=== PATIENT | male | born 1940 | race Caucasian/White ===

== ENCOUNTER 2018-08-07 15:41 | Emergency (ER) | payer MEDICARE, OTHER, SELFPAY ==
[2018-08-07 15:42] VITALS: BP 160/96; PULSE 95; RESP 16; TEMP 36.3; O2SAT 96; BMI 24.3
--- NOTE | 2018-08-07 16:04 | NURSING ---
CALLED [facility] FOR RESULTS OF CAT SCAN DONE AUGUST 04. TALKED TO TERRIE, SHE WILL FAX RESULTS
[2018-08-07] MEDS: Morphine 4 MG/ML Syringe IV (16:24)
[2018-08-07] MEDS: 0.9% Normal Saline 1,000 ML 1000 ML IV (16:24)
[2018-08-07] MEDS: Ondansetron 4 MG/2 ML Vial IV (16:24)
[2018-08-07 16:46] LABS: Absolute Lymphocyte Count 0.85 X10^3/ul (0.83-4.51); Absolute Neutrophil Count 7.7 X10^3/uL (2.0-7.7); Basophil# 0.02 X10^3/uL; Basophil% 0.2 % (0-1); Eosinophil# 0.16 X10^3/uL; Eosinophils% 1.7 % (0-5); Hematocrit 37.4 % (40-54); Hemoglobin 12.6 g/dl (13.0-16.5); Lymphocyte # 0.85 X10^3/ul (4.0); Lymphocyte % 8.8 % (19-41); Mean Corp Hgb Conc 33.7 g/gl (32-36); Mean Corpuscular Hgb 32.5 pg (27.0-32.0); Mean Corpuscular Volume 96.4 fL (80-94); Mean Platelet Vol. 10.7 fl (6.2-12.0); Monocyte# 0.86 X10^3/uL; Monocyte% 8.9 % (0-10); Neutrophil # 7.72 X10^3/uL (2.7-7.7); Neutrophil % 80.1 % (47-70); Platelet Count 202 K/mm3 (150-450); RBC Distribution Width CV 13.1 % (11.6-14.6); RBC Distribution Width SD 45.8 fl (35.1-43.9); Red Blood Count 3.88 M/mm3 (4.6-6.2); White Blood Count 9.6 K/mm3 (4.4-11.0)
[2018-08-07 16:55] LABS: POSITIVE COUNT NO; POSITIVE DIFFERENTIAL NO; POSITIVE MORPHOLOGY NO
[2018-08-07 16:57] LABS: Anion Gap 10 (5-15); BUN 25 mg/dL (7-18); BUN/Creat Ratio 18.9 RATIO (10-20); Chloride 102 mmol/L (98-107); Creatinine, Serum 1.32 mg/dL (0.70-1.30); EST Glomerular Filtration Rate 56 mL/min (>60); Est Glom Filt Rate - Afr Amer 68 mL/min (>60); Estimated Creatinine Clearance 48.39 ml/min; Glucose 117 mg/dL (74-106); Potassium 3.8 mmol/L (3.5-5.1); Sodium Level 139 mmol/L (136-145)
[2018-08-07 17:41] LABS: Bacteria 0 SEEN /hpf (None Seen); Mucous, Urine 0 SEEN /hpf (<or=2+); Squamous Epithelial Cells - UA 0 SEEN /hpf (0-5)
[2018-08-07 17:45] LABS: Color, Urine Yellow (Yellow); Glucose, Dipstick Normal (Normal); Ketone-Dipstick 50 mg/dl (Negative); Leukocyte Esterase-Dipstick 25 /ul (Negative); Nitrite-Dipstick Negative (Negative); Occult Blood-Urine 250 /ul (Negative); Protein-Dipstick 30 mg/dl (Negative); Urine Bilirubin Dipstick Negative (Negative); Urine Clarity Clear (Clear); Urine Urobilinogen 1 mg/dl (Normal)
[2018-08-07 17:54] LABS: White Blood Cells 0-5 SEEN /hpf (0-5)
[2018-08-07 17:55] LABS: Red Blood Cells-Urine 0-5 SEEN /hpf (0-5)
[2018-08-07 19:40] VITALS: BP 164/80; PULSE 88; RESP 16; O2SAT 96
--- NOTE | 2018-08-07 19:51 | ED.RN ---
EDGARD WITH [facility] TRANSFER LINE WAITING TO HERE BACK FROM OUR DOCTOR
--- NOTE | 2018-08-07 19:52 | ED.VISSUMM ---
- ER Visit Summary Date of Service: 08/07/18 Chief Complaint: Flank pain History of Present Illness: The patient is a 78 M with left-sided flank pain. This has been going on for 6 days. He was seen in an outside hospital, [place]. He was found to have a 3 to 4 mm obstructing calculus at the left UVJ with mild hydronephrosis and hydroureter. He also had possible stranding and a possible forniceal rupture. He was treated with oxycodone and Flomax and referred to outpatient follow-up with urology. He presents today because he had recurrent and severe pain. No other associated symptoms. Physical Examination: Afebrile and vital signs are unremarkable. Patient has left flank and left CVA tenderness to palpation. Heart regular. Lungs clear. Skin appears normal. Test Results: White count 12.6. Glucose 117, BUN 25, creatinine 1.32. Urinalysis showed 25 leukocyte esterase, 250 blood, 0-5 white cells and 0-5 red cells. Emergency Department Course and Treatment: Patient was treated with fluids, morphine, and Zofran while awaiting results. I discussed his imaging results with Dr. Melton who informed me that she does not admit or care for male urology patients. Our other urologist is not on-call today. I did not find any indication to repeat the imaging. On reevaluation, patient was still having some pain and did not feel comfortable going home. He would like to be admitted to the hospital for pain control. I advised him that we do not have a urologist balloon artist today, and he requested [facility]. We are awaiting transfer. We waited over an hour to hear back from [place]. Her census was full and they said we could be waiting until tomorrow for a bed. Patient was notified. He said he did not want to wait that long. He declined transfer to other facilities. He is feeling better and would like to try to go home. He will continue his home medications. Referred to Dr. Montejo. Call tomorrow for follow-up. If he is unavailable, he has a follow-up appointment for Sunday with a urologist in the [facility]. If he cannot make it until Sunday, he was advised to return to the nearest ER for reevaluation and possible admission or transfer for inpatient care. Treatment Plan: As above Disposition: Discharge Impression: 1. Left ureteral colic This note was generated with [employer] dictation software. It may contain incorrect words, spelling, and punctuation that were not noted in review of the chart prior to signing ED Disposition - Plan for ED Patient: Referrals: Sheree Santiago DO [Primary Care Provider] -
--- NOTE | 2018-08-07 19:58 | ED.DCSUM_ITS ---
- ER Visit Summary Date of Service: 08/07/18 Chief Complaint: Flank pain History of Present Illness: The patient is a 78 M with left-sided flank pain. This has been going on for 6 days. He was seen in an outside hospital, [place]. He was found to have a 3 to 4 mm obstructing calculus at the left UVJ with mild hydronephrosis and hydroureter. He also had possible stranding and a possible forniceal rupture. He was treated with oxycodone and Flomax and referred to outpatient follow-up with urology. He presents today because he had recurrent and severe pain. No other associated symptoms. Physical Examination: Afebrile and vital signs are unremarkable. Patient has left flank and left CVA tenderness to palpation. Heart regular. Lungs clear. Skin appears normal. Test Results: White count 12.6. Glucose 117, BUN 25, creatinine 1.32. Urinalysis showed 25 leukocyte esterase, 250 blood, 0-5 white cells and 0-5 red cells. Emergency Department Course and Treatment: Patient was treated with fluids, morphine, and Zofran while awaiting results. I discussed his imaging results with Dr. Melton who informed me that she does not admit or care for male urology patients. Our other urologist is not on-call today. I did not find any indication to repeat the imaging. On reevaluation, patient was still having some pain and did not feel comfortable going home. He would like to be admitted to the hospital for pain control. I advised him that we do not have a urologist gas station manager today, and he requested [facility]. We are awaiting transfer. We waited over an hour to hear back from [place]. Her census was full and they said we could be waiting until tomorrow for a bed. Patient was notified. He said he did not want to wait that long. He declined transfer to other facilities. He is feeling better and would like to try to go home. He will continue his home medications. Referred to Dr. Montejo. Call tomorrow for follow-up. If he is unavailable, he has a follow-up appointment for Sunday with a urologist in the [facility]. If he cannot make it until Sunday, he was advised to return to the nearest ER for reevaluation and possible admission or transfer for inpatient care. Treatment Plan: As above Disposition: Discharge Impression: 1. Left ureteral colic This note was generated with [employer] dictation software. It may contain incorrect words, spelling, and punctuation that were not noted in review of the chart prior to signing ED Disposition - Plan for ED Patient: Referrals: Sheree Santiago DO [Primary Care Provider] -
--- NOTE | 2018-08-07 20:31 | ED.DEP ---
ED Disposition - Plan for ED Patient: Instructions: ED Stone Renal W Colic Referrals: Sheree Santiago DO [Primary Care Provider] - Nj Montejo MD [STAFF PHYSICIAN] -
[2018-08-07 20:41] VITALS: RESP 16
--- NOTE | 2018-08-07 20:42 | ED.RN ---
REVIEWED D/C INSTRUCTIONS, FOLLOW UP CARE, AND S/S THAT WOULD WARRANT A RETURN TO THE ED WITH PT. PT VERBALIZED AN UNDERSTANDING AND DENIES FURTHER QUESTIONS FOR THIS RN. PT SKIN P/W/D, RESP EVEN AND UNLABORED, PT A&O X 3, NO DISTRESS NOTED. PT AMBULATED OUT OF ED, GAIT STEADY.
== END 2018-08-07 20:43 | disposition home or self-care (01) ==
LOC: ED 16:39
PROVIDERS: Emergency Provider Emergency Medicine; Family Provider Family Medicine; PCP Family Medicine
DX: N13.2 Hydronephrosis with renal and ureteral calculous obstruction (principal); Z87.442 Personal history of urinary calculi
CPT/HCPCS: 80048; 81001; 85025; 96361; 96374; 96375; 99283; J7030; A4216; J2405

== ENCOUNTER 2018-08-14 11:44 | Day surgery (SDC) | payer MEDICARE, OTHER, SELFPAY ==
[2018-08-14 12:11] VITALS: BP 156/82; PULSE 68; RESP 16; TEMP 36.4; O2SAT 100; BMI 23.7
--- NOTE | 2018-08-14 13:55 | CALC_PTH ---
PATIENT: BRAVO LEE Jr. LOC: [facility] U#:[id number] AGE/SX: 78/M ROOM: RE08/14/[address]: Dr. Nj Montejo MD : [id number] BED: DIS: 08/14/2018 SPEC #: [id number] RECD: 08/14/18 15:30 STATUS: ADELINA FELIPA #: [id number] MIGEL: 08/14/18 13:[address]: Nj Montejo DEPT: SURGICAL PATHOLOGY RECD BY: Lefty Garrison ENTERED: 08/15/18 11:00 SP TYPE: Calculi OTHR DR: Dr. Sheree Whatley, DO Tissues: CALCULI Procedures: Surgery Specimen Level I HEADER OPERATION: Cystoscopy, left ureteroscopy, left retrograde PRE-OP DIAGNOSIS: Left ureteral calculus TISSUE SUBMITTED: Left ureteral calculus fragment GROSS DIAGNOSIS Fragments of stone, clinically left ureteral calculus fragments (gross only). SJ:kianna 08/15/18 COMMENT If chemical analysis is requested on this specimen, please notify the laboratory. GROSS DESCRIPTION Received is one container labeled with the patient's name and designated left ureteral calculus fragment. The specimen consists of two fragments of brown irregular stones measuring 0.1 and 0.3 x 0.3 x 0.2 cm. The entire specimen is saved in case chemical analysis is requested. / FRANCESCO:kianna 08/15/18 CPT: 99442
[2018-08-14] MEDS: Ketorolac 15 MG/ML Vial IV (14:15)
--- NOTE | 2018-08-14 14:15 | DCINST_ITS ---
Discharge Diet: Light diet - advance as tolerated Discharge Activity: Return to Normal Activity Allergies/Adverse Reactions: Allergies ciprofloxacin [From Cipro] Allergy (Verified 08/13/18 08:03) Hives Medications to take at Discharge Multivitamin with Minerals [Multiple Vitamin] 1 each PO DAILY 08/07/18 [place]-3 Fatty Acids/Fish Oil [Fish Oil 1,000 mg Capsule] 1 each PO DAILY 08/07/18 Simvastatin 20 mg PO QHS 08/07/18 Aspirin [Adult Low Dose Aspirin EC] 81 mg PO DAILY 08/13/18 Oxycodone HCl/Acetaminophen [Oxycodone-Acetaminophen 5-325] 1 each PO Q6H PRN PRN 08/13/18 Pyridoxine HCl (Vitamin B6) [Vitamin B-6] 100 mg PO DAILY 08/13/18 Acetaminophen [Tylenol Extra Strength] 500 mg PO Q4H PRN PRN #20 tab 08/14/18 Cephalexin [Keflex] 500 mg PO Q8 #15 cap 08/14/18 Ibuprofen 600 mg PO Q6H PRN PRN #20 tab 08/14/18 Phenazopyridine [Pyridium] 100 mg PO TID #15 tab 08/14/18 The following prescriptions were given: Acetaminophen [Tylenol Extra Strength] 500 mg PO Q4H PRN PRN #20 tab PRN Reason: Pain Ibuprofen 600 mg PO Q6H PRN PRN #20 tab PRN Reason: Pain Cephalexin [Keflex] 500 mg PO Q8 #15 cap Phenazopyridine [Pyridium] 100 mg PO TID #15 tab Primary Care Physician: Sheree Santiago DO [Primary Care Provider] - Test Results: Test results from this visit will be discussed in further detail at your follow- up appointment, if applicable. Please Follow Up With: Nj Montejo MD When: please call to make an appointment.
[2018-08-14] MEDS: Cefazolin 2 GM in 0.9% Normal Saline 100 ML IV (14:19)
--- NOTE | 2018-08-14 14:52 | PCM.OPRPT ---
Report of Operation Date of Procedure: 08/14/18 Pre-Operative Diagnosis: Left ureteral calculi Post-Operative Diagnosis: The same Surgery/Procedure Performed:: cystoscopy, left retrograde pyelogram and interpretation of fluoroscopic images, balloon dilation of the left ureter, left ureteroscopy and extraction of stone and stent placement. Description of Surgical Findings:: 78-year-old male presented the office with an obstructing stone in the distal ureter that failed to pass it spontaneously been having pain off and on therefore we talked about the options of management including observation or removal of the stone with endoscopic procedure. Patient was taken back to the operating room and smooth induction of general anesthesia he was placed in dorsolithotomy position. The penis and testicles are prepped and draped in usual sterile fashion. Went into the bladder with a 21 Korean rigid cystourethroscope. 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 I found that the ureteral orifice was extremely inflamed and he could see the stone peeping out the orifice I put a wire up next to the stone I balloon dilated the ureter and then went away ureteroscope and then using ureteroscope was able to extract the stone did not have these a basket, after extracting the stone from the ureter then it went up to the kidney performed a retrograde pyelogram inspected the upper pole midpole lower pole the kidney no other stones were seen worked my way down the ureter lots of inflammation in the distal part of the ureter but no other stone fragments were visualized. I put a wire up in the left side of the kidney and over the wire place a stent and left the string of the stent for easy extraction a few weeks patient bladder was drained anesthetic was reversed plan to see him next week to get the stent out. Type of Anesthesia:: General Drains: stent left side. - Admit VTE Documentation VTE Present on Admission: No VTE Mechan Device Prophylaxis: SCD's
[2018-08-14 15:02] VITALS: BP 108/68; BP 156/82; PULSE 56; RESP 16; TEMP 36.4; O2SAT 93
[2018-08-14 15:15] VITALS: BP 121/67; BP 156/82; PULSE 56; RESP 16; O2SAT 98
[2018-08-14 15:31] VITALS: BP 134/90; BP 156/82; PULSE 57; RESP 16; TEMP 36.1; O2SAT 98
[2018-08-14 16:40] VITALS: BP 156/82; BP 178/74; PULSE 52; RESP 16; TEMP 36.1; O2SAT 98
[2018-08-14 17:16] VITALS: BP 156/82; BP 178/74; PULSE 52; RESP 16; TEMP 36.1; O2SAT 98
== END 2018-08-14 17:21 | disposition home or self-care (01) ==
LOC: SDC 11:46 → AC 11:50
PROVIDERS: Family Provider Family Medicine; PCP Family Medicine; Referring Provider Urology; Visit Provider Urology
PROC: 0TJ98ZZ Inspection of Ureter, Via Natural or Artificial Opening Endoscopic (ICD-10-PCS; CPT 52352; principal; 2018-08-14 13:45)
DX: N13.2 Hydronephrosis with renal and ureteral calculous obstruction (principal); E78.01 Familial hypercholesterolemia; Z79.82 Long term (current) use of aspirin; Z79.899 Other long term (current) drug therapy; Z87.891 Personal history of nicotine dependence
CPT/HCPCS: 00910; 52332; 52344; 52352; 76000; 88300; J7120; C1769; C2617; J2405

== ENCOUNTER → 2018-10-04 10:39 | Outpatient (CLI) | payer MEDICARE, OTHER, SELFPAY ==
[2018-10-04 12:23] LABS: Absolute Neutrophil Count 17.7 X10^3/uL (2.0-7.7); Basophil# 0.07 X10^3/uL; Basophil% 0.4 % (0-1); Eosinophil# 0.04 X10^3/uL; Eosinophils% 0.2 % (0-5); Hematocrit 37.5 % (40-54); Hemoglobin 12.1 g/dL (13.0-16.5); Lymphocyte % 4.5 % (19-41); Mean Corp Hgb Conc 32.3 g/dL (32-36); Mean Corpuscular Hgb 32.3 pg (27.0-32.0); Mean Platelet Vol. 10.6 fl (6.2-12.0); Monocyte% 4.5 % (0-10); NRBC Flagged by Analyzer 0 % (0-5); Neutrophil # 17.67 X10^3/uL (2.7-7.7); Neutrophil % 88.4 % (47-70); Platelet Count 367 K/mm3 (150-450); RBC Distribution Width SD 51.3 fl (35.1-43.9); Red Blood Count 3.75 M/mm3 (4.6-6.2)
[2018-10-04 12:36] LABS: ALB/GLOB Ratio 0.5 RATIO (0.9-2.4); AST(SGOT) 61 U/L (15-37); Alanine Aminotransfer ALT/SGPT 94 U/L (16-61); Albumin, Serum 2.7 g/dL (3.2-5.0); Alkaline Phosphatase 125 U/L (45-117); Anion Gap 5 (5-15); BUN 19 mg/dL (7-18); BUN/Creat Ratio 13.4 RATIO (10-20); Chloride 97 mmol/L (98-107); Creatinine, Serum 1.42 mg/dL (0.70-1.30); EST Glomerular Filtration Rate 51 mL/min (>60); Est Glom Filt Rate - Afr Amer 62 mL/min (>60); Globulin 5.8 g/dL (2.2-4.2); Glucose 121 mg/dL (74-106); Potassium 4.2 mmol/L (3.5-5.1); Protein, Total 8.5 g/dL (6.4-8.2); Sodium Level 130 mmol/L (136-145); Thyroid Stim Hormone (TSH) 2.14 uIU/mL (0.358-3.74)
== END ==
PROVIDERS: Family Provider Family Medicine; PCP Family Medicine; Visit Provider Family Medicine Geriatric Medicine
DX: R53.83 Other fatigue (principal)
CPT/HCPCS: 36415; 80053; 84443; 85025

== ENCOUNTER → 2018-10-10 07:28 | Outpatient (CLI) | payer MEDICARE, OTHER, SELFPAY ==
--- NOTE | 2018-10-10 07:30 | US_ITS ---
PROCEDURES: ULTRASOUND AORTA REASON FOR EXAM: Male, 78 years old. Screening TECHNIQUE: Ultrasound evaluation of the aorta was performed with real-time and static solis-scale imaging. COMPARISON: None. FINDINGS: There is no elongation or tortuosity of the abdominal aorta. Aorta measures: Proximal 1.9 cm. Middle 1.3 cm. Distal 1.5 cm. Aorta measure transversely: Proximal 2.1 cm. Middle 1.7 cm. Distal 1.9 cm. Right iliac artery measures: 0.9 cm. Right iliac artery measure transversely: 1.2 cm. Left iliac artery measures: 0.9 cm. Left iliac artery measure transversely: 1.2 cm. There is no demonstrated aneurysm.. US/Aorta IMPRESSION: No sonographic evidence of AAA or dissection Electronically Signed: Morgan Olvera MD at 16:48 EDT , Service support ,
== END ==
PROVIDERS: Family Provider Family Medicine; PCP Family Medicine; Referring Provider Family Medicine Geriatric Medicine; Visit Provider Family Medicine Geriatric Medicine
DX: I71.4 Abdominal aortic aneurysm, without rupture (principal)
CPT/HCPCS: 76775

== ENCOUNTER → 2018-10-10 09:28 | Outpatient (CLI) | payer MEDICARE, OTHER, SELFPAY ==
--- NOTE | 2018-10-10 09:42 | US_ITS ---
STUDY: ABDOMINAL ULTRASOUND - RIGHT UPPER QUADRANT REASON FOR VISIT: Male, 78 years old. Right upper quadrant pain, hiccups TECHNIQUE: Ultrasound evaluation of the right upper quadrant was performed with real-time and static solis-scale imaging. TECHNICAL QUALITY: Limited. Examination limited by bowel gas. COMPARISON: None. FINDINGS: Liver: The liver measures 16.75 cm. There is increased echogenicity consistent with fatty infiltration. The bile ducts are within normal limits. There is hepatic color flow. The direction of portal flow is hepatopetal. There is no demonstrated mass lesion. Gallbladder: Normal distended gallbladder. The gallbladder wall measures 1.9 mm. There is a negative sonographic Collier's sign. There is no pericholecystic fluid. There are no gallstones. Common Bile Duct (C.B.D.): The common bile duct measures 3.7 mm. Pancreas: Visualized pancreas is sonographically normal Right Kidney: Normal size of the right kidney. The right kidney measures 13.8 x 5.7 x 4.9 cm. Normal renal cortex. The right cortex measures 1.7 cm. 8.1 cm renal cyst. There is no right hydronephrosis. US/Abdomen Limited IMPRESSION: Fatty infiltration of liver, no discrete lesion 8.1 cm right renal cyst Electronically Signed: Morgan Olvera MD at 18:09 EDT , Service support ,
--- NOTE | 2018-10-10 09:43 | RAD_ITS ---
STUDY: X-RAY CHEST REASON FOR EXAM: Male, 78 years old. Wheezing x2 days TECHNIQUE: PA and lateral views of the chest. COMPARISON: None. FINDINGS: There are interstitial fibrotic changes of the lungs. There is no demonstrated pleural abnormality. Normal size heart. Normal mediastinum and fred. Normal visualized pulmonary arteries. Normal visualized aortic arch and descending thoracic aorta. Normal visualized thoracic spine. Normal visualized ribs, clavicles, and shoulders. There is no demonstrated abnormality of the visualized soft tissue structures of the upper abdomen. RAD/Chest PA and Lateral IMPRESSION: Chronic interstitial changes, no superimposed acute pulmonary process Electronically Signed: Morgan Olvera MD at 18:11 EDT , Service support ,
--- NOTE | 2018-10-10 09:43 | RAD_ITS ---
STUDY: X-RAY - ABDOMEN/PELVIS REASON FOR EXAM: Male, 78 years old. Flank pain TECHNIQUE: AP supine and upright views of the abdomen and pelvis. COMPARISON: None. FINDINGS: Normal visualized lung bases. There is an unremarkable bowel gas pattern. There is no demonstrated free abdominal air. The visualized liver, spleen and kidneys are grossly normal in size and morphology. Normal soft tissue structures. Degenerative bony changes. RAD/Abdomen Single View IMPRESSION: No demonstrated calcification overlying either renal shadow, or along the expected course of either ureter. However, one could be obscured by the overlying bowel gas and stool Degenerative bony changes Electronically Signed: Morgan Olvera MD at 18:07 EDT , Service support ,
[2018-10-10 12:55] LABS: ALB/GLOB Ratio 0.5 RATIO (0.9-2.4); AST(SGOT) 72 U/L (15-37); Alanine Aminotransfer ALT/SGPT 150 U/L (16-61); Albumin, Serum 2.7 g/dL (3.2-5.0); Alkaline Phosphatase 99 U/L (45-117); Anion Gap 7 (5-15); BUN 31 mg/dL (7-18); BUN/Creat Ratio 27.9 RATIO (10-20); Calcium,Total 10.2 mg/dL (8.5-10.1); Chloride 98 mmol/L (98-107); Creatinine, Serum 1.11 mg/dL (0.70-1.30); EST Glomerular Filtration Rate 68 mL/min (>60); Est Glom Filt Rate - Afr Amer 83 mL/min (>60); Globulin 5.7 g/dL (2.2-4.2); Glucose 132 mg/dL (74-106); Potassium 4.5 mmol/L (3.5-5.1); Protein, Total 8.4 g/dL (6.4-8.2); Sodium Level 133 mmol/L (136-145)
[2018-10-11 04:06] LABS: HEPATITIS B SURFACE AG Negative (Negative); Hepatitis A AB, Total Negative (Negative); Hepatitis A IgM Antibody Negative (Negative); Hepatitis B Core AB IgM Negative (Negative); Hepatitis B Core Ab Total Negative (Negative); Hepatitis C Ab <0.1 s/co ratio (0.0-0.9)
[2018-10-11 15:38] LABS: Hep B Surface Antibodies Reactive (.)
== END ==
PROVIDERS: Family Provider Family Medicine; PCP Family Medicine; Visit Provider Family Medicine Geriatric Medicine
DX: R74.8 Abnormal levels of other serum enzymes (principal); R94.5 Abnormal results of liver function studies; I71.4 Abdominal aortic aneurysm, without rupture
CPT/HCPCS: 36415; 71046; 74018; 76705; 76775; 80053; 86704; 86705; 86706; 86708; 86709; 86803; 87340

== ENCOUNTER 2018-10-13 10:57 | Emergency (ER) | payer MEDICARE, OTHER, SELFPAY ==
[2018-10-13 10:58] VITALS: BP 128/80; PULSE 103; RESP 18; TEMP 36.2; O2SAT 96; BMI 21.9
[2018-10-13] MEDS: Pantoprazole Sodium 40 MG Tablet PO (11:36)
--- NOTE | 2018-10-13 13:20 | ED.DCSUM_ITS ---
History of Present Illness Informant: Patient, Significant Other Onset: Days - 5 days Context: Gradual Onset Timing: Continuous Quality: hiccup Location: stomach/chest Current Severity: Moderate Maximum Severity: Moderate Worsened by: nothing Relieved by: nothing Associated Symptoms: denies Prior similar symptoms: Yes Recent Illness/Hospitalization: No <SalimaruiMartin - Last Filed: 10/13/18 13:52> <Rakel Olivarez - Last Filed: 10/13/18 15:08> Chief Complaint: Shortness of Breath Past Medical History Smoking Status: Former smoker <SalimaruiMartin - Last Filed: 10/13/18 13:52> <Rakel Olivarez - Last Filed: 10/13/18 15:08> - Allergies and Home Meds Allergies/Adverse Reactions: Allergies ciprofloxacin [From Cipro] Allergy (Verified 10/13/18 10:58) Hives Primary Care Physician: Colin Castillo Chi, MD [Primary Care Provider] - Physical Exam Vital Signs/Narrative: Vital Signs Temp Pulse Resp BP Pulse Ox 10/13/18 10:58 97.1 F L 103 H 18 128/80 H 96 <IsraelMartin - Last Filed: 10/13/18 13:52> Vital Signs/Narrative: Vital Signs Pulse Resp BP Pulse Ox 10/13/18 13:28 68 15 125/74 H 98 <Rakel Olivarez - Last Filed: 10/13/18 15:08> Diagnostic/Tx/Re-eval - Medical Decision Making Viewed patient's chest and abdominal x-rays from 2 days ago that were unremarkable. Do not feel repeat imaging is indicated. Patient was given an oral Protonix which significantly improved his symptoms. He is breathing normally, tolerating by mouth, has no hiccups at this time and feels much better. He is requesting discharge. We will start him on Protonix. Advise close outpatient follow-up with his primary care physician in the next 2 to 3 days or he is to return to the emergency department. <SalimaruiMartin - Last Filed: 10/13/18 13:52> - Medical Decision Making Patient presents with a 5-day history of hiccups. He has been seen by his PCP. He had x-rays that were unremarkable. He was started on Haldol by his PCP with no improvement. Patient sitting upright in bed no acute distress. Heart is regular rate and r hythm. Lung sounds are clear. Abdomen is soft nontender. Patient had been given a dose of Protonix before my evaluation. At this time hiccups are resolved. He will be given prescription for Protonix. He will follow with his primary care physician. <Rakel Olivarez - Last Filed: 10/13/18 15:08> ED Disposition <Martin Wood - Last Filed: 10/13/18 13:52> <Rakel Olivarez - Last Filed: 10/13/18 15:08> - Plan for ED Patient: Disposition: Home or Assisted Living Diagnosis: Hiccups Instructions: Hiccups Prescriptions: Pantoprazole Sodium [Protonix] 40 mg PO DAILY #30 tab Prescription Printed Referrals: Colin Castillo Chi, MD [Primary Care Provider] -
[2018-10-13 13:28] VITALS: BP 125/74; PULSE 68; RESP 15; O2SAT 98
== END 2018-10-13 13:30 | disposition home or self-care (01) ==
PROVIDERS: Emergency Provider Physician Assistant Medical; Family Provider Family Medicine Geriatric Medicine; PCP Family Medicine Geriatric Medicine
DX: R06.6 Hiccough (principal); Z87.891 Personal history of nicotine dependence
CPT/HCPCS: 99283

== ENCOUNTER 2018-10-14 11:20 | Inpatient (IN) | payer MEDICARE, OTHER, SELFPAY ==
[2018-10-13 10:58] VITALS: BMI 21.9
[2018-10-14] VITALS (29 sets, daily range): BP systolic 57–116; BP diastolic 39–84; PULSE 103–120; RESP 12–32; TEMP 35.1–36.4; O2SAT 87–93; BMI 22.6; BMI 21.9
--- NOTE | 2018-10-14 11:53 | RAD_ITS ---
STUDY: X-RAY CHEST REASON FOR EXAM: Male, 78 years old. Shortness of breath. TECHNIQUE: Single AP portable view of the chest. COMPARISON: Comparison is made with prior study dated October 10, 2018. FINDINGS: EKG electrode are seen. There now is evidence of increased markings in the posterior medial segment of the left lower lobe suggestive of atelectasis and/or infiltrate. The right lung is clear. There is no demonstrated pleural abnormality. Normal size heart. Normal mediastinum and fred. Normal visualized pulmonary arteries. There is atherosclerotic calcification of the aortic arch with tortuosity. There are diffuse degenerative changes of the visualized thoracic spine. Normal visualized ribs, clavicles, and shoulders. There is no demonstrated abnormality of the visualized soft tissue structures of the upper abdomen. RAD/Chest 1 View (Portable) IMPRESSION: Increased markings at the left lung base suggestive of atelectasis and/or early infiltrate. Follow-up is recommended. Electronically Signed: Jimmy Galarza, at 12:38 EDT , Service support ,
--- NOTE | 2018-10-14 11:53 | EKG12_ITS ---
Test Reason : AIRWAY Blood Pressure : / mmHG Vent. Rate : 109 BPM Atrial Rate : 109 BPM P-R Int : 140 ms QRS Dur : 080 ms QT Int : 342 ms P-R-T Axes : 066 044 073 degrees QTc Int : 460 ms Sinus tachycardia Possible Left atrial enlargement Borderline ECG Confirmed by JAMIE BOUDREAUX, VINCE ([id number]), restaurant expeditor BRANDON COVARRUBIAS ([id number]) on 10/16/2018 8:54:50 AM Referred By: Confirmed By:VINCE AYALA MD
--- NOTE | 2018-10-14 11:58 | NURSING ---
NO OLD EKGS
[2018-10-14 12:08] LABS: Absolute Lymphocyte Count 0.94 X10^3/uL (0.83-4.51); Basophil# 0.08 X10^3/uL; Basophil% 0.4 % (0-1); Eosinophil# 0.03 X10^3/uL; Eosinophils% 0.2 % (0-5); Hematocrit 46.5 % (40-54); Hemoglobin 15.7 g/dL (13.0-16.5); Lymphocyte # 0.94 X10^3/ul (4.0); Mean Corp Hgb Conc 33.8 g/dL (32-36); Mean Corpuscular Hgb 32.2 pg (27.0-32.0); Mean Corpuscular Volume 95.3 fL (80-94); Mean Platelet Vol. 10.8 fl (6.2-12.0); Monocyte# 0.56 X10^3/uL; NRBC Flagged by Analyzer 0 % (0-5); Neutrophil % 90.4 % (47-70); Platelet Count 367 K/mm3 (150-450); RBC Distribution Width CV 13.3 % (11.6-14.6); RBC Distribution Width SD 46.7 fl (35.1-43.9); Red Blood Count 4.88 M/mm3 (4.6-6.2); White Blood Count 18.8 K/mm3 (4.4-11.0)
[2018-10-14 12:15] LABS: International Normalized Ratio 1.2; Partial Thromboplast Time 26.5 Seconds (24.1-36.2); Prothrombin Time (Protime)PT. 15.1 SECONDS (11.7-14.9)
[2018-10-14 12:22] LABS: AST(SGOT) 21 U/L (15-37); Alanine Aminotransfer ALT/SGPT 99 U/L (16-61); Albumin, Serum 2.9 g/dL (3.2-5.0); Alkaline Phosphatase 82 U/L (45-117); Anion Gap 12 (5-15); BUN 60 mg/dL (7-18); BUN/Creat Ratio 31.7 RATIO (10-20); Bilirubin, Direct 0.35 mg/dL (0.00-0.30); Calcium,Total 8.9 mg/dL (8.5-10.1); Chloride 91 mmol/L (98-107); Creatinine, Serum 1.89 mg/dL (0.70-1.30); EST Glomerular Filtration Rate 37 mL/min (>60); Est Glom Filt Rate - Afr Amer 45 mL/min (>60); Estimated Creatinine Clearance 33.15 ml/min; Globulin 4.5 g/dL (2.2-4.2); Glucose 235 mg/dL (74-106); Lipase 479 U/L (73-393); Potassium 4.5 mmol/L (3.5-5.1); Protein, Total 7.4 g/dL (6.4-8.2); Sodium Level 130 mmol/L (136-145)
--- NOTE | 2018-10-14 12:27 | CT_ITS ---
STUDY: CT ABDOMEN AND PELVIS WITHOUT CONTRAST REASON FOR EXAM: Male, 78 years old. Vomiting bile. Elevated white count. Dysphagia. Abdominal pain. RADIATION DOSAGE (If Supplied By Facility): CTDIvol = ( 17.38 ) mGy, DLP = ( 2016.57 ) mGycm TECHNIQUE: Transaxial images were obtained from the dome of the diaphragm to the symphysis pubis without oral contrast, and without intravenous contrast. Sagittal and coronal images were reconstructed. Individualized dose optimization techniques were used for this CT. COMPARISON: None. FINDINGS: Patchy alveolar disease in both lower lobes. This is worse at the left lung base. Follow-up is recommended. Coronary artery calcification. Normal liver. Normal gallbladder and extrahepatic biliary system. Normal spleen. Normal pancreas. Normal bilateral adrenal glands. There is a 7.1 cm x 6 cm cyst in the upper pole of the right kidney. Normal left kidney. Fluid distention of the distal esophagus. Fluid distention of the stomach. There are dilated loops of the small intestine with a non-distended colon consistent with a small bowel obstruction. The transition point appears to be in the distal ileum. There are multiple colonic diverticula consistent with diverticulosis. The appendix is visualized and appears normal. There is diffuse atherosclerotic calcification of the abdominal aorta, without a demonstrated aneurysm. Normal inferior vena cava. Normal retroperitoneum. Normal urinary bladder. Normal abdominal wall. There are diffuse degenerative changes of the visualized lumbar spine. Loss of the normal lumbar lordosis. CT/Abdomen/Pelvis W IV Cont ONLY IMPRESSION: Small bowel obstruction with the transition point in the distal ileum. Fluid distention of the stomach and the distal esophagus. Patchy alveolar disease in both lower lobes. Radiographic follow-up is recommended. Electronically Signed: Jimmy Galarza, at 15:04 EDT , Service support ,
--- NOTE | 2018-10-14 12:27 | CT_ITS ---
STUDY: CT CHEST WITH CONTRAST REASON FOR EXAM: Male, 78 years old. Vomiting. Elevated white cell count. RADIATION DOSAGE (If Supplied By Facility): CTDIvol = ( 17.38 ) mGy, DLP = ( 2016.57 ) mGycm TECHNIQUE: Transaxial imaging was performed following intravenous administration of 100 IV Isovue 300. Individualized dose optimization techniques were used for this CT. COMPARISON: None. FINDINGS: Patchy airspace disease at the lung bases worse on the left side. Bibasilar bronchiectasis worse on the left side with dilatation and fluid-filled intermediate stem bronchus on the left side. Aspiration should be ruled out. There is no demonstrated pleural abnormality. Normal heart and pericardium. There are multiple small lymph nodes within the mediastinum, which are normal in size and morphology most compatible with reactive lymph hyperplasia. Normal hilar regions. Normal enhanced pulmonary arteries. Normal aorta arch and descending thoracic aorta. There are multi-level degenerative changes of the thoracic spine. Fluid distended esophagus and fluid distention of the stomach. 6.1 cm x 5.6 cm cyst in the upper pole of the right kidney. 1.1 cm nodular density in the left adrenal gland. CT/Chest WITH Contrast IMPRESSION: Airspace disease in both lower lobes with peribronchial dilatation and the fluid within the bronchial tree in the lower lobes worse on the left lung base. Aspiration should be ruled out. Fluid distention of the esophagus and visualized portion of the stomach. 1.1 cm left adrenal nodule as well as a 5.6 cm x 6.1 cm cyst in the upper pole of the right kidney. CT scan of the abdomen demonstrated small bowel obstruction. Electronically Signed: Jimmy Galarza, at 15:11 EDT , Service support ,
--- NOTE | 2018-10-14 12:27 | CT_ITS ---
STUDY: CT SOFT TISSUE NECK WITH CONTRAST REASON FOR EXAM: Male, 78 years old. Elevated white count. Dysphagia. Vomiting. RADIATION DOSAGE (If Supplied By Facility): CTDIvol = ( 17.38 ) mGy, DLP = ( 2016.57 ) mGycm TECHNIQUE: The patient was scanned in a multi-detector CT scanner. High resolution transaxial imaging was performed following intravenous administration of 100 IV Isovue 300. Sagittal and coronal images were reconstructed. Individualized dose optimization techniques were used for this CT. COMPARISON: None. FINDINGS: Fluid distention of the esophagus. Findings just above the scarring at the lung apices. Normal bilateral parotid glands. Normal bilateral film writer spaces. Normal bilateral parapharyngeal spaces. Normal bilateral carotid spaces. Normal bilateral sublingual and submandibular glands and spaces. Normal visualized nasopharynx. Normal retropharyngeal space. Normal perivertebral space. Normal visualized bilateral faucial tonsils. The visualized tongue, tongue base and oropharynx are normal. The visualized cervical lymph nodes (levels I-) are within normal size limits, and maintain normal morphology. There is no demonstrated solid or cystic mass lesion. There is no abnormal contrast enhancement. Normal epiglottis, bilateral vallecula and hypopharynx. The pre-epiglottic and paraglottic adipose spaces are normal. Normal visualized bilateral piriform sinuses, aryepiglottic folds, vocal cords, and arytenoid-cricoid articulations. Normal subglottic trachea. Normal bilateral lobes of the thyroid gland. Normal visualized pulmonary apices. Normal visualized paranasal sinuses. There is multilevel degenerative changes of the cervical spine. CT/Soft Tissue Neck WITH Contrast IMPRESSION: Fluid distention of the esophagus. Electronically Signed: Jimmy Galarza, at 15:27 EDT , Service support ,
[2018-10-14 12:55] LABS: Lactic Acid 3.2 mmol/L (0.4-2.0)
[2018-10-14] MEDS: 0.9% Normal Saline 1,000 ML 999 ML IV (13:02)
--- NOTE | 2018-10-14 13:34 | RAD_ITS ---
STUDY: X-RAY - ABDOMEN/PELVIS REASON FOR EXAM: Male, 78 years old. Nasogastric tube placement. TECHNIQUE: Single AP view of the abdomen / pelvis. COMPARISON: None. FINDINGS: The tip of the nasogastric tube is coiled in the distal esophagus. Patchy bibasilar infiltrates more prominent at the left lung base. RAD/Abdomen Single View (Portable) IMPRESSION: The tip of the nasogastric tube is coiled in the distal esophagus. Electronically Signed: Jimmy Galarza, at 15:28 EDT , Service support ,
--- NOTE | 2018-10-14 15:00 | RAD_ITS ---
STUDY: X-RAY - ABDOMEN/PELVIS REASON FOR EXAM: Male, 78 years old. Nasogastric tube placement. TECHNIQUE: Single AP view of the abdomen / pelvis. COMPARISON: Comparison is made with prior examination. FINDINGS: The tip of the nasogastric tube is coiled in the distal esophagus. RAD/Abdomen Single View (Portable) IMPRESSION: The tip of the nasogastric tube is coiled in the distal esophagus. Electronically Signed: Jimmy Galarza, at 15:30 EDT , Service support ,
--- NOTE | 2018-10-14 15:31 | HP.PCM_ITS ---
History of Present Illness Date of Admission: 10/14/18 Chief Complaint: GERD The patient is a 78 year old M with no prior abdominal surgical history. He noted belching/GERD for the past 7 days. He has noted no flatus 7 days or bowel movements for 5 days. He was given a a prescription for protonix and diflucan. The patient has beed vomiting for the past 24 hours. He noted persistent symptoms and presented to the [facility] ER. He was found to have significant abdominal distention. WBC count 18.8, elevate d BUN/Cr. CT abdomen and pelvis demonstrated a mid small bowel transition from grossly distended bowel and collapsed distal small bowel. He also underwent CT scan of the chest which demonstrated a distended fluid filled esophagus and fluid in the left bronchus consistent with aspiration. He attempted to void in the ER and became syncopal. A wilburn was placed. NG was attempted twice with return of fluid, but was folded in the esophagus on CXR. He is now on a non rebreather mask., Past Medical History Allergies ciprofloxacin [From Cipro] Allergy (Verified 10/14/18 11:53) Hives Home Medications: Ambulatory Orders Medication Instructions Recorded Fluconazole [Diflucan] 200 mg PO DAILY 10/14/18 Pantoprazole Sodium [Protonix] 40 mg PO BID 10/14/18 RX: Dorzolamide HCL/Timolol 1 drp RIGHT EYE BID 10/14/18 [Cosopt Opth Drops] Travoprost [Travatan Z] 1 drp RIGHT EYE QHS 10/14/18 Surgical History: - - eye procedure, renal stone, no prior abdominal surgery. Smoking Status: Former smoker - *Family History Maternal History Items: - - Patient denies any maternal or paternal family history including heart disease, diabetes, cancer. Paternal History Items: - - Patient denies any marker maternal or paternal family history including heart disease, diabetes or cancer. Review of Systems Unable to obtain accurate/complete ROS d/t: SOB, surgical emergency VTE Information - Inpt Only VTE Present on Admission: No VTE Mechan Device Prophylaxis: SCD's VTE Pharm Prophylaxis ordered?: No - Physical Exam General: Alert Lungs: Diminished, Rhonchi, Short of Breath, Wheezes Cardiovascular: Regular rate, Tachycardic Abdomen: Soft, Distended, Tender Vital Signs Temp Pulse Resp BP Pulse Ox 97.6 F L 112 H 24 H 113/72 93 08/12/19 11:22 10/14/18 11:22 10/14/18 11:22 10/14/18 11:22 10/14/18 12:39 Oxygen Flow Rate (L/min) 6 Oxygen Delivery Method Nasal Cannula Weight: 71.6 kg Body Mass Index (BMI) 22.6 Laboratory Tests Past 24 Hrs 10/14/18 10/14/18 10/14/18 11:30 11:30 11:30 WBC 18.8 H RBC 4.88 Hgb 15.7 Hct 46.5 MCV 95.3 H MCH 32.2 H MCHC 33.8 RDW Std Deviation 46.7 H RDW Coeff of Tristian 13.3 Plt Count 367 MPV 10.8 Immature Gran % (Auto) 1.000 H Neut % (Auto) 90.4 H Lymph % (Auto) 5.0 L Wallace % (Auto) 3.0 Eos % (Auto) 0.2 Baso % (Auto) 0.4 Absolute Neuts (auto) 17.0 H Absolute Lymphs (auto) 0.94 Nucleated RBC % 0 PT 15.1 H INR 1.2 APTT 26.5 Sodium 130 L Potassium 4.5 Chloride 91 L Carbon Dioxide 27.0 Anion Gap 12 BUN 60 H Creatinine 1.89 H Estim Creat Clear Calc 33.15 Est GFR (MDRD) Af Amer 45 L Est GFR (MDRD) Non-Af 37 L BUN/Creatinine Ratio 31.7 H Glucose 235 H Lactic Acid Calcium 8.9 Total Bilirubin 1.20 H Direct Bilirubin 0.35 H AST 21 ALT 99 H Alkaline Phosphatase 82 Troponin I < 0.015 Total Protein 7.4 Albumin 2.9 L Globulin 4.5 H Lipase 479 H 10/14/18 12:00 WBC RBC Hgb Hct MCV MCH MCHC RDW Std Deviation RDW Coeff of Tristian Plt Count MPV Immature Gran % (Auto) Neut % (Auto) Lymph % (Auto) Wallace % (Auto) Eos % (Auto) Baso % (Auto) Absolute Neuts (auto) Absolute Lymphs (auto) Nucleated RBC % PT INR APTT Sodium Potassium Chloride Carbon Dioxide Anion Gap BUN Creatinine Estim Creat Clear Calc Est GFR (MDRD) Af Amer Est GFR (MDRD) Non-Af BUN/Creatinine Ratio Glucose Lactic Acid 3.2 H Calcium Total Bilirubin Direct Bilirubin AST ALT Alkaline Phosphatase Troponin I Total Protein Albumin Globulin Lipase Assessment/Plan small bowel obstruction without prior surgery, leukocytosis, probable aspiration. I plan to perform an exploratory laparotomywith possible bowel resection. The risks, benefits, complications and possible alternatives to surgery were discussed with the patient's family. The patient understands and consents to the procedure. Cory was given the nurse present. Given the fact that the patient had fluid in his left bronchial system and most likely aspirated, I discussed with the patient's family that we would likely the patient abated postoperatively. We are planning for ICU admission.
[2018-10-14] MEDS: Ipratropium/Albuterol Sulfate 3 ML AMPUL.NEB INHALATION ×2 (15:46→16:48)
--- NOTE | 2018-10-14 15:48 | ED.VISSUMM ---
- ER Visit Summary Date of Service: 10/14/18 Chief Complaint: Spitting up bile History of Present Illness: The patient is a 78 M who tells me that last week he contacted his doctor and noted excessive pickups. He was prescribed Protonix Haldol and Diflucan. He had a abdominal x-ray and a chest x-ray that were essentially negative. Also a abdominal ultrasound was ordered which showed fatty infiltration of the liver and a renal cyst. Patient was seen in the emergency department yesterday felt better after Protonix was discharged home. Tells me that now he is spitting up yellow bile. He tells me that he feels he is has a problem in his throat. He denies any abdominal pain or discomfort. He states he does not feel like he can take a deep breath. He has not been eating his drinking as much as he should. He does not have much significant medical history having GERD hypercholesterolemia and kidney stones. He did recently have surgery for kidney stones in August. Other than that he has no abdominal surgeries. Physical Examination: Blood pressure 113/72 heart rate of 112 respirations are 24 pulse ox 89% on 6 L temperature 97.6 Gen: Well-nourished well-developed Head: Normocephalic atraumatic Eyes: Perrl EOMI ENT: TMs clear no rhinorrhea moist mucous membranes there is yellow bile in the patient's mouth. There are yellow stains on his face. Neck: Supple no lymphadenopathy no JVD nontender he seems to have some gurgling in his throat. CVS: Regular rate tachycardic rhythm no murmurs normal S1-S2 Respiratory: He is tachypneic but not in distress and has rhonchi at the bases particularly the left chest nontender Abdomen: The abdomen feels distended but not painful. There are hypoactive bowel sounds. Back: Nontender Extremity: Nontender no edema Skin: Normal color no rash Neuro: alert orientated ?3 CN II-XII intact normal strength sensation Psych: Normal affect normal mood Testing/ED course:: EKG sinus at rate of 109. White count of 18.8. BUN is 60 creatinine 1.89. Lactic acid 3.2. Troponin negative. CT of the neck demonstrated a fluid distended esophagus CT the chest demonstrated fluid-filled esophagus as well as pulmonary changes at the bases concerning for aspiration. CT abdomen pelvis demonstrates a small bowel obstruction with a transition point near the distal ileum. There is difficulty with obtaining images/reading from radiology. After reviewing the films myself I spoke with Dr. Sparks and asked nursing to place a NG tube. Nursing is having difficulty passing the NG tube into the stomach. It seems to be curling backwards at the GE junction however we have received over 1 L of fluid out already. Dr. Sparks would like to take the patient to the operating room. We are giving breathing treatments I will administer Zosyn which should cover abdominal pathology as well as aspiration. Patient and family has been updated. Impression: 1. Acute small bowel obstruction 2. Acute kidney injury 3. Dehydration 4. Aspiration 5. Hypoxemia 6. Critical care time 35 minutes This note was generated with [employer] dictation software. It may contain incorrect words, spelling, and punctuation that were not noted in review of the chart prior to signing ED Disposition - Plan for ED Patient: Referrals: Colin Castillo Chi, MD [Primary Care Provider] -
--- NOTE | 2018-10-14 15:50 | NURSING ---
SURGERY THEN PCU SBO TESSA
[2018-10-14 16:15] LABS: Reflex Lactate? Y
--- NOTE | 2018-10-14 16:38 | CASEMGMT ---
RN CM Assessment Introduced role of RN CM to patient, Patient and family at bedside.? Patient is currently receiving breathing treatment with NGT placed and therefore information obtained by patient . ?Care providers, pharmacy, and demographics verified. Presentation: Seen in ER 10/13/18 for excessive Hiccups, felt better and Dc'd home. C/o spitting up bile and feels like he cannot take a deep breath. Is not eating and drinking as much. Re-Admit: no Barriers/Issues: None PCP: Sheree Santiago Specialists: None [facility]erred [facility]acy[facility] Insurance: [employer], MMO Rx Benefit:?Yes LNOK: Libby Odom LW/HPOA: Yes both, HPOA- Libby Odom Living Arrangements:?Lives with in a 2 story home, live on the main wa. 3-4 steps to enter through side of home. ADL?s: Independent with ambulation and ADLs Transportation: Patient drives, family to transport upon DC and denies any transportation issues. DME: None HHC: None SNF: None Goal: Return home and does not think will have any needs at DC, denies any questions/concerns/issues with DC Planning at this time. Aware CM remains available for any emerging needs. DC PLAN: Home, CM to follow O2 sat for possible Home O2 need. MARSHALL Mcdonnell
--- NOTE | 2018-10-14 17:07 | CON.PCM_ITS ---
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 who presents to the [facility] on 10/14/18 with 1 week history of ongoing excessive hiccups ongoing prompting evaluation per his primary care physician approximately 2 days prior with at that time plain film of his abdomen and chest which were unremarkable, abdominal ultrasound with demonstrated fatty infiltration of the liver and a renal cyst with initiation of Protonix and Diflucan per his primary care physician with reevaluation the following day as continued without improvement and on day of ED presentation onset of worsened nausea, emesis as well as following bouts of emesis dyspnea, wheezing and increased work of breathing per family report. Patient notes that last bowel movement was approximate 4 to 5 days prior and was firm at that point. He denies any bowel movement or flatus since then. He denies any market abdominal discomfort or notable bloating. The ED NG tube was placed. ED evaluation prior to transition to operative intervention included T 97.6, heart rate 112, BP 113/2072, respiratory rate 24, 87% on room air--> 93% on 6 L nasal cannula eventually transition to nonrebreather, CBC with WBC 18.8, hemoglobin 15.7, platelet 367 with left shift, coags with PT 15.1 otherwise unremarkable, CMP with sodium 130, chloride 91, BUN/Cr 60/1.89, glucose 235, lactic acid 3.2, total bilirubin 1.2, direct bilirubin 0.3, AST/ALT 21/99, trop <0.015, lipase 479, blood culture x2 pending per ED, chest x-ray with increased markings left lung base, CT abdomen and pelvis with small bowel obstruction with transition point in the distal ileum with fluid distention of the stomach, distal esophagus with patchy alveolar disease in both lower lobes, CT chest with airspace disease in both lower lobes with peribronchial dilatation and fluid within the bronchial tree in the lower lobes worse on the left lung base, fluid distention of the esophagus and visualized portion of the stomach, 1.1 similar left adrenal nodule as well as 5.6 cm x 6.1 similar cyst in the upper pole of the right kidney, CT soft tissue neck with fluid distention of the esophagus, in the ED patient administered Zosyn, normal saline, DuoNeb therapies. Patient transitioned to the OR per primary admitting service, general surgery, Dr. Sparks with requested evaluation per hospitalist service and plan transition following OR to ICU with continued intubation given pulmonary status. Past Medical History Allergies ciprofloxacin [From Cipro] Allergy (Verified 10/14/18 11:53) Hives Home Medications: Ambulatory Orders Medication Instructions Recorded Dorzolamide HCL/Timolol [Cosopt 1 drp RIGHT EYE BID 10/14/18 Opth Drops] Fluconazole [Diflucan] 200 mg PO DAILY 10/14/18 Pantoprazole Sodium [Protonix] 40 mg PO BID 10/14/18 Travoprost [Travatan Z] 1 drp RIGHT EYE QHS 10/14/18 Surgical History: - - Eye procedure with left eye glasses in place, renal stone intervention. Psychiatric History: No pertinent psych hx Lives: Spouse/ Significant Other Smoking Status: Former smoker Tobacco Use: Non-smoker Alcohol: None Drugs: None - *Family History Maternal History Items: - - Patient denies any maternal or paternal family history including heart disease, diabetes, cancer. Paternal History Items: - - Patient denies any marker maternal or paternal family history including heart disease, diabetes or cancer. Review of Systems Constitutional: Reports: Anorexia, Malaise, Weakness, Fatigue. Denies: Chills, Fever, Weight Change Eyes: Reports: - - Left glass eye. HEENT: Denies: Head Aches, Sinus Congestion, Sinus Drainage Cardiovascular: Reports: Syncope. Denies: Chest Pain, Palpitations Respiratory: Reports: Cough, Shortness of Breath, Shortness of breath at rest, Shortness of breath upon exertion, Wheezing. Denies: Sputum production Gastrointestinal: Reports: Constipation, Nausea, Vomiting. Denies: Abdominal Pain Genitourinary: Denies: Dysuria Musculoskeletal: Denies: Joint Pain, Joint Tenderness Skin: Denies: Rash, Wounds Neurological: Denies: Numbness, Tingling, Focal weakness Psychiatric: Denies: Anxiety, Depression, Homicidal Ideations, Suicidal Ideations Hematologic/ Lymphatic: Denies: Easy Bruising, Easy Bleeding Subjective: Seated upright in the PACU, nonrebreather in place, fatigued appearing. Objective: Physical Examination: General: awake, alert, oriented x 3 and cooperative, seated upright in the PACU bed, fatigued and ill-appearing, nonrebreather in place. Skin: normal color, turgor, no icterus, cyanosis. HEENT: AT/NC, EOM R eye intact with left glass eye in place, R PRRL, dry MM, NGT present, no carotid bruits or JVD noted. Lungs: Coarse, rhonchorous, increased respiratory rate, increased effort, accessory muscle usage present, nonrebreather currently in place. Heart: Tachycardic with regular rhythm; no gallop, rub audible. Abdomen: soft, NTTP spied acute presentation, not markedly distended, absent bowel sounds, no HSM. Extremities: no cyanosis, clubbing, or edema. Neurological: patient awake, alert, oriented x 3; cognitive function intact; R pupil reactive to light; cranial nerves II-XII grossly normal aside evident left eye debility with glass eye in place, moving all 4 extremities, no focal deficits, strength severely global decrease secondary to acute presentation. Psychiatric: affect appears ill, respiratory distress evident, no acute evidence of depressive or anxiety feelings. - Physical Exam Vital Signs Temp Pulse Resp BP Pulse Ox 97.6 F L 111 H 28 H 116/81 H 88 10/14/18 11:22 10/14/18 16:26 10/14/18 16:26 10/14/18 16:26 10/14/18 16:26 Oxygen Flow Rate (L/min) 6 Oxygen Delivery Method Non-Rebreather Weight: 157 lb 13.616 oz Body Mass Index (BMI) 22.6 Laboratory Tests Past 24 Hrs 10/14/18 10/14/18 10/14/18 11:30 11:30 11:30 WBC 18.8 H RBC 4.88 Hgb 15.7 Hct 46.5 MCV 95.3 H MCH 32.2 H MCHC 33.8 RDW Std Deviation 46.7 H RDW Coeff of Tristian 13.3 Plt Count 367 MPV 10.8 Immature Gran % (Auto) 1.000 H Neut % (Auto) 90.4 H Lymph % (Auto) 5.0 L [place] % (Auto) 3.0 Eos % (Auto) 0.2 Baso % (Auto) 0.4 Absolute Neuts (auto) 17.0 H Absolute Lymphs (auto) 0.94 Nucleated RBC % 0 PT 15.1 H INR 1.2 APTT 26.5 Sodium 130 L Potassium 4.5 Chloride 91 L Carbon Dioxide 27.0 Anion Gap 12 BUN 60 H Creatinine 1.89 H Estim Creat Clear Calc 33.15 Est GFR (MDRD) Af Amer 45 L Est GFR (MDRD) Non-Af 37 L BUN/Creatinine Ratio 31.7 H Glucose 235 H Lactic Acid Calcium 8.9 Total Bilirubin 1.20 H Direct Bilirubin 0.35 H AST 21 ALT 99 H Alkaline Phosphatase 82 Troponin I < 0.015 Total Protein 7.4 Albumin 2.9 L Globulin 4.5 H Lipase 479 H 10/14/18 12:00 WBC RBC Hgb Hct MCV MCH MCHC RDW Std Deviation RDW Coeff of Tristian Plt Count MPV Immature Gran % (Auto) Neut % (Auto) Lymph % (Auto) [place] % (Auto) Eos % (Auto) Baso % (Auto) Absolute Neuts (auto) Absolute Lymphs (auto) Nucleated RBC % PT INR APTT Sodium Potassium Chloride Carbon Dioxide Anion Gap BUN Creatinine Estim Creat Clear Calc Est GFR (MDRD) Af Amer Est GFR (MDRD) Non-Af BUN/Creatinine Ratio Glucose Lactic Acid 3.2 H Calcium Total Bilirubin Direct Bilirubin AST ALT Alkaline Phosphatase Troponin I Total Protein Albumin Globulin Lipase Assessment/Plan The patient is a 78 y/o M w/ no marked PMHx: GERD, HLD, 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 who presents to the [facility] on 10/14/18 with 1 week history of ongoing excessive hiccups ongoing prompting evaluation per his primary care physician approximately 2 days prior with at that time plain film of his abdomen and chest which were unremarkable, abdominal ultrasound with demonstrated fatty infiltration of the liver and a renal cyst with initiation of Protonix and Diflucan per his primary care physician with reevaluation the following day as continued without improvement and on day of ED presentation onset of worsened nausea, emesis as well as following bouts of emesis dyspnea, wheezing and increased work of breathing per family report. 1. Acute severe sepsis secondary to acute hypoxic respiratory failure secondary to suspected aspiration pneumonitis with possible aspiration pneumonia: Per discussion with admitting service, general surgery, planned admission to the ICU following operative intervention, noted intention to continue intubated status, ICU physician will be consulted, expect continued sedation, continue ATC duonebs, PRN albuterol, maintained on IV Zosyn, HOB, sputum cultures and urine antigens. Bld cx x 2 obtained in the ED. 2. Intractable hiccups, nausea, emesis w/ SBO: As noted currently transition to the OR per primary meeting service, general surgery, following expect to maintain on IVFs, continue NGT to suction, strict I&Os, IV pain/anti-emetics PRN, serial KUB as needed to montior bowel function, PPI IV, maintain NPO on bowel rest. 3. 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 Admission BUN/Cr 60/1.89, prior baseline creatinine noted to be 1.1-1.3. Will hydrate, hold nephrotoxic medications and repeat chemistry in AM. 4. Hyponatremia, hypovolemic: Admission sodium 130, chloride 91, acute kidney injury concurrently as noted, secondary to acute presentation, #1, #2, #3, continue aggressive hydration as noted, trend labs. 5. Elevated lipase: Likely in response to acute presentation, #2 notably, continue to aggressively hydrate as noted, repeat trending as needed. 6. Hyperglycemia: Possibly stress response given acute presentation, #1, #2, #3, #4, HgbA1c pending, q 6 h ISS in interim. 7. GERD: Expect IV PPI given ALEN, NPO status but will defer to admitting service. 8. DVT prophylaxis: Expect SCDs, chemoprophylaxis per primary discretion given acute intervention currently planned. Code Visit Office Visits / Consults: [id number] IP Consult L5
--- NOTE | 2018-10-14 17:20 | COL_PTH ---
PATIENT: BRAVO LEE Jr. LOC: PCU U#:[id number] AGE/SX: 78/M ROOM: [facility] RE10/14/[address]: Dr. Jose Sparks MD : 1940 BED: 1 DIS: 10/23/2018 SPEC #: [id number] RECD: 10/15/18 07:38 STATUS: ADELINA REQ #: [id number] MIGEL: 10/14/18 17:[address]: Jose Sparks DEPT: SURGICAL PATHOLOGY RECD BY: Lefty Garrison ENTERED: 10/15/18 08:59 SP TYPE: COLON OTHR DR: MD Dr. Ish Casillas DO Dr. David Kittoe, MD Dr. Robert Leininger, MD Dr. Tai Chi Kwok, MD Tissues: Colon, NOS Procedures: Surgery Specimen Level V HEADER OPERATION: Exploratory laparotomy, bowel resection, SBO PRE-OP DIAGNOSIS: Small bowel obstruction TISSUE SUBMITTED: Small bowel MICROSCOPIC DIAGNOSIS Small bowel, segment resection: Mucosal ischemic changes, congestion, hemorrhage, serosal congestion, fibrosis, chronic inflammation, reactive changes and mild acute inflammation consistent with adhesion and obstruction. One pericolonic lymph node with reactive changes. See comment. SJ:rg 10/17/18 COMMENT The specimen consists of segment of small bowel with adherent portion of the cecum. No definite appendix could be identified. This case is reviewed in consultation with Dr. Mccullough who concurs with the above diagnosis. MICROSCOPIC DESCRIPTION Slides are reviewed. GROSS DESCRIPTION Received in fixative is one container labeled with the patient's name and designated small bowel. The specimen consists of a previously opened segment of bowel measuring 26 cm in length and surrounded by dense, yellow fibrofatty tissue. The mucosa is light goodson in color. The presumed adherent cecal portion of the bowel segment measures 5 cm in length. No mucosal mass lesions are identified. The serosal surface at a distance of 14 cm from the proximal margin of resection displays serosal adhesions with a dark goodson-solis discoloration. Serial sections of this area of induration in the attached fibrofatty tissue do not reveal a distinct mass lesion. Serial sections of the attached fibrofatty tissue reveal a single goodson nodule measuring 5 mm and grossly resembling a lymph node. [employer] Education Professional sections are submitted in?seven?cassettes as follows: 1 - proximal and distal mucosal margins, 2-4 - area of serosal induration, 5??compliance representative dealer sections of uninvolved small and large bowel, 6 - lymph node, bisected, 7 - compliance representative dealer section from indurated region. / AM:kianna 10/16/18 TC:5 CPT: 54479
[2018-10-14 18:15] LABS: Hemoglobin A1c 6.5 % (4.2-6.3)
[2018-10-14] MEDS: Bupivacaine Mpf 0.5% 30 ML VIAL (18:51)
--- NOTE | 2018-10-14 18:59 | PCM.OPRPT ---
Report of Operation Date of Procedure: 10/14/18 Pre-Operative Diagnosis: small bowel obstruction, acute abdomen, leukocytosis Post-Operative Diagnosis: transition due to veg matter, small bowel loops adherent to pelvic abscess - perforated appendicitis with obstruction, Surgery/Procedure Performed:: exploratory laparotomy, ileocecal resection health services rn: Joan Turcios Type of Anesthesia:: General Anesthesiologist: Clint HooksE Specimen's removed: ileocecum Drains: NG, Maguire, MARSHALL x 1 Estimated Blood Loss (mL): 100 Fluids Replaced: 1600 Description of Procedure: The patient was brought to the operating suite. Sign in was performed verifying patient, site, procedure, position, and DVT prophylaxis with SCDs. Patient received 4.5gm Zosyn antibiotic prophylaxis. Following induction of general anesthetic, the patient?s abdomen was prepped and draped in the usual fashion. Timeout was performed verifying patient, site, position. A linear incision was made in the from just above the umbilicus, a curvilinear fashion around the umbilicus and extended initially partially infraumbilically and then later extended. The peritoneal cavity was carefully entered and then extension of the incision was made both sharply and using electrocautery. The patient was found to have proximally distended loops of small bowel. As the small bowel was run distally there was felt to be areas of vessel matter within the small bowel where it seemed to transition from more distended to more collapsed. I initially this felt to be the part of transition, but as the bowel was further run distally there were loops of adherent bowel stuck in the pelvis and right lower quadrant. Initially the small bowel was freed up with Metzenbaum scissors. Additional loops were still densely adhered into the pelvis. At this point attempts to bluntly dissect the small bowel out of the pelvis yielded entrance to a large cavity of pus to the right of the sigmoid colon in the right pelvis and extending up towards the base of the right colon once the small bowel loops were fully mobilized and brought up, this was felt to be consistent with perforated, neglected appendicitis. The cecum was then mobilized to the ascending almost hepatic flexure junction and the colon and small bowel brought up into the operative field. The base of the cecum was palpated to assess for perforated appendicitis person?s perforated tumor. The area was significantly thickened and it was difficult to ascertain whether there was any true tumor present at the base of the cecum. The appendix seemed to have necrosed away. There was an opening at the base of the cecum felt to be consistent with the appendiceal orifice this was probed and felt to communicate with the cecum. At this point in time I?ll elect to perform an ileocecal resection. The terminal ileum proximal to the area of inflamed adherent small bowel was transected with intestinal load echelon stapler. A window was made in the cecum ascending colon junction and the cecum transected with intestinal injury stapler. The mesentery was divided initially with Harmonic scalpel and then for the ileocecal root ligated with 0 Vicryl ties and transected. At this point a functional stapled end-to-end anastomosis performed with the antimesenteric portion of the bowel stapled with an Endo HEVER stapler closed with a TL stapler creating a triangle like staple pattern. A 3-0 silk suture was placed up at the apex to avoid tension on the apex of the staple line area and the mesenteric defect was closed with interrupted 3-0 silk sutures. The staple line was intact and there was no leakage with palpation and pressure. Following this peritoneal cavity was again examined all 4 quadrants irrigated and aspirated to clear. The NG tube was in the stomach by palpation and advanced to the appropriate addition and secured. The abdominal cavity was again irrigated. There was purulent fluid noted above the right liver. A 15 round Oj-Light drain was then placed for right lower quadrant stab incision placed into the pelvic abscess cavity and secured with an 0 nylon suture After all sponge and instrument counts were correct. 0 PDS suture was used to close the fascia in running fashion such case that was irrigated skin was closed with rios. Dressing was applied. The patient remained intubated but in stable condition and was brought to the intensive care unit. - Admit VTE Documentation VTE Present on Admission: No VTE Mechan Device Prophylaxis: SCD's
[2018-10-14 19:41] LABS: Allen Test POS; Base Excess -9 mmol/L (-2 to +2); Bicarbonate 17.9 mmol/L (22-26); Blood Gas Specimen Type ART; FI02 60; Mode A-C; O2 Delivery Device Vent; PEEP 5; PO2 58 mmHG (75-100); RR 12; SITE L Radial; SO2 86 % (95-99); Total Carbon Dioxide 19 mmol/L; Vt 550; pCO2 39.9 mmHg (35-45); pH 7.26 (7.35-7.45)
[2018-10-14] MEDS: Propofol 10MG/Ml 1,000 MG/100 ML Bottle 4.296 MG CONT INF (20:44)
[2018-10-14] MEDS: fentaNYL drip 100 ML 2.5 MCG IV (20:45)
[2018-10-14 21:51] LABS: Hematocrit 46.4 % (40-54); Mean Corp Hgb Conc 32.3 g/dL (32-36); Mean Corpuscular Volume 98.9 fL (80-94); POSITIVE MORPHOLOGY YES; Platelet Count 328 K/mm3 (150-450); RBC Distribution Width CV 13.3 % (11.6-14.6); RBC Distribution Width SD 48.5 fl (35.1-43.9); Red Blood Count 4.69 M/mm3 (4.6-6.2); White Blood Count 14.9 K/mm3 (4.4-11.0)
[2018-10-14] MEDS: Chlorhexidine 15 ML PO (22:01)
[2018-10-14] MEDS: Lactated Ringers 1,000 ML 150 ML IV (22:01)
[2018-10-14] MEDS: 0.9% NaCl IVPB Med Flush (250 mL) 15 ML IV (22:01)
[2018-10-14] MEDS: Dorzolamide HCL/Timolol 10 ml Bottle 1 DRP RIGHT EYE (22:02)
[2018-10-14] MEDS: Latanoprost 0.005% 1 Bottle 1 DRP RIGHT EYE (22:02)
[2018-10-14 22:18] LABS: Magnesium 2.2 mg/dL (1.6-2.6)
[2018-10-14 22:35] LABS: ALB/GLOB Ratio 0.7 RATIO (0.9-2.4); AST(SGOT) 31 U/L (15-37); Alanine Aminotransfer ALT/SGPT 64 U/L (16-61); Albumin, Serum 2.1 g/dL (3.2-5.0); Alkaline Phosphatase 59 U/L (45-117); Anion Gap 14 (5-15); BUN 64 mg/dL (7-18); BUN/Creat Ratio 33.2 RATIO (10-20); Bilirubin, Direct 0.38 mg/dL (0.00-0.30); Calcium,Total 7.5 mg/dL (8.5-10.1); Chloride 104 mmol/L (98-107); Creatinine, Serum 1.93 mg/dL (0.70-1.30); EST Glomerular Filtration Rate 36 mL/min (>60); Est Glom Filt Rate - Afr Amer 44 mL/min (>60); Estimated Creatinine Clearance 32.46 ml/min; Globulin 3.1 g/dL (2.2-4.2); Glucose 156 mg/dL (74-106); Magnesium 2.2 mg/dL (1.6-2.6); Phosphorus 5.5 mg/dL (2.5-4.9); Potassium 5.4 mmol/L (3.5-5.1); Protein, Total 5.2 g/dL (6.4-8.2); Sodium Level 134 mmol/L (136-145)
[2018-10-14 22:36] LABS: CPK Total, Creatine Kinase 82 U/L (39-308); Triglycerides 85 mg/dL
[2018-10-14 22:44] LABS: Differential Indicated MANUAL DIFF
[2018-10-14 22:45] LABS: Absolute Lymphocyte Count 1.19 X10^3/uL (0.83-4.51); Absolute Neutrophil Count 13.7 X10^3/uL (2.0-7.7); Differential Comment SCANNED; Lymphocyte 8 % (19-41); Lymphocyte # 1.19 X10^3/ul (4.0); Neutrophil # 13.71 X10^3/uL (2.7-7.7); Neutrophil-Band 39 % (0-5); Neutrophil-Segmented 53 % (47-70); Nucleated Red Bld Cells,Manual 2 % (0-5); Total Cells Counted 100 (MANUAL DIFF)
[2018-10-14 22:46] LABS: Platelet Estimate ADEQUATE (ADEQ); Red Cell Morphology NORM C+C NORMAL (NORM C&C)
[2018-10-14 22:51] LABS: Base Excess -12 mmol/L (-2 to +2); Bicarbonate 16.3 mmol/L (22-26); Blood Gas Specimen Type ART; FI02 100; Mode A-C; O2 Delivery Device Vent; PEEP 10; PO2 79 mmHG (75-100); RR 14; SITE L Radial; SO2 92 % (95-99); Total Carbon Dioxide 18 mmol/L; Vt 450; pCO2 43.6 mmHg (35-45); pH 7.18 (7.35-7.45)
--- NOTE | 2018-10-14 23:16 | CPS ---
critical abg values called to Dr Sparks by Faisal MILLER 10-14-18 at 4807
[2018-10-15] VITALS (63 sets, daily range): BP systolic 64–149; BP diastolic 38–73; PULSE 59–115; RESP 8–23; TEMP 35.8–37.2; O2SAT 90–100
[2018-10-15 00:25] LABS: M R Staph aureus DNA By PCR Negative (Negative); Probe Check PASS; Specimen Processing Control PASS
[2018-10-15 01:21] LABS: Bedside Glucose 92 mg/dL (70-110)
[2018-10-15] MEDS: fentaNYL drip 100 ML 2.5 MCG IV ×3 (02:53→17:44)
[2018-10-15] MEDS: 0.9% Normal Saline 1,000 ML 999 ML IV (05:29)
[2018-10-15] MEDS: Sodium Bicarbonate 8.4% 50 ML Syringe 50 MEQ IV (05:30)
--- NOTE | 2018-10-15 05:55 | RAD_ITS ---
STUDY: X-RAY CHEST REASON FOR EXAM: Male, 78 years old. Shortness of breath. TECHNIQUE: 2 AP portable views of the chest were obtained. COMPARISON: 10/14/2018. FINDINGS: Endotracheal tube tip is 4.1 cm above the mago. Nasogastric tube tip and sidehole are within the body of the stomach. There is no demonstrated pneumothorax. There are bilateral lower lobe infiltrates. Infiltrate on the right was not demonstrated on previous study and infiltrate on the left is substantially worsened. There is no demonstrated pleural abnormality. Normal size heart. Normal mediastinum and fred. Normal visualized pulmonary arteries. Normal visualized aortic arch and descending thoracic aorta. There are diffuse degenerative changes of the visualized thoracic spine. Normal visualized ribs, clavicles, and shoulders. There is no demonstrated abnormality of the visualized soft tissue structures of the upper abdomen. RAD/Chest 1 View (Portable) IMPRESSION: Bilateral lower lobe infiltrates with marked worsening from recent previous study. Tubes are in adequate position. Electronically Signed: Jamarcus Muñoz MD at 5:05 EDT , Service support ,
--- NOTE | 2018-10-15 05:55 | RAD_ITS ---
STUDY: X-RAY - ABDOMEN/PELVIS REASON FOR EXAM: Male, 78 years old. Small bowel obstruction. TECHNIQUE: Two AP supine views of the abdomen and pelvis. COMPARISON: 10/14/2018. FINDINGS: There is persistent atelectasis and/or infiltration in the left lung base. Nasogastric tube tip and sidehole are within the body the stomach. There are surgical rios overlying the lower abdomen and pelvis and there is a surgical drain overlying the pelvis. There is an unremarkable bowel gas pattern. There is no demonstrated free abdominal air. There is excreted contrast material the visualized right renal collecting system Normal soft tissue structures. There are diffuse degenerative changes of the visualized lumbar spine. RAD/Abdomen Single View (Portable) IMPRESSION: Status post recent surgery, with surgical drain overlying the pelvis. Nasogastric tube is in adequate position. Nonspecific bowel gas pattern. Electronically Signed: Jamarcus Muñoz MD at 4:46 EDT , Service support ,
[2018-10-15 06:01] LABS: Bedside Glucose 89 mg/dL (70-110)
--- NOTE | 2018-10-15 06:06 | ECHOCS_ITS ---
Reason For Study: SOB Procedure This was a 2D Doppler, Color Flow transthoracic echocardiogram. The study was technically difficult. Pt had chest tube placed prior to performing echo bedside. Unable to roll patient from right side. Contrast injection was performed. Exam performed portable in ICU/CCU. Left Ventricle The estimated ejection fraction is 70 %. Unable to assess diastolic dysfunction. Based upon the 2D echocardiographic and contrast enhanced images obtained there appears to be grossly normal left ventricular size, wall motion, and systolic function. Right Ventricle The right ventricle is not well visualized. Atria Normal left atrium. The right atrium is not well visualized. No doppler evidence for ASD. Mitral Valve There is no mitral annular calcification. The mitral valve chordae are thickened and/or calcified. The mitral papillary muscle appears thickened and/or calcified. Trivial mitral valve insufficiency. Tricuspid Valve Normal tricuspid valve. Trivial tricuspid valve insufficiency. Unable to estimate RV systolic pressure/pulmonary artery pressure due to technically difficult study. Aortic Valve The aortic valve is not well visualized. Pulmonic Valve The pulmonic valve is not well visualized. Great Vessels Normal sized aortic root. Pericardium/Pleural No pericardial effusion. MMode/2D Measurements & Calculations LVIDd: 3.7 cm IVSd: 1.3 cm Ao root diam: 3.2 cm LVIDs: 1.9 cm LVPWd: 1.2 cm FS: 48.0 % LA dimension(2D): 2.4 cm Doppler Measurements & Calculations MV E max pastor: 48.3 cm/sec Lat Peak E' Pastor: 5.2 cm/sec Med Peak E' Pastor: 3.7 cm/sec MV A max pastor: 53.2 cm/sec E/E' lat: 9.2 E/E' med: 13.1 MV E/A: 0.91 Ao V2 max: 105.4 cm/sec LV V1 max: 78.1 cm/sec Ao max P.4 mmHg LV V1 max P.4 mmHg Interpretation Summary The study was technically difficult. Contrast injection was performed. Based upon the 2D echocardiographic and contrast enhanced images obtained there appears to be grossly normal left ventricular size, wall motion, and systolic function. The estimated ejection fraction is 70 %. The mitral valve chordae are thickened and/or calcified. The mitral papillary muscle appears thickened and/or calcified. Trivial mitral valve insufficiency. Trivial tricuspid valve insufficiency. Unable to estimate RV systolic pressure/pulmonary artery pressure due to technically difficult study. Unable to assess diastolic dysfunction. Ordering Physician: Ish Vale Referring Physician: Colin Castillo Chi Performed By: Jennifer Portillo RDCS
--- NOTE | 2018-10-15 06:06 | PCM.CON.CC ---
Capacity - Capacity Assessment Tool Can the patient make a choice & communicate that choice?: No Can the patient understand benefits, risks and alternatives?: No Can the patient make a logical, rational choice?: No Is there an impending, emergent risk to the patient?: Yes Is there a Surrogate Available?: Yes Reason for Consult Date of Consultation: 10/15/18 Reason for Consultation: Respiratory Failure/Septic Shock History of Present Illness: The patient is a 78-year-old male, with a history as outlined below, who presented to the emergency department on October 14 with complaints of persistent hiccups, nausea and emesis with associated shortness of breath. History pertinent to the patient's hospitalization was obtained primarily via chart review, as the patient is currently intubated and sedated. He does appear to have a rather limited medical history including gastroesophageal reflux disease and hyperlipidemia. On presentation to the emergency department, the patient was initially noted to be hypothermic, tachycardic, tachypneic and hypoxemic. Initial laboratory evaluation revealed an elevated white blood cell count to 19,000. Coagulation profile was within normal limits. Chemistry profile was notable for acute kidney injury with a creatinine of 1.89. Lactate was elevated to 3.2. Troponin was negative. Lipase was noted to be 479. A CT abdomen/pelvis was obtained which revealed a small bowel obstruction, fluid distention of the stomach and distal esophagus along with bibasilar airspace disease. A dedicated chest CT did confirm the presence of bibasilar airspace disease along with fluid within the bronchial tree concerning for aspiration. The patient was provided with supplemental IV fluid hydration and started on broad-spectrum antimicrobials. The patient was also evaluated by general surgery, Dr. Sparks. Following evaluation by general surgery, the patient was taken to the OR, where he underwent exploratory laparotomy and subsequent ileocecal resection. Following operative intervention, the patient was transferred to the medical intensive care unit. On arrival, the patient was noted to be hypotensive with phenylephrine infusing. The patient appeared to have received a total of 1.6 L of fluid intraoperatively along with 1 L of fluid in the emergency department. He was transition from normal saline to lactated Ringer's for supplemental IV fluid hydration. The phenylephrine was discontinued and the patient was initiated on levophed in an attempt to maintain hemodynamic stability. The patient's urine output has steadily decreased over the course of the night. Ventilator parameters were augmented overnight with improvement in the patient's arterial blood gas noted this morning. However, despite aggressive fluid resuscitation, the patient remained hemodynamically unstable on Levophed. Therefore, vasopressin was added earlier this morning. The patient was also started on stress dose steroids. Central Venous Catheter (CVC, Central Line) Placement Indication: Intravenous access Consent was obtained from: The patient's A time-out was completed verifying correct patient, procedure, site, positioning, and special equipment if applicable. The patient was placed in a dependent position appropriate for central line placement based on the vein to be cannulated. The patient?s right neck was prepped and draped in sterile fashion. A triple lumen catheter was introduced into the the internal jugular vein using the Seldinger technique and under ultrasound guidance. The catheter was threaded smoothly over the guide wire and appropriate blood return was obtained. Each lumen of the catheter was evacuated of air and flushed with sterile saline. The catheter was then sutured in place to the skin and a sterile dressing applied. CXR to confirm appropriate positioning is pending. ULTRASOUND GUIDANCE STATEMENT (Vascular Access): I performed ultrasound image acquisition and interpretation for needle placement during this procedure. The vessel was identified and was found to be free of thrombosis by compression technique. A safe point of entry was marked at the skin and an angle for access was determined. The needle was guided by obtaining free flowing fluid and by real time visualization. Arterial Line Placement (Left Radial) A time-out was completed verifying correct patient, procedure, site, positioning, and special equipment if applicable. Blake?s test was performed to ensure adequate perfusion. The patient?s left wrist was prepped and draped in sterile fashion. A 18G Arrow arterial line was introduced into the radial artery. The catheter was threaded over the guide wire and the needle was removed with appropriate pulsatile blood return. The catheter was then sutured in place to the skin and a sterile dressing applied. Perfusion to the extremity distal to the point of catheter insertion was checked and found to be adequate. ULTRASOUND GUIDANCE STATEMENT (Vascular Access): I performed ultrasound image acquisition and interpretation for needle placement during this procedure. The vessel was identified and was found to be free of thrombosis by compression technique. A safe point of entry was marked at the skin and an angle for access was determined. The needle was guided by obtaining free flowing fluid and by real time visualization. Past Medical History Past Medical History (Chronic Problems): Chronic Problems Acute kidney injury superimposed on chronic kidney disease (Chronic) Allergies ciprofloxacin [From Cipro] Allergy (Verified 10/14/18 11:53) Hives Home Medications: Ambulatory Orders Medication Instructions Recorded Dorzolamide HCL/Timolol [Cosopt 1 drp RIGHT EYE BID 10/14/18 Opth Drops] Fluconazole [Diflucan] 200 mg PO DAILY 10/14/18 Pantoprazole Sodium [Protonix] 40 mg PO BID 10/14/18 Travoprost [Travatan Z] 1 drp RIGHT EYE QHS 10/14/18 Surgical History: - - Eye procedure with left eye glasses in place, renal stone intervention. Psychiatric History: No pertinent psych hx Lives: Spouse/ Significant Other Smoking Status: Former smoker Tobacco Use: Non-smoker Alcohol: None Drugs: None - *Family History Maternal History Items: - - Patient denies any maternal or paternal family history including heart disease, diabetes, cancer. Paternal History Items: - - Patient denies any marker maternal or paternal family history including heart disease, diabetes or cancer. Review of Systems Unable to obtain accurate/complete ROS d/t: Due to intubation and mechanical ventilation status. Patient Problems: Active and Suspected Problems Acute tubular necrosis (Acute) Hyperkalemia (Acute) Objective: The patient's most recent lab work, culture data and imaging studies have all been personally reviewed. Strep and urine Legionella antigens were negative. Blood and urine cultures are pending. - Physical Exam General: - - Intubated, sedated and mechanically ventilated. No ventilator desynchrony noted. HEENT: Atraumatic, Normocephalic, - - Glass eye in place Oral: Moist Mucosa, - - Endotracheal and OG tubes in place Neck: Supple, No Nodes, Trachea Midline Lungs: - - Mechanical breath sounds anteriorly. Diminished air movement in the bases posteriorly. Cardiovascular: Regular rate, Regular Rhythm, Normal S1, Normal S2 Abdomen: Soft, Hypoactive Bowel Sounds, - - + MARSHALL drain in place x 1. Surgical dressing in place (C/D/I) Extremities: No clubbing, No cyanosis, No edema, Cool Skin: No rashes Musculoskeletal: No Muscle Wasting Lymphatic: No Cervical, Supraclavicular, or Inguinal Adenopathy Neurological: - - No focal deficits. Will arouse and follow simple commands. Vital Signs Temp Pulse Resp BP Pulse Ox 96.5 F L 105 H 17 85/56 L 98 10/15/18 04:00 10/15/18 05:30 10/15/18 05:30 10/15/18 05:00 10/15/18 05:30 Oxygen Flow Rate (L/min) 6 Oxygen Delivery Method Mechanical Ventilator Weight: 153 lb 7.068 oz Body Mass Index (BMI) 21.9 Intake and Output for Last 24 Hours 10/13/18 10/14/18 10/15/18 23:59 23:59 23:59 Intake Total 2535.6 / 2535.6 Output Total 840 / 840 Balance 1695.6 / 1695.6 Microbiology Past 72 Hours 10/14/18 22:55 Streptococcus pneumoniae Antigen (M - Final Urine Catheter - Catheter 10/14/18 22:55 Legionella Antigen - Final Urine Catheter - Catheter Laboratory Tests Past 24 Hrs 10/14/18 10/14/18 10/14/18 11:30 11:30 11:30 WBC 18.8 H RBC 4.88 Hgb 15.7 Hct 46.5 MCV 95.3 H MCH 32.2 H MCHC 33.8 RDW Std Deviation 46.7 H RDW Coeff of Tristian 13.3 Plt Count 367 MPV 10.8 Immature Gran % (Auto) 1.000 H Neut % (Auto) 90.4 H Lymph % (Auto) 5.0 L Clinton % (Auto) 3.0 Eos % (Auto) 0.2 Baso % (Auto) 0.4 Absolute Neuts (auto) 17.0 H Absolute Lymphs (auto) 0.94 Total Counted Neutrophils % (Manual) Band Neutrophils % Lymphocytes % (Manual) Nucleated RBC % 0 Nucleated RBCs/100 WBC Differential Comment Diff Path Review Platelet Estimate RBC Morphology PT 15.1 H INR 1.2 APTT 26.5 Specimen Type Sample Site pH Bicarbonate Actual POC Total CO2 Base Excess O2 Saturation O2 % ABG pCO2 ABG pO2 Blake Test Respiration Rate O2 Delivery Device Vent Mode Tidal Volume POC PEEP Blood Gas Notified Whom Sodium 130 L Potassium 4.5 Chloride 91 L Carbon Dioxide 27.0 Anion Gap 12 BUN 60 H Creatinine 1.89 H Estim Creat Clear Calc 33.15 Est GFR (MDRD) Af Amer 45 L Est GFR (MDRD) Non-Af 37 L BUN/Creatinine Ratio 31.7 H Glucose 235 H Hemoglobin A1c Lactic Acid Calcium 8.9 Phosphorus Magnesium Total Bilirubin 1.20 H Direct Bilirubin 0.35 H AST 21 ALT 99 H Alkaline Phosphatase 82 Total Creatine Kinase Troponin I < 0.015 Total Protein 7.4 Albumin 2.9 L Globulin 4.5 H Albumin/Globulin Ratio Triglycerides Lipase 479 H MRSA (PCR) 10/14/18 10/14/18 10/14/18 11:30 12:00 19:38 WBC RBC Hgb Hct MCV MCH MCHC RDW Std Deviation RDW Coeff of Tristian Plt Count MPV Immature Gran % (Auto) Neut % (Auto) Lymph % (Auto) Clinton % (Auto) Eos % (Auto) Baso % (Auto) Absolute Neuts (auto) Absolute Lymphs (auto) Total Counted Neutrophils % (Manual) Band Neutrophils % Lymphocytes % (Manual) Nucleated RBC % Nucleated RBCs/100 WBC Differential Comment Diff Path Review Platelet Estimate RBC Morphology PT INR APTT Specimen Type ART Sample Site L Radial pH 7.26 L Bicarbonate Actual 17.9 L POC Total CO2 19 Base Excess -9 L O2 Saturation 86 L O2 % 60 ABG pCO2 39.9 ABG pO2 58 L Blake Test POS Respiration Rate 12 O2 Delivery Device Vent Vent Mode A-C Tidal Volume 550 POC PEEP 5 Blood Gas Notified Whom HOSP Sodium Potassium Chloride Carbon Dioxide Anion Gap BUN Creatinine Estim Creat Clear Calc Est GFR (MDRD) Af Amer Est GFR (MDRD) Non-Af BUN/Creatinine Ratio Glucose Hemoglobin A1c 6.5 H Lactic Acid 3.2 H Calcium Phosphorus Magnesium Total Bilirubin Direct Bilirubin AST ALT Alkaline Phosphatase Total Creatine Kinase Troponin I Total Protein Albumin Globulin Albumin/Globulin Ratio Triglycerides Lipase MRSA (PCR) 10/14/18 10/14/18 10/14/18 21:33 21:33 21:33 WBC 14.9 H RBC 4.69 Hgb 15.0 Hct 46.4 MCV 98.9 H MCH 32.0 MCHC 32.3 RDW Std Deviation 48.5 H RDW Coeff of Tristian 13.3 Plt Count 328 MPV 11.0 Immature Gran % (Auto) [employer] Neut % (Auto) [employer] Lymph % (Auto) [employer] Clinton % (Auto) [employer] Eos % (Auto) [employer] Baso % (Auto) [employer] Absolute Neuts (auto) 13.7 H Absolute Lymphs (auto) 1.19 Total Counted 100 Neutrophils % (Manual) 53 Band Neutrophils % 39 H Lymphocytes % (Manual) 8 L Nucleated RBC % [employer] Nucleated RBCs/100 WBC 2 Differential Comment SCANNED Diff Path Review May foll Platelet Estimate ADEQUATE RBC Morphology NORM C+C PT INR APTT Specimen Type Sample Site pH Bicarbonate Actual POC Total CO2 Base Excess O2 Saturation O2 % ABG pCO2 ABG pO2 Blake Test Respiration Rate O2 Delivery Device Vent Mode Tidal Volume POC PEEP Blood Gas Notified Whom Sodium 134 L Potassium 5.4 H Chloride 104 Carbon Dioxide 16.0 L Anion Gap 14 BUN 64 H Creatinine 1.93 H Estim Creat Clear Calc 32.46 Est GFR (MDRD) Af Amer 44 L Est GFR (MDRD) Non-Af 36 L BUN/Creatinine Ratio 33.2 H Glucose 156 H Hemoglobin A1c Lactic Acid Calcium 7.5 L Phosphorus 5.5 H Magnesium 2.2 2.2 Total Bilirubin 1.30 H Direct Bilirubin 0.38 H AST 31 ALT 64 H Alkaline Phosphatase 59 Total Creatine Kinase Troponin I Total Protein 5.2 L Albumin 2.1 L Globulin 3.1 Albumin/Globulin Ratio 0.7 L Triglycerides Lipase MRSA (PCR) 10/14/18 10/14/18 10/14/18 21:33 22:45 22:50 WBC RBC Hgb Hct MCV MCH MCHC RDW Std Deviation RDW Coeff of Tristian Plt Count MPV Immature Gran % (Auto) Neut % (Auto) Lymph % (Auto) Clinton % (Auto) Eos % (Auto) Baso % (Auto) Absolute Neuts (auto) Absolute Lymphs (auto) Total Counted Neutrophils % (Manual) Band Neutrophils % Lymphocytes % (Manual) Nucleated RBC % Nucleated RBCs/100 WBC Differential Comment Diff Path Review Platelet Estimate RBC Morphology PT INR APTT Specimen Type ART Sample Site L Radial pH 7.18 L* Bicarbonate Actual 16.3 L POC Total CO2 18 Base Excess -12 L O2 Saturation 92 L O2 % 100 ABG pCO2 43.6 ABG pO2 79 Blake Test Respiration Rate 14 O2 Delivery Device Vent Vent Mode A-C Tidal Volume 450 POC PEEP 10 Blood Gas Notified Whom HOSP MD Sodium Potassium Chloride Carbon Dioxide Anion Gap BUN Creatinine Estim Creat Clear Calc Est GFR (MDRD) Af Amer Est GFR (MDRD) Non-Af BUN/Creatinine Ratio Glucose Hemoglobin A1c Lactic Acid Calcium Phosphorus Magnesium Total Bilirubin Direct Bilirubin AST ALT Alkaline Phosphatase Total Creatine Kinase 82 Troponin I Total Protein Albumin Globulin Albumin/Globulin Ratio Triglycerides 85 Lipase MRSA (PCR) Negative 10/15/18 05:47 WBC RBC Hgb Hct MCV MCH MCHC RDW Std Deviation RDW Coeff of Tristian Plt Count MPV Immature Gran % (Auto) Neut % (Auto) Lymph % (Auto) Clinton % (Auto) Eos % (Auto) Baso % (Auto) Absolute Neuts (auto) Absolute Lymphs (auto) Total Counted Neutrophils % (Manual) Band Neutrophils % Lymphocytes % (Manual) Nucleated RBC % Nucleated RBCs/100 WBC Differential Comment Diff Path Review Platelet Estimate RBC Morphology PT INR APTT Specimen Type ART Sample Site L Radial pH 7.19 L* Bicarbonate Actual 20.2 L POC Total CO2 22 Base Excess -8 L O2 Saturation 58 L O2 % 90 ABG pCO2 52.7 H ABG pO2 38 L* Blake Test POS Respiration Rate 16 O2 Delivery Device Vent Vent Mode A-C Tidal Volume 500 POC PEEP 10 Blood Gas Notified Whom HOSP Sodium Potassium Chloride Carbon Dioxide Anion Gap BUN Creatinine Estim Creat Clear Calc Est GFR (MDRD) Af Amer Est GFR (MDRD) Non-Af BUN/Creatinine Ratio Glucose Hemoglobin A1c Lactic Acid Calcium Phosphorus Magnesium Total Bilirubin Direct Bilirubin AST ALT Alkaline Phosphatase Total Creatine Kinase Troponin I Total Protein Albumin Globulin Albumin/Globulin Ratio Triglycerides Lipase MRSA (PCR) POC Glucose 10/15/18 10/15/18 05:50 01:14 POC Glucose 89 92 Clinical Impression(s) from Imaging Studies Chest X-Ray 10/14/18 11:53 IMPRESSION: Increased markings at the left lung base suggestive of atelectasis and/or early infiltrate. Follow-up is recommended. Electronically Signed: Jimmy Galarza, at 12:38 EDT , Service support , Abdomen/Pelvis CT 10/14/18 12:27 IMPRESSION: Small bowel obstruction with the transition point in the distal ileum. Fluid distention of the stomach and the distal esophagus. Patchy alveolar disease in both lower lobes. Radiographic follow-up is recommended. Electronically Signed: Jimmy Galarza, at 15:04 EDT , Service support , Chest CT 10/14/18 12:27 IMPRESSION: Airspace disease in both lower lobes with peribronchial dilatation and the fluid within the bronchial tree in the lower lobes worse on the left lung base. Aspiration should be ruled out. Fluid distention of the esophagus and visualized portion of the stomach. 1.1 cm left adrenal nodule as well as a 5.6 cm x 6.1 cm cyst in the upper pole of the right kidney. CT scan of the abdomen demonstrated small bowel obstruction. Electronically Signed: Jimmy Michell, at 15:11 EDT , Service support , Soft Tissue Neck CT 10/14/18 12:27 IMPRESSION: Fluid distention of the esophagus. Electronically Signed: Jimmy Galarza, at 15:27 EDT , Service support , KUB X-Ray 10/14/18 13:34 IMPRESSION: The tip of the nasogastric tube is coiled in the distal esophagus. Electronically Signed: Jimmy Galarza, at 15:28 EDT , Service support , KUB X-Ray 10/14/18 15:00 IMPRESSION: The tip of the nasogastric tube is coiled in the distal esophagus. Electronically Signed: Jimmy Galarza, at 15:30 EDT , Service support , Chest X-Ray 10/15/18 05:55 IMPRESSION: Bilateral lower lobe infiltrates with marked worsening from recent previous study. Tubes are in adequate position. Electronically Signed: Jamarcus Muñoz MD at 5:05 EDT , Service support , KUB X-Ray 10/15/18 05:55 IMPRESSION: Status post recent surgery, with surgical drain overlying the pelvis. Nasogastric tube is in adequate position. Nonspecific bowel gas pattern. Electronically Signed: Jamarcus Muñoz MD at 4:46 EDT , Service support , Assessment/Plan Active and Suspected Problems Acute tubular necrosis (Acute) Hyperkalemia (Acute) RECOMMENDATIONS: 1. Continue broad-spectrum antimicrobial coverage for now. Obtain infectious diseases consultation to assist with management. 2. Continue levophed and vasopressin in an attempt to maintain a mean arterial pressure at or above 65 mmHg. 3. Start hydrocortisone 50 mg every 6 hours. 4. Continue chest tube to wall suction. 5. Continue fentanyl for pain. 6. Wean FiO2 to maintain oxygen saturations at or above 90%. 7. Continue appropriate GI prophylaxis. 8. Continue lactated Ringer's supplemental IV fluid hydration. IMPRESSIONS: 1. Septic shock 2/2 intraabdominal and pulmonary infectious processes The patient has been adequately volume resuscitated. We will plan to continue vasopressor support with levophed and vasopressin and attempt to maintain a mean arterial pressure at or above 65 mmHg. In addition, given the patient's high vasopressor requirement, stress dose steroids will also be added to his medication regimen. Broad-spectrum antimicrobials will be continued, pending evaluation by infectious diseases. Send urine and sputum culture as well. 2. Acute hypoxemic respiratory failure/iatrogenic pneumothorax The patient did demonstrate findings concerning for underlying pneumonia on CT chest. There was also initial concern for potential aspiration event. The patient is being adequately covered from an antimicrobial standpoint at this time. Will attempt to obtain sputum culture. Given that the patient's PEEP has been able to be weaned to 5, we will plan to wean FiO2 to maintain oxygen saturations at or above 90%. Continue patient on assist control mode of mechanical ventilation for now. We will plan for daily paired spontaneous awakening and breathing trials, once medically stabilized. Continue chest tube to wall suction for now. Chest tube removal will be considered once the patient has been successfully weaned from mechanical ventilatory support. 3. Acute abdomen/small bowel obstruction/appendicial perforation, now POD #1 s/p exploratory laparotomy and ileocecal resection Continue current supportive measures per general surgery recommendations. 4. Acute Kidney Injury/Hyperkalemia/NAGMA Likely secondary to ischemic ATN in the setting of #1. I do anticipate that the patient's urine output will continue to decline today. Therefore, I have placed an order to nephrology to evaluate the patient. We will continue to monitor urine output accordingly. 5. Advanced age/hyperlipidemia/GERD Complicates care, management, recovery and prognosis. Okay to continue home medications as indicated. The patient will eventually require physical therapy evaluation, once medically stabilized. UPDATE: On review of the patient's post central line placement plain film chest x-ray, there did appear to be a new pneumothorax. These findings were discussed with Dr. Sparks, who presented to the bedside in a timely fashion and subsequently placed a small bore chest tube. On follow-up chest x-ray, there does appear to be resolution of the patient's pneumothorax. We will continue chest tube management as noted above. TIME: 90 minutes of critical care time, inclusive of procedures was spent addressing the patients multifactorial septic shock, acute hypoxemic respiratory failure, acute abdomen s/p surgical intervention, acute kidney injury, review of all data and collaboration with the care team. ([id number]) Code Visit Procedures: 93094 Critial Care Addl 30 Min 9xxxx: [id number] Critical care first hour
[2018-10-15 06:10] LABS: Base Excess -3 mmol/L (-2 to +2); Bicarbonate 22.9 mmol/L (22-26); Blood Gas Specimen Type ART; FI02 90; Mode A-C; O2 Delivery Device Vent; PEEP 10; PO2 169 mmHG (75-100); RR 16; SITE L Radial; SO2 99 % (95-99); Total Carbon Dioxide 24 mmol/L; Vt 500; pH 7.34 (7.35-7.45)
--- NOTE | 2018-10-15 06:59 | RAD_ITS ---
We are attempting to reach an attending provider to discuss findings. An addendum with communication details will be sent when the communication is complete. STUDY: X-RAY CHEST REASON FOR EXAM: Male, 78 years old. Status post central line insertion. TECHNIQUE: Single AP portable view of the chest. Current exam was done at 0701 hours COMPARISON: Chest x-ray done at 0416 hours. X-ray abdomen done at 0417 hours. FINDINGS: Endotracheal tube tip is 5.2 cm above the mago. Right internal jugular central venous catheter tip overlies the superior vena cava. There is a nasogastric tube with its tip in the body the stomach. There is a moderately large right pneumothorax, occupying 25-50% of the right hemithorax. There is infiltration in the left lower lung field which appears less prominent than it did on the study. Previously demonstrated right lower lobe infiltrate is not seen, probably due to medial collapse of the right lower lobe related to pneumothorax. There is no visualized right pleural effusion. Normal size heart. Normal mediastinum and fred. Normal visualized pulmonary arteries. Normal visualized aortic arch and descending thoracic aorta. Normal visualized thoracic spine. Normal visualized ribs, clavicles, and shoulders. There is free intraperitoneal air underlying the dome of the right hemidiaphragm, consistent with recent abdominal surgery. RAD/CXR for Line Placement IMPRESSION: New finding of a moderately large right pneumothorax, occupying 25-50% of the right hemithorax. Tubes are in adequate position. Persistent left basilar infiltrate which appears somewhat improved. Pneumoperitoneum, presumably due to recent surgery. Electronically Signed: Jamarcus Muñoz MD at 7:33 EDT , Service support ,
--- NOTE | 2018-10-15 07:14 | PCM.PN.HOSP ---
Subjective: Patient is a 78-year-old gentleman who presented with abdominal pain with associated abdominal distention nausea and vomiting. CT of the abdomen obtained in the emergency department demonstrated Small bowel obstruction with the transition point in the distal ileum. Fluid distention of the stomach and the distal esophagus. Patient was admitted to the surgical service and underwent exploratory laparotomy findings included transition due to veg matter, small bowel loops adherent to pelvic abscess - perforated appendicitis with obstruction. Patient had ileocecal resection performed by Dr. Phan on 10/14/2018. Patient was left on the vent and transferred to the intensive care unit. Subsequent stay in the hospital complicated by development of refractory hypotension consistent with septic shock. Patient was started on broad-spectrum antibiotic therapy in addition to pressors as well as stress doses of steroids. Objective: GENERAL: Patient is sedated on the vent HEENT: ET tube in place EYES; Anicteric, Normal Conjunctiva NECK; supple, normal thyroid, RESPIRATORY: Diminished to auscultation CARDIOVASCULAR: Regular S1 S2, GI: Nondistended, abdominal incision CDI, MARSHALL tube in situ : No Renal angle tenderness; EXTREMITIES: No edema, no clubbing, MUSCULOSKELETAL: No Joint swelling NEURO: Patient is sedated on the vent SKIN: No Rash PSYCH; Patient is sedated on the vent Vitals/I&O's: Vital Signs Temp Pulse Resp BP Pulse Ox 96.5 F L 105 H 17 85/56 L 98 10/15/18 04:00 10/15/18 05:30 10/15/18 05:30 10/15/18 05:00 10/15/18 05:30 Oxygen Flow Rate (L/min) 6 Oxygen Delivery Method Mechanical Ventilator Weight: 69.6 kg Body Mass Index (BMI) 21.9 Intake and Output for Last 24 Hours 10/13/18 10/14/18 10/15/18 23:59 23:59 23:59 Intake Total 2535.6 / 2535.6 Output Total 840 / 840 Balance 1695.6 / 1695.6 Microbiology Past 72 Hours 10/14/18 22:55 Urine Catheter - Catheter Streptococcus pneumoniae Antigen (M - Final 10/14/18 22:55 Urine Catheter - Catheter Legionella Antigen - Final Laboratory Results 10/14/18 11:30: WBC 18.8 H, RBC 4.88, Hgb 15.7, Hct 46.5, MCV 95.3 H, MCH 32.2 H, MCHC 33.8, RDW Std Deviation 46.7 H, RDW Coeff of Tristian 13.3, Plt Count 367, MPV 10.8, Immature Gran % (Auto) 1.000 H, Neut % (Auto) 90.4 H, Lymph % (Auto) 5.0 L, Door % (Auto) 3.0, Eos % (Auto) 0.2, Baso % (Auto) 0.4, Absolute Neuts (auto) 17.0 H, Absolute Lymphs (auto) 0.94, Nucleated RBC % 0 10/14/18 11:30: PT 15.1 H, INR 1.2, APTT 26.5 10/14/18 11:30: Sodium 130 L, Potassium 4.5, Chloride 91 L, Carbon Dioxide 27.0, Anion Gap 12, BUN 60 H, Creatinine 1.89 H, Estim Creat Clear Calc 33.15, Est GFR (MDRD) Af Amer 45 L, Est GFR (MDRD) Non-Af 37 L, BUN/Creatinine Ratio 31.7 H, Glucose 235 H, Calcium 8.9, Total Bilirubin 1.20 H, Direct Bilirubin 0.35 H, AST 21, ALT 99 H, Alkaline Phosphatase 82, Troponin I < 0.015, Total Protein 7.4, Albumin 2.9 L, Globulin 4.5 H, Lipase 479 H 10/14/18 11:30: Hemoglobin A1c 6.5 H 10/14/18 12:00: Lactic Acid 3.2 H 10/14/18 19:38: Specimen Type ART, Sample Site L Radial, pH 7.26 L, Bicarbonate Actual 17.9 L, POC Total CO2 19, Base Excess -9 L, O2 Saturation 86 L, O2 % 60, ABG pCO2 39.9, ABG pO2 58 L, Blake Test POS, Respiration Rate 12, O2 Delivery Device Vent, Vent Mode A-C, Tidal Volume 550, POC PEEP 5, Blood Gas Notified Whom HOSP 10/14/18 21:33: Magnesium 2.2 10/14/18 21:33: Sodium 134 L, Potassium 5.4 H, Chloride 104, Carbon Dioxide 16.0 L, Anion Gap 14, BUN 64 H, Creatinine 1.93 H, Estim Creat Clear Calc 32.46, Est GFR (MDRD) Af Amer 44 L, Est GFR (MDRD) Non-Af 36 L, BUN/Creatinine Ratio 33.2 H, Glucose 156 H, Calcium 7.5 L, Phosphorus 5.5 H, Magnesium 2.2, Total Bilirubin 1.30 H, Direct Bilirubin 0.38 H, AST 31, ALT 64 H, Alkaline Phosphatase 59, Total Protein 5.2 L, Albumin 2.1 L, Globulin 3.1, Albumin/Globulin Ratio 0.7 L 10/14/18 21:33: WBC 14.9 H, RBC 4.69, Hgb 15.0, Hct 46.4, MCV 98.9 H, MCH 32.0, MCHC 32.3, RDW Std Deviation 48.5 H, RDW Coeff of Tristian 13.3, Plt Count 328, MPV 11.0, Immature Gran % (Auto) [employer], Neut % (Auto) [employer], Lymph % (Auto) [employer], Door % (Auto) [employer], Eos % (Auto) [employer], Baso % (Auto) [employer], Absolute Neuts (auto) 13.7 H, Absolute Lymphs (auto) 1.19, Total Counted 100, Neutrophils % (Manual) 53, Band Neutrophils % 39 H, Lymphocytes % (Manual) 8 L, Nucleated RBC % [employer], Nucleated RBCs/100 WBC 2, Differential Comment SCANNED, Diff Path Review July, Platelet Estimate ADEQUATE, RBC Morphology NORM C+C 10/14/18 21:33: Total Creatine Kinase 82, Triglycerides 85 10/14/18 22:45: Specimen Type ART, Sample Site L Radial, pH 7.18 L*, Bicarbonate Actual 16.3 L, POC Total CO2 18, Base Excess -12 L, O2 Saturation 92 L, O2 % 100, ABG pCO2 43.6, ABG pO2 79, Respiration Rate 14, O2 Delivery Device Vent, Vent Mode A-C, Tidal Volume 450, POC PEEP 10, Blood Gas Notified Whom HOSP 10/14/18 22:50: MRSA (PCR) Negative 10/15/18 01:14: POC Glucose 92 10/15/18 05:47: Specimen Type ART, Sample Site L Radial, pH 7.19 L*, Bicarbonate Actual 20.2 L, POC Total CO2 22, Base Excess -8 L, O2 Saturation 58 L, O2 % 90, ABG pCO2 52.7 H, ABG pO2 38 L*, Blake Test POS, Respiration Rate 16, O2 Delivery Device Vent, Vent Mode A-C, Tidal Volume 500, POC PEEP 10, Blood Gas Notified Whom HOSP MD 10/15/18 05:50: POC Glucose 89 10/15/18 06:04: Specimen Type ART, Sample Site L Radial, pH 7.34 L, Bicarbonate Actual 22.9, POC Total CO2 24, Base Excess -3 L, O2 Saturation 99, O2 % 90, ABG pCO2 43.0, ABG pO2 169 H, Respiration Rate 16, O2 Delivery Device Vent, Vent Mode A-C, Tidal Volume 500, POC PEEP 10, Blood Gas Notified Whom ICU MD Current Medications Albuterol Sulfate (Ventolin Aerosols) 2.5 mg INHALATION Q2H PRN PRN PRN Reason: dyspnea, wheezing Chlorhexidine Gluconate () 15 ml PO BID [facility] Last Admin: 10/14/18 22:01 Dose: 15 ml Documented by: Dextrose (D50w Syringe) 0 gm IV X1 PRN; Protocol PRN Reason: Hypoglycemia Dorzolamide/Timolol (Cosopt Opth Drops) 1 drop RIGHT EYE BID [facility] Last Admin: 10/14/18 22:02 Dose: 1 drop Documented by: Glucagon () 1 mg IM .X1 PRN PRN Reason: Hypoglycemia Hydrocortisone Sodium Succinate (Solu-Cortef) 50 mg IV Q6 [facility] Piperacillin Sod/Tazobactam (Sod 3.375 gm/ Sodium Chloride) 50 mls @ 12.5 mls/hr IV Q8 [facility] Last Admin: 10/15/18 05:46 Dose: 12.5 mls/hr Documented by: Pantoprazole Sodium 40 mg/ (Sodium Chloride) 110 mls @ 330 mls/hr IV Q12 [facility] Last Admin: 10/14/18 22:01 Dose: 330 mls/hr Documented by: Fentanyl () 100 mls @ 2.5 mls/hr IV .Q40H [facility] Last Admin: 10/15/18 02:53 Dose: 2.5 mls/hr Documented by: Sodium Chloride () 250 mls @ 15 mls/hr IV .[id number] PRN PRN Reason: SALINE FLUSH Last Admin: 10/14/18 22:01 Dose: 15 mls/hr Documented by: Norepinephrine Bitartrate 8 mg (/ Sodium Chloride) 250 mls @ 9.375 mls/hr CONT INF .[id number] [facility] Last Admin: 10/15/18 05:20 Dose: 9.375 mls/hr Documented by: Lactated Ringer's () 1,000 mls @ 150 mls/hr IV .Q6H40M [facility] Last Admin: 10/15/18 05:30 Dose: Not Given Documented by: Vasopressin 20 units/ Sodium (Chloride) 25 mls @ 3 mls/hr IV .Q8H20M [facility] Last Admin: 10/15/18 05:29 Dose: 3 mls/hr Documented by: Insulin Human Lispro (Humalog Kwikpen (Bkc)) 0 unit SC Q6 [facility]; Protocol Last Admin: 10/15/18 05:56 Dose: Not Given Documented by: Latanoprost (Xalatan Opthalmic) 1 drop RIGHT EYE QHS [facility] Last Admin: 10/14/18 22:02 Dose: 1 drop Documented by: Sodium Chloride () 10 - 40 ml IV UD PRN PRN Reason: SALINE FLUSH Medical Necessity - Tobacco Use Smoking Status: Former smoker Tobacco Use: Non-smoker Assessment/Plan Patient is a 78-year-old gentleman who presented with abdominal pain with associated abdominal distention nausea and vomiting. CT of the abdomen obtained in the emergency department demonstrated Small bowel obstruction with the transition point in the distal ileum. Fluid distention of the stomach and the distal esophagus. Patient was admitted to the surgical service and underwent exploratory laparotomy findings included transition due to veg matter, small bowel loops adherent to pelvic abscess - perforated appendicitis with obstruction. Patient had ileocecal resection performed by Dr. Phan on 10/14/2018. 1. Small bowel obstruction: CT of the abdomen obtained in the emergency department demonstrated Small bowel obstruction with the transition point in the distal ileum. Fluid distention of the stomach and the distal esophagus. Patient was admitted to the surgical service and underwent exploratory laparotomy findings included transition due to veg matter, small bowel loops adherent to pelvic abscess - perforated appendicitis with obstruction. Patient had ileocecal resection performed by Dr. Phan on 10/14/2018. 2. Acute hypoxic respiratory failure following aspiration pneumonia. Patient was intubated during surgery left on the vent and subsequently transferred to the intensive care unit. Vent management deferred to pulmonary/cot assembler 3. Septic shock secondary to aspiration pneumonia as well as intra-abdominal infection i.e. the pelvic abscess with perforated appendix. Patient is on broad-spectrum antibiotic therapy in addition to fluids, pressors and stress doses of antibiotics 4. Acute kidney injury secondary to ATN from hypovolemia as well as septic shock patient to function continues to worsen we will recommend obtaining nephrology consultation if okay with primary service 5. Metabolic acidosis secondary to above 6. Acute transaminitis; secondary to shock liver we will continue to monitor LFTs 7. GERD patient is on PPI 8. DVT prophylaxis; SCDs and renal dose of Lovenox CODE STATUS: Full code at this point Active Medications Albuterol Sulfate (Ventolin Aerosols) 2.5 mg INHALATION Q2H PRN PRN PRN Reason: dyspnea, wheezing Chlorhexidine Gluconate () 15 ml PO BID [facility] Last Admin: 10/14/18 22:01 Dose: 15 ml Documented by: Dextrose (D50w Syringe) 0 gm IV X1 PRN; Protocol PRN Reason: Hypoglycemia Dorzolamide/Timolol (Cosopt Opth Drops) 1 drop RIGHT EYE BID [facility] Last Admin: 10/14/18 22:02 Dose: 1 drop Documented by: Glucagon () 1 mg IM .X1 PRN PRN Reason: Hypoglycemia Hydrocortisone Sodium Succinate (Solu-Cortef) 50 mg IV Q6 [facility] Piperacillin Sod/Tazobactam (Sod 3.375 gm/ Sodium Chloride) 50 mls @ 12.5 mls/hr IV Q8 [facility] Last Admin: 10/15/18 05:46 Dose: 12.5 mls/hr Documented by: Pantoprazole Sodium 40 mg/ (Sodium Chloride) 110 mls @ 330 mls/hr IV Q12 [facility] Last Admin: 10/14/18 22:01 Dose: 330 mls/hr Documented by: Fentanyl () 100 mls @ 2.5 mls/hr IV .Q40H [facility] Last Admin: 10/15/18 02:53 Dose: 2.5 mls/hr Documented by: Sodium Chloride () 250 mls @ 15 mls/hr IV .[id number] PRN PRN Reason: SALINE FLUSH Last Admin: 10/14/18 22:01 Dose: 15 mls/hr Documented by: Norepinephrine Bitartrate 8 mg (/ Sodium Chloride) 250 mls @ 9.375 mls/hr CONT INF .[id number] [facility] Last Admin: 10/15/18 05:20 Dose: 9.375 mls/hr Documented by: Lactated Ringer's () 1,000 mls @ 150 mls/hr IV .Q6H40M [facility] Last Admin: 10/15/18 05:30 Dose: Not Given Documented by: Vasopressin 20 units/ Sodium (Chloride) 25 mls @ 3 mls/hr IV .Q8H20M [facility] Last Admin: 10/15/18 05:29 Dose: 3 mls/hr Documented by: Insulin Human Lispro (Humalog Kwikpen (Bkc)) 0 unit SC Q6 [facility]; Protocol Last Admin: 10/15/18 05:56 Dose: Not Given Documented by: Latanoprost (Xalatan Opthalmic) 1 drop RIGHT EYE QHS [facility] Last Admin: 10/14/18 22:02 Dose: 1 drop Documented by: Sodium Chloride () 10 - 40 ml IV UD PRN PRN Reason: SALINE FLUSH Clinical Impression(s) from Imaging Studies Chest X-Ray 10/14/18 11:53 IMPRESSION: Increased markings at the left lung base suggestive of atelectasis and/or early infiltrate. Follow-up is recommended. Electronically Signed: Jimmy Galarza, at 12:38 EDT , Service support , Abdomen/Pelvis CT 10/14/18 12:27 IMPRESSION: Small bowel obstruction with the transition point in the distal ileum. Fluid distention of the stomach and the distal esophagus. Patchy alveolar disease in both lower lobes. Radiographic follow-up is recommended. Electronically Signed: Jimmy Galarza, at 15:04 EDT , Service support , Chest CT 10/14/18 12:27 IMPRESSION: Airspace disease in both lower lobes with peribronchial dilatation and the fluid within the bronchial tree in the lower lobes worse on the left lung base. Aspiration should be ruled out. Fluid distention of the esophagus and visualized portion of the stomach. 1.1 cm left adrenal nodule as well as a 5.6 cm x 6.1 cm cyst in the upper pole of the right kidney. CT scan of the abdomen demonstrated small bowel obstruction. Electronically Signed: Jimmy Yeeelkin, at 15:11 EDT , Service support , Soft Tissue Neck CT 10/14/18 12:27 IMPRESSION: Fluid distention of the esophagus. Electronically Signed: Jimmy Ayerstripp, at 15:27 EDT , Service support , KUB X-Ray 10/14/18 13:34 IMPRESSION: The tip of the nasogastric tube is coiled in the distal esophagus. Electronically Signed: Jimmy Michell, at 15:28 EDT , Service support , KUB X-Ray 10/14/18 15:00 IMPRESSION: The tip of the nasogastric tube is coiled in the distal esophagus. Electronically Signed: Jimmy Michell, at 15:30 EDT , Service support , Chest X-Ray 10/15/18 05:55 IMPRESSION: Bilateral lower lobe infiltrates with marked worsening from recent previous study. Tubes are in adequate position. Electronically Signed: Jamarcus Muñoz MD at 5:05 EDT , Service support , KUB X-Ray 10/15/18 05:55 IMPRESSION: Status post recent surgery, with surgical drain overlying the pelvis. Nasogastric tube is in adequate position. Nonspecific bowel gas pattern. Electronically Signed: Jamarcus Muñoz MD at 4:46 EDT , Service support , Code Visit Inpatient E&M: 57748 Subs Hosp L3
--- NOTE | 2018-10-15 08:06 | RAD_ITS ---
STUDY: X-RAY CHEST REASON FOR EXAM: Male, 78 years old. Right-sided pneumothorax. Right-sided chest tube placement. TECHNIQUE: Single AP portable view of the chest. COMPARISON: Comparison is made with prior study dated October 15, 2018 at 7:01 AM. FINDINGS: An endotracheal tube is in situ. The tip is at 3.9 cm proximal to the mago. A nasogastric tube is seen with the tip just distal to the gastroesophageal junction. A right-sided central venous catheter is seen with the tip at the junction of the superior vena cava right atrium. A right-sided small caliber chest tube has been placed. Small residual right apical pneumothorax. Mild degree of bibasilar atelectasis. Normal size heart. Normal mediastinum and fred. Normal visualized pulmonary arteries. Normal visualized aortic arch and descending thoracic aorta. Normal visualized thoracic spine. Normal visualized ribs, clavicles, and shoulders. Small amount of free intraperitoneal air. RAD/Chest 1 View (Portable) IMPRESSION: Status post placement of a small-caliber right-sided chest tube. Residual small right apical pneumothorax. Electronically Signed: Jimmy Galarza, at 9:17 EDT , Service support ,
--- NOTE | 2018-10-15 08:10 | NURSING ---
dr chavis here inserting chest tube rt side 20cm suction
[2018-10-15 08:15] LABS: Absolute Lymphocyte Count 1.23 X10^3/uL (0.83-4.51); Absolute Neutrophil Count 22.7 X10^3/uL (2.0-7.7); Basophil% 0.4 % (0-1); Eosinophil# 0.03 X10^3/uL; Eosinophils% 0.1 % (0-5); Hematocrit 39.1 % (40-54); Lymphocyte # 1.23 X10^3/ul (4.0); Mean Corp Hgb Conc 33.2 g/dL (32-36); Mean Corpuscular Hgb 32.5 pg (27.0-32.0); Mean Corpuscular Volume 97.8 fL (80-94); Mean Platelet Vol. 11.3 fl (6.2-12.0); Monocyte% 1.6 % (0-10); NRBC Flagged by Analyzer 0 % (0-5); Neutrophil # 22.65 X10^3/uL (2.7-7.7); Neutrophil % 91.2 % (47-70); POSITIVE DIFFERENTIAL YES; POSITIVE MORPHOLOGY YES; Platelet Count 255 K/mm3 (150-450); RBC Distribution Width CV 13.6 % (11.6-14.6); RBC Distribution Width SD 48.5 fl (35.1-43.9); White Blood Count 24.8 K/mm3 (4.4-11.0)
[2018-10-15 08:19] LABS: Differential Indicated SCAN CRITERIA MET
[2018-10-15 08:35] LABS: Platelet Estimate ADEQUATE (ADEQ); Red Cell Morphology NORM C+C NORMAL (NORM C&C)
[2018-10-15 08:44] LABS: BNP,B-Type NATRIURETIC PEPTIDE 39.3 pg/mL (0-100)
[2018-10-15 08:57] LABS: ALB/GLOB Ratio 0.6 RATIO (0.9-2.4); AST(SGOT) 418 U/L (15-37); Alanine Aminotransfer ALT/SGPT 414 U/L (16-61); Albumin, Serum 1.8 g/dL (3.2-5.0); Alkaline Phosphatase 47 U/L (45-117); Anion Gap 10 (5-15); BUN 69 mg/dL (7-18); BUN/Creat Ratio 23.9 RATIO (10-20); Calcium,Total 7.2 mg/dL (8.5-10.1); Chloride 108 mmol/L (98-107); Creatinine, Serum 2.89 mg/dL (0.70-1.30); EST Glomerular Filtration Rate 23 mL/min (>60); Est Glom Filt Rate - Afr Amer 27 mL/min (>60); Estimated Creatinine Clearance 21.07 ml/min; Globulin 3.2 g/dL (2.2-4.2); Glucose 112 mg/dL (74-106); Lipase 143 U/L (73-393); Magnesium 2.1 mg/dL (1.6-2.6); Phosphorus 6.4 mg/dL (2.5-4.9); Potassium 5.6 mmol/L (3.5-5.1); Sodium Level 139 mmol/L (136-145)
[2018-10-15] MEDS: Chlorhexidine 15 ML PO ×2 (08:59→21:20)
[2018-10-15] MEDS: Dorzolamide HCL/Timolol 10 ml Bottle 1 DRP RIGHT EYE ×2 (09:28→21:21)
--- NOTE | 2018-10-15 10:47 | CON.PCM_ITS ---
Reason for Consult: Intra-abdominal abscess with septic shock History of Present Illness: The patient is a 78 year old M [] This is a 78-year-old gentleman with apparently no significant past medical history who over the past week developed GERD and was prescribed Protonix and fluconazole with no clinical improvement and was brought to [facility] for which she underwent imaging studies including a diagnostic CT scan of the abdomen pelvis. Patient was taken to the operating room for emergent exploratory laparotomy yesterday late afternoon found to have a ruptured appendicitis with pelvic abscess. Operative note reviewed. There was concerned of aspiration pneumonia, currently on the ventilator, of note he has developed acute renal injury with oliguria and hypotension requiring vasopressor support. Patient is currently on Zosyn empirically. History is obtained through review the records and also talking to the patient's at the bedside and Dr. Vale earlier this morning. Apparently the patient does not have any significant past medical history. - Medical History Allergies/Adverse Reactions: Allergies ciprofloxacin [From Cipro] Allergy (Verified 10/14/18 11:53) Hives Home Medications: Ambulatory Orders Medication Instructions Recorded Dorzolamide HCL/Timolol [Cosopt 1 drp RIGHT EYE BID 10/14/18 Opth Drops] Fluconazole [Diflucan] 200 mg PO DAILY 10/14/18 Pantoprazole Sodium [Protonix] 40 mg PO BID 10/14/18 Travoprost [Travatan Z] 1 drp RIGHT EYE QHS 10/14/18 Review of Systems Unable to obtain accurate/complete ROS d/t: Unable to be obtained Vital Signs Temp Pulse Resp BP Pulse Ox 98.6 F 84 16 100/55 L 95 10/15/18 08:00 10/15/18 10:00 10/15/18 08:00 10/15/18 10:00 10/15/18 10:00 Oxygen Flow Rate (L/min) 6 Oxygen Delivery Method Mechanical Ventilator Weight: 69.6 kg Body Mass Index (BMI) 21.9 On the ventilator responsive chest tube in his right chest lungs are scattered rhonchi heart exam S1-S2 abdomen postop abdomen Maguire catheter is in place Microbiology Past 72 Hours 10/14/18 22:55 Streptococcus pneumoniae Antigen (M - Final Urine Catheter - Catheter 10/14/18 22:55 Legionella Antigen - Final Urine Catheter - Catheter Laboratory Tests Past 24 Hrs 10/14/18 10/14/18 10/14/18 11:30 11:30 11:30 WBC 18.8 H RBC 4.88 Hgb 15.7 Hct 46.5 MCV 95.3 H MCH 32.2 H MCHC 33.8 RDW Std Deviation 46.7 H RDW Coeff of Tristian 13.3 Plt Count 367 MPV 10.8 Immature Gran % (Auto) 1.000 H Neut % (Auto) 90.4 H Lymph % (Auto) 5.0 L Sherman % (Auto) 3.0 Eos % (Auto) 0.2 Baso % (Auto) 0.4 Absolute Neuts (auto) 17.0 H Absolute Lymphs (auto) 0.94 Total Counted Neutrophils % (Manual) Band Neutrophils % Lymphocytes % (Manual) Nucleated RBC % 0 Nucleated RBCs/100 WBC Differential Comment Diff Path Review Platelet Estimate RBC Morphology PT 15.1 H INR 1.2 APTT 26.5 Specimen Type Sample Site pH Bicarbonate Actual POC Total CO2 Base Excess O2 Saturation O2 % ABG pCO2 ABG pO2 Blake Test Respiration Rate O2 Delivery Device Vent Mode Tidal Volume POC PEEP Blood Gas Notified Whom Sodium 130 L Potassium 4.5 Chloride 91 L Carbon Dioxide 27.0 Anion Gap 12 BUN 60 H Creatinine 1.89 H Estim Creat Clear Calc 33.15 Est GFR (MDRD) Af Amer 45 L Est GFR (MDRD) Non-Af 37 L BUN/Creatinine Ratio 31.7 H Glucose 235 H Hemoglobin A1c Lactic Acid Calcium 8.9 Phosphorus Magnesium Total Bilirubin 1.20 H Direct Bilirubin 0.35 H AST 21 ALT 99 H Alkaline Phosphatase 82 Total Creatine Kinase Troponin I < 0.015 B-Natriuretic Peptide Total Protein 7.4 Albumin 2.9 L Globulin 4.5 H Albumin/Globulin Ratio Triglycerides Lipase 479 H MRSA (PCR) 10/14/18 10/14/18 10/14/18 11:30 12:00 19:38 WBC RBC Hgb Hct MCV MCH MCHC RDW Std Deviation RDW Coeff of Tristian Plt Count MPV Immature Gran % (Auto) Neut % (Auto) Lymph % (Auto) Sherman % (Auto) Eos % (Auto) Baso % (Auto) Absolute Neuts (auto) Absolute Lymphs (auto) Total Counted Neutrophils % (Manual) Band Neutrophils % Lymphocytes % (Manual) Nucleated RBC % Nucleated RBCs/100 WBC Differential Comment Diff Path Review Platelet Estimate RBC Morphology PT INR APTT Specimen Type ART Sample Site L Radial pH 7.26 L Bicarbonate Actual 17.9 L POC Total CO2 19 Base Excess -9 L O2 Saturation 86 L O2 % 60 ABG pCO2 39.9 ABG pO2 58 L Blake Test POS Respiration Rate 12 O2 Delivery Device Vent Vent Mode A-C Tidal Volume 550 POC PEEP 5 Blood Gas Notified Whom HOSP Sodium Potassium Chloride Carbon Dioxide Anion Gap BUN Creatinine Estim Creat Clear Calc Est GFR (MDRD) Af Amer Est GFR (MDRD) Non-Af BUN/Creatinine Ratio Glucose Hemoglobin A1c 6.5 H Lactic Acid 3.2 H Calcium Phosphorus Magnesium Total Bilirubin Direct Bilirubin AST ALT Alkaline Phosphatase Total Creatine Kinase Troponin I B-Natriuretic Peptide Total Protein Albumin Globulin Albumin/Globulin Ratio Triglycerides Lipase MRSA (PCR) 10/14/18 10/14/18 10/14/18 21:33 21:33 21:33 WBC 14.9 H RBC 4.69 Hgb 15.0 Hct 46.4 MCV 98.9 H MCH 32.0 MCHC 32.3 RDW Std Deviation 48.5 H RDW Coeff of Tristian 13.3 Plt Count 328 MPV 11.0 Immature Gran % (Auto) [employer]TER Neut % (Auto) [employer]AP[employer]ESSIONAL INTERPRETER Lymph % (Auto) PARAPROFESSIONAL INTERPRETER Sherman % (Auto) PARAPROFESSIONAL INTERPRETER Eos % (Auto) PARAPROFESSIONAL INTERPRETER Baso % (Auto) PARAPROFESSIONAL INTERPRETER Absolute Neuts (auto) 13.7 H Absolute Lymphs (auto) 1.19 Total Counted 100 Neutrophils % (Manual) 53 Band Neutrophils % 39 H Lymphocytes % (Manual) 8 L Nucleated RBC % [employer]ESSION[employer] INTERPRETER Nucleated RBCs/100 WBC 2 Differential Comment SCANNED Diff Path Review May foll Platelet Estimate ADEQUATE RBC Morphology NORM C+C PT INR APTT Specimen Type Sample Site pH Bicarbonate Actual POC Total CO2 Base Excess O2 Saturation O2 % ABG pCO2 ABG pO2 Blake Test Respiration Rate O2 Delivery Device Vent Mode Tidal Volume POC PEEP Blood Gas Notified Whom Sodium 134 L Potassium 5.4 H Chloride 104 Carbon Dioxide 16.0 L Anion Gap 14 BUN 64 H Creatinine 1.93 H Estim Creat Clear Calc 32.46 Est GFR (MDRD) Af Amer 44 L Est GFR (MDRD) Non-Af 36 L BUN/Creatinine Ratio 33.2 H Glucose 156 H Hemoglobin A1c Lactic Acid Calcium 7.5 L Phosphorus 5.5 H Magnesium 2.2 2.2 Total Bilirubin 1.30 H Direct Bilirubin 0.38 H AST 31 ALT 64 H Alkaline Phosphatase 59 Total Creatine Kinase Troponin I B-Natriuretic Peptide Total Protein 5.2 L Albumin 2.1 L Globulin 3.1 Albumin/Globulin Ratio 0.7 L Triglycerides Lipase MRSA (PCR) 10/14/18 10/14/18 10/14/18 21:33 22:45 22:50 WBC RBC Hgb Hct MCV MCH MCHC RDW Std Deviation RDW Coeff of Tristian Plt Count MPV Immature Gran % (Auto) Neut % (Auto) Lymph % (Auto) Sherman % (Auto) Eos % (Auto) Baso % (Auto) Absolute Neuts (auto) Absolute Lymphs (auto) Total Counted Neutrophils % (Manual) Band Neutrophils % Lymphocytes % (Manual) Nucleated RBC % Nucleated RBCs/100 WBC Differential Comment Diff Path Review Platelet Estimate RBC Morphology PT INR APTT Specimen Type ART Sample Site L Radial pH 7.18 L* Bicarbonate Actual 16.3 L POC Total CO2 18 Base Excess -12 L O2 Saturation 92 L O2 % 100 ABG pCO2 43.6 ABG pO2 79 Blake Test Respiration Rate 14 O2 Delivery Device Vent Vent Mode A-C Tidal Volume 450 POC PEEP 10 Blood Gas Notified Whom HOSP Sodium Potassium Chloride Carbon Dioxide Anion Gap BUN Creatinine Estim Creat Clear Calc Est GFR (MDRD) Af Amer Est GFR (MDRD) Non-Af BUN/Creatinine Ratio Glucose Hemoglobin A1c Lactic Acid Calcium Phosphorus Magnesium Total Bilirubin Direct Bilirubin AST ALT Alkaline Phosphatase Total Creatine Kinase 82 Troponin I B-Natriuretic Peptide Total Protein Albumin Globulin Albumin/Globulin Ratio Triglycerides 85 Lipase MRSA (PCR) Negative 10/15/18 10/15/18 10/15/18 05:47 06:04 08:00 WBC RBC Hgb Hct MCV MCH MCHC RDW Std Deviation RDW Coeff of Tristian Plt Count MPV Immature Gran % (Auto) Neut % (Auto) Lymph % (Auto) Sherman % (Auto) Eos % (Auto) Baso % (Auto) Absolute Neuts (auto) Absolute Lymphs (auto) Total Counted Neutrophils % (Manual) Band Neutrophils % Lymphocytes % (Manual) Nucleated RBC % Nucleated RBCs/100 WBC Differential Comment Diff Path Review Platelet Estimate RBC Morphology PT INR APTT Specimen Type ART ART Sample Site L Radial L Radial pH 7.19 L* 7.34 L Bicarbonate Actual 20.2 L 22.9 POC Total CO2 22 24 Base Excess -8 L -3 L O2 Saturation 58 L 99 O2 % 90 90 ABG pCO2 52.7 H 43.0 ABG pO2 38 L* 169 H Blake Test POS Respiration Rate 16 16 O2 Delivery Device Vent Vent Vent Mode A-C A-C Tidal Volume 500 500 POC PEEP 10 10 Blood Gas Notified Whom HOSP ICU Sodium 139 Potassium 5.6 H Chloride 108 H Carbon Dioxide 21.0 Anion Gap 10 BUN 69 H Creatinine 2.89 H Estim Creat Clear Calc 21.07 Est GFR (MDRD) Af Amer 27 L Est GFR (MDRD) Non-Af 23 L BUN/Creatinine Ratio 23.9 H Glucose 112 H Hemoglobin A1c Lactic Acid Calcium 7.2 L Phosphorus 6.4 H Magnesium 2.1 Total Bilirubin 0.90 Direct Bilirubin AST 418 H ALT 414 H Alkaline Phosphatase 47 Total Creatine Kinase Troponin I B-Natriuretic Peptide Total Protein 5.0 L Albumin 1.8 L Globulin 3.2 Albumin/Globulin Ratio 0.6 L Triglycerides Lipase 143 MRSA (PCR) 10/15/18 10/15/18 10/15/18 08:00 08:00 08:00 WBC 24.8 H RBC 4.00 L Hgb 13.0 Hct 39.1 L MCV 97.8 H MCH 32.5 H MCHC 33.2 RDW Std Deviation 48.5 H RDW Coeff of Tristian 13.6 Plt Count 255 MPV 11.3 Immature Gran % (Auto) 1.700 H Neut % (Auto) 91.2 H Lymph % (Auto) 5.0 L Sherman % (Auto) 1.6 Eos % (Auto) 0.1 Baso % (Auto) 0.4 Absolute Neuts (auto) 22.7 H Absolute Lymphs (auto) 1.23 Total Counted Neutrophils % (Manual) Band Neutrophils % Lymphocytes % (Manual) Nucleated RBC % 0 Nucleated RBCs/100 WBC Differential Comment Diff Path Review May foll Platelet Estimate ADEQUATE RBC Morphology NORM C+C PT INR APTT Specimen Type Sample Site pH Bicarbonate Actual POC Total CO2 Base Excess O2 Saturation O2 % ABG pCO2 ABG pO2 Blake Test Respiration Rate O2 Delivery Device Vent Mode Tidal Volume POC PEEP Blood Gas Notified Whom Sodium Potassium Chloride Carbon Dioxide Anion Gap BUN Creatinine Estim Creat Clear Calc Est GFR (MDRD) Af Amer Est GFR (MDRD) Non-Af BUN/Creatinine Ratio Glucose Hemoglobin A1c Lactic Acid Calcium Phosphorus Magnesium Total Bilirubin Direct Bilirubin AST ALT Alkaline Phosphatase Total Creatine Kinase Troponin I 0.025 B-Natriuretic Peptide 39.3 Total Protein Albumin Globulin Albumin/Globulin Ratio Triglycerides Lipase MRSA (PCR) - Other Studies Radiology: [] Other Studies: [] Route of nutrition/ use of supplements: [] Nutritional Intake: [] IV Site: [] Maguire Catheter: [] - Assessment/Plan Antibiotics: [] Assessment/Plan: [] Perforated appendicitis with intra-abdominal sepsis and currently in septic shock. Patient has multiorgan system failure. At this point we will continue Zosyn empirically and closely follow his hemodynamic parameters and renal function.
[2018-10-15] MEDS: Hydrocortisone Sod Succinate 100 MG/2 ML Vial 50 MG IV ×2 (12:04→17:57)
[2018-10-15 12:06] LABS: Bedside Glucose 121 mg/dL (70-110)
--- NOTE | 2018-10-15 12:42 | PCM.CONS.R ---
Problem List (1) Acute kidney injury superimposed on chronic kidney disease Status: Chronic (2) Acute tubular necrosis Status: Acute (3) Hyperkalemia Status: Acute Consultation - Renal PCP/ Referring MD: Requesting physician: [] Primary care physician: Colin Castillo MD - History of Present Illness History of Present Illness: The patient is a 78 year old M with a past medical history of chronic kidney disease (with baseline creatinine 1.1 mg deciliter). Patient presented to the hospital with nausea vomiting along with abdominal pain. CAT scan showed small bowel obstruction. Patient was taken to the OR on October 14 and he was found to have perforated appendicitis along with pelvis abscess with small bowel adherent on the obstruction. Patient had ileocecal resection. Patient was admitted to ICU intubated. Postoperative course was complicated with septic shock which is believed from aspiration and perforated appendicitis. Renal team is consulted today for worsening kidney function. Patient presented to hospital with a creatinine of 1.9 mg deciliter. Creatinine increased today to 2.9. Patient also was oliguric during the night. Currently the patient is intubated with FiO2 40%. He is currently on 2 pressors Levophed and vasopressin. Urine output increased slightly this morning. The nurse just emptied 350 cc of urine output from Maguire catheter. Potassium slightly high at 5.4. Patient is on Ringer lactate at 150 cc/h. Review of system: Unobtainable due to the patient's condition [] - Allergies Allergies: Allergies ciprofloxacin [From Cipro] Allergy (Verified 10/14/18 11:53) Hives - Current Medications Current Medications: Current Medications Albuterol Sulfate (Ventolin Aerosols) 2.5 mg INHALATION Q2H PRN PRN PRN Reason: dyspnea, wheezing Chlorhexidine Gluconate () 15 ml PO BID [facility] Last Admin: 10/15/18 08:59 Dose: 15 ml Documented by: Dextrose (D50w Syringe) 0 gm IV X1 PRN; Protocol PRN Reason: Hypoglycemia Dorzolamide/Timolol (Cosopt Opth Drops) 1 drop RIGHT EYE BID [facility] Last Admin: 10/15/18 09:28 Dose: 1 drop Documented by: Glucagon () 1 mg IM .X1 PRN PRN Reason: Hypoglycemia Hydrocortisone Sodium Succinate (Solu-Cortef) 50 mg IV Q6 [facility] Last Admin: 10/15/18 12:04 Dose: 50 mg Documented by: Piperacillin Sod/Tazobactam (Sod 3.375 gm/ Sodium Chloride) 50 mls @ 12.5 mls/hr IV Q8 [facility] Last Admin: 10/15/18 05:46 Dose: 12.5 mls/hr Documented by: Pantoprazole Sodium 40 mg/ (Sodium Chloride) 110 mls @ 330 mls/hr IV Q12 [facility] Last Admin: 10/15/18 09:22 Dose: 330 mls/hr Documented by: Fentanyl () 100 mls @ 2.5 mls/hr IV .Q40H [facility] Last Admin: 10/15/18 10:08 Dose: 2.5 mls/hr Documented by: Sodium Chloride () 250 mls @ 15 mls/hr IV .[id number] PRN PRN Reason: SALINE FLUSH Last Admin: 10/14/18 22:01 Dose: 15 mls/hr Documented by: Norepinephrine Bitartrate 8 mg (/ Sodium Chloride) 250 mls @ 56.2 mls/hr CONT INF .Q4H27M [facility] Last Admin: 10/15/18 05:20 Dose: 9.375 mls/hr Documented by: Vasopressin 20 units/ Sodium (Chloride) 25 mls @ 3 mls/hr IV .Q8H20M [facility] Last Admin: 10/15/18 10:13 Dose: 3 mls/hr Documented by: Norepinephrine Bitartrate 16 (mg/ Sodium Chloride) 250 mls @ 28.1 mls/hr CONT INF .Q8H54M [facility] Sodium Chloride () 1,000 mls @ 150 mls/hr IV .Q6H40M [facility] Insulin Human Lispro (Humalog Kwikpen (Bkc)) 0 unit SC Q6 [facility]; Protocol Last Admin: 10/15/18 12:10 Dose: Not Given Documented by: Latanoprost (Xalatan Opthalmic) 1 drop RIGHT EYE QHS [facility] Last Admin: 10/14/18 22:02 Dose: 1 drop Documented by: Sodium Chloride () 10 - 40 ml IV UD PRN PRN Reason: SALINE FLUSH - Past Medical History Past Medical History (Chronic Problems): Chronic Problems Acute kidney injury superimposed on chronic kidney disease (Chronic) - Past Surgical History Surgical History: - - Eye procedure with left eye glasses in place, renal stone intervention. - Social History Smoking Status: Former smoker Alcohol: None Drugs: None - Family History Maternal History Items: - - Patient denies any maternal or paternal family history including heart disease, diabetes, cancer. Paternal History Items: - - Patient denies any marker maternal or paternal family history including heart disease, diabetes or cancer. Patient Problems: Active and Suspected Problems Acute tubular necrosis (Acute) Hyperkalemia (Acute) - Physical Exam General: - - Patient is intubated. He opens his eyes spontaneously and follows simple command. He is on fentanyl HEENT: Atraumatic Oral: Moist Mucosa Neck: Supple, No JVD Lungs: - - Patient is intubated. Clear to auscultation bilaterally Cardiovascular: Regular rate, Regular Rhythm, Normal S1, Normal S2 Abdomen: - - No bowel sounds. Abdomen is slightly distended Extremities: No clubbing, No cyanosis, No edema Musculoskeletal: No Muscle Wasting Lymphatic: No Cervical, Supraclavicular, or Inguinal Adenopathy Psych/Mental Status: Flat Affect Vital Signs Temp Pulse Resp BP Pulse Ox 98.1 F 66 16 106/53 L 96 10/15/18 12:00 10/15/18 12:00 10/15/18 12:00 10/15/18 12:00 10/15/18 12:00 Oxygen Flow Rate (L/min) 6 Oxygen Delivery Method Mechanical Ventilator Weight: 69.6 kg Body Mass Index (BMI) 21.9 Intake and Output for Last 24 Hours 10/13/18 10/14/18 10/15/18 23:59 23:59 23:59 Intake Total 2535.6 / 2535.6 2272.2 / 2272.2 Output Total 840 / 840 615 / 615 Balance 1695.6 / 1695.6 1657.2 / 1657.2 Microbiology Past 72 Hours 10/14/18 22:55 Streptococcus pneumoniae Antigen (M - Final Urine Catheter - Catheter 10/14/18 22:55 Legionella Antigen - Final Urine Catheter - Catheter Laboratory Tests Past 24 Hrs 10/14/18 10/14/18 10/14/18 11:30 12:00 19:38 WBC RBC Hgb Hct MCV MCH MCHC RDW Std Deviation RDW Coeff of Tristian Plt Count MPV Immature Gran % (Auto) Neut % (Auto) Lymph % (Auto) [place] % (Auto) Eos % (Auto) Baso % (Auto) Absolute Neuts (auto) Absolute Lymphs (auto) Total Counted Neutrophils % (Manual) Band Neutrophils % Lymphocytes % (Manual) Nucleated RBC % Nucleated RBCs/100 WBC Differential Comment Diff Path Review Platelet Estimate RBC Morphology Specimen Type ART Sample Site L Radial pH 7.26 L Bicarbonate Actual 17.9 L POC Total CO2 19 Base Excess -9 L O2 Saturation 86 L O2 % 60 ABG pCO2 39.9 ABG pO2 58 L Blake Test POS Respiration Rate 12 O2 Delivery Device Vent Vent Mode A-C Tidal Volume 550 POC PEEP 5 Blood Gas Notified Whom HOSP MD Sodium Potassium Chloride Carbon Dioxide Anion Gap BUN Creatinine Estim Creat Clear Calc Est GFR (MDRD) Af Amer Est GFR (MDRD) Non-Af BUN/Creatinine Ratio Glucose Hemoglobin A1c 6.5 H Lactic Acid 3.2 H Calcium Phosphorus Magnesium Total Bilirubin Direct Bilirubin AST ALT Alkaline Phosphatase Total Creatine Kinase Troponin I B-Natriuretic Peptide Total Protein Albumin Globulin Albumin/Globulin Ratio Triglycerides Lipase MRSA (PCR) 10/14/18 10/14/18 10/14/18 21:33 21:33 21:33 WBC 14.9 H RBC 4.69 Hgb 15.0 Hct 46.4 MCV 98.9 H MCH 32.0 MCHC 32.3 RDW Std Deviation 48.5 H RDW Coeff of Tristian 13.3 Plt Count 328 MPV 11.0 Immature Gran % (Auto) SKILLED NURSING CASE MANAGER Neut % (Auto) SKILLED NURSING CASE MANAGER Lymph % (Auto) SKILLED NURSING CASE MANAGER [place] % (Auto) SKILLED NURSING CASE MANAGER Eos % (Auto) SKILLED NURSING CASE MANAGER Baso % (Auto) SKILLED NURSING CASE MANAGER Absolute Neuts (auto) 13.7 H Absolute Lymphs (auto) 1.19 Total Counted 100 Neutrophils % (Manual) 53 Band Neutrophils % 39 H Lymphocytes % (Manual) 8 L Nucleated RBC % SKILLED NURSING CASE MANAGER Nucleated RBCs/100 WBC 2 Differential Comment SCANNED Diff Path Review May foll Platelet Estimate ADEQUATE RBC Morphology NORM C+C Specimen Type Sample Site pH Bicarbonate Actual POC Total CO2 Base Excess O2 Saturation O2 % ABG pCO2 ABG pO2 Blake Test Respiration Rate O2 Delivery Device Vent Mode Tidal Volume POC PEEP Blood Gas Notified Whom Sodium 134 L Potassium 5.4 H Chloride 104 Carbon Dioxide 16.0 L Anion Gap 14 BUN 64 H Creatinine 1.93 H Estim Creat Clear Calc 32.46 Est GFR (MDRD) Af Amer 44 L Est GFR (MDRD) Non-Af 36 L BUN/Creatinine Ratio 33.2 H Glucose 156 H Hemoglobin A1c Lactic Acid Calcium 7.5 L Phosphorus 5.5 H Magnesium 2.2 2.2 Total Bilirubin 1.30 H Direct Bilirubin 0.38 H AST 31 ALT 64 H Alkaline Phosphatase 59 Total Creatine Kinase Troponin I B-Natriuretic Peptide Total Protein 5.2 L Albumin 2.1 L Globulin 3.1 Albumin/Globulin Ratio 0.7 L Triglycerides Lipase MRSA (PCR) 10/14/18 10/14/18 10/14/18 21:33 22:45 22:50 WBC RBC Hgb Hct MCV MCH MCHC RDW Std Deviation RDW Coeff of Tristian Plt Count MPV Immature Gran % (Auto) Neut % (Auto) Lymph % (Auto) [place] % (Auto) Eos % (Auto) Baso % (Auto) Absolute Neuts (auto) Absolute Lymphs (auto) Total Counted Neutrophils % (Manual) Band Neutrophils % Lymphocytes % (Manual) Nucleated RBC % Nucleated RBCs/100 WBC Differential Comment Diff Path Review Platelet Estimate RBC Morphology Specimen Type ART Sample Site L Radial pH 7.18 L* Bicarbonate Actual 16.3 L POC Total CO2 18 Base Excess -12 L O2 Saturation 92 L O2 % 100 ABG pCO2 43.6 ABG pO2 79 Blake Test Respiration Rate 14 O2 Delivery Device Vent Vent Mode A-C Tidal Volume 450 POC PEEP 10 Blood Gas Notified Whom HOSP Sodium Potassium Chloride Carbon Dioxide Anion Gap BUN Creatinine Estim Creat Clear Calc Est GFR (MDRD) Af Amer Est GFR (MDRD) Non-Af BUN/Creatinine Ratio Glucose Hemoglobin A1c Lactic Acid Calcium Phosphorus Magnesium Total Bilirubin Direct Bilirubin AST ALT Alkaline Phosphatase Total Creatine Kinase 82 Troponin I B-Natriuretic Peptide Total Protein Albumin Globulin Albumin/Globulin Ratio Triglycerides 85 Lipase MRSA (PCR) Negative 10/15/18 10/15/18 10/15/18 05:47 06:04 08:00 WBC RBC Hgb Hct MCV MCH MCHC RDW Std Deviation RDW Coeff of Tristian Plt Count MPV Immature Gran % (Auto) Neut % (Auto) Lymph % (Auto) [place] % (Auto) Eos % (Auto) Baso % (Auto) Absolute Neuts (auto) Absolute Lymphs (auto) Total Counted Neutrophils % (Manual) Band Neutrophils % Lymphocytes % (Manual) Nucleated RBC % Nucleated RBCs/100 WBC Differential Comment Diff Path Review Platelet Estimate RBC Morphology Specimen Type ART ART Sample Site L Radial L Radial pH 7.19 L* 7.34 L Bicarbonate Actual 20.2 L 22.9 POC Total CO2 22 24 Base Excess -8 L -3 L O2 Saturation 58 L 99 O2 % 90 90 ABG pCO2 52.7 H 43.0 ABG pO2 38 L* 169 H Blake Test POS Respiration Rate 16 16 O2 Delivery Device Vent Vent Vent Mode A-C A-C Tidal Volume 500 500 POC PEEP 10 10 Blood Gas Notified Whom HOSP ICU Sodium 139 Potassium 5.6 H Chloride 108 H Carbon Dioxide 21.0 Anion Gap 10 BUN 69 H Creatinine 2.89 H Estim Creat Clear Calc 21.07 Est GFR (MDRD) Af Amer 27 L Est GFR (MDRD) Non-Af 23 L BUN/Creatinine Ratio 23.9 H Glucose 112 H Hemoglobin A1c Lactic Acid Calcium 7.2 L Phosphorus 6.4 H Magnesium 2.1 Total Bilirubin 0.90 Direct Bilirubin AST 418 H ALT 414 H Alkaline Phosphatase 47 Total Creatine Kinase Troponin I B-Natriuretic Peptide Total Protein 5.0 L Albumin 1.8 L Globulin 3.2 Albumin/Globulin Ratio 0.6 L Triglycerides Lipase 143 MRSA (PCR) 10/15/18 10/15/18 10/15/18 08:00 08:00 08:00 WBC 24.8 H RBC 4.00 L Hgb 13.0 Hct 39.1 L MCV 97.8 H MCH 32.5 H MCHC 33.2 RDW Std Deviation 48.5 H RDW Coeff of Tristian 13.6 Plt Count 255 MPV 11.3 Immature Gran % (Auto) 1.700 H Neut % (Auto) 91.2 H Lymph % (Auto) 5.0 L [place] % (Auto) 1.6 Eos % (Auto) 0.1 Baso % (Auto) 0.4 Absolute Neuts (auto) 22.7 H Absolute Lymphs (auto) 1.23 Total Counted Neutrophils % (Manual) Band Neutrophils % Lymphocytes % (Manual) Nucleated RBC % 0 Nucleated RBCs/100 WBC Differential Comment Diff Path Review May foll Platelet Estimate ADEQUATE RBC Morphology NORM C+C Specimen Type Sample Site pH Bicarbonate Actual POC Total CO2 Base Excess O2 Saturation O2 % ABG pCO2 ABG pO2 Blake Test Respiration Rate O2 Delivery Device Vent Mode Tidal Volume POC PEEP Blood Gas Notified Whom Sodium Potassium Chloride Carbon Dioxide Anion Gap BUN Creatinine Estim Creat Clear Calc Est GFR (MDRD) Af Amer Est GFR (MDRD) Non-Af BUN/Creatinine Ratio Glucose Hemoglobin A1c Lactic Acid Calcium Phosphorus Magnesium Total Bilirubin Direct Bilirubin AST ALT Alkaline Phosphatase Total Creatine Kinase Troponin I 0.025 B-Natriuretic Peptide 39.3 Total Protein Albumin Globulin Albumin/Globulin Ratio Triglycerides Lipase MRSA (PCR) POC Glucose 10/15/18 10/15/18 10/15/18 12:01 05:50 01:14 POC Glucose 121 H 89 92 Assessment/Plan All Active Problems Acute tubular necrosis (Acute) Hyperkalemia (Acute) 1-Acute kidney injury on chronic kidney disease. Baseline creatinine is around 1.1. Acute kidney injury is most probably from ischemic acute tubular necrosis from septic shock. Creatinine is rising. Last 24-hour creatinine trend 1.9-2.9 mg/dl. Urine output increased slightly this morning. There is no indication for urgent hemodialysis. Please keep mean arterial pressure more than 65. Avoid nephrotoxic I will check renal function panel at 4 PM today. Continue to monitor urine output. 2-Hyperkalemia. Most probably from acute kidney injury. I will switch Ringer lactate to normal saline at the same rate 150 cc/h 3-Septic shock from aspiration pneumonia and perforated appendicitis and pelvis abscess. Patient is on Zosyn. Zosyn is appropriately dosed for the current creatinine clearance. ID is following for antibiotics. 4-Acute respiratory failure. Vent support as per the ICU team. 5-Perforated appendicitis with resultant pelvis abscess and small bowel adhesion and obstruction. Status post ileocecal resection. Dr. Sparks is following. You for the consult. Renal team will continue to follow. Please call if any question at [phone]. Reinaldo Leigh MD
[2018-10-15 12:46] LABS: Base Excess -9 mmol/L (-2 to +2); Bicarbonate 16.8 mmol/L (22-26); Blood Gas Specimen Type ALINE; FI02 40; Mode A-C; O2 Delivery Device Vent; PEEP 5; PO2 74 mmHG (75-100); RR 16; SITE OTHER; SO2 94 % (95-99); Time Given 1241; Total Carbon Dioxide 18 mmol/L; Vt 500; pCO2 31.6 mmHg (35-45); pH 7.33 (7.35-7.45)
[2018-10-15] MEDS: 0.9% Normal Saline 1,000 ML 150 ML IV ×2 (12:52→19:51)
[2018-10-15] MEDS: Norepinephrine 16 mg/250 mL 0.9% NS 28.1 MG CONT INF (14:58)
[2018-10-15 15:41] LABS: Pathologist Review Reviewed
[2018-10-15 17:05] LABS: Anion Gap 9 (5-15); BUN 70 mg/dL (7-18); BUN/Creat Ratio 32.6 RATIO (10-20); Calcium,Total 7.3 mg/dL (8.5-10.1); Chloride 112 mmol/L (98-107); Creatinine, Serum 2.15 mg/dL (0.70-1.30); EST Glomerular Filtration Rate 32 mL/min (>60); Est Glom Filt Rate - Afr Amer 39 mL/min (>60); Estimated Creatinine Clearance 28.33 ml/min; Glucose 154 mg/dL (74-106); Potassium 4.6 mmol/L (3.5-5.1); Sodium Level 140 mmol/L (136-145)
[2018-10-15 18:06] LABS: Bedside Glucose 138 mg/dL (70-110)
--- NOTE | 2018-10-15 19:03 | PN_ITS ---
Past Medical History Admit Diagnosis: complicated appendicitis, s/p ileocecal resection, aspiration pneumonia ICU Day #: 1 Post Op Day #: 1 Surgeon: Jose Sparks - [id number] Surgical History: no surgical history, - - Eye procedure with left eye glasses in place, renal stone intervention. Past Medical History: Chronic Problems Acute kidney injury superimposed on chronic kidney disease (Chronic) Lives: Spouse/ Significant Other Smoking Status: Former smoker Tobacco Use: Non-smoker Alcohol: None Drugs: None Capacity - Capacity Assessment Tool Can the patient make a choice & communicate that choice?: No Hospital/ICU Course Hospital/ICU Course: patient arrived in the in the intensive care unit directly postoperatively from abdominal exploration for presumed mid small bowel obstruction which turned out to be perforated appendicitis with obstruction due to a pelvic abscess. Due to the degree of inflammation and what appeared to be persistent leakage from the base of the cecum and ileocecal resection was performed and a drain placed. The patient had been on a nonrebreathing mask preoperatively. Postoperatively he was maintained intubated. He required increasing FiO2 and increasing pressors overnight. Subjective/Objective Patient Able to Communicate Effectively?: No Patient Sedated & Ventilated: Yes Vitals/I&O/Labs: Vital Signs Temp 97.7 F L 10/15/18 15:00 Pulse 76 10/15/18 18:00 Resp 16 10/15/18 18:00 BP 114/57 L 10/15/18 18:00 Pulse Ox 95 10/15/18 18:00 Intake & Output 10/13/18 10/14/18 10/15/18 23:59 23:59 23:59 Intake Total 2535.6 / 2535.6 4688.2 / 4688.2 Output Total 840 / 840 1065 / 1065 Balance 1695.6 / 1695.6 3623.2 / 3623.2 Weight: 69.6 kg 69.6 kg Intake: IV fluid/meds 2535.6 / 2535.6 4408.2 / 4408.2 IV #1 1600 / 1600 NG/PEG Flush 280 / 280 Nasogastric Tube 200 / 200 Output: Urine 710 / 710 850 / 850 Gastric Drainage 100 / 100 175 / 175 Drainage Amount 30 / 30 40 / 40 RLQ 30 / 30 40 / 40 Chest Tube Amount 0 / 0 Right Mid-Axillary Chest 0 / 0 Other: Drain Location RLQ RLQ 30 Tube Type RLQ MARSHALL drain MARSHALL drain Microbiology Past 72 Hours 10/14/18 22:55 Streptococcus pneumoniae Antigen (M - Final Urine Catheter - Catheter 10/14/18 22:55 Legionella Antigen - Final Urine Catheter - Catheter Laboratory Tests Past 24 Hrs 10/14/18 10/14/18 10/14/18 19:38 21:33 21:33 WBC RBC Hgb Hct MCV MCH MCHC RDW Std Deviation RDW Coeff of Tristian Plt Count MPV Immature Gran % (Auto) Neut % (Auto) Lymph % (Auto) [place] % (Auto) Eos % (Auto) Baso % (Auto) Absolute Neuts (auto) Absolute Lymphs (auto) Total Counted Neutrophils % (Manual) Band Neutrophils % Lymphocytes % (Manual) Nucleated RBC % Nucleated RBCs/100 WBC Differential Comment Diff Path Review Platelet Estimate RBC Morphology Specimen Type ART Sample Site L Radial pH 7.26 L Bicarbonate Actual 17.9 L POC Total CO2 19 Base Excess -9 L O2 Saturation 86 L O2 % 60 ABG pCO2 39.9 ABG pO2 58 L Blake Test POS Respiration Rate 12 O2 Delivery Device Vent Vent Mode A-C Tidal Volume 550 POC PEEP 5 Blood Gas Notified Whom [facility] Blood Gas Notified Time Sodium 134 L Potassium 5.4 H Chloride 104 Carbon Dioxide 16.0 L Anion Gap 14 BUN 64 H Creatinine 1.93 H Estim Creat Clear Calc 32.46 Est GFR (MDRD) Af Amer 44 L Est GFR (MDRD) Non-Af 36 L BUN/Creatinine Ratio 33.2 H Glucose 156 H Calcium 7.5 L Phosphorus 5.5 H Magnesium 2.2 2.2 Total Bilirubin 1.30 H Direct Bilirubin 0.38 H AST 31 ALT 64 H Alkaline Phosphatase 59 Total Creatine Kinase Troponin I B-Natriuretic Peptide Total Protein 5.2 L Albumin 2.1 L Globulin 3.1 Albumin/Globulin Ratio 0.7 L Triglycerides Lipase MRSA (PCR) 10/14/18 10/14/18 10/14/18 21:33 21:33 22:45 WBC 14.9 H RBC 4.69 Hgb 15.0 Hct 46.4 MCV 98.9 H MCH 32.0 MCHC 32.3 RDW Std Deviation 48.5 H RDW Coeff of Tristian 13.3 Plt Count 328 MPV 11.0 Immature Gran % (Auto) [employer]IST Neut % (Auto) S[employer] SPECIALIST Lymph % (Auto) S[employer]IST [place] % (Auto) S[employer] SPECIALIST Eos % (Auto) S[employer] SPECIALIST Baso % (Auto) [employer] SPECIALIST Absolute Neuts (auto) 13.7 H Absolute Lymphs (auto) 1.19 Total Counted 100 Neutrophils % (Manual) 53 Band Neutrophils % 39 H Lymphocytes % (Manual) 8 L Nucleated RBC % [employer] SPECIALIST Nucleated RBCs/100 WBC 2 Differential Comment SCANNED Diff Path Review Reviewed Platelet Estimate ADEQUATE RBC Morphology NORM C+C Specimen Type ART Sample Site L Radial pH 7.18 L* Bicarbonate Actual 16.3 L POC Total CO2 18 Base Excess -12 L O2 Saturation 92 L O2 % 100 ABG pCO2 43.6 ABG pO2 79 Blake Test Respiration Rate 14 O2 Delivery Device Vent Vent Mode A-C Tidal Volume 450 POC PEEP 10 Blood Gas Notified Whom HOSP MD Blood Gas Notified Time Sodium Potassium Chloride Carbon Dioxide Anion Gap BUN Creatinine Estim Creat Clear Calc Est GFR (MDRD) Af Amer Est GFR (MDRD) Non-Af BUN/Creatinine Ratio Glucose Calcium Phosphorus Magnesium Total Bilirubin Direct Bilirubin AST ALT Alkaline Phosphatase Total Creatine Kinase 82 Troponin I B-Natriuretic Peptide Total Protein Albumin Globulin Albumin/Globulin Ratio Triglycerides 85 Lipase MRSA (PCR) 10/14/18 10/15/18 10/15/18 22:50 05:47 06:04 WBC RBC Hgb Hct MCV MCH MCHC RDW Std Deviation RDW Coeff of Tristian Plt Count MPV Immature Gran % (Auto) Neut % (Auto) Lymph % (Auto) [place] % (Auto) Eos % (Auto) Baso % (Auto) Absolute Neuts (auto) Absolute Lymphs (auto) Total Counted Neutrophils % (Manual) Band Neutrophils % Lymphocytes % (Manual) Nucleated RBC % Nucleated RBCs/100 WBC Differential Comment Diff Path Review Platelet Estimate RBC Morphology Specimen Type ART ART Sample Site L Radial L Radial pH 7.19 L* 7.34 L Bicarbonate Actual 20.2 L 22.9 POC Total CO2 22 24 Base Excess -8 L -3 L O2 Saturation 58 L 99 O2 % 90 90 ABG pCO2 52.7 H 43.0 ABG pO2 38 L* 169 H Blake Test POS Respiration Rate 16 16 O2 Delivery Device Vent Vent Vent Mode A-C A-C Tidal Volume 500 500 POC PEEP 10 10 Blood Gas Notified Whom HOSP ICU MD Blood Gas Notified Time Sodium Potassium Chloride Carbon Dioxide Anion Gap BUN Creatinine Estim Creat Clear Calc Est GFR (MDRD) Af Amer Est GFR (MDRD) Non-Af BUN/Creatinine Ratio Glucose Calcium Phosphorus Magnesium Total Bilirubin Direct Bilirubin AST ALT Alkaline Phosphatase Total Creatine Kinase Troponin I B-Natriuretic Peptide Total Protein Albumin Globulin Albumin/Globulin Ratio Triglycerides Lipase MRSA (PCR) Negative 10/15/18 10/15/18 10/15/18 08:00 08:00 08:00 WBC RBC Hgb Hct MCV MCH MCHC RDW Std Deviation RDW Coeff of Tristian Plt Count MPV Immature Gran % (Auto) Neut % (Auto) Lymph % (Auto) [place] % (Auto) Eos % (Auto) Baso % (Auto) Absolute Neuts (auto) Absolute Lymphs (auto) Total Counted Neutrophils % (Manual) Band Neutrophils % Lymphocytes % (Manual) Nucleated RBC % Nucleated RBCs/100 WBC Differential Comment Diff Path Review Platelet Estimate RBC Morphology Specimen Type Sample Site pH Bicarbonate Actual POC Total CO2 Base Excess O2 Saturation O2 % ABG pCO2 ABG pO2 Blake Test Respiration Rate O2 Delivery Device Vent Mode Tidal Volume POC PEEP Blood Gas Notified Whom Blood Gas Notified Time Sodium 139 Potassium 5.6 H Chloride 108 H Carbon Dioxide 21.0 Anion Gap 10 BUN 69 H Creatinine 2.89 H Estim Creat Clear Calc 21.07 Est GFR (MDRD) Af Amer 27 L Est GFR (MDRD) Non-Af 23 L BUN/Creatinine Ratio 23.9 H Glucose 112 H Calcium 7.2 L Phosphorus 6.4 H Magnesium 2.1 Total Bilirubin 0.90 Direct Bilirubin AST 418 H ALT 414 H Alkaline Phosphatase 47 Total Creatine Kinase Troponin I 0.025 B-Natriuretic Peptide 39.3 Total Protein 5.0 L Albumin 1.8 L Globulin 3.2 Albumin/Globulin Ratio 0.6 L Triglycerides Lipase 143 MRSA (PCR) 10/15/18 10/15/18 10/15/18 08:00 12:42 16:40 WBC 24.8 H RBC 4.00 L Hgb 13.0 Hct 39.1 L MCV 97.8 H MCH 32.5 H MCHC 33.2 RDW Std Deviation 48.5 H RDW Coeff of Tristian 13.6 Plt Count 255 MPV 11.3 Immature Gran % (Auto) 1.700 H Neut % (Auto) 91.2 H Lymph % (Auto) 5.[address] [place] % (Auto) 1.6 Eos % (Auto) 0.1 Baso % (Auto) 0.4 Absolute Neuts (auto) 22.7 H Absolute Lymphs (auto) 1.23 Total Counted Neutrophils % (Manual) Band Neutrophils % Lymphocytes % (Manual) Nucleated RBC % 0 Nucleated RBCs/100 WBC Differential Comment Diff Path Review May foll Platelet Estimate ADEQUATE RBC Morphology NORM C+C Specimen Type ALEXI Sample Site OTHER pH 7.33 L Bicarbonate Actual 16.8 L POC Total CO2 18 Base Excess -9 L O2 Saturation 94 L O2 % 40 ABG pCO2 31.6 L ABG pO2 74 L Blake Test Respiration Rate 16 O2 Delivery Device Vent Vent Mode A-C Tidal Volume 500 POC PEEP 5 Blood Gas Notified Whom OTHER Blood Gas Notified Time 1241 Sodium 140 Potassium 4.6 Chloride 112 H Carbon Dioxide 19.0 L Anion Gap 9 BUN 70 H Creatinine 2.15 H Estim Creat Clear Calc 28.33 Est GFR (MDRD) Af Amer 39 L Est GFR (MDRD) Non-Af 32 L BUN/Creatinine Ratio 32.6 H Glucose 154 H Calcium 7.3 L Phosphorus Magnesium Total Bilirubin Direct Bilirubin AST ALT Alkaline Phosphatase Total Creatine Kinase Troponin I B-Natriuretic Peptide Total Protein Albumin Globulin Albumin/Globulin Ratio Triglycerides Lipase MRSA (PCR) Cardiovascular: Tachycardic Vent Type: PSV ABG 10/14/18 10/14/18 10/15/18 19:38 22:45 05:47 Specimen Type ART ART ART Sample Site L Radial L Radial L Radial pH 7.26 L 7.18 L* 7.19 L* Bicarbonate Actual 17.9 L 16.3 L 20.2 L POC Total CO2 19 18 22 Base Excess -9 L -12 L -8 L O2 Saturation 86 L 92 L 58 L O2 % 60 100 90 ABG pCO2 39.9 43.6 52.7 H ABG pO2 58 L 79 38 L* Blake Test POS POS Respiration Rate 12 14 16 O2 Delivery Device Vent Vent Vent Vent Mode A-C A-C A-C Tidal Volume 550 450 500 POC PEEP 5 10 10 Blood Gas Notified Whom HOSP HOSP HOSP Blood Gas Notified Time 10/15/18 10/15/18 06:04 12:42 Specimen Type ART ALEXI Sample Site L Radial OTHER pH 7.34 L 7.33 L Bicarbonate Actual 22.9 16.8 L POC Total CO2 24 18 Base Excess -3 L -9 L O2 Saturation 99 94 L O2 % 90 40 ABG pCO2 43.0 31.6 L ABG pO2 169 H 74 L Blake Test Respiration Rate 16 16 O2 Delivery Device Vent Vent Vent Mode A-C A-C Tidal Volume 500 500 POC PEEP 10 5 Blood Gas Notified Whom ICU MD OTHER Blood Gas Notified Time 1241 - GI Abdomen: Non Tender, Non-Distended, Bowel Sounds Not Present, - - Oj-Light drain serosanguineous Checklist Sedation Vacation & adjustment: No Delirium Screened & Treated: No PT/OT/Activity Level Advanced: No Weaning/extubation assessed: Yes HOB up 30-45 degrees: Yes GI Prophylaxis: Yes DVT Prophylaxis: Yes Feeding Advanced: No Bowel Regimen: No Routine Labs/X-Rays Discussed: Yes Antibiotics de-escalated: No Meds reviewed & Converted to PO: No Invasive lines de-escalated: No Maguire Required: Yes Assessment/Plan All Active Problems Acute tubular necrosis (Acute) Hyperkalemia (Acute) complicated perforated appendicitis postoperative day #1 status post ileocecal resection and drainage, aspiration pneumonia, septic shock neurologic-patient is currently being given narcotics for sedation. Currently comfortable. Respiratory-preoperative CT scan demonstrated fluid in the left mainstem and x- ray consistent with aspiration pneumonia. Patient initially required increasing FiO2 up to 100% overnight. Currently oxygen saturation improving and FiO2 decreased to 40%. On broad-spectrum antibiotics for presumed aspiration. Right-sided pneumothorax status post attempted central line for right internal jugular line. Pneumocath placed. Postplacement chest x-ray demonstrated good reexpansion of lung. Cardiovascular-septic shock, tachycardic, currently supported with pressors. we'll attempt to wean pressors as able GI-initial assumption was small bowel obstruction with mid small bowel transition point findings intraoperatively demonstrated jellylike material in the mid small bowel but actual problem was perforated appendicitis with adhesed loops of small bowel in the pelvis. Ileocecal resection performed. Risk for leakage due to need for pressors postoperatively. Anticipated longer postoperative ileus course due to above factors and fact that small bowel material may take longer to pass. Nasogastric tube placed intraoperatively. Nasogastric tube in good position. We'll continue nasogastric suctioning. Renal-low urine output overnight suspect acute tubular necrosis. Electrolytes somewhat improved. We'll continue supportive patient medically and anticipate hopefully return of renal function without need for dialysis. Fluid, electrolytes, nutrition- patient receiving boluses overnight in addition to pressors, potassium improving. Nothing by mouth for now. We will hold off enteral nutrition due to sepsis and concern for fluid overload given renal function. Infectious disease-patient with neglected perforated appendicitis resulting in complex pelvic abscess and significant inflammation requiring a ileocecal resection along with likely aspiration pneumonia. Zosyn given. We'll obtain cultures of patient's spikes fever-elevated white blood cell count Zosyn was given the nurse present. SCDs for VTE prophylaxis, Protonix for stress ulcer prophylaxis
--- NOTE | 2018-10-15 19:13 | PCM.OPRPT ---
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 Consent was obtained by the patient's . The chest x-ray was reviewed which demonstrated a right sided pneumothorax estimated be atproximally 40% %. Sign in was performed verifying patient, site, position. The right chest were prepped and draped in the usual fashion. Timeout was performed verifying patient, site, position. Local anesthetic was injected, a small incision made and catheter over needle pneumocath catheter was placed into the pleural space without difficulty. The catheter was affixed to a Pleur-evac. Bubbles were noted through the system. Moisture was noted in the catheter. The catheter was affixed to the chest wall with a 3-0 silk suture with a large clear OpSite and all joints were taped with the chest tube taped to the patient?s hip. Postprocedure chest x-ray was obtained which demonstrated good expansion of the lung. There was no air leak noted.
[2018-10-15] MEDS: Latanoprost 0.005% 1 Bottle 1 DRP RIGHT EYE (21:20)
[2018-10-16] VITALS (46 sets, daily range): BP systolic 104–152; BP diastolic 44–87; PULSE 56–94; RESP 8–25; TEMP 35.9–36.7; O2SAT 90–98
[2018-10-16] MEDS: Hydrocortisone Sod Succinate 100 MG/2 ML Vial 50 MG IV ×3 (00:09→21:39)
[2018-10-16] MEDS: 0.9% NaCl Peripheral Flush Adult/Peds IV ×3 (00:10→08:21)
[2018-10-16] MEDS: fentaNYL drip 100 ML 2.5 MCG IV (00:15)
[2018-10-16 00:21] LABS: Bedside Glucose 136 mg/dL (70-110)
[2018-10-16] MEDS: 0.9% Normal Saline 1,000 ML 150 ML IV (03:02)
[2018-10-16] MEDS: Insulin Lispro 100 UNIT/ML INSULN.PEN SC ×4 (05:17→23:23)
[2018-10-16 05:21] LABS: Bedside Glucose 152 mg/dL (70-110)
--- NOTE | 2018-10-16 06:09 | PCM.PN.INT ---
Subjective: The patient was seen and examined at the bedside this morning. Events from the last 24 hours have been reviewed. The patient is currently afebrile, hemodynamically stable and maintaining appropriate oxygen saturations on CPAP mode mechanical ventilation with an FiO2 requirement of 30%. The patient has improved clinically over the last 24 hours. His vasopressin was able to be discontinued last evening at 1700 hrs. His levophed was discontinued this morning at 0500 hrs. The patient remains hemodynamically stable. He is currently alert and interactive. He is doing well on his spontaneous breathing trial. Urine output has increased. The patient is now documented to be overall net +6.4 L for the admission. Chest tube has been to water seal all night. There is no air leak this morning. The patient was reevaluated at the bedside after greater than 1 hour on his spontaneous breathing trial. He continues to do well from a respiratory perspective. He is alert and following all commands. Therefore, under my direct supervision, the patient was extubated to nasal cannula supplemental oxygen. Post extubation, there was no evidence of air leak and the patient's chest tube atrium. Objective: The patient's most recent lab work, culture data and imaging studies have all been personally reviewed. Surface echocardiogram revealed normal LV size and thickness with an ejection fraction of 70%. Strep and urine Legionella antigens were both negative. Blood, urine and sputum cultures are pending. General: - - Remains intubated and mechanically ventilated. Currently tolerating spontaneous mode mechanical ventilation. HEENT: Atraumatic, Normocephalic, - - Glass eye remains in place. Nasogastric tube remains in place. Oral: No Gingival or Mucosal Lesions/ Ulcerations, - - Endotracheal tube remains in place. Neck: Supple, No Nodes, Trachea Midline, - - Right IJ central venous catheter remains in place. Lungs: No rhonchi, No wheeze, No rales, Diminished, - - Small bore chest tube in place. No air leak noted. Cardiovascular: Regular rate, Regular Rhythm, Normal S1, Normal S2 Abdomen: Soft, Hypoactive Bowel Sounds, - - MARSHALL drain remains in place. Surgical dressing is C/D/I Extremities: No clubbing, No cyanosis, No edema Skin: No breakdown Musculoskeletal: No Tenderness to Palpation of Joints or Extremities Lymphatic: No Cervical, Supraclavicular, or Inguinal Adenopathy Neurological: - - No focal neurological deficits. Moves all extremities spontaneously. Follows commands appropriately. Vital Signs Temp Pulse Resp BP Pulse Ox 98.0 F 80 8 L 130/67 H 92 10/16/18 04:00 10/16/18 06:00 10/16/18 06:00 10/16/18 06:00 10/16/18 06:00 Oxygen Flow Rate (L/min) 6 Oxygen Delivery Method Mechanical Ventilator Weight: 166 lb 14.239 oz Body Mass Index (BMI) 21.9 Intake and Output for Last 24 Hours 10/14/18 10/15/18 10/16/18 23:59 23:59 23:59 Intake Total 2535.6 / 2535.6 6024.5 / 6024.5 999.4 / 999.4 Output Total 840 / 840 1775 / 1775 605 / 605 Balance 1695.6 / 1695.6 4249.5 / 4249.5 394.4 / 394.4 Labs (Last 48 Hours) 10/14/18 10/14/18 10/14/18 11:30 11:30 11:30 WBC 18.8 H RBC 4.88 Hgb 15.7 Hct 46.5 MCV 95.3 H MCH 32.2 H MCHC 33.8 RDW Std Deviation 46.7 H RDW Coeff of Tristian 13.3 Plt Count 367 MPV 10.8 Immature Gran % (Auto) 1.000 H Neut % (Auto) 90.4 H Lymph % (Auto) 5.0 L Bell % (Auto) 3.0 Eos % (Auto) 0.2 Baso % (Auto) 0.4 Absolute Neuts (auto) 17.0 H Absolute Lymphs (auto) 0.94 Total Counted Neutrophils % (Manual) Band Neutrophils % Lymphocytes % (Manual) Nucleated RBC % 0 Nucleated RBCs/100 WBC Differential Comment Diff Path Review Platelet Estimate RBC Morphology PT 15.1 H INR 1.2 APTT 26.5 Specimen Type Sample Site pH Bicarbonate Actual POC Total CO2 Base Excess O2 Saturation O2 % ABG pCO2 ABG pO2 Blake Test Respiration Rate O2 Delivery Device Vent Mode Tidal Volume POC PEEP Blood Gas Notified Whom Blood Gas Notified Time Sodium 130 L Potassium 4.5 Chloride 91 L Carbon Dioxide 27.0 Anion Gap 12 BUN 60 H Creatinine 1.89 H Estim Creat Clear Calc 33.15 Est GFR (MDRD) Af Amer 45 L Est GFR (MDRD) Non-Af 37 L BUN/Creatinine Ratio 31.7 H Glucose 235 H Hemoglobin A1c Lactic Acid Calcium 8.9 Phosphorus Magnesium Total Bilirubin 1.20 H Direct Bilirubin 0.35 H AST 21 ALT 99 H Alkaline Phosphatase 82 Total Creatine Kinase Troponin I < 0.015 B-Natriuretic Peptide Total Protein 7.4 Albumin 2.9 L Globulin 4.5 H Albumin/Globulin Ratio Triglycerides Lipase 479 H MRSA (PCR) POC Glucose 10/14/18 10/14/18 10/14/18 11:30 12:00 19:38 WBC RBC Hgb Hct MCV MCH MCHC RDW Std Deviation RDW Coeff of Tristian Plt Count MPV Immature Gran % (Auto) Neut % (Auto) Lymph % (Auto) Bell % (Auto) Eos % (Auto) Baso % (Auto) Absolute Neuts (auto) Absolute Lymphs (auto) Total Counted Neutrophils % (Manual) Band Neutrophils % Lymphocytes % (Manual) Nucleated RBC % Nucleated RBCs/100 WBC Differential Comment Diff Path Review Platelet Estimate RBC Morphology PT INR APTT Specimen Type ART Sample Site L Radial pH 7.26 L Bicarbonate Actual 17.9 L POC Total CO2 19 Base Excess -9 L O2 Saturation 86 L O2 % 60 ABG pCO2 39.9 ABG pO2 58 L Blake Test POS Respiration Rate 12 O2 Delivery Device Vent Vent Mode A-C Tidal Volume 550 POC PEEP 5 Blood Gas Notified Whom HOSP Blood Gas Notified Time Sodium Potassium Chloride Carbon Dioxide Anion Gap BUN Creatinine Estim Creat Clear Calc Est GFR (MDRD) Af Amer Est GFR (MDRD) Non-Af BUN/Creatinine Ratio Glucose Hemoglobin A1c 6.5 H Lactic Acid 3.2 H Calcium Phosphorus Magnesium Total Bilirubin Direct Bilirubin AST ALT Alkaline Phosphatase Total Creatine Kinase Troponin I B-Natriuretic Peptide Total Protein Albumin Globulin Albumin/Globulin Ratio Triglycerides Lipase MRSA (PCR) POC Glucose 10/14/18 10/14/18 10/14/18 21:33 21:33 21:33 WBC 14.9 H RBC 4.69 Hgb 15.0 Hct 46.4 MCV 98.9 H MCH 32.0 MCHC 32.3 RDW Std Deviation 48.5 H RDW Coeff of Tristian 13.3 Plt Count 328 MPV 11.0 Immature Gran % (Auto) [employer] Neut % (Auto) [employer] Lymph % (Auto) [employer] Bell % (Auto) [employer] Eos % (Auto) [employer] Baso % (Auto) [employer] Absolute Neuts (auto) 13.7 H Absolute Lymphs (auto) 1.19 Total Counted 100 Neutrophils % (Manual) 53 Band Neutrophils % 39 H Lymphocytes % (Manual) 8 L Nucleated RBC % [employer] Nucleated RBCs/100 WBC 2 Differential Comment SCANNED Diff Path Review Reviewed Platelet Estimate ADEQUATE RBC Morphology NORM C+C PT INR APTT Specimen Type Sample Site pH Bicarbonate Actual POC Total CO2 Base Excess O2 Saturation O2 % ABG pCO2 ABG pO2 Blake Test Respiration Rate O2 Delivery Device Vent Mode Tidal Volume POC PEEP Blood Gas Notified Whom Blood Gas Notified Time Sodium 134 L Potassium 5.4 H Chloride 104 Carbon Dioxide 16.0 L Anion Gap 14 BUN 64 H Creatinine 1.93 H Estim Creat Clear Calc 32.46 Est GFR (MDRD) Af Amer 44 L Est GFR (MDRD) Non-Af 36 L BUN/Creatinine Ratio 33.2 H Glucose 156 H Hemoglobin A1c Lactic Acid Calcium 7.5 L Phosphorus 5.5 H Magnesium 2.2 2.2 Total Bilirubin 1.30 H Direct Bilirubin 0.38 H AST 31 ALT 64 H Alkaline Phosphatase 59 Total Creatine Kinase Troponin I B-Natriuretic Peptide Total Protein 5.2 L Albumin 2.1 L Globulin 3.1 Albumin/Globulin Ratio 0.7 L Triglycerides Lipase MRSA (PCR) POC Glucose 10/14/18 10/14/18 10/14/18 21:33 22:45 22:50 WBC RBC Hgb Hct MCV MCH MCHC RDW Std Deviation RDW Coeff of Tristian Plt Count MPV Immature Gran % (Auto) Neut % (Auto) Lymph % (Auto) Bell % (Auto) Eos % (Auto) Baso % (Auto) Absolute Neuts (auto) Absolute Lymphs (auto) Total Counted Neutrophils % (Manual) Band Neutrophils % Lymphocytes % (Manual) Nucleated RBC % Nucleated RBCs/100 WBC Differential Comment Diff Path Review Platelet Estimate RBC Morphology PT INR APTT Specimen Type ART Sample Site L Radial pH 7.18 L* Bicarbonate Actual 16.3 L POC Total CO2 18 Base Excess -12 L O2 Saturation 92 L O2 % 100 ABG pCO2 43.6 ABG pO2 79 Blake Test Respiration Rate 14 O2 Delivery Device Vent Vent Mode A-C Tidal Volume 450 POC PEEP 10 Blood Gas Notified Whom [facility] Blood Gas Notified Time Sodium Potassium Chloride Carbon Dioxide Anion Gap BUN Creatinine Estim Creat Clear Calc Est GFR (MDRD) Af Amer Est GFR (MDRD) Non-Af BUN/Creatinine Ratio Glucose Hemoglobin A1c Lactic Acid Calcium Phosphorus Magnesium Total Bilirubin Direct Bilirubin AST ALT Alkaline Phosphatase Total Creatine Kinase 82 Troponin I B-Natriuretic Peptide Total Protein Albumin Globulin Albumin/Globulin Ratio Triglycerides 85 Lipase MRSA (PCR) Negative POC Glucose 10/15/18 10/15/18 10/15/18 01:14 05:47 05:50 WBC RBC Hgb Hct MCV MCH MCHC RDW Std Deviation RDW Coeff of Tristian Plt Count MPV Immature Gran % (Auto) Neut % (Auto) Lymph % (Auto) Bell % (Auto) Eos % (Auto) Baso % (Auto) Absolute Neuts (auto) Absolute Lymphs (auto) Total Counted Neutrophils % (Manual) Band Neutrophils % Lymphocytes % (Manual) Nucleated RBC % Nucleated RBCs/100 WBC Differential Comment Diff Path Review Platelet Estimate RBC Morphology PT INR APTT Specimen Type ART Sample Site L Radial pH 7.19 L* Bicarbonate Actual 20.2 L POC Total CO2 22 Base Excess -8 L O2 Saturation 58 L O2 % 90 ABG pCO2 52.7 H ABG pO2 38 L* Blake Test POS Respiration Rate 16 O2 Delivery Device Vent Vent Mode A-C Tidal Volume 500 POC PEEP 10 Blood Gas Notified Whom [facility] Blood Gas Notified Time Sodium Potassium Chloride Carbon Dioxide Anion Gap BUN Creatinine Estim Creat Clear Calc Est GFR (MDRD) Af Amer Est GFR (MDRD) Non-Af BUN/Creatinine Ratio Glucose Hemoglobin A1c Lactic Acid Calcium Phosphorus Magnesium Total Bilirubin Direct Bilirubin AST ALT Alkaline Phosphatase Total Creatine Kinase Troponin I B-Natriuretic Peptide Total Protein Albumin Globulin Albumin/Globulin Ratio Triglycerides Lipase MRSA (PCR) POC Glucose 92 89 10/15/18 10/15/18 10/15/18 06:04 08:00 08:00 WBC RBC Hgb Hct MCV MCH MCHC RDW Std Deviation RDW Coeff of Tristian Plt Count MPV Immature Gran % (Auto) Neut % (Auto) Lymph % (Auto) Bell % (Auto) Eos % (Auto) Baso % (Auto) Absolute Neuts (auto) Absolute Lymphs (auto) Total Counted Neutrophils % (Manual) Band Neutrophils % Lymphocytes % (Manual) Nucleated RBC % Nucleated RBCs/100 WBC Differential Comment Diff Path Review Platelet Estimate RBC Morphology PT INR APTT Specimen Type ART Sample Site L Radial pH 7.34 L Bicarbonate Actual 22.9 POC Total CO2 24 Base Excess -3 L O2 Saturation 99 O2 % 90 ABG pCO2 43.0 ABG pO2 169 H Blake Test Respiration Rate 16 O2 Delivery Device Vent Vent Mode A-C Tidal Volume 500 POC PEEP 10 Blood Gas Notified Whom ICU MD Blood Gas Notified Time Sodium 139 Potassium 5.6 H Chloride 108 H Carbon Dioxide 21.0 Anion Gap 10 BUN 69 H Creatinine 2.89 H Estim Creat Clear Calc 21.07 Est GFR (MDRD) Af Amer 27 L Est GFR (MDRD) Non-Af 23 L BUN/Creatinine Ratio 23.9 H Glucose 112 H Hemoglobin A1c Lactic Acid Calcium 7.2 L Phosphorus 6.4 H Magnesium 2.1 Total Bilirubin 0.90 Direct Bilirubin AST 418 H ALT 414 H Alkaline Phosphatase 47 Total Creatine Kinase Troponin I 0.025 B-Natriuretic Peptide Total Protein 5.0 L Albumin 1.8 L Globulin 3.2 Albumin/Globulin Ratio 0.6 L Triglycerides Lipase 143 MRSA (PCR) POC Glucose 10/15/18 10/15/18 10/15/18 08:00 08:00 12:01 WBC 24.8 H RBC 4.00 L Hgb 13.0 Hct 39.1 L MCV 97.8 H MCH 32.5 H MCHC 33.2 RDW Std Deviation 48.5 H RDW Coeff of Tristian 13.6 Plt Count 255 MPV 11.3 Immature Gran % (Auto) 1.700 H Neut % (Auto) 91.2 H Lymph % (Auto) 5.0 L Bell % (Auto) 1.6 Eos % (Auto) 0.1 Baso % (Auto) 0.4 Absolute Neuts (auto) 22.7 H Absolute Lymphs (auto) 1.23 Total Counted Neutrophils % (Manual) Band Neutrophils % Lymphocytes % (Manual) Nucleated RBC % 0 Nucleated RBCs/100 WBC Differential Comment Diff Path Review May foll Platelet Estimate ADEQUATE RBC Morphology NORM C+C PT INR APTT Specimen Type Sample Site pH Bicarbonate Actual POC Total CO2 Base Excess O2 Saturation O2 % ABG pCO2 ABG pO2 Blake Test Respiration Rate O2 Delivery Device Vent Mode Tidal Volume POC PEEP Blood Gas Notified Whom Blood Gas Notified Time Sodium Potassium Chloride Carbon Dioxide Anion Gap BUN Creatinine Estim Creat Clear Calc Est GFR (MDRD) Af Amer Est GFR (MDRD) Non-Af BUN/Creatinine Ratio Glucose Hemoglobin A1c Lactic Acid Calcium Phosphorus Magnesium Total Bilirubin Direct Bilirubin AST ALT Alkaline Phosphatase Total Creatine Kinase Troponin I B-Natriuretic Peptide 39.3 Total Protein Albumin Globulin Albumin/Globulin Ratio Triglycerides Lipase MRSA (PCR) POC Glucose 121 H 10/15/18 10/15/18 10/15/18 12:42 16:40 17:55 WBC RBC Hgb Hct MCV MCH MCHC RDW Std Deviation RDW Coeff of Tristian Plt Count MPV Immature Gran % (Auto) Neut % (Auto) Lymph % (Auto) Bell % (Auto) Eos % (Auto) Baso % (Auto) Absolute Neuts (auto) Absolute Lymphs (auto) Total Counted Neutrophils % (Manual) Band Neutrophils % Lymphocytes % (Manual) Nucleated RBC % Nucleated RBCs/100 WBC Differential Comment Diff Path Review Platelet Estimate RBC Morphology PT INR APTT Specimen Type ALEXI Sample Site OTHER pH 7.33 L Bicarbonate Actual 16.8 L POC Total CO2 18 Base Excess -9 L O2 Saturation 94 L O2 % 40 ABG pCO2 31.6 L ABG pO2 74 L Blaek Test Respiration Rate 16 O2 Delivery Device Vent Vent Mode A-C Tidal Volume 500 POC PEEP 5 Blood Gas Notified Whom OTHER Blood Gas Notified Time 1241 Sodium 140 Potassium 4.6 Chloride 112 H Carbon Dioxide 19.0 L Anion Gap 9 BUN 70 H Creatinine 2.15 H Estim Creat Clear Calc 28.33 Est GFR (MDRD) Af Amer 39 L Est GFR (MDRD) Non-Af 32 L BUN/Creatinine Ratio 32.6 H Glucose 154 H Hemoglobin A1c Lactic Acid Calcium 7.3 L Phosphorus Magnesium Total Bilirubin Direct Bilirubin AST ALT Alkaline Phosphatase Total Creatine Kinase Troponin I B-Natriuretic Peptide Total Protein Albumin Globulin Albumin/Globulin Ratio Triglycerides Lipase MRSA (PCR) POC Glucose 138 H 10/16/18 10/16/18 00:14 05:11 WBC RBC Hgb Hct MCV MCH MCHC RDW Std Deviation RDW Coeff of Tristian Plt Count MPV Immature Gran % (Auto) Neut % (Auto) Lymph % (Auto) Bell % (Auto) Eos % (Auto) Baso % (Auto) Absolute Neuts (auto) Absolute Lymphs (auto) Total Counted Neutrophils % (Manual) Band Neutrophils % Lymphocytes % (Manual) Nucleated RBC % Nucleated RBCs/100 WBC Differential Comment Diff Path Review Platelet Estimate RBC Morphology PT INR APTT Specimen Type Sample Site pH Bicarbonate Actual POC Total CO2 Base Excess O2 Saturation O2 % ABG pCO2 ABG pO2 Blake Test Respiration Rate O2 Delivery Device Vent Mode Tidal Volume POC PEEP Blood Gas Notified Whom Blood Gas Notified Time Sodium Potassium Chloride Carbon Dioxide Anion Gap BUN Creatinine Estim Creat Clear Calc Est GFR (MDRD) Af Amer Est GFR (MDRD) Non-Af BUN/Creatinine Ratio Glucose Hemoglobin A1c Lactic Acid Calcium Phosphorus Magnesium Total Bilirubin Direct Bilirubin AST ALT Alkaline Phosphatase Total Creatine Kinase Troponin I B-Natriuretic Peptide Total Protein Albumin Globulin Albumin/Globulin Ratio Triglycerides Lipase MRSA (PCR) POC Glucose 136 H 152 H Microbiology 10/14/18 22:55 Urine Catheter - Catheter Streptococcus pneumoniae Antigen (M - Final 10/14/18 22:55 Urine Catheter - Catheter Legionella Antigen - Final Clinical Impression(s) from Imaging Studies Chest X-Ray 10/14/18 11:53 IMPRESSION: Increased markings at the left lung base suggestive of atelectasis and/or early infiltrate. Follow-up is recommended. Electronically Signed: Jimmy Galarza, at 12:38 EDT , Service support , Abdomen/Pelvis CT 10/14/18 12:27 IMPRESSION: Small bowel obstruction with the transition point in the distal ileum. Fluid distention of the stomach and the distal esophagus. Patchy alveolar disease in both lower lobes. Radiographic follow-up is recommended. Electronically Signed: Jimmy Galarza, at 15:04 EDT , Service support , Chest CT 10/14/18 12:27 IMPRESSION: Airspace disease in both lower lobes with peribronchial dilatation and the fluid within the bronchial tree in the lower lobes worse on the left lung base. Aspiration should be ruled out. Fluid distention of the esophagus and visualized portion of the stomach. 1.1 cm left adrenal nodule as well as a 5.6 cm x 6.1 cm cyst in the upper pole of the right kidney. CT scan of the abdomen demonstrated small bowel obstruction. Electronically Signed: Jimmy Galarza, at 15:11 EDT , Service support , Soft Tissue Neck CT 10/14/18 12:27 IMPRESSION: Fluid distention of the esophagus. Electronically Signed: Jimmy Galarza, at 15:27 EDT , Service support , KUB X-Ray 10/14/18 13:34 IMPRESSION: The tip of the nasogastric tube is coiled in the distal esophagus. Electronically Signed: Jimmy Yeeelkin, at 15:28 EDT , Service support , KUB X-Ray 10/14/18 15:00 IMPRESSION: The tip of the nasogastric tube is coiled in the distal esophagus. Electronically Signed: Jimmy Yeeelkin, at 15:30 EDT , Service support , Chest X-Ray 10/15/18 05:55 IMPRESSION: Bilateral lower lobe infiltrates with marked worsening from recent previous study. Tubes are in adequate position. Electronically Signed: Jamarcus Muñoz MD at 5:05 EDT , Service support , ADDENDUM: 10/15/18 0746 KUB X-Ray 10/15/18 05:55 IMPRESSION: Status post recent surgery, with surgical drain overlying the pelvis. Nasogastric tube is in adequate position. Nonspecific bowel gas pattern. Electronically Signed: Jamarcus Muñoz MD at 4:46 EDT , Service support , Chest X-Ray 10/15/18 06:59 IMPRESSION: New finding of a moderately large right pneumothorax, occupying 25-50% of the right hemithorax. Tubes are in adequate position. Persistent left basilar infiltrate which appears somewhat improved. Pneumoperitoneum, presumably due to recent surgery. Electronically Signed: Jamarcus Muñoz MD at 7:33 EDT , Service support , ADDENDUM: 10/15/18 0802 IMPRESSION: New finding of a moderately large right pneumothorax, occupying 25-50% of the right hemithorax. Tubes are in adequate position. Persistent left basilar infiltrate which appears somewhat improved. Pneumoperitoneum, presumably due to recent surgery. N.B. : The above information has been verbally conveyed by Jamarcus Muñoz MD to RUDI Carranza DO, DO, on 10/15/2018 07:55:43 (ET). Electronically Signed: Jamarcus Muñoz MD at 7:33 EDT , Service support , Chest X-Ray 10/15/18 08:06 IMPRESSION: Status post placement of a small-caliber right-sided chest tube. Residual small right apical pneumothorax. Electronically Signed: Jimmy Galarza, at 9:17 EDT , Service support , Medical Necessity - Tobacco Use Smoking Status: Former smoker Tobacco Use: Non-smoker Assessment/Plan All Active Problems Acute tubular necrosis (Acute) Hyperkalemia (Acute) RECOMMENDATIONS: 1. Proceed with a trial of extubation this morning. 2. Once extubated, wean supplemental oxygen to maintain saturations at or above 90%. Provide with and encourage use of incentive spirometer. 3. We will begin to wean stress dose steroids today. 4. Continue gentle IV fluid hydration to offset insensible losses. Will transition to D5 half-normal saline, given rising sodium and chloride levels. 5. Remove arterial line. 6. Will obtain plain film chest x-ray post extubation in 2 to 3 hours with chest tube to waterseal. 7. Continue appropriate ICU prophylaxis. IMPRESSIONS: 1. Septic shock 2/2 intraabdominal and pulmonary infectious processes Resolved. The patient responded clinically to the use of broad-spectrum antimicrobials and vasopressors to maintain hemodynamic stability. The patient has defervesced over the last 24 hours and is no longer requiring vasopressor support. Broad-spectrum antimicrobials will be continued per the discretion of infectious diseases. Given that the patient remains hemodynamically stable we will plan to remove arterial line today. We will also plan to begin to wean his stress dose steroids to 50 mg every 12 hours. 2. Acute hypoxemic respiratory failure/iatrogenic pneumothorax Improved. The patient did demonstrate findings concerning for underlying pneumonia on CT chest. There was also initial concern for potential aspiration event. Although the patient did initially require high amounts of FiO2 and PEEP, his mechanical ventilation requirements quickly de-escalated. He was able to be successfully extubated to nasal cannula supplemental oxygen on the morning of 10/16. We will plan to continue to wean supplemental oxygen to maintain saturations at or above 90%. He will be provided with an incentive spirometer and encouraged to use. He will remain on antimicrobials for underlying pulmonary infectious process. His chest tube remains on waterseal following extubation. There continues to be no evidence of air leak. Will obtain plain film chest x-ray in 2 to 3 hours. 3. Acute abdomen/small bowel obstruction/appendicial perforation, now POD #2 s/p exploratory laparotomy and ileocecal resection Continue current supportive measures per general surgery recommendations. 4. Acute Kidney Injury Improving. Likely secondary to ischemic ATN in the setting of #1. Nephrology is following. Creatinine and urine output have improved following stabilization of hemodynamics. 5. Shock liver The patient did demonstrate moderate increases in his transaminase levels, likely the consequence of the hemodynamic instability that he sustained as a consequence of #1. Anticipate improvement in transaminase levels with stabilization of hemodynamics. 6. Advanced age/hyperlipidemia/GERD Complicates care, management, recovery and prognosis. Okay to continue home medications as indicated. The patient will eventually require physical therapy evaluation, once medically stabilized. TIME: 45 minutes of critical care time, exclusive of procedures, was spent addressing the patients multifactorial septic shock, acute hypoxemic respiratory failure, acute abdomen s/p surgical intervention, acute kidney injury, shock liver, review of all data and collaboration with the care team. ([id number]) Code Visit [id number]: [id number] Critical care first hour
--- NOTE | 2018-10-16 06:25 | PN_ITS ---
Past Medical History Admit Diagnosis: complicated appendicitis, s/p ileocecal resection, aspiration pneumonia ICU Day #: 2 Post Op Day #: 2 Surgeon: Jose Sparks - ASA4E Surgical History: no surgical history, - - Eye procedure with left eye glasses in place, renal stone intervention. Past Medical History: Chronic Problems Acute kidney injury superimposed on chronic kidney disease (Chronic) Lives: Spouse/ Significant Other Smoking Status: Former smoker Tobacco Use: Non-smoker Alcohol: None Drugs: None Hospital/ICU Course Hospital/ICU Course: clinically much improved, off pressors, improved Fio2, improve urine output and kidney function Subjective/Objective Patient Able to Communicate Effectively?: No Patient Sedated & Ventilated: Yes Vitals/I&O/Labs: Vital Signs Temp 98.0 F 10/16/18 04:00 Pulse 80 10/16/18 06:00 Resp 8 L 10/16/18 06:00 BP 130/67 H 10/16/18 06:00 Pulse Ox 92 10/16/18 06:00 Intake & Output 10/14/18 10/15/18 10/16/18 23:59 23:59 23:59 Intake Total 2535.6 / 2535.6 6024.5 / 6024.5 999.4 / 999.4 Output Total 840 / 840 1775 / 1775 605 / 605 Balance 1695.6 / 1695.6 4249.5 / 4249.5 394.4 / 394.4 Weight: 69.6 kg 69.6 kg 75.7 kg Intake: IV fluid/meds 2535.6 / 2535.6 5714.5 / 5714.5 999.4 / 999.4 IV #1 1600 / 1600 NG/PEG Flush 310 / 310 Nasogastric Tube 220 / 220 Output: Urine 710 / 710 1500 / 1500 600 / 600 Gastric Drainage 100 / 100 225 / 225 0 / 0 Drainage Amount 30 / 30 50 / 50 5 / 5 RLQ 30 / 30 50 / 50 5 / 5 Chest Tube Amount 0 / 0 Right Mid-Axillary Chest 0 / 0 Other: Drain Location RLQ RLQ RLQ RLQ Tube Type RLQ MARSHALL drain MARSHALL drain MARSHALL drain Microbiology Past 72 Hours 10/14/18 22:55 Streptococcus pneumoniae Antigen (M - Final Urine Catheter - Catheter 10/14/18 22:55 Legionella Antigen - Final Urine Catheter - Catheter Laboratory Tests Past 24 Hrs 10/14/18 10/15/18 10/15/18 21:33 08:00 08:00 WBC RBC Hgb Hct MCV MCH MCHC RDW Std Deviation RDW Coeff of Tristian Plt Count MPV Immature Gran % (Auto) Neut % (Auto) Lymph % (Auto) [place] % (Auto) Eos % (Auto) Baso % (Auto) Absolute Neuts (auto) Absolute Lymphs (auto) Nucleated RBC % Diff Path Review Reviewed Platelet Estimate RBC Morphology Specimen Type Sample Site pH Bicarbonate Actual POC Total CO2 Base Excess O2 Saturation O2 % ABG pCO2 ABG pO2 Respiration Rate O2 Delivery Device Vent Mode Tidal Volume POC PEEP Blood Gas Notified Whom Blood Gas Notified Time Sodium 139 Potassium 5.6 H Chloride 108 H Carbon Dioxide 21.0 Anion Gap 10 BUN 69 H Creatinine 2.89 H Estim Creat Clear Calc 21.07 Est GFR (MDRD) Af Amer 27 L Est GFR (MDRD) Non-Af 23 L BUN/Creatinine Ratio 23.9 H Glucose 112 H Calcium 7.2 L Phosphorus 6.4 H Magnesium 2.1 Total Bilirubin 0.90 AST 418 H ALT 414 H Alkaline Phosphatase 47 Troponin I 0.025 B-Natriuretic Peptide Total Protein 5.0 L Albumin 1.8 L Globulin 3.2 Albumin/Globulin Ratio 0.6 L Lipase 143 10/15/18 10/15/18 10/15/18 08:00 08:00 12:42 WBC 24.8 H RBC 4.00 L Hgb 13.0 Hct 39.1 L MCV 97.8 H MCH 32.5 H MCHC 33.2 RDW Std Deviation 48.5 H RDW Coeff of Tristian 13.6 Plt Count 255 MPV 11.3 Immature Gran % (Auto) 1.700 H Neut % (Auto) 91.2 H Lymph % (Auto) 5.0 L [place] % (Auto) 1.6 Eos % (Auto) 0.1 Baso % (Auto) 0.4 Absolute Neuts (auto) 22.7 H Absolute Lymphs (auto) 1.23 Nucleated RBC % 0 Diff Path Review May foll Platelet Estimate ADEQUATE RBC Morphology NORM C+C Specimen Type ALEXI Sample Site OTHER pH 7.33 L Bicarbonate Actual 16.8 L POC Total CO2 18 Base Excess -9 L O2 Saturation 94 L O2 % 40 ABG pCO2 31.6 L ABG pO2 74 L Respiration Rate 16 O2 Delivery Device Vent Vent Mode A-C Tidal Volume 500 POC PEEP 5 Blood Gas Notified Whom OTHER Blood Gas Notified Time 1241 Sodium Potassium Chloride Carbon Dioxide Anion Gap BUN Creatinine Estim Creat Clear Calc Est GFR (MDRD) Af Amer Est GFR (MDRD) Non-Af BUN/Creatinine Ratio Glucose Calcium Phosphorus Magnesium Total Bilirubin AST ALT Alkaline Phosphatase Troponin I B-Natriuretic Peptide 39.3 Total Protein Albumin Globulin Albumin/Globulin Ratio Lipase 10/15/18 10/16/18 10/16/18 16:40 06:10 06:10 WBC Pending RBC Pending Hgb Pending Hct Pending MCV Pending MCH Pending MCHC Pending RDW Std Deviation Pending RDW Coeff of Tristian Pending Plt Count Pending MPV Immature Gran % (Auto) Neut % (Auto) Pending Lymph % (Auto) [place] % (Auto) Eos % (Auto) Baso % (Auto) Absolute Neuts (auto) Pending Absolute Lymphs (auto) Nucleated RBC % Diff Path Review Platelet Estimate RBC Morphology Specimen Type Sample Site pH Bicarbonate Actual POC Total CO2 Base Excess O2 Saturation O2 % ABG pCO2 ABG pO2 Respiration Rate O2 Delivery Device Vent Mode Tidal Volume POC PEEP Blood Gas Notified Whom Blood Gas Notified Time Sodium 140 Pending Potassium 4.6 Pending Chloride 112 H Pending Carbon Dioxide 19.0 L Pending Anion Gap 9 Pending BUN 70 H Pending Creatinine 2.15 H Pending Estim Creat Clear Calc 28.33 Est GFR (MDRD) Af Amer 39 L Pending Est GFR (MDRD) Non-Af 32 L Pending BUN/Creatinine Ratio 32.6 H Pending Glucose 154 H Pending Calcium 7.3 L Pending Phosphorus Pending Magnesium Pending Total Bilirubin AST ALT Alkaline Phosphatase Troponin I B-Natriuretic Peptide Total Protein Albumin Globulin Albumin/Globulin Ratio Lipase Alert & Oriented:: responds to questions Neurological: Neuro grossly intact Cardiovascular: Regular rate Vent Type: PSV ABG 10/15/18 12:42 Specimen Type ALEXI Sample Site OTHER pH 7.33 L Bicarbonate Actual 16.8 L POC Total CO2 18 Base Excess -9 L O2 Saturation 94 L O2 % 40 ABG pCO2 31.6 L ABG pO2 74 L Respiration Rate 16 O2 Delivery Device Vent Vent Mode A-C Tidal Volume 500 POC PEEP 5 Blood Gas Notified Whom OTHER Blood Gas Notified Time 1241 - GI Abdomen: Soft, Distended, Tender - at incision Checklist Sedation Vacation & adjustment: Yes Delirium Screened & Treated: Yes PT/OT/Activity Level Advanced: No Weaning/extubation assessed: Yes HOB up 30-45 degrees: Yes GI Prophylaxis: Yes DVT Prophylaxis: Yes Feeding Advanced: No Bowel Regimen: No Routine Labs/X-Rays Discussed: Yes Antibiotics de-escalated: No Meds reviewed & Converted to PO: No Invasive lines de-escalated: No [place] Required: Yes Assessment/Plan All Active Problems Acute tubular necrosis (Acute) Hyperkalemia (Acute) complicated perforated appendicitis postoperative day #2 status post ileocecal resection and drainage, aspiration pneumonia, septic shock neurologic-patient is currently being given narcotics for sedation. Currently comfortable. Respiratory-preoperative CT scan demonstrated fluid in the left mainstem and x- ray consistent with aspiration pneumonia. Patient initially required increasing FiO2 up to 100% overnight. Currently oxygen saturation improving and FiO2 decreased to 30%. On broad-spectrum antibiotics for presumed aspiration. Right-sided pneumothorax status post attempted central line for right internal jugular line. Pneumocath placed. Postplacement chest x-ray demonstrated good reexpansion of lung. Cardiovascular-septic shock, tachycardic, currently off pressors GI-initial assumption was small bowel obstruction with mid small bowel transition point findings intraoperatively demonstrated jellylike material in the mid small bowel but actual problem was perforated appendicitis with adhesed loops of small bowel in the pelvis. Ileocecal resection performed. Risk for leakage due to need for pressors postoperatively. Anticipated longer postoperative ileus course due to above factors and fact that small bowel ma terial may take longer to pass. Nasogastric tube placed intraoperatively. Nasogastric tube in good position. We'll continue nasogastric suctioning. Renal-much improved urine output overnight - suspect acute tubular necrosis. Electrolytes somewhat improved. We'll continue supportive patient medically. Fluid, electrolytes, nutrition- patient receiving boluses overnight in addition to pressors, potassium improving. Nothing by mouth for now. We will hold off enteral nutrition due to sepsis and concern for fluid overload given renal function. Infectious disease-patient with neglected perforated appendicitis resulting in complex pelvic abscess and significant inflammation requiring a ileocecal resection along with likely aspiration pneumonia. Zosyn given. We'll obtain cultures of patient's spikes fever-elevated white blood cell count Zosyn was given the nurse present. SCDs for VTE prophylaxis, Protonix for stress ulcer prophylaxis
[2018-10-16 06:26] LABS: Absolute Lymphocyte Count 0.55 X10^3/uL (0.83-4.51); Absolute Neutrophil Count 15.3 X10^3/uL (2.0-7.7); Basophil# 0.03 X10^3/uL; Basophil% 0.2 % (0-1); Eosinophil# 0.01 X10^3/uL; Eosinophils% 0.1 % (0-5); Hematocrit 32.3 % (40-54); Hemoglobin 10.4 g/dL (13.0-16.5); Lymphocyte # 0.55 X10^3/ul (4.0); Lymphocyte % 3.3 % (19-41); Mean Corp Hgb Conc 32.2 g/dL (32-36); Mean Corpuscular Hgb 31.5 pg (27.0-32.0); Mean Corpuscular Volume 97.9 fL (80-94); Mean Platelet Vol. 11.3 fl (6.2-12.0); Monocyte# 0.35 X10^3/uL; Monocyte% 2.1 % (0-10); NRBC Flagged by Analyzer 0 % (0-5); Neutrophil # 15.34 X10^3/uL (2.7-7.7); Neutrophil % 93.3 % (47-70); POSITIVE DIFFERENTIAL YES; POSITIVE MORPHOLOGY YES; Platelet Count 186 K/mm3 (150-450); RBC Distribution Width CV 14.2 % (11.6-14.6); RBC Distribution Width SD 51.4 fl (35.1-43.9); White Blood Count 16.4 K/mm3 (4.4-11.0)
[2018-10-16 06:30] LABS: BUN 50 mg/dL (7-18); Creatinine, Serum 1.57 mg/dL (0.70-1.30); Estimated Creatinine Clearance 40.68 ml/min; Glucose 152 mg/dL (74-106)
[2018-10-16 06:31] LABS: Anion Gap 8 (5-15); BUN/Creat Ratio 31.8 RATIO (10-20); Calcium,Total 7.5 mg/dL (8.5-10.1); Chloride 117 mmol/L (98-107); EST Glomerular Filtration Rate 46 mL/min (>60); Est Glom Filt Rate - Afr Amer 55 mL/min (>60); Magnesium 2.3 mg/dL (1.6-2.6); Phosphorus 3.3 mg/dL (2.5-4.9); Potassium 4.4 mmol/L (3.5-5.1); Sodium Level 146 mmol/L (136-145)
[2018-10-16 06:33] LABS: Differential Indicated SCAN CRITERIA MET
[2018-10-16] MEDS: Dext 5%-0.45% NS 1,000 ML 150 ML IV ×3 (06:38→19:50)
--- NOTE | 2018-10-16 06:55 | NURSING ---
patient extubated at this time via respiratory therapist and this RN with Dr. Vale at bedside. Fentanyl and restraints D/C'd at this time, patient placed at 3L NC, tolerating well.
--- NOTE | 2018-10-16 07:04 | PN_ITS ---
Patient Problems: Active and Suspected Problems Acute tubular necrosis (Acute) Hyperkalemia (Acute) Subjective: Patient was successfully extubated this a.m. His kidney function improving as well as his leukocytosis. Chest tube remains in place. Objective: GENERAL: Awake follows commands HEENT: ET tube in place EYES; prosthetic left eye NECK; supple, normal thyroid, RESPIRATORY: Diminished to auscultation: Chest tube in place CARDIOVASCULAR: Regular S1 S2, GI: Nondistended, abdominal incision CDI, MARSHALL tube in situ : No Renal angle tenderness; EXTREMITIES: No edema, no clubbing, MUSCULOSKELETAL: No Joint swelling NEURO: No lateralizing signs SKIN: No Rash PSYCH; affect is appropriate Vitals/I&O's: Vital Signs Temp Pulse Resp BP Pulse Ox 98.0 F 80 8 L 130/67 H 92 10/16/18 04:00 10/16/18 06:00 10/16/18 06:00 10/16/18 06:00 10/16/18 06:00 Oxygen Flow Rate (L/min) 6 Oxygen Delivery Method Mechanical Ventilator Weight: 75.7 kg Body Mass Index (BMI) 21.9 Intake and Output for Last 24 Hours 10/14/18 10/15/18 10/16/18 23:59 23:59 23:59 Intake Total 2535.6 / 2535.6 6024.5 / 6024.5 999.4 / 999.4 Output Total 840 / 840 1775 / 1775 605 / 605 Balance 1695.6 / 1695.6 4249.5 / 4249.5 394.4 / 394.4 Microbiology Past 72 Hours 10/14/18 22:55 Urine Catheter - Catheter Streptococcus pneumoniae Antigen (M - Final 10/14/18 22:55 Urine Catheter - Catheter Legionella Antigen - Final Laboratory Results 10/14/18 21:33: Diff Path Review Reviewed 10/15/18 08:00: Sodium 139, Potassium 5.6 H, Chloride 108 H, Carbon Dioxide 21.0, Anion Gap 10, BUN 69 H, Creatinine 2.89 H, Estim Creat Clear Calc 21.07, Est GFR (MDRD) Af Amer 27 L, Est GFR (MDRD) Non-Af 23 L, BUN/Creatinine Ratio 23.9 H, Glucose 112 H, Calcium 7.2 L, Phosphorus 6.4 H, Magnesium 2.1, Total Bilirubin 0.90, AST 418 H, ALT 414 H, Alkaline Phosphatase 47, Total Protein 5.0 L, Albumin 1.8 L, Globulin 3.2, Albumin/Globulin Ratio 0.6 L, Lipase 143 10/15/18 08:00: Troponin I 0.025 10/15/18 08:00: B-Natriuretic Peptide 39.3 10/15/18 08:00: WBC 24.8 H, RBC 4.00 L, Hgb 13.0, Hct 39.1 L, MCV 97.8 H, MCH 32.5 H, MCHC 33.2, RDW Std Deviation 48.5 H, RDW Coeff of Tristian 13.6, Plt Count 255, MPV 11.3, Immature Gran % (Auto) 1.700 H, Neut % (Auto) 91.2 H, Lymph % (Auto) 5.0 L, [place] % (Auto) 1.6, Eos % (Auto) 0.1, Baso % (Auto) 0.4, Absolute Neuts (auto) 22.7 H, Absolute Lymphs (auto) 1.23, Nucleated RBC % 0, Diff Path Review July, Platelet Estimate ADEQUATE, RBC Morphology NORM C+C 10/15/18 12:01: POC Glucose 121 H 10/15/18 12:42: Specimen Type ALEXI, Sample Site OTHER, pH 7.33 L, Bicarbonate Actual 16.8 L, POC Total CO2 18, Base Excess -9 L, O2 Saturation 94 L, O2 % 40, ABG pCO2 31.6 L, ABG pO2 74 L, Respiration Rate 16, O2 Delivery Device Vent, Vent Mode A-C, Tidal Volume 500, POC PEEP 5, Blood Gas Notified Whom OTHER, Blood Gas Notified Time 1241 10/15/18 16:40: Sodium 140, Potassium 4.6, Chloride 112 H, Carbon Dioxide 19.0 L , Anion Gap 9, BUN 70 H, Creatinine 2.15 H, Estim Creat Clear Calc 28.33, Est GFR (MDRD) Af Amer 39 L, Est GFR (MDRD) Non-Af 32 L, BUN/Creatinine Ratio 32.6 H , Glucose 154 H, Calcium 7.3 L 10/15/18 17:55: POC Glucose 138 H 10/16/18 00:14: POC Glucose 136 H 10/16/18 05:11: POC Glucose 152 H 10/16/18 06:10: WBC 16.4 H, RBC 3.30 L, Hgb 10.4 L, Hct 32.3 L, MCV 97.9 H, MCH 31.5, MCHC 32.2, RDW Std Deviation 51.4 H, RDW Coeff of Tristian 14.2, Plt Count 186, MPV 11.3, Immature Gran % (Auto) 1.000 H, Neut % (Auto) 93.3 H, Lymph % (Auto) 3.3 L, [place] % (Auto) 2.1, Eos % (Auto) 0.1, Baso % (Auto) 0.2, Absolute Neuts (auto) 15.3 H, Absolute Lymphs (auto) 0.55 L, Nucleated RBC % 0 10/16/18 06:10: Sodium 146 H, Potassium 4.4, Chloride 117 H, Carbon Dioxide 21.0, Anion Gap 8, BUN 50 H, Creatinine 1.57 H, Estim Creat Clear Calc 40.68, Est GFR (MDRD) Af Amer 55 L, Est GFR (MDRD) Non-Af 46 L, BUN/Creatinine Ratio 31.8 H, Glucose 152 H, Calcium 7.5 L, Phosphorus 3.3, Magnesium 2.3 Current Medications Albuterol Sulfate (Ventolin Aerosols) 2.5 mg INHALATION Q2H PRN PRN PRN Reason: dyspnea, wheezing Chlorhexidine Gluconate () 15 ml PO BID [facility] Last Admin: 10/15/18 21:20 Dose: 15 ml Documented by: Dextrose (D50w Syringe) 0 gm IV X1 PRN; Protocol PRN Reason: Hypoglycemia Dorzolamide/Timolol (Cosopt Opth Drops) 1 drop RIGHT EYE BID [facility] Last Admin: 10/15/18 21:21 Dose: 1 drop Documented by: Glucagon () 1 mg IM .X1 PRN PRN Reason: Hypoglycemia Hydrocortisone Sodium Succinate (Solu-Cortef) 50 mg IV Q12 [facility] Piperacillin Sod/Tazobactam (Sod 3.375 gm/ Sodium Chloride) 50 mls @ 12.5 mls/hr IV Q8 [facility] Last Admin: 10/16/18 05:12 Dose: 12.5 mls/hr Documented by: Pantoprazole Sodium 40 mg/ (Sodium Chloride) 110 mls @ 330 mls/hr IV Q12 [facility] Last Admin: 10/15/18 21:19 Dose: 330 mls/hr Documented by: Sodium Chloride () 250 mls @ 15 mls/hr IV .[id number] PRN PRN Reason: SALINE FLUSH Last Admin: 10/14/18 22:01 Dose: 15 mls/hr Documented by: Norepinephrine Bitartrate 16 (mg/ Sodium Chloride) 250 mls @ 28.1 mls/hr CONT INF .Q8H54M [facility] Last Admin: 10/16/18 00:05 Dose: Not Given Documented by: Dextrose/Sodium Chloride () 1,000 mls @ 150 mls/hr IV .Q6H40M [facility] Last Admin: 10/16/18 06:38 Dose: 150 mls/hr Documented by: Insulin Human Lispro (Humalog Kwikpen (Bkc)) 0 unit SC Q6 [facility]; Protocol Last Admin: 10/16/18 05:17 Dose: 1 units Documented by: Latanoprost (Xalatan Opthalmic) 1 drop RIGHT EYE QHS [facility] Last Admin: 10/15/18 21:20 Dose: 1 drop Documented by: Sodium Chloride () 10 - 40 ml IV UD PRN PRN Reason: SALINE FLUSH Last Admin: 10/16/18 05:14 Dose: 20 ml Documented by: Medical Necessity - Tobacco Use Smoking Status: Former smoker Tobacco Use: Non-smoker Assessment/Plan All Active Problems Acute tubular necrosis (Acute) Hyperkalemia (Acute) Patient is a 78-year-old gentleman who presented with abdominal pain with associated abdominal distention nausea and vomiting. CT of the abdomen obtained in the emergency department demonstrated Small bowel obstruction with the transition point in the distal ileum. Fluid distention of the stomach and the distal esophagus. Patient was admitted to the surgical service and underwent exploratory laparotomy findings included transition due to veg matter, small bowel loops adherent to pelvic abscess - perforated appendicitis with obstruction. Patient had ileocecal resection performed by Dr. Phan on 10/14/2018. 1. Small bowel obstruction: CT of the abdomen obtained in the emergency dep artment demonstrated Small bowel obstruction with the transition point in the distal ileum. Fluid distention of the stomach and the distal esophagus. Patient was admitted to the surgical service and underwent exploratory laparotomy findings included transition due to veg matter, small bowel loops adherent to pelvic abscess - perforated appendicitis with obstruction. Patient had ileocecal resection performed by Dr. Phan on 10/14/2018. 2. Acute hypoxic respiratory failure following aspiration pneumonia. Patient was intubated during surgery left on the vent and subsequently transferred to the intensive care unit. Vent management deferred to pulmonary/customer operations representative patient was weaned off the vent on the morning of 10/16/2018 3. Septic shock secondary to aspiration pneumonia as well as intra-abdominal infection i.e. the pelvic abscess with perforated appendix. Patient is on broad-spectrum antibiotic therapy in addition to fluids, pressors and stress doses of antibiotics patient has been weaned off pressors. WBC count trending down. 4. Acute kidney injury secondary to ATN from hypovolemia as well as septic shock patient to function continues to worsen we will recommend obtaining nephrology consultation if okay with primary service kidney function improving 5. Iatrogenic large right sided pneumothorax following insertion of triple- lumen chest tube in place 6. Acute transaminitis; secondary to shock liver we will continue to monitor LFTs 7. GERD patient is on PPI 8. DVT prophylaxis; SCDs and renal dose of Lovenox Active Medications Albuterol Sulfate (Ventolin Aerosols) 2.5 mg INHALATION Q2H PRN PRN PRN Reason: dyspnea, wheezing Chlorhexidine Gluconate () 15 ml PO BID [facility] Last Admin: 10/15/18 21:20 Dose: 15 ml Documented by: Dextrose (D50w Syringe) 0 gm IV X1 PRN; Protocol PRN Reason: Hypoglycemia Dorzolamide/Timolol (Cosopt Opth Drops) 1 drop RIGHT EYE BID [facility] Last Admin: 10/15/18 21:21 Dose: 1 drop Documented by: Fentanyl Citrate (Sublimaze (100mcg Ampule)) 50 mcg IV Q6H PRN PRN Reason: SEVERE PAIN (6-10/10) Glucagon () 1 mg IM .X1 PRN PRN Reason: Hypoglycemia Hydrocortisone Sodium Succinate (Solu-Cortef) 50 mg IV Q12 [facility] Piperacillin Sod/Tazobactam (Sod 3.375 gm/ Sodium Chloride) 50 mls @ 12.5 mls/hr IV Q8 [facility] Last Admin: 10/16/18 05:12 Dose: 12.5 mls/hr Documented by: Pantoprazole Sodium 40 mg/ (Sodium Chloride) 110 mls @ 330 mls/hr IV Q12 [facility] Last Admin: 10/15/18 21:19 Dose: 330 mls/hr Documented by: Sodium Chloride () 250 mls @ 15 mls/hr IV .[id number] PRN PRN Reason: SALINE FLUSH Last Admin: 10/14/18 22:01 Dose: 15 mls/hr Documented by: Dextrose/Sodium Chloride () 1,000 mls @ 150 mls/hr IV .Q6H40M [facility] Last Admin: 10/16/18 06:38 Dose: 150 mls/hr Documented by: Insulin Human Lispro (Humalog Kwikpen (Bkc)) 0 unit SC Q6 [facility]; Protocol Last Admin: 10/16/18 05:17 Dose: 1 units Documented by: Latanoprost (Xalatan Opthalmic) 1 drop RIGHT EYE QHS [facility] Last Admin: 10/15/18 21:20 Dose: 1 drop Documented by: Sodium Chloride () 10 - 40 ml IV UD PRN PRN Reason: SALINE FLUSH Last Admin: 10/16/18 05:14 Dose: 20 ml Documented by: Clinical Impression(s) from Imaging Studies Chest X-Ray 10/15/18 06:59 IMPRESSION: New finding of a moderately large right pneumothorax, occupying 25-50% of the right hemithorax. Tubes are in adequate position. Persistent left basilar infiltrate which appears somewhat improved. Pneumoperitoneum, presumably due to recent surgery. Electronically Signed: Jamarcus Muñoz MD at 7:33 EDT , Service support , ADDENDUM: 10/15/18 0802 IMPRESSION: New finding of a moderately large right pneumothorax, occupying 25-50% of the right hemithorax. Tubes are in adequate position. Persistent left basilar infiltrate which appears somewhat improved. Pneumoperitoneum, presumably due to recent surgery. N.B. : The above information has been verbally conveyed by Jamarcus Muñoz MD to RUDI Carranza DO, , on 10/15/2018 07:55:43 (ET). Electronically Signed: Jamarcus Muñoz MD at 7:33 EDT , Service support , Chest X-Ray 10/15/18 08:06 IMPRESSION: Status post placement of a small-caliber right-sided chest tube. Residual small right apical pneumothorax. Electronically Signed: Jimmy Galarza, at 9:17 EDT , Service support , Code Visit Inpatient E&M: 60450 Subs Hosp L2
--- NOTE | 2018-10-16 09:40 | RAD_ITS ---
STUDY: X-RAY CHEST REASON FOR EXAM: Male, 78 years old. Pneumothorax. TECHNIQUE: Single AP portable view of the chest. COMPARISON: Comparison is made with prior study dated October 15, 2018. FINDINGS: The endotracheal tube has been removed. The right internal jugular venous catheter is present with the tip at the junction of superior vena cava and right atrium. A nasogastric tube is seen with tip below the left hemidiaphragm. Stable appearance of the small caliber right-sided chest tube. Small right apical pneumothorax. This unchanged. The infiltrate in the left lower lobe has progressed. Stable atelectasis at the right lung base. Normal size heart. Normal mediastinum and fred. Normal visualized pulmonary arteries. Normal visualized aortic arch and descending thoracic aorta. Normal visualized thoracic spine. Normal visualized ribs, clavicles, and shoulders. Small amount of free intraperitoneal air beneath the right hemidiaphragm. RAD/Chest 1 View (Portable) IMPRESSION: Stable appearance of the small right apical pneumothorax. Increasing infiltrate and/or atelectasis at the right lung base. Electronically Signed: Jimmy Galarza, at 15:36 EDT , Service support ,
[2018-10-16] MEDS: Dorzolamide HCL/Timolol 10 ml Bottle 1 DRP RIGHT EYE ×2 (09:49→21:39)
--- NOTE | 2018-10-16 11:29 | PCM.PN.REN ---
Patient Problems: Active and Suspected Problems Acute tubular necrosis (Acute) Hyperkalemia (Acute) Subjective: Patient was extubated this morning. Off pressors. Pt is making good amount of urine Pt denied nausea/vomiting. Pt's breathing is stable No CP - Physical Exam General: Alert, Cooperative HEENT: Atraumatic Oral: Moist Mucosa Neck: Supple, No JVD Lungs: Clear to auscultation, Normal air movement, No rhonchi, No wheeze Cardiovascular: Regular rate, Regular Rhythm, Normal S1, Normal S2 Abdomen: Soft, Non-Distended, Hypoactive Bowel Sounds Extremities: No clubbing, No cyanosis, No edema Skin: No rashes Musculoskeletal: No Tenderness to Palpation of Joints or Extremities Neurological: Neuro grossly intact Psych/Mental Status: Appropriate Vital Signs Temp Pulse Resp BP Pulse Ox 96.6 F L 64 16 117/65 93 10/16/18 08:00 10/16/18 11:00 10/16/18 11:00 10/16/18 11:00 10/16/18 11:00 Oxygen Flow Rate (L/min) 3 Oxygen Delivery Method Nasal Cannula Weight: 75.7 kg Body Mass Index (BMI) 21.9 Intake and Output for Last 24 Hours 10/14/18 10/15/18 10/16/18 23:59 23:59 23:59 Intake Total 2535.6 / 2535.6 6024.5 / 6024.5 999.4 / 999.4 Output Total 840 / 840 1775 / 1775 605 / 605 Balance 1695.6 / 1695.6 4249.5 / 4249.5 394.4 / 394.4 Microbiology Past 72 Hours 10/16/18 01:35 Gram Stain - Final Sputum, Induced/Lukens 10/15/18 08:00 Urine Culture - Preliminary Urine Catheter - Maguire Culture exhibits no growth. 10/14/18 22:55 Streptococcus pneumoniae Antigen (M - Final Urine Catheter - Catheter 10/14/18 22:55 Legionella Antigen - Final Urine Catheter - Catheter Laboratory Tests Past 24 Hrs 10/14/18 10/15/18 10/15/18 21:33 12:42 16:40 WBC RBC Hgb Hct MCV MCH MCHC RDW Std Deviation RDW Coeff of Tristian Plt Count MPV Immature Gran % (Auto) Neut % (Auto) Lymph % (Auto) [place] % (Auto) Eos % (Auto) Baso % (Auto) Absolute Neuts (auto) Absolute Lymphs (auto) Nucleated RBC % Diff Path Review Reviewed Specimen Type ALEXI Sample Site OTHER pH 7.33 L Bicarbonate Actual 16.8 L POC Total CO2 18 Base Excess -9 L O2 Saturation 94 L O2 % 40 ABG pCO2 31.6 L ABG pO2 74 L Respiration Rate 16 O2 Delivery Device Vent Vent Mode A-C Tidal Volume 500 POC PEEP 5 Blood Gas Notified Whom OTHER Blood Gas Notified Time 1241 Sodium 140 Potassium 4.6 Chloride 112 H Carbon Dioxide 19.0 L Anion Gap 9 BUN 70 H Creatinine 2.15 H Estim Creat Clear Calc 28.33 Est GFR (MDRD) Af Amer 39 L Est GFR (MDRD) Non-Af 32 L BUN/Creatinine Ratio 32.6 H Glucose 154 H Calcium 7.3 L Phosphorus Magnesium 10/16/18 10/16/18 06:10 06:10 WBC 16.4 H RBC 3.30 L Hgb 10.4 L Hct 32.3 L MCV 97.9 H MCH 31.5 MCHC 32.2 RDW Std Deviation 51.4 H RDW Coeff of Tristian 14.2 Plt Count 186 MPV 11.3 Immature Gran % (Auto) 1.000 H Neut % (Auto) 93.3 H Lymph % (Auto) 3.3 L [place] % (Auto) 2.1 Eos % (Auto) 0.1 Baso % (Auto) 0.2 Absolute Neuts (auto) 15.3 H Absolute Lymphs (auto) 0.55 L Nucleated RBC % 0 Diff Path Review Specimen Type Sample Site pH Bicarbonate Actual POC Total CO2 Base Excess O2 Saturation O2 % ABG pCO2 ABG pO2 Respiration Rate O2 Delivery Device Vent Mode Tidal Volume POC PEEP Blood Gas Notified Whom Blood Gas Notified Time Sodium 146 H Potassium 4.4 Chloride 117 H Carbon Dioxide 21.0 Anion Gap 8 BUN 50 H Creatinine 1.57 H Estim Creat Clear Calc 40.68 Est GFR (MDRD) Af Amer 55 L Est GFR (MDRD) Non-Af 46 L BUN/Creatinine Ratio 31.8 H Glucose 152 H Calcium 7.5 L Phosphorus 3.3 Magnesium 2.3 POC Glucose 10/16/18 10/16/18 10/15/18 05:11 00:14 17:55 POC Glucose 152 H 136 H 138 H 10/15/18 12:01 POC Glucose 121 H Medical Necessity - Tobacco Use Smoking Status: Former smoker Tobacco Use: Non-smoker Assessment/Plan All Active Problems Acute tubular necrosis (Acute) Hyperkalemia (Acute) 1-Acute kidney injury on chronic kidney disease. Baseline creatinine is around 1.1. Acute kidney injury prerenal from hemodynamic instability related to septic shock. Kidney function is improving. Cr is trending down. UOP 1500 cc in the last 24 hours without diuretics Please keep mean arterial pressure more than 65. Avoid nephrotoxic like NSAIDs and IV contrast Continue to monitor urine output and renal function. 2-Hyperkalemia. resolved. K is 4.4 this am 3-Septic shock from aspiration pneumonia and perforated appendicitis and pelvis abscess. Better. Off BP pressors Zosyn is appropriately dosed for the current creatinine clearance. ID is following for antibiotics. 4-Acute respiratory failure. Improved. Pt was extubated on 10/16 5-Perforated appendicitis with resultant pelvis abscess and small bowel adhesion and obstruction. Status post ileocecal resection. Dr. Sparks is following. 6- Hypernatremia: mild at 146. I agree with switch IVF to D51/2 NS Renal team will continue to follow. Please call if any question at [phone]. Reinaldo Leigh MD
[2018-10-16 12:05] LABS: Bedside Glucose 229 mg/dL (70-110)
--- NOTE | 2018-10-16 14:08 | RAD_ITS ---
STUDY: X-RAY CHEST REASON FOR EXAM: Male, 78 years old. History of pneumothorax. TECHNIQUE: Single AP portable view of the chest. COMPARISON: Comparison is made with prior examination done earlier in the day. FINDINGS: A right-sided central venous catheter is seen with the tip at the junction of the superior vena cava and right atrium. The nasogastric tube is unchanged. A right-sided small caliber chest tube is seen. The position is unchanged. I suspect a stable small right apical pneumothorax. Stable atelectasis and/or infiltrate in the left lower lobe with a small left pleural effusion. Stable atelectasis at the right lung base. Normal size heart. Normal mediastinum and fred. Normal visualized pulmonary arteries. Normal visualized aortic arch and descending thoracic aorta. Normal visualized thoracic spine. Normal visualized ribs, clavicles, and shoulders. Small amount of residual air is seen beneath the right hemidiaphragm. RAD/Chest 1 View (Portable) IMPRESSION: Small residual right apical pneumothorax. The remainder of the examination is unchanged. Electronically Signed: Jimmy Galarza, at 15:20 EDT , Service support ,
--- NOTE | 2018-10-16 14:15 | NURSING ---
Pt without fluctuation to water seal while seated in chair. Dr. Sparks made aware and orders received. Pt assisted back to bed and small amount of fluctuation observed. Pt connected to suction. No crepitus present. Chest tube site remains sutured with very minimal movement of catheter tip with breaths.
[2018-10-16 14:22] LABS: Pathologist Review Reviewed
--- NOTE | 2018-10-16 14:35 | PN.ID_ITS ---
Patient Problems: Active and Suspected Problems Acute tubular necrosis (Acute) Hyperkalemia (Acute) Subjective: Extubated, off pressors, no fever, answering some questions. Denies SOB. - Physical Exam General: Alert, No apparent distress Lungs: Clear to auscultation, Normal air movement Cardiovascular: Regular rate Abdomen: Soft, Non Tender, Non-Distended, - - drain in place Skin: No rashes Vital Signs Temp Pulse Resp BP Pulse Ox 97.0 F L 62 11 L 131/67 H 95 10/16/18 12:00 10/16/18 13:00 10/16/18 13:00 10/16/18 13:00 10/16/18 13:00 Oxygen Flow Rate (L/min) 3 Oxygen Delivery Method Nasal Cannula Weight: 75.7 kg Body Mass Index (BMI) 21.9 Intake and Output for Last 24 Hours 10/14/18 10/15/18 10/16/18 23:59 23:59 23:59 Intake Total 2535.6 / 2535.6 6024.5 / 6024.5 2203.4 / 2203.4 Output Total 840 / 840 1775 / 1775 1105 / 1105 Balance 1695.6 / 1695.6 4249.5 / 4249.5 1098.4 / 1098.4 Microbiology Past 72 Hours 10/16/18 01:35 Gram Stain - Final Sputum, Induced/Lukens 10/15/18 08:00 Urine Culture - Preliminary Urine Catheter - Maguire Culture exhibits no growth. 10/14/18 22:55 Streptococcus pneumoniae Antigen (M - Final Urine Catheter - Catheter 10/14/18 22:55 Legionella Antigen - Final Urine Catheter - Catheter Laboratory Tests Past 24 Hrs 10/14/18 10/15/18 10/15/18 21:33 08:00 16:40 WBC RBC Hgb Hct MCV MCH MCHC RDW Std Deviation RDW Coeff of Tristian Plt Count MPV Immature Gran % (Auto) Neut % (Auto) Lymph % (Auto) [place] % (Auto) Eos % (Auto) Baso % (Auto) Absolute Neuts (auto) Absolute Lymphs (auto) Nucleated RBC % Diff Path Review Reviewed Reviewed Sodium 140 Potassium 4.6 Chloride 112 H Carbon Dioxide 19.0 L Anion Gap 9 BUN 70 H Creatinine 2.15 H Estim Creat Clear Calc 28.33 Est GFR (MDRD) Af Amer 39 L Est GFR (MDRD) Non-Af 32 L BUN/Creatinine Ratio 32.6 H Glucose 154 H Calcium 7.3 L Phosphorus Magnesium 10/16/18 10/16/18 06:10 06:10 WBC 16.4 H RBC 3.30 L Hgb 10.4 L Hct 32.3 L MCV 97.9 H MCH 31.5 MCHC 32.2 RDW Std Deviation 51.4 H RDW Coeff of Tirstian 14.2 Plt Count 186 MPV 11.3 Immature Gran % (Auto) 1.000 H Neut % (Auto) 93.3 H Lymph % (Auto) 3.3 L [place] % (Auto) 2.1 Eos % (Auto) 0.1 Baso % (Auto) 0.2 Absolute Neuts (auto) 15.3 H Absolute Lymphs (auto) 0.55 L Nucleated RBC % 0 Diff Path Review Sodium 146 H Potassium 4.4 Chloride 117 H Carbon Dioxide 21.0 Anion Gap 8 BUN 50 H Creatinine 1.57 H Estim Creat Clear Calc 40.68 Est GFR (MDRD) Af Amer 55 L Est GFR (MDRD) Non-Af 46 L BUN/Creatinine Ratio 31.8 H Glucose 152 H Calcium 7.5 L Phosphorus 3.3 Magnesium 2.3 POC Glucose 10/16/18 10/16/18 10/16/18 12:01 05:11 00:14 POC Glucose 229 H 152 H 136 H 10/15/18 17:55 POC Glucose 138 H Medical Necessity - Tobacco Use Smoking Status: Former smoker Tobacco Use: Non-smoker Route of nutrition/ use of supplements: [] Nutritional Intake: [] IV Site: [] Maguire Catheter: [] - Assessment/Plan Antibiotics: [] Assessment/Plan: [] Active and Suspected Problems Acute tubular necrosis (Acute) Hyperkalemia (Acute) septic shock with ruptured appendicitis, now s/p ileocecal resection by 10/14. Now off pressors, ALEN improving, off vent. Cont zosyn. Will follow, d/w nursing
[2018-10-16 18:11] LABS: Bedside Glucose 216 mg/dL (70-110)
[2018-10-16] MEDS: Latanoprost 0.005% 1 Bottle 1 DRP RIGHT EYE (21:38)
[2018-10-16 23:30] LABS: Bedside Glucose 174 mg/dL (70-110)
[2018-10-17] VITALS (23 sets, daily range): BP systolic 123–168; BP diastolic 65–100; PULSE 63–97; RESP 12–22; TEMP 36.1–37.2; O2SAT 88–99
[2018-10-17] MEDS: fentaNYL 100 MCG/2 ML Ampul 50 MCG IV (00:17)
[2018-10-17] MEDS: Dext 5%-0.45% NS 1,000 ML 150 ML IV ×2 (01:54→10:09)
[2018-10-17] MEDS: 0.9% NaCl Peripheral Flush Adult/Peds IV (05:08)
[2018-10-17] MEDS: Insulin Lispro 100 UNIT/ML INSULN.PEN SC ×2 (05:09→12:56)
[2018-10-17 05:21] LABS: Bedside Glucose 186 mg/dL (70-110)
[2018-10-17 05:27] LABS: Absolute Lymphocyte Count 0.48 X10^3/uL (0.83-4.51); Absolute Neutrophil Count 14.1 X10^3/uL (2.0-7.7); Basophil# 0.02 X10^3/uL; Basophil% 0.1 % (0-1); Hematocrit 29.9 % (40-54); Hemoglobin 9.6 g/dL (13.0-16.5); Lymphocyte # 0.48 X10^3/ul (4.0); Lymphocyte % 3.2 % (19-41); Mean Corp Hgb Conc 32.1 g/dL (32-36); Mean Corpuscular Hgb 31.6 pg (27.0-32.0); Mean Corpuscular Volume 98.4 fL (80-94); Mean Platelet Vol. 11.3 fl (6.2-12.0); Monocyte# 0.28 X10^3/uL; Monocyte% 1.9 % (0-10); NRBC Flagged by Analyzer 0 % (0-5); Neutrophil # 14.09 X10^3/uL (2.7-7.7); Neutrophil % 93.5 % (47-70); POSITIVE DIFFERENTIAL YES; POSITIVE MORPHOLOGY YES; Platelet Count 148 K/mm3 (150-450); RBC Distribution Width CV 14.6 % (11.6-14.6); RBC Distribution Width SD 52.3 fl (35.1-43.9); Red Blood Count 3.04 M/mm3 (4.6-6.2); White Blood Count 15.1 K/mm3 (4.4-11.0)
[2018-10-17 05:30] LABS: Differential Indicated SCAN CRITERIA MET
[2018-10-17 05:47] LABS: Anion Gap 5 (5-15); BUN 28 mg/dL (7-18); BUN/Creat Ratio 30.2 RATIO (10-20); Calcium,Total 7.5 mg/dL (8.5-10.1); Chloride 116 mmol/L (98-107); Creatinine, Serum 0.93 mg/dL (0.70-1.30); EST Glomerular Filtration Rate 84 mL/min (>60); Est Glom Filt Rate - Afr Amer 102 mL/min (>60); Estimated Creatinine Clearance 68.68 ml/min; Glucose 190 mg/dL (74-106); Potassium 3.9 mmol/L (3.5-5.1); Sodium Level 147 mmol/L (136-145)
--- NOTE | 2018-10-17 06:41 | NURSING ---
at bedside, careplan reviewed. Chest tube placed to water seal by .
--- NOTE | 2018-10-17 06:42 | PN_ITS ---
Subjective: The patient was seen and examined at the bedside this morning. Events from the last 24 hours have been reviewed. The patient is currently afebrile, hemodynamically stable and maintaining appropriate oxygen saturations on 2 L/min via nasal cannula. The patient did quite well overnight per nursing report. She denies the presence of pain this morning. Yesterday afternoon, the patient's chest tube was placed back to wall suction as there was some concern by nursing staff due to the lack of tidaling noted in the chest tube atrium. Follow-up chest imaging continued to demonstrate a reexpanded lung with only a mild residual right apical pneumothorax. Following my evaluation of the patient this morning, his chest tube was changed back to waterseal. The patient is currently documented to be overall net +8.2 L for the admission. Creatinine has normalized at this time. Urine output has been good. Objective: The patient's most recent lab work, culture data and imaging studies have all been personally reviewed. Surface echocardiogram revealed normal LV size and thickness with an ejection fraction of 70%. Strep and urine Legionella antigens were both negative. Blood, urine and sputum cultures have been unrevealing to date. General: Alert, Cooperative, No apparent distress HEENT: Atraumatic, Normocephalic, - - NG tube remains in place. Oral: Dry Mucosa Neck: Supple, No Nodes, Trachea Midline Lungs: No rhonchi, No wheeze, No rales, Diminished, - - Chest tube remains in place. Cardiovascular: Regular rate, Regular Rhythm, Normal S1, Normal S2, No murmurs Abdomen: Soft, Hypoactive Bowel Sounds Extremities: No clubbing, No cyanosis, No edema Skin: No breakdown Musculoskeletal: No Tenderness to Palpation of Joints or Extremities Lymphatic: No Cervical, Supraclavicular, or Inguinal Adenopathy Neurological: Cranial nerves II-XII grossly intact, Neuro grossly intact Psych/Mental Status: Normal Affect, Appropriate Vital Signs Temp Pulse Resp BP Pulse Ox 97.5 F L 65 12 139/74 H 95 10/17/18 04:00 10/17/18 06:00 10/17/18 06:00 10/17/18 06:00 10/17/18 06:00 Oxygen Flow Rate (L/min) 2 Oxygen Delivery Method Nasal Cannula Weight: 167 lb 15.876 oz Body Mass Index (BMI) 21.9 Intake and Output for Last 24 Hours 10/15/18 10/16/18 10/17/18 23:59 23:59 23:59 Intake Total 6024.5 / 6024.5 4103.4 / 4103.4 915 / 915 Output Total 1775 / 1775 2225 / 2225 475 / 475 Balance 4249.5 / 4249.5 1878.4 / 1878.4 440 / 440 Labs (Last 48 Hours) 10/14/18 10/15/18 10/15/18 21:33 08:00 08:00 WBC RBC Hgb Hct MCV MCH MCHC RDW Std Deviation RDW Coeff of Tristian Plt Count MPV Immature Gran % (Auto) Neut % (Auto) Lymph % (Auto) [place] % (Auto) Eos % (Auto) Baso % (Auto) Absolute Neuts (auto) Absolute Lymphs (auto) Nucleated RBC % Diff Path Review Reviewed Platelet Estimate RBC Morphology Specimen Type Sample Site pH Bicarbonate Actual POC Total CO2 Base Excess O2 Saturation O2 % ABG pCO2 ABG pO2 Respiration Rate O2 Delivery Device Vent Mode Tidal Volume POC PEEP Blood Gas Notified Whom Blood Gas Notified Time Sodium 139 Potassium 5.6 H Chloride 108 H Carbon Dioxide 21.0 Anion Gap 10 BUN 69 H Creatinine 2.89 H Estim Creat Clear Calc 21.07 Est GFR (MDRD) Af Amer 27 L Est GFR (MDRD) Non-Af 23 L BUN/Creatinine Ratio 23.9 H Glucose 112 H Calcium 7.2 L Phosphorus 6.4 H Magnesium 2.1 Total Bilirubin 0.90 AST 418 H ALT 414 H Alkaline Phosphatase 47 Troponin I 0.025 B-Natriuretic Peptide Total Protein 5.0 L Albumin 1.8 L Globulin 3.2 Albumin/Globulin Ratio 0.6 L Lipase 143 POC Glucose 10/15/18 10/15/18 10/15/18 08:00 08:00 12:01 WBC 24.8 H RBC 4.00 L Hgb 13.0 Hct 39.1 L MCV 97.8 H MCH 32.5 H MCHC 33.2 RDW Std Deviation 48.5 H RDW Coeff of Tristian 13.6 Plt Count 255 MPV 11.3 Immature Gran % (Auto) 1.700 H Neut % (Auto) 91.2 H Lymph % (Auto) 5.0 L [place] % (Auto) 1.6 Eos % (Auto) 0.1 Baso % (Auto) 0.4 Absolute Neuts (auto) 22.7 H Absolute Lymphs (auto) 1.23 Nucleated RBC % 0 Diff Path Review Reviewed Platelet Estimate ADEQUATE RBC Morphology NORM C+C Specimen Type Sample Site pH Bicarbonate Actual POC Total CO2 Base Excess O2 Saturation O2 % ABG pCO2 ABG pO2 Respiration Rate O2 Delivery Device Vent Mode Tidal Volume POC PEEP Blood Gas Notified Whom Blood Gas Notified Time Sodium Potassium Chloride Carbon Dioxide Anion Gap BUN Creatinine Estim Creat Clear Calc Est GFR (MDRD) Af Amer Est GFR (MDRD) Non-Af BUN/Creatinine Ratio Glucose Calcium Phosphorus Magnesium Total Bilirubin AST ALT Alkaline Phosphatase Troponin I B-Natriuretic Peptide 39.3 Total Protein Albumin Globulin Albumin/Globulin Ratio Lipase POC Glucose 121 H 10/15/18 10/15/18 10/15/18 12:42 16:40 17:55 WBC RBC Hgb Hct MCV MCH MCHC RDW Std Deviation RDW Coeff of Tristian Plt Count MPV Immature Gran % (Auto) Neut % (Auto) Lymph % (Auto) [place] % (Auto) Eos % (Auto) Baso % (Auto) Absolute Neuts (auto) Absolute Lymphs (auto) Nucleated RBC % Diff Path Review Platelet Estimate RBC Morphology Specimen Type ALEXI Sample Site OTHER pH 7.33 L Bicarbonate Actual 16.8 L POC Total CO2 18 Base Excess -9 L O2 Saturation 94 L O2 % 40 ABG pCO2 31.6 L ABG pO2 74 L Respiration Rate 16 O2 Delivery Device Vent Vent Mode A-C Tidal Volume 500 POC PEEP 5 Blood Gas Notified Whom OTHER Blood Gas Notified Time 1241 Sodium 140 Potassium 4.6 Chloride 112 H Carbon Dioxide 19.0 L Anion Gap 9 BUN 70 H Creatinine 2.15 H Estim Creat Clear Calc 28.33 Est GFR (MDRD) Af Amer 39 L Est GFR (MDRD) Non-Af 32 L BUN/Creatinine Ratio 32.6 H Glucose 154 H Calcium 7.3 L Phosphorus Magnesium Total Bilirubin AST ALT Alkaline Phosphatase Troponin I B-Natriuretic Peptide Total Protein Albumin Globulin Albumin/Globulin Ratio Lipase POC Glucose 138 H 10/16/18 10/16/18 10/16/18 00:14 05:11 06:10 WBC 16.4 H RBC 3.30 L Hgb 10.4 L Hct 32.3 L MCV 97.9 H MCH 31.5 MCHC 32.2 RDW Std Deviation 51.4 H RDW Coeff of Tristian 14.2 Plt Count 186 MPV 11.3 Immature Gran % (Auto) 1.000 H Neut % (Auto) 93.3 H Lymph % (Auto) 3.3 L [place] % (Auto) 2.1 Eos % (Auto) 0.1 Baso % (Auto) 0.2 Absolute Neuts (auto) 15.3 H Absolute Lymphs (auto) 0.55 L Nucleated RBC % 0 Diff Path Review Platelet Estimate RBC Morphology Specimen Type Sample Site pH Bicarbonate Actual POC Total CO2 Base Excess O2 Saturation O2 % ABG pCO2 ABG pO2 Respiration Rate O2 Delivery Device Vent Mode Tidal Volume POC PEEP Blood Gas Notified Whom Blood Gas Notified Time Sodium Potassium Chloride Carbon Dioxide Anion Gap BUN Creatinine Estim Creat Clear Calc Est GFR (MDRD) Af Amer Est GFR (MDRD) Non-Af BUN/Creatinine Ratio Glucose Calcium Phosphorus Magnesium Total Bilirubin AST ALT Alkaline Phosphatase Troponin I B-Natriuretic Peptide Total Protein Albumin Globulin Albumin/Globulin Ratio Lipase POC Glucose 136 H 152 H 10/16/18 10/16/18 10/16/18 06:10 12:01 18:04 WBC RBC Hgb Hct MCV MCH MCHC RDW Std Deviation RDW Coeff of Tristian Plt Count MPV Immature Gran % (Auto) Neut % (Auto) Lymph % (Auto) [place] % (Auto) Eos % (Auto) Baso % (Auto) Absolute Neuts (auto) Absolute Lymphs (auto) Nucleated RBC % Diff Path Review Platelet Estimate RBC Morphology Specimen Type Sample Site pH Bicarbonate Actual POC Total CO2 Base Excess O2 Saturation O2 % ABG pCO2 ABG pO2 Respiration Rate O2 Delivery Device Vent Mode Tidal Volume POC PEEP Blood Gas Notified Whom Blood Gas Notified Time Sodium 146 H Potassium 4.4 Chloride 117 H Carbon Dioxide 21.0 Anion Gap 8 BUN 50 H Creatinine 1.57 H Estim Creat Clear Calc 40.68 Est GFR (MDRD) Af Amer 55 L Est GFR (MDRD) Non-Af 46 L BUN/Creatinine Ratio 31.8 H Glucose 152 H Calcium 7.5 L Phosphorus 3.3 Magnesium 2.3 Total Bilirubin AST ALT Alkaline Phosphatase Troponin I B-Natriuretic Peptide Total Protein Albumin Globulin Albumin/Globulin Ratio Lipase POC Glucose 229 H 216 H 10/16/18 10/17/18 10/17/18 23:20 05:00 05:00 WBC 15.1 H RBC 3.04 L Hgb 9.6 L Hct 29.9 L MCV 98.4 H MCH 31.6 MCHC 32.1 RDW Std Deviation 52.3 H RDW Coeff of Tristian 14.6 Plt Count 148 L MPV 11.3 Immature Gran % (Auto) 1.300 H Neut % (Auto) 93.5 H Lymph % (Auto) 3.2 L [place] % (Auto) 1.9 Eos % (Auto) 0.0 Baso % (Auto) 0.1 Absolute Neuts (auto) 14.1 H Absolute Lymphs (auto) 0.48 L Nucleated RBC % 0 Diff Path Review Platelet Estimate RBC Morphology Specimen Type Sample Site pH Bicarbonate Actual POC Total CO2 Base Excess O2 Saturation O2 % ABG pCO2 ABG pO2 Respiration Rate O2 Delivery Device Vent Mode Tidal Volume POC PEEP Blood Gas Notified Whom Blood Gas Notified Time Sodium 147 H Potassium 3.9 Chloride 116 H Carbon Dioxide 26.0 Anion Gap 5 BUN 28 H Creatinine 0.93 Estim Creat Clear Calc 68.68 Est GFR (MDRD) Af Amer 102 Est GFR (MDRD) Non-Af 84 BUN/Creatinine Ratio 30.2 H Glucose 190 H Calcium 7.5 L Phosphorus Magnesium Total Bilirubin AST ALT Alkaline Phosphatase Troponin I B-Natriuretic Peptide Total Protein Albumin Globulin Albumin/Globulin Ratio Lipase POC Glucose 174 H 10/17/18 05:03 WBC RBC Hgb Hct MCV MCH MCHC RDW Std Deviation RDW Coeff of Tristian Plt Count MPV Immature Gran % (Auto) Neut % (Auto) Lymph % (Auto) [place] % (Auto) Eos % (Auto) Baso % (Auto) Absolute Neuts (auto) Absolute Lymphs (auto) Nucleated RBC % Diff Path Review Platelet Estimate RBC Morphology Specimen Type Sample Site pH Bicarbonate Actual POC Total CO2 Base Excess O2 Saturation O2 % ABG pCO2 ABG pO2 Respiration Rate O2 Delivery Device Vent Mode Tidal Volume POC PEEP Blood Gas Notified Whom Blood Gas Notified Time Sodium Potassium Chloride Carbon Dioxide Anion Gap BUN Creatinine Estim Creat Clear Calc Est GFR (MDRD) Af Amer Est GFR (MDRD) Non-Af BUN/Creatinine Ratio Glucose Calcium Phosphorus Magnesium Total Bilirubin AST ALT Alkaline Phosphatase Troponin I B-Natriuretic Peptide Total Protein Albumin Globulin Albumin/Globulin Ratio Lipase POC Glucose 186 H Microbiology 10/16/18 01:35 Sputum, Induced/Lukens Gram Stain - Final 10/15/18 08:00 Urine Catheter - Maguire Urine Culture - Preliminary Culture exhibits no growth. Clinical Impression(s) from Imaging Studies Chest X-Ray 10/14/18 11:53 IMPRESSION: Increased markings at the left lung base suggestive of atelectasis and/or early infiltrate. Follow-up is recommended. Electronically Signed: Jimmy Michell, at 12:38 EDT , Service support , Abdomen/Pelvis CT 10/14/18 12:27 IMPRESSION: Small bowel obstruction with the transition point in the distal ileum. Fluid distention of the stomach and the distal esophagus. Patchy alveolar disease in both lower lobes. Radiographic follow-up is recommended. Electronically Signed: Jimmy Galarza, at 15:04 EDT , Service support , Chest CT 10/14/18 12:27 IMPRESSION: Airspace disease in both lower lobes with peribronchial dilatation and the fluid within the bronchial tree in the lower lobes worse on the left lung base. Aspiration should be ruled out. Fluid distention of the esophagus and visualized portion of the stomach. 1.1 cm left adrenal nodule as well as a 5.6 cm x 6.1 cm cyst in the upper pole of the right kidney. CT scan of the abdomen demonstrated small bowel obstruction. Electronically Signed: Jimmy Galarza, at 15:11 EDT , Service support , Soft Tissue Neck CT 10/14/18 12:27 IMPRESSION: Fluid distention of the esophagus. Electronically Signed: Jimmy Galarza, at 15:27 EDT , Service support , KUB X-Ray 10/14/18 13:34 IMPRESSION: The tip of the nasogastric tube is coiled in the distal esophagus. Electronically Signed: Jimmy Galarza, at 15:28 EDT , Service support , KUB X-Ray 10/14/18 15:00 IMPRESSION: The tip of the nasogastric tube is coiled in the distal esophagus. Electronically Signed: Jimmy Bernalkirsten, at 15:30 EDT , Service support , Chest X-Ray 10/15/18 05:55 IMPRESSION: Bilateral lower lobe infiltrates with marked worsening from recent previous study. Tubes are in adequate position. Electronically Signed: Jamarcus Muñoz MD at 5:05 EDT , Service support , ADDENDUM: 10/15/18 0746 KUB X-Ray 10/15/18 05:55 IMPRESSION: Status post recent surgery, with surgical drain overlying the pelvis. Nasogastric tube is in adequate position. Nonspecific bowel gas pattern. Electronically Signed: Jamarcus Muñoz MD at 4:46 EDT , Service support , Chest X-Ray 10/15/18 06:59 IMPRESSION: New finding of a moderately large right pneumothorax, occupying 25-50% of the right hemithorax. Tubes are in adequate position. Persistent left basilar infiltrate which appears somewhat improved. Pneumoperitoneum, presumably due to recent surgery. Electronically Signed: Jamarcus Muñoz MD at 7:33 EDT , Service support , ADDENDUM: 10/15/18 0802 IMPRESSION: New finding of a moderately large right pneumothorax, occupying 25-50% of the right hemithorax. Tubes are in adequate position. Persistent left basilar infiltrate which appears somewhat improved. Pneumoperitoneum, presumably due to recent surgery. N.B. : The above information has been verbally conveyed by Jamarcus Muñoz MD to RUDI Carranza DO, , on 10/15/2018 07:55:43 (ET). Electronically Signed: Jamarcus Muñoz MD at 7:33 EDT , Service support , Chest X-Ray 10/15/18 08:06 IMPRESSION: Status post placement of a small-caliber right-sided chest tube. Residual small right apical pneumothorax. Electronically Signed: Jimmy Michell, at 9:17 EDT , Service support , Chest X-Ray 10/16/18 09:40 IMPRESSION: Stable appearance of the small right apical pneumothorax. Increasing infiltrate and/or atelectasis at the right lung base. Electronically Signed: Jimmy Galarza, at 15:36 EDT , Service support , Chest X-Ray 10/16/18 14:08 IMPRESSION: Small residual right apical pneumothorax. The remainder of the examination is unchanged. Electronically Signed: Jimmy Michell, at 15:20 EDT , Service support , Medical Necessity - Tobacco Use Smoking Status: Former smoker Tobacco Use: Non-smoker Assessment/Plan All Active Problems Acute tubular necrosis (Acute) Hyperkalemia (Acute) RECOMMENDATIONS: 1. Continue antibiotics per ID recommendations. 2. Place chest tube back to waterseal. Obtain follow-up chest x-ray. If negative for pneumothorax, remove chest tube. 3. Remove Maguire catheter and central venous catheter 4. Discontinue stress dose steroids. 5. Continue gentle IV fluid hydration to offset insensible losses. 6. Wean supplemental oxygen to maintain saturations at or above 90%. Encourage incentive spirometer use. 7. Mobilize patient as tolerated. IMPRESSIONS: 1. Septic shock 2/2 intraabdominal and pulmonary infectious processes Resolved. The patient responded clinically to the use of broad-spectrum antimicrobials and vasopressors to maintain hemodynamic stability. The patient has defervesced and is no longer requiring vasopressor support. Broad-spectrum antimicrobials will be continued per the discretion of infectious diseases. We will plan to discontinue stress dose steroids today. Central venous catheter can be removed, as well as his Maguire catheter. 2. Acute hypoxemic respiratory failure/iatrogenic pneumothorax Improved. The patient did demonstrate findings concerning for underlying pneumonia on CT chest. There was also initial concern for potential aspiration event. Although the patient did initially require high amounts of FiO2 and PEEP, his mechanical ventilation requirements quickly de-escalated. He was able to be successfully extubated to nasal cannula supplemental oxygen on the morning of 10/16. We will plan to continue to wean supplemental oxygen to maintain saturations at or above 90%. He will be provided with an incentive spirometer and encouraged to use. He will remain on antimicrobials for underlying pu lmonary infectious process. We will place chest tube back to waterseal. Obtain follow-up chest x-ray and if negative for pneumothorax, will consider removal of chest tube. 3. Acute abdomen/small bowel obstruction/appendicial perforation, now POD #3 s/p exploratory laparotomy and ileocecal resection Continue current supportive measures per general surgery recommendations. 4. Acute Kidney Injury Resolved.. Likely secondary to ischemic ATN in the setting of #1. Nephrology is following. Creatinine and urine output have improved following stabilization of hemodynamics. 5. Shock liver The patient did demonstrate moderate increases in his transaminase levels, likely the consequence of the hemodynamic instability that he sustained as a consequence of #1. Anticipate improvement in transaminase levels with stabilization of hemodynamics. 6. Advanced age/hyperlipidemia/GERD Complicates care, management, recovery and prognosis. Okay to continue home medications as indicated. Physical therapy to work with the patient. This note was generated with [employer] software. It may contain incorrect words, spelling, and punctuation that were not noted in checking the note before signing. Code Visit Inpatient E&M: 75627 [facility] Hosp L3
--- NOTE | 2018-10-17 07:19 | PCM.PN.HOSP ---
Patient Problems: Active and Suspected Problems Acute tubular necrosis (Acute) Hyperkalemia (Acute) Subjective: Patient seen remains in ICU. Chest tube still in place. Plan is for patient to undergo subsequent imaging studies this a.m. with plans for chest tube removal later on. Experienced significant drop in her hemoglobin from a level of 15.7 on admission to 9.6 this a.m. ; patient however does not meet requirement for blood transfusion Objective: GENERAL: Awake follows commands HEENT: ET tube in place EYES; prosthetic left eye NECK; supple, normal thyroid, RESPIRATORY: Diminished to auscultation: Chest tube in place CARDIOVASCULAR: Regular S1 S2, GI: Nondistended, abdominal incision CDI, MARSHALL tube in situ : No Renal angle tenderness; EXTREMITIES: No edema, no clubbing, MUSCULOSKELETAL: No Joint swelling NEURO: No lateralizing signs SKIN: No Rash PSYCH; affect is appropriate Vitals/I&O's: Vital Signs Temp Pulse Resp BP Pulse Ox 97.5 F L 65 12 139/74 H 95 10/17/18 04:00 10/17/18 06:00 10/17/18 06:00 10/17/18 06:00 10/17/18 06:00 Oxygen Flow Rate (L/min) 2 Oxygen Delivery Method Nasal Cannula Weight: 76.2 kg Body Mass Index (BMI) 21.9 Intake and Output for Last 24 Hours 10/15/18 10/16/18 10/17/18 23:59 23:59 23:59 Intake Total 6024.5 / 6024.5 4103.4 / 4103.4 915 / 915 Output Total 1775 / 1775 2225 / 2225 475 / 475 Balance 4249.5 / 4249.5 1878.4 / 1878.4 440 / 440 Microbiology Past 72 Hours 10/16/18 01:35 Sputum, Induced/Lukens Gram Stain - Final 10/15/18 08:00 Urine Catheter - Maguire Urine Culture - Preliminary Culture exhibits no growth. 10/14/18 22:55 Urine Catheter - Catheter Streptococcus pneumoniae Antigen (M - Final 10/14/18 22:55 Urine Catheter - Catheter Legionella Antigen - Final Laboratory Results 10/15/18 08:00: Diff Path Review Reviewed 10/16/18 12:01: POC Glucose 229 H 10/16/18 18:04: POC Glucose 216 H 10/16/18 23:20: POC Glucose 174 H 10/17/18 05:00: WBC 15.1 H, RBC 3.04 L, Hgb 9.6 L, Hct 29.9 L, MCV 98.4 H, MCH 31.6, MCHC 32.1, RDW Std Deviation 52.3 H, RDW Coeff of Tristian 14.6, Plt Count 148 L, MPV 11.3, Immature Gran % (Auto) 1.300 H, Neut % (Auto) 93.5 H, Lymph % (Auto) 3.2 L, [place] % (Auto) 1.9, Eos % (Auto) 0.0, Baso % (Auto) 0.1, Absolute Neuts (auto) 14.1 H, Absolute Lymphs (auto) 0.48 L, Nucleated RBC % 0 10/17/18 05:00: Sodium 147 H, Potassium 3.9, Chloride 116 H, Carbon Dioxide 26.0, Anion Gap 5, BUN 28 H, Creatinine 0.93, Estim Creat Clear Calc 68.68, Est GFR (MDRD) Af Amer 102, Est GFR (MDRD) Non-Af 84, BUN/Creatinine Ratio 30.2 H, Glucose 190 H, Calcium 7.5 L 10/17/18 05:03: POC Glucose 186 H Current Medications Albuterol Sulfate (Ventolin Aerosols) 2.5 mg INHALATION Q2H PRN PRN PRN Reason: dyspnea, wheezing Dextrose (D50w Syringe) 0 gm IV X1 PRN; Protocol PRN Reason: Hypoglycemia Dorzolamide/Timolol (Cosopt Opth Drops) 1 drop RIGHT EYE BID [facility] Last Admin: 10/16/18 21:39 Dose: 1 drop Documented by: Fentanyl Citrate (Sublimaze (100mcg Ampule)) 50 mcg IV Q6H PRN PRN Reason: SEVERE PAIN (6-10/10) Last Admin: 10/17/18 00:17 Dose: 50 mcg Documented by: Glucagon () 1 mg IM .X1 PRN PRN Reason: Hypoglycemia Hydrocortisone Sodium Succinate (Solu-Cortef) 50 mg IV Q12 [facility] Last Admin: 10/16/18 21:39 Dose: 50 mg Documented by: Piperacillin Sod/Tazobactam (Sod 3.375 gm/ Sodium Chloride) 50 mls @ 12.5 mls/hr IV Q8 [facility] Last Admin: 10/17/18 05:07 Dose: 12.5 mls/hr Documented by: Pantoprazole Sodium 40 mg/ (Sodium Chloride) 110 mls @ 330 mls/hr IV Q12 [facility] Last Admin: 10/16/18 21:34 Dose: 330 mls/hr Documented by: Sodium Chloride () 250 mls @ 15 mls/hr IV .[id number] PRN PRN Reason: SALINE FLUSH Last Admin: 10/14/18 22:01 Dose: 15 mls/hr Documented by: Dextrose/Sodium Chloride () 1,000 mls @ 150 mls/hr IV .[id number] [facility] Last Admin: 10/17/18 01:54 Dose: 150 mls/hr Documented by: Insulin Human Lispro (Humalog Kwikpen (Bkc)) 0 unit SC Q6 [facility]; Protocol Last Admin: 10/17/18 05:09 Dose: 1 units Documented by: Latanoprost (Xalatan Opthalmic) 1 drop RIGHT EYE QHS [facility] Last Admin: 10/16/18 21:38 Dose: 1 drop Documented by: Sodium Chloride () 10 - 40 ml IV UD PRN PRN Reason: SALINE FLUSH Last Admin: 10/17/18 05:08 Dose: 20 ml Documented by: Medical Necessity - Tobacco Use Smoking Status: Former smoker Tobacco Use: Non-smoker Assessment/Plan All Active Problems Acute tubular necrosis (Acute) Hyperkalemia (Acute) Patient is a 78-year-old gentleman who presented with abdominal pain with associated abdominal distention nausea and vomiting. CT of the abdomen obtained in the emergency department demonstrated Small bowel obstruction with the transition point in the distal ileum. Fluid distention of the stomach and the distal esophagus. Patient was admitted to the surgical service and underwent exploratory laparotomy findings included transition due to veg matter, small bowel loops adherent to pelvic abscess - perforated appendicitis with obstruction. Patient had ileocecal resection performed by Dr. Phan on 10/14/2018. 1. Small bowel obstruction: CT of the abdomen obtained in the emergency department demonstrated Small bowel obstruction with the transition point in the distal ileum. Fluid distention of the stomach and the distal esophagus. Patient was admitted to the surgical service and underwent exploratory laparotomy findings included transition due to veg matter, small bowel loops adherent to pelvic abscess - perforated appendicitis with obstruction. Patient had ileocecal resection performed by Dr. Phan on 10/14/2018. 2. Acute hypoxic respiratory failure following aspiration pneumonia. Patient was intubated during surgery left on the vent and subsequently transferred to the intensive care unit. Vent management deferred to pulmonary/assistant food service director patient was weaned off the vent on the morning of 10/16/2018 3. Septic shock secondary to aspiration pneumonia as well as intra-abdominal infection i.e. the pelvic abscess with perforated appendix. Patient is on broad-spectrum antibiotic therapy in addition to fluids, pressors and stress doses of antibiotics patient has been weaned off pressors. WBC count trending down. 4. Acute kidney injury secondary to ATN from hypovolemia as well as septic shock patient to function continues to worsen we will recommend obtaining nephrology consultation if okay with primary service kidney function improving. 10/17/2018: Kidney function back to baseline ALEN resolved 5. Iatrogenic large right sided pneumothorax following insertion of triple-lumen chest tube in place 10/17/2018: Patient is scheduled to undergo PT imaging studies with plans for chest tube removal 6. Acute transaminitis; secondary to shock liver we will continue to monitor LFTs 7. GERD patient is on PPI 8. Anemia secondary to acute blood loss anemia following surgery monitoring H&H with plans to transfuse if patient becomes symptomatic or hemoglobin falls below 7 9. DVT prophylaxis; SCDs and renal dose of Lovenox Code Visit Inpatient E&M: 77520 [facility] Hosp L3
--- NOTE | 2018-10-17 08:00 | RAD_ITS ---
STUDY: X-RAY CHEST REASON FOR EXAM: Male, 78 years old. History of pneumothorax. TECHNIQUE: Single AP portable view of the chest. COMPARISON: Comparison is made with prior study dated October 16, 2018. FINDINGS: A right-sided small caliber chest tube is seen in the right hemithorax. A right-sided internal jugular venous catheter is seen. The tip is at the junction of superior vena cava right atrium. A nasogastric tube is seen with the tip below the left hemidiaphragm. EKG electrodes are seen. No evidence of pneumothorax. Regular bibasilar infiltrates and/or atelectasis worse at the left lung base although there has been mild improvement. Normal size heart. Normal mediastinum and fred. Normal visualized pulmonary arteries. There is atherosclerotic calcification of the aortic arch with tortuosity. Normal visualized thoracic spine. Normal visualized ribs, clavicles, and shoulders. Stable amount of free intraperitoneal air. RAD/Chest 1 View (Portable) IMPRESSION: There is no evidence of pneumothorax at this time. Electronically Signed: Jimmy Galarza, at 12:30 EDT , Service support ,
--- NOTE | 2018-10-17 10:02 | PCM.PN.ID ---
Patient Problems: Active and Suspected Problems Acute tubular necrosis (Acute) Hyperkalemia (Acute) Subjective: Feeling better, no fever, no abd pain, denies SOB - Physical Exam General: Alert, Cooperative, No apparent distress Lungs: Clear to auscultation, Normal air movement Cardiovascular: Regular rate, Regular Rhythm Abdomen: Soft, Non Tender, Non-Distended Skin: No rashes Vital Signs Temp Pulse Resp BP Pulse Ox 97.5 F L 97 16 145/77 H 93 10/17/18 04:00 10/17/18 07:00 10/17/18 07:00 10/17/18 07:00 10/17/18 07:41 Oxygen Flow Rate (L/min) 2 Oxygen Delivery Method Nasal Cannula Weight: 76.2 kg Body Mass Index (BMI) 21.9 Intake and Output for Last 24 Hours 10/15/18 10/16/18 10/17/18 23:59 23:59 23:59 Intake Total 6024.5 / 6024.5 4103.4 / 4103.4 915 / 915 Output Total 1775 / 1775 2225 / 2225 475 / 475 Balance 4249.5 / 4249.5 1878.4 / 1878.4 440 / 440 Microbiology Past 72 Hours 10/15/18 08:00 Urine Culture - Final Urine Catheter - Maguire Culture exhibits no growth. 10/16/18 01:35 Gram Stain - Final Sputum, Induced/Lukens 10/14/18 22:55 Streptococcus pneumoniae Antigen (M - Final Urine Catheter - Catheter 10/14/18 22:55 Legionella Antigen - Final Urine Catheter - Catheter Laboratory Tests Past 24 Hrs 10/15/18 10/17/18 10/17/18 08:00 05:00 05:00 WBC 15.1 H RBC 3.04 L Hgb 9.6 L Hct 29.9 L MCV 98.4 H MCH 31.6 MCHC 32.1 RDW Std Deviation 52.3 H RDW Coeff of Tristian 14.6 Plt Count 148 L MPV 11.3 Immature Gran % (Auto) 1.300 H Neut % (Auto) 93.5 H Lymph % (Auto) 3.2 L [place] % (Auto) 1.9 Eos % (Auto) 0.0 Baso % (Auto) 0.1 Absolute Neuts (auto) 14.1 H Absolute Lymphs (auto) 0.48 L Nucleated RBC % 0 Diff Path Review Reviewed Sodium 147 H Potassium 3.9 Chloride 116 H Carbon Dioxide 26.0 Anion Gap 5 BUN 28 H Creatinine 0.93 Estim Creat Clear Calc 68.68 Est GFR (MDRD) Af Amer 102 Est GFR (MDRD) Non-Af 84 BUN/Creatinine Ratio 30.2 H Glucose 190 H Calcium 7.5 L POC Glucose 10/17/18 10/16/18 10/16/18 05:03 23:20 18:04 POC Glucose 186 H 174 H 216 H 10/16/18 12:01 POC Glucose 229 H Medical Necessity - Tobacco Use Smoking Status: Former smoker Tobacco Use: Non-smoker Route of nutrition/ use of supplements: [] Nutritional Intake: [] IV Site: [] Maguire Catheter: [] - Assessment/Plan Antibiotics: [] Assessment/Plan: [] Active and Suspected Problems Acute tubular necrosis (Acute) Hyperkalemia (Acute) septic shock with ruptured appendicitis, now s/p ileocecal resection by 10/14. Off pressors, ALEN improving, off vent. Cont zosyn. Will follow
[2018-10-17] MEDS: Dorzolamide HCL/Timolol 10 ml Bottle 1 DRP RIGHT EYE ×2 (10:10→22:47)
--- NOTE | 2018-10-17 11:24 | PCM.PN.REN ---
Patient Problems: Active and Suspected Problems Acute tubular necrosis (Acute) Hyperkalemia (Acute) Subjective: Patient is doing well. No nausea No vomiting NC at 2 l/m No CP No SOB - Physical Exam General: Alert, Oriented x3 HEENT: Atraumatic Oral: Moist Mucosa Neck: Supple, No JVD Lungs: Clear to auscultation, Normal air movement, No rhonchi Cardiovascular: Regular rate, Regular Rhythm, Normal S1, Normal S2 Abdomen: Bowel Sounds Present, Soft, Non Tender, Non-Distended Extremities: No clubbing, No cyanosis, No edema Skin: No rashes Musculoskeletal: No Tenderness to Palpation of Joints or Extremities Neurological: Neuro grossly intact Psych/Mental Status: Appropriate Vital Signs Temp Pulse Resp BP Pulse Ox 97.5 F L 97 16 145/77 H 93 10/17/18 04:00 10/17/18 07:00 10/17/18 07:00 10/17/18 07:00 10/17/18 07:41 Oxygen Flow Rate (L/min) 2 Oxygen Delivery Method Nasal Cannula Weight: 76.2 kg Body Mass Index (BMI) 21.9 Intake and Output for Last 24 Hours 10/15/18 10/16/18 10/17/18 23:59 23:59 23:59 Intake Total 6024.5 / 6024.5 4103.4 / 4103.4 915 / 915 Output Total 1775 / 1775 2225 / 2225 475 / 475 Balance 4249.5 / 4249.5 1878.4 / 1878.4 440 / 440 Microbiology Past 72 Hours 10/15/18 08:00 Urine Culture - Final Urine Catheter - Maguire Culture exhibits no growth. 10/16/18 01:35 Gram Stain - Final Sputum, Induced/Lukens 10/14/18 22:55 Streptococcus pneumoniae Antigen (M - Final Urine Catheter - Catheter 10/14/18 22:55 Legionella Antigen - Final Urine Catheter - Catheter Laboratory Tests Past 24 Hrs 10/15/18 10/17/18 10/17/18 08:00 05:00 05:00 WBC 15.1 H RBC 3.04 L Hgb 9.6 L Hct 29.9 L MCV 98.4 H MCH 31.6 MCHC 32.1 RDW Std Deviation 52.3 H RDW Coeff of Tristian 14.6 Plt Count 148 L MPV 11.3 Immature Gran % (Auto) 1.300 H Neut % (Auto) 93.5 H Lymph % (Auto) 3.2 L [place] % (Auto) 1.9 Eos % (Auto) 0.0 Baso % (Auto) 0.1 Absolute Neuts (auto) 14.1 H Absolute Lymphs (auto) 0.48 L Nucleated RBC % 0 Diff Path Review Reviewed Sodium 147 H Potassium 3.9 Chloride 116 H Carbon Dioxide 26.0 Anion Gap 5 BUN 28 H Creatinine 0.93 Estim Creat Clear Calc 68.68 Est GFR (MDRD) Af Amer 102 Est GFR (MDRD) Non-Af 84 BUN/Creatinine Ratio 30.2 H Glucose 190 H Calcium 7.5 L POC Glucose 10/17/18 10/16/18 10/16/18 05:03 23:20 18:04 POC Glucose 186 H 174 H 216 H 10/16/18 12:01 POC Glucose 229 H Medical Necessity - Tobacco Use Smoking Status: Former smoker Tobacco Use: Non-smoker Assessment/Plan All Active Problems Acute tubular necrosis (Acute) Hyperkalemia (Acute) 1-Acute kidney injury on chronic kidney disease. Baseline creatinine is around 1.0-1.1 mg/dL. Acute kidney injury prerenal from hemodynamic instability related to septic shock. Kidney function improved. Cr is now at baseline.UOP is excellent Please keep mean arterial pressure more than 65. Avoid nephrotoxic like NSAIDs and IV contrast Continue to monitor urine output and renal function. 2-Hyperkalemia. resolved. K is 3.9 this am 3-Septic shock from aspiration pneumonia and perforated appendicitis and pelvis abscess. Better. Off BP pressors Zosyn is appropriately dosed for the current creatinine clearance. ID is following for antibiotics. 4-Acute respiratory failure. Improved. Pt was extubated on 10/16. On NC at 2 l/m 5-Perforated appendicitis with resultant pelvis abscess and small bowel adhesion and obstruction. Status post ileocecal resection. Still with NGT suctioning Dr. Sparks is following. 6- Hypernatremia: mild at 147. Will change IVF to d5 1L Q 12 hours Renal team will continue to follow. Please call if any question at [phone]. Reinaldo Leigh MD
[2018-10-17 13:00] LABS: Bedside Glucose 168 mg/dL (70-110)
--- NOTE | 2018-10-17 14:30 | RAD_ITS ---
STUDY: X-RAY CHEST REASON FOR EXAM: Male, 78 years old. Chest tube removal. TECHNIQUE: Single AP portable view of the chest. COMPARISON: Comparison is made with prior examination done earlier today. FINDINGS: The small-caliber right-sided chest tube has been removed. There is no evidence of pneumothorax. The nasogastric tube has been removed. Stable bibasilar infiltrates and/or atelectasis is worse at the left lung base. Blunting of the costophrenic angles. At this time, there is less free air beneath the right hemidiaphragm. RAD/Chest 1 View (Portable) IMPRESSION: Status post removal of the small caliber right chest tube. There is no evidence of pneumothorax. The remainder of the examination is unchanged. Electronically Signed: Jimmy Galarza, at 14:44 EDT , Service support ,
[2018-10-17 18:16] LABS: Bedside Glucose 143 mg/dL (70-110)
--- NOTE | 2018-10-17 18:57 | PN.SURG_ITS ---
Patient Problems: Active and Suspected Problems Acute tubular necrosis (Acute) Hyperkalemia (Acute) Subjective: I'm hungry, one cannot eat, no real abdominal pain. - Physical Exam General: Alert, Oriented x3, Cooperative Lungs: Clear to auscultation, Normal air movement Cardiovascular: Regular rate, Regular Rhythm Abdomen: Soft, Non Tender, Bowel Sounds Not Present, Distended - MARSHALL drain - serosanguinous Vital Signs Temp Pulse Resp BP Pulse Ox 98.9 F 72 18 152/80 H 93 10/17/18 18:05 10/17/18 18:05 10/17/18 18:05 10/17/18 18:05 10/17/18 18:05 Oxygen Flow Rate (L/min) 2 Oxygen Delivery Method Nasal Cannula Weight: 76.2 kg Body Mass Index (BMI) 21.9 Intake and Output for Last 24 Hours 10/15/18 10/16/18 10/17/18 23:59 23:59 23:59 Intake Total 6024.5 / 6024.5 4103.4 / 4103.4 2682 / 2682 Output Total 1775 / 1775 2225 / 2225 1175 / 1175 Balance 4249.5 / 4249.5 1878.4 / 1878.4 1507 / 1507 Microbiology Past 72 Hours 10/16/18 01:35 Gram Stain - Final Sputum, Induced/Lukens Respiratory Culture - Preliminary Yeast 10/15/18 08:00 Urine Culture - Final Urine Catheter - Maguire Culture exhibits no growth. 10/14/18 22:55 Streptococcus pneumoniae Antigen (M - Final Urine Catheter - Catheter 10/14/18 22:55 Legionella Antigen - Final Urine Catheter - Catheter Laboratory Tests Past 24 Hrs 10/17/18 10/17/18 05:00 05:00 WBC 15.1 H RBC 3.04 L Hgb 9.6 L Hct 29.9 L MCV 98.4 H MCH 31.6 MCHC 32.1 RDW Std Deviation 52.3 H RDW Coeff of Tristian 14.6 Plt Count 148 L MPV 11.3 Immature Gran % (Auto) 1.300 H Neut % (Auto) 93.5 H Lymph % (Auto) 3.2 L [place] % (Auto) 1.9 Eos % (Auto) 0.0 Baso % (Auto) 0.1 Absolute Neuts (auto) 14.1 H Absolute Lymphs (auto) 0.48 L Nucleated RBC % 0 Sodium 147 H Potassium 3.9 Chloride 116 H Carbon Dioxide 26.0 Anion Gap 5 BUN 28 H Creatinine 0.93 Estim Creat Clear Calc 68.68 Est GFR (MDRD) Af Amer 102 Est GFR (MDRD) Non-Af 84 BUN/Creatinine Ratio 30.2 H Glucose 190 H Calcium 7.5 L POC Glucose 10/17/18 10/17/18 10/17/18 18:12 12:55 05:03 POC Glucose 143 H 168 H 186 H 10/16/18 23:20 POC Glucose 174 H Medical Necessity - Tobacco Use Smoking Status: Former smoker Tobacco Use: Non-smoker Assessment/Plan All Active Problems Acute tubular necrosis (Acute) Hyperkalemia (Acute) complicated perforated appendicitis postoperative day #3 status post ileocecal resection and drainage, aspiration pneumonia, septic shock neurologic-patient is currently being given narcotics for sedation. Currently comfortable. Respiratory-preoperative CT scan demonstrated fluid in the left mainstem and x- ray consistent with aspiration pneumonia. Patient initially required increasing FiO2 up to 100% overnight postoperatively. Currently oxygen saturation improving and FiO2 decreased to 30%. On broad-spectrum antibiotics for presumed aspiration. Right-sided pneumothorax status post attempted central line for right internal jugular line. Pneumocath placed. Postplacement chest x-ray demonstrated good reexpansion of lung. patient extubated yesterday. Now doing quite well on nasal cannula. Pneumocath removed with postprocedure chest x-ray without residual pneumothorax. Encourage incentive spirometry use. Cardiovascular-septic shock, tachycardic, currently off pressors GI-initial assumption was small bowel obstruction with mid small bowel transition point findings intraoperatively demonstrated jellylike material in the mid small bowel but actual problem was perforated appendicitis with adhesed loops of small bowel in the pelvis. Ileocecal resection performed. Risk for leakage due to need for pressors postoperatively. Anticipated longer postoperative ileus course due to above factors and fact that small bowel material may take longer to pass. Nasogastric tube placed intraoperatively. Nasogastric tube in good position. We'll continue nasogastric suctioning. Renal-much improved urine output overnight - suspect acute tubular necrosis. BUn and creatinine improved to normal range. We'll continue supportive patient medically. Fluid, electrolytes, nutrition- patient receiving boluses overnight in addition to pressors, potassium improving. Nothing by mouth for now. We will hold off enteral nutrition due to sepsis and concern for fluid overload given renal function. Infectious disease-patient with neglected perforated appendicitis resulting in complex pelvic abscess and significant inflammation requiring a ileocecal resection along with likely aspiration pneumonia. Zosyn given. We'll obtain cultures of patient's spikes fever-elevated white blood cell count Zosyn was given the nurse present. SCDs for VTE prophylaxis, Protonix for stress ulcer prophylaxis
[2018-10-17] MEDS: Latanoprost 0.005% 1 Bottle 1 DRP RIGHT EYE (22:47)
[2018-10-17 23:31] LABS: Bedside Glucose 135 mg/dL (70-110)
[2018-10-18] VITALS (12 sets, daily range): BP systolic 121–155; BP diastolic 70–72; PULSE 67–96; RESP 18–20; TEMP 36.4–36.9; O2SAT 92–96
[2018-10-18 05:16] LABS: Bedside Glucose 118 mg/dL (70-110)
--- NOTE | 2018-10-18 06:57 | PCM.PN.PUL ---
Patient Problems: Active and Suspected Problems Acute tubular necrosis (Acute) Hyperkalemia (Acute) Subjective: The patient was seen and examined at the bedside this morning. Events from the last 24 hours have been reviewed. The patient is currently afebrile, hemodynamically stable and maintaining appropriate oxygen saturations on 2 L/min via nasal cannula. The patient's chest tube was able to be successfully removed yesterday afternoon. Post removal x-ray revealed continued resolution of the patient's pneumothorax. The patient is currently documented to be overall net +9.9 L for the admission. Objective: The patient's most recent lab work, culture data and imaging studies have all been personally reviewed. Surface echocardiogram revealed normal LV size and thickness with an ejection fraction of 70%. Strep and urine Legionella antigens were both negative. Blood, urine and sputum cultures have been unrevealing to date. - Physical Exam General: Alert, Cooperative, No apparent distress HEENT: Atraumatic, Normocephalic, - - NG tube still in place Oral: No Gingival or Mucosal Lesions/ Ulcerations Neck: Supple, No Nodes, Trachea Midline Lungs: No rhonchi, No wheeze, No rales, Diminished Cardiovascular: Regular rate, Regular Rhythm, Normal S1, Normal S2, No murmurs Abdomen: Soft, Hypoactive Bowel Sounds, - - +MARSHALL Extremities: No clubbing, No cyanosis Skin: - - No significant change from previous. Musculoskeletal: No Tenderness to Palpation of Joints or Extremities Lymphatic: No Cervical, Supraclavicular, or Inguinal Adenopathy Neurological: Neuro grossly intact Psych/Mental Status: Normal Affect, Appropriate Vital Signs Temp Pulse Resp BP Pulse Ox 97.5 F L 84 18 155/72 H 95 10/18/18 05:15 10/18/18 05:15 10/18/18 05:15 10/18/18 05:15 10/18/18 05:15 Oxygen Flow Rate (L/min) 2 Oxygen Delivery Method Nasal Cannula Weight: 169 lb 1.513 oz Body Mass Index (BMI) 21.9 Intake and Output for Last 24 Hours 10/16/18 10/17/18 10/18/18 23:59 23:59 23:59 Intake Total 4103.4 / 4103.4 2682 / 2682 1400 / 1400 Output Total 2225 / 2225 1175 / 1175 780 / 780 Balance 1878.4 / 1878.4 1507 / 1507 620 / 620 Microbiology Past 72 Hours 10/16/18 01:35 Gram Stain - Final Sputum, Induced/Lukens Respiratory Culture - Preliminary Yeast 10/15/18 08:00 Urine Culture - Final Urine Catheter - Maguire Culture exhibits no growth. POC Glucose 10/18/18 10/17/18 10/17/18 05:08 23:22 18:12 POC Glucose 118 H 135 H 143 H 10/17/18 12:55 POC Glucose 168 H Labs (Last 48 Hours) 10/15/18 10/16/18 10/16/18 08:00 12:01 18:04 WBC RBC Hgb Hct MCV MCH MCHC RDW Std Deviation RDW Coeff of Tristian Plt Count MPV Immature Gran % (Auto) Neut % (Auto) Lymph % (Auto) [place] % (Auto) Eos % (Auto) Baso % (Auto) Absolute Neuts (auto) Absolute Lymphs (auto) Nucleated RBC % Diff Path Review Reviewed Sodium Potassium Chloride Carbon Dioxide Anion Gap BUN Creatinine Estim Creat Clear Calc Est GFR (MDRD) Af Amer Est GFR (MDRD) Non-Af BUN/Creatinine Ratio Glucose Calcium POC Glucose 229 H 216 H 10/16/18 10/17/18 10/17/18 23:20 05:00 05:00 WBC 15.1 H RBC 3.04 L Hgb 9.6 L Hct 29.9 L MCV 98.4 H MCH 31.6 MCHC 32.1 RDW Std Deviation 52.3 H RDW Coeff of Tristian 14.6 Plt Count 148 L MPV 11.3 Immature Gran % (Auto) 1.300 H Neut % (Auto) 93.5 H Lymph % (Auto) 3.2 L [place] % (Auto) 1.9 Eos % (Auto) 0.0 Baso % (Auto) 0.1 Absolute Neuts (auto) 14.1 H Absolute Lymphs (auto) 0.48 L Nucleated RBC % 0 [address] Path Review Sodium 147 H Potassium 3.9 Chloride 116 H Carbon Dioxide 26.0 Anion Gap 5 BUN 28 H Creatinine 0.93 Estim Creat Clear Calc 68.68 Est GFR (MDRD) Af Amer 102 Est GFR (MDRD) Non-Af 84 BUN/Creatinine Ratio 30.2 H Glucose 190 H Calcium 7.5 L POC Glucose 174 H 10/17/18 10/17/18 10/17/18 05:03 12:55 18:12 WBC RBC Hgb Hct MCV MCH MCHC RDW Std Deviation RDW Coeff of Tristian Plt Count MPV Immature Gran % (Auto) Neut % (Auto) Lymph % (Auto) [place] % (Auto) Eos % (Auto) Baso % (Auto) Absolute Neuts (auto) Absolute Lymphs (auto) Nucleated RBC % Diff Path Review Sodium Potassium Chloride Carbon Dioxide Anion Gap BUN Creatinine Estim Creat Clear Calc Est GFR (MDRD) Af Amer Est GFR (MDRD) Non-Af BUN/Creatinine Ratio Glucose Calcium POC Glucose 186 H 168 H 143 H 10/17/18 10/18/18 23:22 05:08 WBC RBC Hgb Hct MCV MCH MCHC RDW Std Deviation RDW Coeff of Tristian Plt Count MPV Immature Gran % (Auto) Neut % (Auto) Lymph % (Auto) [place] % (Auto) Eos % (Auto) Baso % (Auto) Absolute Neuts (auto) Absolute Lymphs (auto) Nucleated RBC % Diff Path Review Sodium Potassium Chloride Carbon Dioxide Anion Gap BUN Creatinine Estim Creat Clear Calc Est GFR (MDRD) Af Amer Est GFR (MDRD) Non-Af BUN/Creatinine Ratio Glucose Calcium POC Glucose 135 H 118 H Microbiology 10/16/18 01:35 Sputum, Induced/Lukens Gram Stain - Final 10/16/18 01:35 Sputum, Induced/Lukens Respiratory Culture - Preliminary Yeast 10/15/18 08:00 Urine Catheter - Maguire Urine Culture - Final Culture exhibits no growth. Clinical Impression(s) from Imaging Studies Chest X-Ray 10/14/18 11:53 IMPRESSION: Increased markings at the left lung base suggestive of atelectasis and/or early infiltrate. Follow-up is recommended. Electronically Signed: Jimmy Galarza, at 12:38 EDT , Service support , Abdomen/Pelvis CT 10/14/18 12:27 IMPRESSION: Small bowel obstruction with the transition point in the distal ileum. Fluid distention of the stomach and the distal esophagus. Patchy alveolar disease in both lower lobes. Radiographic follow-up is recommended. Electronically Signed: Jimmy Galarza, at 15:04 EDT , Service support , Chest CT 10/14/18 12:27 IMPRESSION: Airspace disease in both lower lobes with peribronchial dilatation and the fluid within the bronchial tree in the lower lobes worse on the left lung base. Aspiration should be ruled out. Fluid distention of the esophagus and visualized portion of the stomach. 1.1 cm left adrenal nodule as well as a 5.6 cm x 6.1 cm cyst in the upper pole of the right kidney. CT scan of the abdomen demonstrated small bowel obstruction. Electronically Signed: Jimmy Michell, at 15:11 EDT , Service support , Soft Tissue Neck CT 10/14/18 12:27 IMPRESSION: Fluid distention of the esophagus. Electronically Signed: Jimmy Michell, at 15:27 EDT , Service support , KUB X-Ray 10/14/18 13:34 IMPRESSION: The tip of the nasogastric tube is coiled in the distal esophagus. Electronically Signed: Jimmy Michell, at 15:28 EDT , Service support , KUB X-Ray 10/14/18 15:00 IMPRESSION: The tip of the nasogastric tube is coiled in the distal esophagus. Electronically Signed: Jimmy Michell, at 15:30 EDT , Service support , Chest X-Ray 10/15/18 05:55 IMPRESSION: Bilateral lower lobe infiltrates with marked worsening from recent previous study. Tubes are in adequate position. Electronically Signed: Jamarcus Muñoz MD at 5:05 EDT , Service support , ADDENDUM: 10/15/18 0746 KUB X-Ray 10/15/18 05:55 IMPRESSION: Status post recent surgery, with surgical drain overlying the pelvis. Nasogastric tube is in adequate position. Nonspecific bowel gas pattern. Electronically Signed: Jamarcus Muñoz MD at 4:46 EDT , Service support , Chest X-Ray 10/15/18 06:59 IMPRESSION: New finding of a moderately large right pneumothorax, occupying 25-50% of the right hemithorax. Tubes are in adequate position. Persistent left basilar infiltrate which appears somewhat improved. Pneumoperitoneum, presumably due to recent surgery. Electronically Signed: Jamarcus Muñoz MD at 7:33 EDT , Service support , ADDENDUM: 10/15/18 0802 IMPRESSION: New finding of a moderately large right pneumothorax, occupying 25-50% of the right hemithorax. Tubes are in adequate position. Persistent left basilar infiltrate which appears somewhat improved. Pneumoperitoneum, presumably due to recent surgery. N.B. : The above information has been verbally conveyed by Jamarcus Muñoz MD to RUDI Carranza DO, , on 10/15/2018 07:55:43 (ET). Electronically Signed: Jamarcus Muñoz MD at 7:33 EDT , Service support , Chest X-Ray 10/15/18 08:06 IMPRESSION: Status post placement of a small-caliber right-sided chest tube. Residual small right apical pneumothorax. Electronically Signed: Jimmy Galarza, at 9:17 EDT , Service support , Chest X-Ray 10/16/18 09:40 IMPRESSION: Stable appearance of the small right apical pneumothorax. Increasing infiltrate and/or atelectasis at the right lung base. Electronically Signed: Jimmy Bernalkirsten, at 15:36 EDT , Service support , Chest X-Ray 10/16/18 14:08 IMPRESSION: Small residual right apical pneumothorax. The remainder of the examination is unchanged. Electronically Signed: Jimmy Ayerstripp, at 15:20 EDT , Service support , Chest X-Ray 10/17/18 08:00 IMPRESSION: There is no evidence of pneumothorax at this time. Electronically Signed: Jimmy Michell, at 12:30 EDT , Service support , Chest X-Ray 10/17/18 14:30 IMPRESSION: Status post removal of the small caliber right chest tube. There is no evidence of pneumothorax. The remainder of the examination is unchanged. Electronically Signed: Jimmy Ayerstripp, at 14:44 EDT , Service support , Medical Necessity - Tobacco Use Smoking Status: Former smoker Tobacco Use: Non-smoker Assessment/Plan All Active Problems Acute tubular necrosis (Acute) Hyperkalemia (Acute) RECOMMENDATIONS: 1. Continue to wean supplemental oxygen to maintain saturations at or above 90%. 2. Encourage incentive spirometer use and mobilize patient as tolerated. 3. Continue antibiotics per ID recommendations. 4. Dietary advancement per surgery recommendations. IMPRESSIONS: 1. Septic shock 2/2 intraabdominal and pulmonary infectious processes Resolved. The patient responded clinically to the use of broad-spectrum antimicrobials and vasopressors to maintain hemodynamic stability. The patient has defervesced and is no longer requiring vasopressor support. Broad-spectrum antimicrobials will be continued per the discretion of infectious diseases. 2. Acute hypoxemic respiratory failure/iatrogenic pneumothorax Improved. The patient did demonstrate findings concerning for underlying pneumonia on CT chest. There was also initial concern for potential aspiration event. Although the patient did initially require high amounts of FiO2 and PEEP, his mechanical ventilation requirements quickly de-escalated. He was able to be successfully extubated to nasal cannula supplemental oxygen on the morning of 10/16. We will plan to continue to wean supplemental oxygen to maintain saturations at or above 90%. He will be provided with an incentive spirometer and encouraged to use. He will remain on antimicrobials for underlying pulmonary infectious process. Chest tube was successfully removed on October 17. 3. Acute abdomen/small bowel obstruction/appendicial perforation, now POD #4 s/p exploratory laparotomy and ileocecal resection Continue current supportive measures per general surgery recommendations. 4. Acute Kidney Injury Resolved. Likely secondary to ischemic ATN in the setting of #1. Nephrology is following. Creatinine and urine output have improved following stabilization of hemodynamics. 5. Shock liver The patient did demonstrate moderate increases in his transaminase levels, likely the consequence of the hemodynamic instability that he sustained as a consequence of #1. Anticipate improvement in transaminase levels with stabilization of hemodynamics. 6. Advanced age/hyperlipidemia/GERD Complicates care, management, recovery and prognosis. Okay to continue home medications as indicated. Physical therapy to work with the patient. This note was generated with [employer] software. It may contain incorrect words, spelling, and punctuation that were not noted in checking the note before signing. Code Visit Inpatient E&M: 30450 Subs Hosp L2
--- NOTE | 2018-10-18 09:02 | PCM.PN.HOSP ---
Patient Problems: Active and Suspected Problems Acute tubular necrosis (Acute) Hyperkalemia (Acute) Subjective: Patient chest tube was removed the day prior repeat imaging studies demonstrated resolution of patient pneumothorax. Was transferred from the intensive care unit to the progressive care unit the day prior. Objective: GENERAL: Cooperative HEENT: Atraumatic normal conjunctiva EYES; prosthetic left eye NECK; supple, normal thyroid, RESPIRATORY: Diminished to auscultation: CARDIOVASCULAR: Regular S1 S2, GI: Nondistended, abdominal incision CDI, MARSHALL tube in situ : No Renal angle tenderness; EXTREMITIES: No edema, no clubbing, MUSCULOSKELETAL: No Joint swelling NEURO: No lateralizing signs SKIN: No Rash PSYCH; affect is appropriate Vitals/I&O's: Vital Signs Temp Pulse Resp BP Pulse Ox 97.5 F L 68 18 155/72 H 95 10/18/18 05:15 10/18/18 07:30 10/18/18 05:15 10/18/18 05:15 10/18/18 05:15 Oxygen Flow Rate (L/min) 2 Oxygen Delivery Method Nasal Cannula Weight: 76.7 kg Body Mass Index (BMI) 21.9 Intake and Output for Last 24 Hours 10/16/18 10/17/18 10/18/18 23:59 23:59 23:59 Intake Total 4103.4 / 4103.4 2682 / 2682 1400 / 1400 Output Total 2225 / 2225 1175 / 1175 780 / 780 Balance 1878.4 / 1878.4 1507 / 1507 620 / 620 Microbiology Past 72 Hours 10/16/18 01:35 Sputum, Induced/Lukens Gram Stain - Final 10/16/18 01:35 Sputum, Induced/Lukens Respiratory Culture - Preliminary Yeast 10/15/18 08:00 Urine Catheter - Maguire Urine Culture - Final Culture exhibits no growth. Laboratory Results 10/17/18 12:55: POC Glucose 168 H 10/17/18 18:12: POC Glucose 143 H 10/17/18 23:22: POC Glucose 135 H 10/18/18 05:08: POC Glucose 118 H Current Medications Albuterol Sulfate (Ventolin Aerosols) 2.5 mg INHALATION Q2H PRN PRN PRN Reason: dyspnea, wheezing Dextrose (D50w Syringe) 0 gm IV X1 PRN; Protocol PRN Reason: Hypoglycemia Dorzolamide/Timolol (Cosopt Opth Drops) 1 drop RIGHT EYE BID ANNIE Last Admin: 10/17/18 22:47 Dose: 1 drop Documented by: Fentanyl Citrate (Sublimaze (100mcg Ampule)) 50 mcg IV Q6H PRN PRN Reason: SEVERE PAIN (6-10/10) Last Admin: 10/17/18 00:17 Dose: 50 mcg Documented by: Glucagon () 1 mg IM .X1 PRN PRN Reason: Hypoglycemia Piperacillin Sod/Tazobactam (Sod 3.375 gm/ Sodium Chloride) 50 mls @ 12.5 mls/hr IV Q8 ANNIE Last Admin: 10/18/18 05:08 Dose: 12.5 mls/hr Documented by: Pantoprazole Sodium 40 mg/ (Sodium Chloride) 110 mls @ 330 mls/hr IV Q12 ANNIE Last Admin: 10/17/18 22:48 Dose: 330 mls/hr Documented by: Sodium Chloride () 250 mls @ 15 mls/hr IV .[id number] PRN PRN Reason: SALINE FLUSH Last Admin: 10/14/18 22:01 Dose: 15 mls/hr Documented by: Dextrose () 1,000 mls @ 100 mls/hr IV .Q10H ANNIE Last Admin: 10/17/18 22:48 Dose: 100 mls/hr Documented by: Insulin Human Lispro (Humalog Kwikpen (Bkc)) 0 unit SC Q6 ANNIE; Protocol Last Admin: 10/18/18 05:08 Dose: Not Given Documented by: Latanoprost (Xalatan Opthalmic) 1 drop RIGHT EYE QHS ANNIE Last Admin: 10/17/18 22:47 Dose: 1 drop Documented by: Sodium Chloride () 10 - 40 ml IV UD PRN PRN Reason: SALINE FLUSH Last Admin: 10/17/18 05:08 Dose: 20 ml Documented by: Medical Necessity - Tobacco Use Smoking Status: Former smoker Tobacco Use: Non-smoker Assessment/Plan All Active Problems Acute tubular necrosis (Acute) Hyperkalemia (Acute) Patient is a 78-year-old gentleman who presented with abdominal pain with associated abdominal distention nausea and vomiting. CT of the abdomen obtained in the emergency department demonstrated Small bowel obstruction with the transition point in the distal ileum. Fluid distention of the stomach and the distal esophagus. Patient was admitted to the surgical service and underwent exploratory laparotomy findings included transition due to veg matter, small bowel loops adherent to pelvic abscess - perforated appendicitis with obstruction. Patient had ileocecal resection performed by Dr. Phan on 10/14/2018. 1. Small bowel obstruction: CT of the abdomen obtained in the emergency department demonstrated Small bowel obstruction with the transition point in the distal ileum. Fluid distention of the stomach and the distal esophagus. Patient was admitted to the surgical service and underwent exploratory laparotomy findings included transition due to veg matter, small bowel loops adherent to pelvic abscess - perforated appendicitis with obstruction. Patient had ileocecal resection performed by Dr. Phan on 10/14/2018. ~ 10/18/18: Seen clinical condition continues to improve. Patient still has NG tube in place 2. Acute hypoxic respiratory failure following aspiration pneumonia. Patient was intubated during surgery left on the vent and subsequently transferred to the intensive care unit. Vent management deferred to pulmonary/concrete inspector patient was weaned off the vent on the morning of 10/16/2018 3. Septic shock secondary to aspiration pneumonia as well as intra-abdominal infection i.e. the pelvic abscess with perforated appendix. Patient is on broad-spectrum antibiotic therapy in addition to fluids, pressors and stress doses of antibiotics patient has been weaned off pressors. WBC count trending down. 4. Acute kidney injury secondary to ATN from hypovolemia as well as septic shock patient to function continues to worsen we will recommend obtaining nephrology consultation if okay with primary service kidney function improving. 10/17/2018: Kidney function back to baseline ALEN resolved 5. Iatrogenic large right sided pneumothorax following insertion of triple-lumen chest tube in place 10/17/2018: Patient is scheduled to undergo PT imaging studies with plans for chest tube removal 6. Acute transaminitis; secondary to shock liver we will continue to monitor LFTs 7. GERD patient is on PPI 8. Anemia secondary to acute blood loss anemia following surgery monitoring H&H with plans to transfuse if patient becomes symptomatic or hemoglobin falls below 7 9. DVT prophylaxis; SCDs and renal dose of Lovenox Code Visit Inpatient E&M: 89593 [facility] Hosp L2
[2018-10-18] MEDS: 0.9% NaCl IVPB Med Flush (250 mL) 15 ML IV (09:40)
[2018-10-18] MEDS: 0.9% NaCl Peripheral Flush Adult/Peds IV ×2 (09:44→11:20)
[2018-10-18] MEDS: Dorzolamide HCL/Timolol 10 ml Bottle 1 DRP RIGHT EYE ×2 (09:49→21:17)
--- NOTE | 2018-10-18 10:27 | PCM.PN.REN ---
Patient Problems: Active and Suspected Problems Acute tubular necrosis (Acute) Hyperkalemia (Acute) Subjective: Patient is doing well. still has NGT. No nausea No vomiting. No SOB. No CP - Physical Exam General: Alert, Oriented x3 HEENT: Atraumatic Oral: Moist Mucosa Neck: Supple, No JVD Lungs: Clear to auscultation, Normal air movement, No rhonchi, No wheeze Abdomen: Soft, Non Tender, Hypoactive Bowel Sounds Extremities: No clubbing, No cyanosis, No edema Skin: No rashes Musculoskeletal: No Tenderness to Palpation of Joints or Extremities Neurological: Neuro grossly intact Psych/Mental Status: Appropriate Vital Signs Temp Pulse Resp BP Pulse Ox 98.5 F 74 20 H 154/72 H 93 10/18/18 10:00 10/18/18 10:00 10/18/18 10:00 10/18/18 10:00 10/18/18 10:00 Oxygen Flow Rate (L/min) 2 Oxygen Delivery Method Nasal Cannula Weight: 76.7 kg Body Mass Index (BMI) 21.9 Intake and Output for Last 24 Hours 10/16/18 10/17/18 10/18/18 23:59 23:59 23:59 Intake Total 4103.4 / 4103.4 2682 / 2682 1400 / 1400 Output Total 2225 / 2225 1175 / 1175 780 / 780 Balance 1878.4 / 1878.4 1507 / 1507 620 / 620 Microbiology Past 72 Hours 10/16/18 01:35 Gram Stain - Final Sputum, Induced/Lukens Respiratory Culture - Preliminary Yeast 10/15/18 08:00 Urine Culture - Final Urine Catheter - Maguire Culture exhibits no growth. POC Glucose 10/18/18 10/17/18 10/17/18 05:08 23:22 18:12 POC Glucose 118 H 135 H 143 H 10/17/18 12:55 POC Glucose 168 H Medical Necessity - Tobacco Use Smoking Status: Former smoker Tobacco Use: Non-smoker Assessment/Plan All Active Problems Acute tubular necrosis (Acute) Hyperkalemia (Acute) 1-Acute kidney injury on chronic kidney disease. Baseline creatinine is around 1.0-1.1 mg/dL. Acute kidney injury prerenal from hemodynamic instability related to septic shock. Kidney function improved.Pt did not need [employer]ING Cr is now at baseline as per 10/17 lab BMP from today is still pending UOP is excellent Please keep mean arterial pressure more than 65. Avoid nephrotoxic like NSAIDs and IV contrast Continue to monitor urine output and renal function. 2-Hyperkalemia. resolved. K is 3.9 on 10/17. follow K level today 3-Septic shock from aspiration pneumonia and perforated appendicitis and pelvis abscess. Better. Off BP pressors Zosyn is appropriately dosed for the current creatinine clearance. ID is following for antibiotics. 4-Acute respiratory failure. Improved. Pt was extubated on 10/16. On NC at 2 l/m 5-Perforated appendicitis with resultant pelvis abscess and small bowel adhesion and obstruction. Status post ileocecal resection. Still with NGT suctioning Dr. Sparks is following. 6- Hypernatremia: mild at 147 on 10/17 currently on d5 100 cc/hour Check Na level from today Renal team will continue to follow. Please call if any question at [phone]. Reinaldo Leigh MD
--- NOTE | 2018-10-18 11:02 | NURSING ---
Jorge from lab attempted to get blood from pt per orders for lab drawal. Unsuccessful. Dalia from lab also attempted twice. Dalia thinks there are some good veins on his feet. Dr. Pinedo made aware of the above and okayed to take blood from either foot. This nurse called lab, spoke to Jorge and informed him of this.
[2018-10-18 11:29] LABS: Absolute Lymphocyte Count 0.83 X10^3/uL (0.83-4.51); Absolute Neutrophil Count 13.8 X10^3/uL (2.0-7.7); Basophil# 0.04 X10^3/uL; Basophil% 0.3 % (0-1); Eosinophil# 0.03 X10^3/uL; Eosinophils% 0.2 % (0-5); Hematocrit 33.8 % (40-54); Hemoglobin 11.1 g/dL (13.0-16.5); Lymphocyte # 0.83 X10^3/ul (4.0); Lymphocyte % 5.4 % (19-41); Mean Corp Hgb Conc 32.8 g/dL (32-36); Mean Corpuscular Hgb 32.3 pg (27.0-32.0); Mean Corpuscular Volume 98.3 fL (80-94); Mean Platelet Vol. 11.3 fl (6.2-12.0); Monocyte# 0.49 X10^3/uL; Monocyte% 3.2 % (0-10); NRBC Flagged by Analyzer 0 % (0-5); Neutrophil # 13.81 X10^3/uL (2.7-7.7); Neutrophil % 89.3 % (47-70); Platelet Count 151 K/mm3 (150-450); RBC Distribution Width CV 14.6 % (11.6-14.6); RBC Distribution Width SD 52.6 fl (35.1-43.9); Red Blood Count 3.44 M/mm3 (4.6-6.2); White Blood Count 15.4 K/mm3 (4.4-11.0)
[2018-10-18 12:01] LABS: Anion Gap 3 (5-15); BUN 13 mg/dL (7-18); BUN/Creat Ratio 17.8 RATIO (10-20); Calcium,Total 8.2 mg/dL (8.5-10.1); Chloride 110 mmol/L (98-107); Creatinine, Serum 0.73 mg/dL (0.70-1.30); EST Glomerular Filtration Rate 111 mL/min (>60); Est Glom Filt Rate - Afr Amer 134 mL/min (>60); Estimated Creatinine Clearance 63.88 ml/min; Glucose 99 mg/dL (74-106); Potassium 3.6 mmol/L (3.5-5.1); Sodium Level 141 mmol/L (136-145)
[2018-10-18 12:11] LABS: Bedside Glucose 99 mg/dL (70-110)
--- NOTE | 2018-10-18 13:23 | PCM.PN.ID ---
Patient Problems: Active and Suspected Problems Acute tubular necrosis (Acute) Hyperkalemia (Acute) Subjective: Feeling better, no fever, no abd pain. NG and abd drain in place. - Physical Exam General: Alert, Cooperative, No apparent distress Lungs: Clear to auscultation, Normal air movement Cardiovascular: Regular rate, Regular Rhythm Abdomen: Soft, Non Tender, Non-Distended Skin: No rashes Vital Signs Temp Pulse Resp BP Pulse Ox 98.5 F 76 20 H 154/72 H 93 10/18/18 10:00 10/18/18 11:04 10/18/18 10:00 10/18/18 10:00 10/18/18 10:00 Oxygen Flow Rate (L/min) 2 Oxygen Delivery Method Nasal Cannula Weight: 76.7 kg Body Mass Index (BMI) 21.9 Intake and Output for Last 24 Hours 10/16/18 10/17/18 10/18/18 23:59 23:59 23:59 Intake Total 4103.4 / 4103.4 2682 / 2682 1576.3 / 1576.3 Output Total 2225 / 2225 1175 / 1175 1285 / 1285 Balance 1878.4 / 1878.4 1507 / 1507 291.3 / 291.3 Microbiology Past 72 Hours 10/16/18 01:35 Gram Stain - Final Sputum, Induced/Lukens Respiratory Culture - Final Yeast, not Mary Anne albicans 10/15/18 08:00 Urine Culture - Final Urine Catheter - Maguire Culture exhibits no growth. Laboratory Tests Past 24 Hrs 10/18/18 10/18/18 11:20 11:20 WBC 15.4 H RBC 3.44 L Hgb 11.1 L Hct 33.8 L MCV 98.3 H MCH 32.3 H MCHC 32.8 RDW Std Deviation 52.6 H RDW Coeff of Tristian 14.6 Plt Count 151 MPV 11.3 Immature Gran % (Auto) 1.600 H Neut % (Auto) 89.3 H Lymph % (Auto) 5.4 L [place] % (Auto) 3.2 Eos % (Auto) 0.2 Baso % (Auto) 0.3 Absolute Neuts (auto) 13.8 H Absolute Lymphs (auto) 0.83 Nucleated RBC % 0 Sodium 141 Potassium 3.6 Chloride 110 H Carbon Dioxide 28.0 Anion Gap 3 L BUN 13 Creatinine 0.73 Estim Creat Clear Calc 63.88 Est GFR (MDRD) Af Amer 134 Est GFR (MDRD) Non-Af 111 BUN/Creatinine Ratio 17.8 Glucose 99 Calcium 8.2 L Magnesium 2.0 POC Glucose 10/18/18 10/18/18 10/17/18 11:17 05:08 23:22 POC Glucose 99 118 H 135 H 10/17/18 18:12 POC Glucose 143 H Medical Necessity - Tobacco Use Smoking Status: Former smoker Tobacco Use: Non-smoker Route of nutrition/ use of supplements: [] Nutritional Intake: [] IV Site: [] Maguire Catheter: [] - Assessment/Plan Antibiotics: [] Assessment/Plan: [] Active and Suspected Problems Acute tubular necrosis (Acute) Hyperkalemia (Acute) septic shock with ruptured appendicitis, now s/p ileocecal resection by 10/14. Off pressors, ALEN improving, off vent. Cont zosyn, currently day 4 of abx since surgical source control. Plan on 5-7 days of abx. Will follow
--- NOTE | 2018-10-18 14:23 | CASEMGMT ---
This PAUL CM to room to discuss discharge plan as per therapy pt was weak, did not even ambulate today, and knees buckled with attempt to stand. Pt states that he feels he needs to go somewhere for rehab and states he would like to go to [facility] as his was there in the past. Molly SW aware at this time, voices understanding. SStolayinka MILLER CM
--- NOTE | 2018-10-18 16:46 | NURSING ---
Aware of VS done by Tanja Lang RN earlier this afternoon.
--- NOTE | 2018-10-18 17:10 | PN.SURG_ITS ---
Patient Problems: Active and Suspected Problems Acute tubular necrosis (Acute) Hyperkalemia (Acute) Subjective: no complaints of pain, hungry - Physical Exam Lungs: Clear to auscultation, Normal air movement, - - left base coarse sounds Cardiovascular: Regular rate, Regular Rhythm Abdomen: Soft, Non Tender - Oj-Light drain serosanguineous, Hypoactive Bowel Sounds Vital Signs Temp Pulse Resp BP Pulse Ox 98.1 F 83 18 121/71 H 95 10/18/18 15:17 10/18/18 15:17 10/18/18 15:17 10/18/18 15:17 10/18/18 15:17 Oxygen Flow Rate (L/min) 2 Oxygen Delivery Method Nasal Cannula Weight: 76.7 kg Body Mass Index (BMI) 21.9 Intake and Output for Last 24 Hours 10/16/18 10/17/18 10/18/18 23:59 23:59 23:59 Intake Total 4103.4 / 4103.4 2682 / 2682 1596.3 / 1596.3 Output Total 2225 / 2225 1175 / 1175 1285 / 1285 Balance 1878.4 / 1878.4 1507 / 1507 311.3 / 311.3 Microbiology Past 72 Hours 10/16/18 01:35 Gram Stain - Final Sputum, Induced/Lukens Respiratory Culture - Final Yeast, not Mary Anne albicans 10/15/18 08:00 Urine Culture - Final Urine Catheter - Maguire Culture exhibits no growth. Laboratory Tests Past 24 Hrs 10/18/18 10/18/18 11:20 11:20 WBC 15.4 H RBC 3.44 L Hgb 11.1 L Hct 33.8 L MCV 98.3 H MCH 32.3 H MCHC 32.8 RDW Std Deviation 52.6 H RDW Coeff of Tristian 14.6 Plt Count 151 MPV 11.3 Immature Gran % (Auto) 1.600 H Neut % (Auto) 89.3 H Lymph % (Auto) 5.4 L [place] % (Auto) 3.2 Eos % (Auto) 0.2 Baso % (Auto) 0.3 Absolute Neuts (auto) 13.8 H Absolute Lymphs (auto) 0.83 Nucleated RBC % 0 Sodium 141 Potassium 3.6 Chloride 110 H Carbon Dioxide 28.0 Anion Gap 3 L BUN 13 Creatinine 0.73 Estim Creat Clear Calc 63.88 Est GFR (MDRD) Af Amer 134 Est GFR (MDRD) Non-Af 111 BUN/Creatinine Ratio 17.8 Glucose 99 Calcium 8.2 L Magnesium 2.0 POC Glucose 10/18/18 10/18/18 10/17/18 11:17 05:08 23:22 POC Glucose 99 118 H 135 H 10/17/18 18:12 POC Glucose 143 H Medical Necessity - Tobacco Use Smoking Status: Former smoker Tobacco Use: Non-smoker Assessment/Plan All Active Problems Acute tubular necrosis (Acute) Hyperkalemia (Acute) complicated perforated appendicitis postoperative day #4 status post ileocecal resection and drainage, aspiration pneumonia, septic shock neurologic-patient is currently being given narcotics for sedation. Currently comfortable. Respiratory-preoperative CT scan demonstrated fluid in the left mainstem and x- ray consistent with aspiration pneumonia. Patient initially required increasing FiO2 up to 100% overnight postoperatively. Currently oxygen saturation improving and FiO2 decreased to 30%. On broad-spectrum antibiotics for presumed aspiration. Right-sided pneumothorax status post attempted central line for right internal jugular line. Pneumocath placed. Postplacement chest x-ray demonstrated good reexpansion of lung. patient extubated yesterday. Now doing quite well on nasal cannula. Pneumocath removed with postprocedure chest x-ray without residual pneumothorax. Encourage incentive spirometry use. Cardiovascular-septic shock, tachycardic, currently off pressors GI-initial assumption was small bowel obstruction with mid small bowel transition point findings intraoperatively demonstrated jellylike material in the mid small bowel but actual problem was perforated appendicitis with adhesed loops of small bowel in the pelvis. Ileocecal resection performed. Risk for leakage due to need for pressors postoperatively. Anticipated longer postoperative ileus course due to above factors and fact that small bowel material may take longer to pass. Nasogastric tube placed intraoperatively. Nasogastric tube in good position. We'll continue nasogastric suctioning. Renal-much improved urine output overnight - suspect acute tubular necrosis. BUn and creatinine improved to normal range. We'll continue supportive patient medically. Fluid, electrolytes, nutrition- patient receiving boluses overnight in addition to pressors, potassium improving. Nothing by mouth for now. We will hold off e nteral nutrition due to sepsis and concern for fluid overload given renal function. Infectious disease-patient with neglected perforated appendicitis resulting in complex pelvic abscess and significant inflammation requiring a ileocecal resection along with likely aspiration pneumonia. Zosyn given. We'll obtain cultures of patient's spikes fever-elevated white blood cell count Zosyn was given the nurse present. SCDs for VTE prophylaxis, Protonix for stress ulcer prophylaxis
--- NOTE | 2018-10-18 17:35 | CASEMGMT ---
Social Work Received referral from Elana Raymond RN CM that pt would like to go to [facility]. Phone call to [facility] and they do have beds available. Referral faxed. SW did not hear back and phone [facility] at 1600 and Vivi stating pt is too medically complicated to consider at this time and they will reassess on Sunday. SW met with pt and informed of this and requested second choice. Pt deferring to . Phone call to pt and list of SNF's near pt home provided over the phone. Pt choosing [facility] as second choice. Phone call to [facility] and admission coordinator is gone for the day. Written list of facilities left in pt room and pt and notified that will followup on Sunday for placement. LUIZ Farooq
[2018-10-18 18:35] LABS: Bedside Glucose 123 mg/dL (70-110)
[2018-10-18] MEDS: Latanoprost 0.005% 1 Bottle 1 DRP RIGHT EYE (21:19)
[2018-10-18 23:21] LABS: Bedside Glucose 130 mg/dL (70-110)
[2018-10-19] VITALS (11 sets, daily range): BP systolic 128–159; BP diastolic 67–76; PULSE 76–96; RESP 18; TEMP 36.6–37.2; O2SAT 92–97
[2018-10-19] MEDS: 0.9% NaCl Peripheral Flush Adult/Peds IV (06:01)
[2018-10-19 06:50] LABS: Bedside Glucose 145 mg/dL (70-110)
--- NOTE | 2018-10-19 07:39 | PCM.PN.HOSP ---
Patient Problems: Active and Suspected Problems Acute tubular necrosis (Acute) Hyperkalemia (Acute) Subjective: Patient seen admitted to passing gas no bowel movement yet. Was started on ice chips by general surgery. G-tube was discontinued. Objective: GENERAL: Cooperative HEENT: Atraumatic normal conjunctiva EYES; prosthetic left eye NECK; supple, normal thyroid, RESPIRATORY: Diminished to auscultation: CARDIOVASCULAR: Regular S1 S2, GI: Nondistended, with positive bowel sounds : No Renal angle tenderness; EXTREMITIES: No edema, no clubbing, MUSCULOSKELETAL: No Joint swelling NEURO: No lateralizing signs SKIN: No Rash PSYCH; affect is appropriate Vitals/I&O's: Vital Signs Temp Pulse Resp BP Pulse Ox 98.1 F 76 18 159/75 H 92 10/19/18 03:05 10/19/18 06:59 10/19/18 03:05 10/19/18 03:05 10/19/18 03:10 Oxygen Flow Rate (L/min) 2 Oxygen Delivery Method Room Air Weight: 75.9 kg Body Mass Index (BMI) 21.9 Intake and Output for Last 24 Hours 10/17/18 10/18/18 10/19/18 23:59 23:59 23:59 Intake Total 2682 / 2682 3097.3 / 3097.3 651.8 / 651.8 Output Total 1175 / 1175 3158 / 3158 1000 / 1000 Balance 1507 / 1507 -60.7 / -60.7 -348.2 / -348.2 Microbiology Past 72 Hours 10/16/18 01:35 Sputum, Induced/Lukens Gram Stain - Final 10/16/18 01:35 Sputum, Induced/Lukens Respiratory Culture - Final Yeast, not Mary Anne albicans 10/15/18 08:00 Urine Catheter - Maguire Urine Culture - Final Culture exhibits no growth. Laboratory Results 10/18/18 11:17: POC Glucose 99 10/18/18 11:20: WBC 15.4 H, RBC 3.44 L, Hgb 11.1 L, Hct 33.8 L, MCV 98.3 H, MCH 32.3 H, MCHC 32.8, RDW Std Deviation 52.6 H, RDW Coeff of Tristian 14.6, Plt Count 151, MPV 11.3, Immature Gran % (Auto) 1.600 H, Neut % (Auto) 89.3 H, Lymph % (Auto) 5.4 L, [place] % (Auto) 3.2, Eos % (Auto) 0.2, Baso % (Auto) 0.3, Absolute Neuts (auto) 13.8 H, Absolute Lymphs (auto) 0.83, Nucleated RBC % 0 10/18/18 11:20: Sodium 141, Potassium 3.6, Chloride 110 H, Carbon Dioxide 28.0, Anion Gap 3 L, BUN 13, Creatinine 0.73, Estim Creat Clear Calc 63.88, Est GFR (MDRD) Af Amer 134, Est GFR (MDRD) Non-Af 111, BUN/Creatinine Ratio 17.8, Glucose 99, Calcium 8.2 L, Magnesium 2.0 10/18/18 17:48: POC Glucose 123 H 10/18/18 23:16: POC Glucose 130 H 10/19/18 06:09: POC Glucose 145 H Current Medications Albuterol Sulfate (Ventolin Aerosols) 2.5 mg INHALATION Q2H PRN PRN PRN Reason: dyspnea, wheezing Dextrose (D50w Syringe) 0 gm IV X1 PRN; Protocol PRN Reason: Hypoglycemia Dorzolamide/Timolol (Cosopt Opth Drops) 1 drop RIGHT EYE BID ANNIE Last Admin: 10/18/18 21:17 Dose: 1 drop Documented by: Fentanyl Citrate (Sublimaze (100mcg Ampule)) 50 mcg IV Q6H PRN PRN Reason: SEVERE PAIN (6-10/10) Last Admin: 10/17/18 00:17 Dose: 50 mcg Documented by: Glucagon () 1 mg IM .X1 PRN PRN Reason: Hypoglycemia Piperacillin Sod/Tazobactam (Sod 3.375 gm/ Sodium Chloride) 50 mls @ 12.5 mls/hr IV Q8 ANNIE Last Admin: 10/19/18 06:01 Dose: 12.5 mls/hr Documented by: Pantoprazole Sodium 40 mg/ (Sodium Chloride) 110 mls @ 330 mls/hr IV Q12 ANNIE Last Admin: 10/18/18 21:18 Dose: 330 mls/hr Documented by: Sodium Chloride () 250 mls @ 15 mls/hr IV .[id number] PRN PRN Reason: SALINE FLUSH Last Admin: 08/16/19 09:40 Dose: 15 mls/hr Documented by: Dextrose () 1,000 mls @ 100 mls/hr IV .Q10H ANNIE Last Admin: 10/18/18 21:18 Dose: 100 mls/hr Documented by: Insulin Human Lispro (Humalog Kwikpen (Bkc)) 0 unit SC Q6 ANNIE; Protocol Last Admin: 10/19/18 07:03 Dose: Not Given Documented by: Latanoprost (Xalatan Opthalmic) 1 drop RIGHT EYE QHS ANNIE Last Admin: 10/18/18 21:19 Dose: 1 drop Documented by: Sodium Chloride () 10 - 40 ml IV UD PRN PRN Reason: SALINE FLUSH Last Admin: 10/19/18 06:01 Dose: 10 ml Documented by: Medical Necessity - Tobacco Use Smoking Status: Former smoker Tobacco Use: Non-smoker Assessment/Plan All Active Problems Acute tubular necrosis (Acute) Hyperkalemia (Acute) Patient is a 78-year-old gentleman who presented with abdominal pain with associated abdominal distention nausea and vomiting. CT of the abdomen obtained in the emergency department demonstrated Small bowel obstruction with the transition point in the distal ileum. Fluid distention of the stomach and the distal esophagus. Patient was admitted to the surgical service and underwent exploratory laparotomy findings included transition due to veg matter, small bowel loops adherent to pelvic abscess - perforated appendicitis with obstruction. Patient had ileocecal resection performed by Dr. Phan on 10/14/2018. 1. Small bowel obstruction: CT of the abdomen obtained in the emergency department demonstrated Small bowel obstruction with the transition point in the distal ileum. Fluid distention of the stomach and the distal esophagus. Patient was admitted to the surgical service and underwent exploratory laparotomy findings included transition due to veg matter, small bowel loops adherent to pelvic abscess - perforated appendicitis with obstruction. Patient had ileocecal resection performed by Dr. Phan on 10/14/2018. ~ 10/18/18: Seen clinical condition continues to improve. Patient still has NG tube in place ~ 10/19/2018. Patient now has return of bowel function with positive bowel sounds and patient passing flatus. An order was given for patient to be started on ice chips NG tube discontinued. 2. Acute hypoxic respiratory failure following aspiration pneumonia. Patient was intubated during surgery left on the vent and subsequently transferred to the intensive care unit. Vent management deferred to pulmonary/cigarette and filter chief inspector patient was weaned off the vent on the morning of 10/16/2018 3. Septic shock secondary to aspiration pneumonia as well as intra-abdominal infection i.e. the pelvic abscess with perforated appendix. Patient is on broad-spectrum antibiotic therapy in addition to fluids, pressors and stress doses of antibiotics patient has been weaned off pressors. WBC count trending down. 4. Acute kidney injury secondary to ATN from hypovolemia as well as septic shock patient to function continues to worsen we will recommend obtaining nephrology consultation if okay with primary service kidney function improving. 10/17/2018: Kidney function back to baseline ALEN resolved 5. Iatrogenic large right sided pneumothorax following insertion of triple-lumen chest tube in place 10/17/2018: Patient is scheduled to undergo PT imaging studies with plans for chest tube removal 6. Acute transaminitis; secondary to shock liver we will continue to monitor LFTs 7. GERD patient is on PPI 8. Anemia secondary to acute blood loss anemia following surgery monitoring H&H with plans to transfuse if patient becomes symptomatic or hemoglobin falls below 7. H&H remains stable 9. DVT prophylaxis; SCDs and renal dose of Lovenox Code Visit Inpatient E&M: 02929 Subs Hosp L2
--- NOTE | 2018-10-19 07:44 | PCM.PN.PUL ---
Patient Problems: Active and Suspected Problems Acute tubular necrosis (Acute) Hyperkalemia (Acute) Subjective: The patient was seen and examined at the bedside this morning. Events from the last 24 hours have been reviewed. The patient is currently afebrile, hemodynamically stable and maintaining appropriate oxygen saturations on room air. Objective: The patient's most recent lab work, culture data and imaging studies have all been personally reviewed. Surface echocardiogram revealed normal LV size and thickness with an ejection fraction of 70%. Strep and urine Legionella antigens were both negative. Blood, urine and sputum cultures have been unrevealing to date. - Physical Exam General: Alert, No apparent distress HEENT: Atraumatic, Normocephalic Oral: No Gingival or Mucosal Lesions/ Ulcerations Neck: Supple, No Nodes, Trachea Midline Lungs: No rhonchi, No wheeze, No rales, Diminished Cardiovascular: Regular rate, Regular Rhythm, Normal S1, Normal S2 Abdomen: Soft, Hypoactive Bowel Sounds Extremities: No clubbing, No cyanosis Skin: No breakdown Musculoskeletal: No Tenderness to Palpation of Joints or Extremities Lymphatic: No Cervical, Supraclavicular, or Inguinal Adenopathy Neurological: - - No focal neurological deficits. Psych/Mental Status: Normal Affect, Appropriate Vital Signs Temp Pulse Resp BP Pulse Ox 98.1 F 76 18 159/75 H 92 10/19/18 03:05 10/19/18 06:59 10/19/18 03:05 10/19/18 03:05 10/19/18 03:10 Oxygen Flow Rate (L/min) 2 Oxygen Delivery Method Room Air Weight: 167 lb 5.294 oz Body Mass Index (BMI) 21.9 Intake and Output for Last 24 Hours 10/17/18 10/18/18 10/19/18 23:59 23:59 23:59 Intake Total 2682 / 2682 3097.3 / 3097.3 651.8 / 651.8 Output Total 1175 / 1175 3158 / 3158 1000 / 1000 Balance 1507 / 1507 -60.7 / -60.7 -348.2 / -348.2 Microbiology Past 72 Hours 10/16/18 01:35 Gram Stain - Final Sputum, Induced/Lukens Respiratory Culture - Final Yeast, not Mary Anne albicans 10/15/18 08:00 Urine Culture - Final Urine Catheter - Maguire Culture exhibits no growth. Laboratory Tests Past 24 Hrs 10/18/18 10/18/18 11:20 11:20 WBC 15.4 H RBC 3.44 L Hgb 11.1 L Hct 33.8 L MCV 98.3 H MCH 32.3 H MCHC 32.8 RDW Std Deviation 52.6 H RDW Coeff of Tristian 14.6 Plt Count 151 MPV 11.3 Immature Gran % (Auto) 1.600 H Neut % (Auto) 89.3 H Lymph % (Auto) 5.4 L [place] % (Auto) 3.2 Eos % (Auto) 0.2 Baso % (Auto) 0.3 Absolute Neuts (auto) 13.8 H Absolute Lymphs (auto) 0.83 Nucleated RBC % 0 Sodium 141 Potassium 3.6 Chloride 110 H Carbon Dioxide 28.0 Anion Gap 3 L BUN 13 Creatinine 0.73 Estim Creat Clear Calc 63.88 Est GFR (MDRD) Af Amer 134 Est GFR (MDRD) Non-Af 111 BUN/Creatinine Ratio 17.8 Glucose 99 Calcium 8.2 L Magnesium 2.0 POC Glucose 10/19/18 10/18/18 10/18/18 06:09 23:16 17:48 POC Glucose 145 H 130 H 123 H 10/18/18 11:17 POC Glucose 99 Clinical Impression(s) from Imaging Studies Chest X-Ray 10/14/18 11:53 IMPRESSION: Increased markings at the left lung base suggestive of atelectasis and/or early infiltrate. Follow-up is recommended. Electronically Signed: Jimmy Galarza, at 12:38 EDT , Service support , Abdomen/Pelvis CT 10/14/18 12:27 IMPRESSION: Small bowel obstruction with the transition point in the distal ileum. Fluid distention of the stomach and the distal esophagus. Patchy alveolar disease in both lower lobes. Radiographic follow-up is recommended. Electronically Signed: Jimmy Galarza, at 15:04 EDT , Service support , Chest CT 10/14/18 12:27 IMPRESSION: Airspace disease in both lower lobes with peribronchial dilatation and the fluid within the bronchial tree in the lower lobes worse on the left lung base. Aspiration should be ruled out. Fluid distention of the esophagus and visualized portion of the stomach. 1.1 cm left adrenal nodule as well as a 5.6 cm x 6.1 cm cyst in the upper pole of the right kidney. CT scan of the abdomen demonstrated small bowel obstruction. Electronically Signed: Jimmy Galarza, at 15:11 EDT , Service support , Soft Tissue Neck CT 10/14/18 12:27 IMPRESSION: Fluid distention of the esophagus. Electronically Signed: Jimmy Galarza, at 15:27 EDT , Service support , KUB X-Ray 10/14/18 13:34 IMPRESSION: The tip of the nasogastric tube is coiled in the distal esophagus. Electronically Signed: Jimmy Galarza, at 15:28 EDT , Service support , KUB X-Ray 10/14/18 15:00 IMPRESSION: The tip of the nasogastric tube is coiled in the distal esophagus. Electronically Signed: Jimmy Galarza, at 15:30 EDT , Service support , Chest X-Ray 10/15/18 05:55 IMPRESSION: Bilateral lower lobe infiltrates with marked worsening from recent previous study. Tubes are in adequate position. Electronically Signed: Jamarcus Muñoz MD at 5:05 EDT , Service support , ADDENDUM: 10/15/18 0746 KUB X-Ray 10/15/18 05:55 IMPRESSION: Status post recent surgery, with surgical drain overlying the pelvis. Nasogastric tube is in adequate position. Nonspecific bowel gas pattern. Electronically Signed: Jamarcus Muñoz MD at 4:46 EDT , Service support , Chest X-Ray 10/15/18 06:59 IMPRESSION: New finding of a moderately large right pneumothorax, occupying 25-50% of the right hemithorax. Tubes are in adequate position. Persistent left basilar infiltrate which appears somewhat improved. Pneumoperitoneum, presumably due to recent surgery. Electronically Signed: Jamarcus Muñoz MD at 7:33 EDT , Service support , ADDENDUM: 10/15/18 0802 IMPRESSION: New finding of a moderately large right pneumothorax, occupying 25-50% of the right hemithorax. Tubes are in adequate position. Persistent left basilar infiltrate which appears somewhat improved. Pneumoperitoneum, presumably due to recent surgery. N.B. : The above information has been verbally conveyed by Jamarcus Muñoz MD to RUDI Carranza, , , on 10/15/2018 07:55:43 (ET). Electronically Signed: Jamarcus Muñoz MD at 7:33 EDT , Service support , Chest X-Ray 10/15/18 08:06 IMPRESSION: Status post placement of a small-caliber right-sided chest tube. Residual small right apical pneumothorax. Electronically Signed: Jimmy Galarza, at 9:17 EDT , Service support , Chest X-Ray 10/16/18 09:40 IMPRESSION: Stable appearance of the small right apical pneumothorax. Increasing infiltrate and/or atelectasis at the right lung base. Electronically Signed: Jimmy Galarza, at 15:36 EDT , Service support , Chest X-Ray 10/16/18 14:08 IMPRESSION: Small residual right apical pneumothorax. The remainder of the examination is unchanged. Electronically Signed: Jimmy Galarza, at 15:20 EDT , Service support , Chest X-Ray 10/17/18 08:00 IMPRESSION: There is no evidence of pneumothorax at this time. Electronically Signed: Jimmy Yeedannykirsten, at 12:30 EDT , Service support , Chest X-Ray 10/17/18 14:30 IMPRESSION: Status post removal of the small caliber right chest tube. There is no evidence of pneumothorax. The remainder of the examination is unchanged. Electronically Signed: Jimmy Yeedannykirsten, at 14:44 EDT , Service support , Medical Necessity - Tobacco Use Smoking Status: Former smoker Tobacco Use: Non-smoker Assessment/Plan All Active Problems Acute tubular necrosis (Acute) Hyperkalemia (Acute) RECOMMENDATIONS: 1. Encourage incentive spirometer use and mobilize patient as tolerated. 2. Continue antibiotics per ID recommendations. 3. Dietary advancement per surgery recommendations. IMPRESSIONS: 1. Septic shock 2/2 intraabdominal and pulmonary infectious processes Resolved. The patient responded clinically to the use of broad-spectrum antimicrobials and vasopressors to maintain hemodynamic stability. The patient has defervesced and is no longer requiring vasopressor support. Broad-spectrum antimicrobials will be continued per the discretion of infectious diseases. 2. Acute hypoxemic respiratory failure/iatrogenic pneumothorax Improved. The patient did demonstrate findings concerning for underlying pneumonia on CT chest. There was also initial concern for potential aspiration event. Although the patient did initially require high amounts of FiO2 and PEEP, his mechanical ventilation requirements quickly de-escalated. He was able to be successfully extubated to nasal cannula supplemental oxygen on the morning of 10/16. He will remain on antimicrobials for underlying pulmonary infectious process. Chest tube was successfully removed on October 17. Encourage incentive spirometer use. Mobilize patient as tolerated. 3. Acute abdomen/small bowel obstruction/appendicial perforation, now POD #5 s/p exploratory laparotomy and ileocecal resection Continue current supportive measures per general surgery recommendations. 4. Advanced age/hyperlipidemia/GERD Complicates care, management, recovery and prognosis. Okay to continue home medications as indicated. Physical therapy to work with the patient. This note was generated with [employer] dictation software. It may contain incorrect words, spelling, and punctuation that were not noted in checking the note before signing. Code Visit Inpatient E&M: 73830 Subs Hosp L2
[2018-10-19 08:37] LABS: Absolute Lymphocyte Count 0.68 X10^3/uL (0.83-4.51); Absolute Neutrophil Count 8.7 X10^3/uL (2.0-7.7); Basophil# 0.04 X10^3/uL; Basophil% 0.4 % (0-1); Eosinophil# 0.07 X10^3/uL; Eosinophils% 0.7 % (0-5); Hematocrit 31.6 % (40-54); Hemoglobin 10.6 g/dL (13.0-16.5); Lymphocyte # 0.68 X10^3/ul (4.0); Lymphocyte % 6.7 % (19-41); Mean Corp Hgb Conc 33.5 g/dL (32-36); Mean Corpuscular Hgb 32.1 pg (27.0-32.0); Mean Corpuscular Volume 95.8 fL (80-94); Mean Platelet Vol. 11.7 fl (6.2-12.0); Monocyte# 0.42 X10^3/uL; Monocyte% 4.2 % (0-10); NRBC Flagged by Analyzer 0 % (0-5); Neutrophil # 8.68 X10^3/uL (2.7-7.7); Neutrophil % 85.9 % (47-70); POSITIVE COUNT YES; Platelet Count 125 K/mm3 (150-450); RBC Distribution Width CV 14.7 % (11.6-14.6); RBC Distribution Width SD 51.8 fl (35.1-43.9); White Blood Count 10.1 K/mm3 (4.4-11.0)
[2018-10-19 08:55] LABS: Differential Indicated SCAN CRITERIA MET
[2018-10-19 08:57] LABS: Differential Comment SCANNED; Platelet Estimate SLT DEC (ADEQ); Platelet Morphology LARGE
--- NOTE | 2018-10-19 08:59 | RAD_ITS ---
STUDY: X-RAY CHEST REASON FOR EXAM: Male, 78 years old. Cough TECHNIQUE: Frontal and lateral views of the chest COMPARISON: 10/17/2018 FINDINGS: The lungs are clear. There are no pleural effusions. There is no pneumothorax. There is free air noted underneath the right hemidiaphragm which is consistent with the patient's recent postoperative state. The heart is normal in size. The visualized osseous structures are within normal limits. RAD/Chest PA and Lateral IMPRESSION: No acute thoracic pathology. Free air beneath the right hemidiaphragm which is consistent with the patient's recent postoperative state. Electronically Signed: Smith Brand, at 10:20 EDT Tel , Service support ,
[2018-10-19 09:13] LABS: Anion Gap 6 (5-15); BUN 9 mg/dL (7-18); BUN/Creat Ratio 13.7 RATIO (10-20); Calcium,Total 7.8 mg/dL (8.5-10.1); Chloride 107 mmol/L (98-107); Creatinine, Serum 0.66 mg/dL (0.70-1.30); EST Glomerular Filtration Rate 125 mL/min (>60); Est Glom Filt Rate - Afr Amer 152 mL/min (>60); Estimated Creatinine Clearance 63.88 ml/min; Glucose 131 mg/dL (74-106); Potassium 3.8 mmol/L (3.5-5.1); Sodium Level 141 mmol/L (136-145)
--- NOTE | 2018-10-19 09:15 | RAD_ITS ---
STUDY: X-RAY - ABDOMEN/PELVIS REASON FOR EXAM: Male, 78 years old. Abdominal distention TECHNIQUE: AP supine and upright views of the abdomen and pelvis. COMPARISON: 10/15/2018 FINDINGS: There are surgical clips again noted in the abdominal wall. There is a small amount of free air noted beneath the right hemidiaphragm. This is consistent with the patient's recent postoperative state. Since the prior examination, the enteric tube has been removed. There is a drainage catheter noted in the pelvis. There is no bowel obstruction. There is air and stool to the level of the rectum. There are stable degenerative changes in the spine. RAD/Abd Inc Decub and/or Erect IMPRESSION: No bowel obstruction. Surgical clips in the abdominal wall and a small amount of free air which is consistent with the patient's recent postoperative state. Electronically Signed: Smith Brand, at 10:04 EDT Tel , Service support ,
--- NOTE | 2018-10-19 09:46 | PN.SURG_ITS ---
Patient Problems: Active and Suspected Problems Acute tubular necrosis (Acute) Hyperkalemia (Acute) Subjective: passing flatus, no bowel movements, still hungry, denies significant abdominal pain - Physical Exam General: Alert, Oriented x3, Cooperative Lungs: Clear to auscultation, Normal air movement Cardiovascular: Regular rate, Regular Rhythm Abdomen: Soft, Non Tender, Hypoactive Bowel Sounds, - - action Light drain serosanguineous, NG tube light green, minimal output-DC'd Vital Signs Temp Pulse Resp BP Pulse Ox 98.1 F 76 18 159/75 H 92 10/19/18 03:05 10/19/18 06:59 10/19/18 03:05 10/19/18 03:05 10/19/18 07:56 Oxygen Flow Rate (L/min) 2 Oxygen Delivery Method Room Air Weight: 75.9 kg Body Mass Index (BMI) 21.9 Intake and Output for Last 24 Hours 10/17/18 10/18/18 10/19/18 23:59 23:59 23:59 Intake Total 2682 / 2682 3097.3 / 3097.3 651.8 / 651.8 Output Total 1175 / 1175 3158 / 3158 1000 / 1000 Balance 1507 / 1507 -60.7 / -60.7 -348.2 / -348.2 Microbiology Past 72 Hours 10/16/18 01:35 Gram Stain - Final Sputum, Induced/Lukens Respiratory Culture - Final Yeast, not Mary Anne albicans 10/15/18 08:00 Urine Culture - Final Urine Catheter - Maguire Culture exhibits no growth. Laboratory Tests Past 24 Hrs 10/18/18 10/18/18 10/19/18 11:20 11:20 08:20 WBC 15.4 H 10.1 RBC 3.44 L 3.30 L Hgb 11.1 L 10.6 L Hct 33.8 L 31.6 L MCV 98.3 H 95.8 H MCH 32.3 H 32.1 H MCHC 32.8 33.5 RDW Std Deviation 52.6 H 51.8 H RDW Coeff of Tristian 14.6 14.7 H Plt Count 151 125 L MPV 11.3 11.7 Immature Gran % (Auto) 1.600 H 2.100 H Neut % (Auto) 89.3 H 85.9 H Lymph % (Auto) 5.4 L 6.7 L [place] % (Auto) 3.2 4.2 Eos % (Auto) 0.2 0.7 Baso % (Auto) 0.3 0.4 Absolute Neuts (auto) 13.8 H 8.7 H Absolute Lymphs (auto) 0.83 0.68 L Nucleated RBC % 0 0 Differential Comment SCANNED Platelet Estimate SLT DEC Plt Morphology Comment LARGE Sodium 141 Potassium 3.6 Chloride 110 H Carbon Dioxide 28.0 Anion Gap 3 L BUN 13 Creatinine 0.73 Estim Creat Clear Calc 63.88 Est GFR (MDRD) Af Amer 134 Est GFR (MDRD) Non-Af 111 BUN/Creatinine Ratio 17.8 Glucose 99 Calcium 8.2 L Magnesium 2.0 10/19/18 08:20 WBC RBC Hgb Hct MCV MCH MCHC RDW Std Deviation RDW Coeff of Tristian Plt Count MPV Immature Gran % (Auto) Neut % (Auto) Lymph % (Auto) Curry % (Auto) Eos % (Auto) Baso % (Auto) Absolute Neuts (auto) Absolute Lymphs (auto) Nucleated RBC % Differential Comment Platelet Estimate Plt Morphology Comment Sodium 141 Potassium 3.8 Chloride 107 Carbon Dioxide 28.0 Anion Gap 6 BUN 9 Creatinine 0.66 L Estim Creat Clear Calc 63.88 Est GFR (MDRD) Af Amer 152 Est GFR (MDRD) Non-Af 125 BUN/Creatinine Ratio 13.7 Glucose 131 H Calcium 7.8 L Magnesium POC Glucose 10/19/18 10/18/18 10/18/18 06:09 23:16 17:48 POC Glucose 145 H 130 H 123 H 10/18/18 11:17 POC Glucose 99 Medical Necessity - Tobacco Use Smoking Status: Former smoker Tobacco Use: Non-smoker Assessment/Plan All Active Problems Acute tubular necrosis (Acute) Hyperkalemia (Acute) complicated perforated appendicitis postoperative day #5 status post ileocecal resection and drainage, aspiration pneumonia, septic shock neurologic-patient is currently being given narcotics for sedation. Currently comfortable. Respiratory-preoperative CT scan demonstrated fluid in the left mainstem and x- ray consistent with aspiration pneumonia. Patient initially required increasing FiO2 up to 100% overnight postoperatively. Currently oxygen saturation imp roving and FiO2 decreased to 30%. On broad-spectrum antibiotics for presumed aspiration. Right-sided pneumothorax status post attempted central line for right internal jugular line. Pneumocath placed. Postplacement chest x-ray demonstrated good reexpansion of lung. patient extubated yesterday. Now doing quite well on nasal cannula. Pneumocath removed with postprocedure chest x-ray without residual pneumothorax. Encourage incentive spirometry use.chest x-ray today demonstrates no signs of significant infiltrates. Cardiovascular-septic shock, tachycardic, currently off pressors GI-initial assumption was small bowel obstruction with mid small bowel transition point findings intraoperatively demonstrated jellylike material in the mid small bowel but actual problem was perforated appendicitis with adhesed loops of small bowel in the pelvis. Ileocecal resection performed. Risk for leakage due to need for pressors postoperatively. Anticipated longer postoperative ileus course due to above factors and fact that small bowel material may take longer to pass. Nasogastric tube placed intraoperatively. Nasogastric tube removed. KUB demonstrates no bowel obstructive pattern. con tinue substantive patient doing well start clear liquids tomorrow Renal-much improved urine output overnight - suspect acute tubular necrosis. BUn and creatinine improved to normal range. We'll continue supportive patient medically. Fluid, electrolytes, nutrition- patient receiving boluses overnight in addition to pressors, potassium improving. Nothing by mouth for now. We will hold off enteral nutrition due to sepsis and concern for fluid overload given renal function. Infectious disease-patient with neglected perforated appendicitis resulting in complex pelvic abscess and significant inflammation requiring a ileocecal resection along with likely aspiration pneumonia. Zosyn given. We'll obtain cultures of patient's spikes fever-elevated white blood cell count Zosyn was given the nurse present. SCDs for VTE prophylaxis, Protonix for stress ulcer prophylaxis
[2018-10-19] MEDS: Dorzolamide HCL/Timolol 10 ml Bottle 1 DRP RIGHT EYE ×2 (10:20→21:59)
[2018-10-19 12:20] LABS: Bedside Glucose 112 mg/dL (70-110)
[2018-10-19 16:46] LABS: Bedside Glucose 116 mg/dL (70-110)
[2018-10-19] MEDS: Latanoprost 0.005% 1 Bottle 1 DRP RIGHT EYE (21:59)
[2018-10-20] VITALS (10 sets, daily range): BP systolic 110–148; BP diastolic 57–71; PULSE 76–86; RESP 14–20; TEMP 36.6–37.1; O2SAT 93–97
[2018-10-20 00:36] LABS: Bedside Glucose 121 mg/dL (70-110)
--- NOTE | 2018-10-20 06:31 | PCM.PN.PUL ---
Patient Problems: Active and Suspected Problems Acute tubular necrosis (Acute) Hyperkalemia (Acute) Subjective: The patient was seen and examined at the bedside this morning. Events from the last 24 hours have been reviewed. The patient is currently afebrile, hemodynamically stable and maintaining appropriate oxygen saturations on 2 L/min via nasal cannula. The patient is still significantly overall net positive from a volume perspective for the hospital admission. No current pain complaints. Repeat abdominal and plain film chest x-rays completed yesterday were unremarkable. Objective: The patient's most recent lab work, culture data and imaging studies have all been personally reviewed. Surface echocardiogram revealed normal LV size and thickness with an ejection fraction of 70%. Strep and urine Legionella antigens were both negative. Blood, urine and sputum cultures have been unrevealing to date. - Physical Exam General: Alert, Cooperative, No apparent distress HEENT: Atraumatic, PERRLA, Normocephalic Oral: No Gingival or Mucosal Lesions/ Ulcerations Neck: Supple, No Nodes, Trachea Midline Lungs: No rhonchi, No wheeze, No rales, Diminished Cardiovascular: Regular rate, Regular Rhythm, Normal S1, Normal S2, No murmurs Abdomen: Soft, Hypoactive Bowel Sounds Extremities: No clubbing, No cyanosis Skin: No breakdown Musculoskeletal: No Tenderness to Palpation of Joints or Extremities Lymphatic: No Cervical, Supraclavicular, or Inguinal Adenopathy Neurological: Cranial nerves II-XII grossly intact, Neuro grossly intact Psych/Mental Status: Normal Affect, Appropriate Vital Signs Temp Pulse Resp BP Pulse Ox 98.8 F 76 18 120/60 97 10/20/18 02:13 10/20/18 03:00 10/20/18 02:13 10/20/18 02:13 10/20/18 02:13 Oxygen Flow Rate (L/min) 2 Oxygen Delivery Method Nasal Cannula Weight: 167 lb 5.294 oz Body Mass Index (BMI) 21.9 Intake and Output for Last 24 Hours 10/18/18 10/19/18 10/20/18 23:59 23:59 23:59 Intake Total 3097.3 / 3097.3 2354.4 / 2354.4 Output Total 3158 / 3158 2950 / 2950 Balance -60.7 / -60.7 -595.6 / -595.6 Microbiology Past 72 Hours 10/16/18 01:35 Gram Stain - Final Sputum, Induced/Lukens Respiratory Culture - Final Yeast, not Mary Anne albicans 10/15/18 08:00 Urine Culture - Final Urine Catheter - Maguire Culture exhibits no growth. Laboratory Tests Past 24 Hrs 10/19/18 10/19/18 08:20 08:20 WBC 10.1 RBC 3.30 L Hgb 10.6 L Hct 31.6 L MCV 95.8 H MCH 32.1 H MCHC 33.5 RDW Std Deviation 51.8 H RDW Coeff of Tristian 14.7 H Plt Count 125 L MPV 11.7 Immature Gran % (Auto) 2.100 H Neut % (Auto) 85.9 H Lymph % (Auto) 6.7 L [place] % (Auto) 4.2 Eos % (Auto) 0.7 Baso % (Auto) 0.4 Absolute Neuts (auto) 8.7 H Absolute Lymphs (auto) 0.68 L Nucleated RBC % 0 Differential Comment SCANNED Platelet Estimate SLT DEC Plt Morphology Comment LARGE Sodium 141 Potassium 3.8 Chloride 107 Carbon Dioxide 28.0 Anion Gap 6 BUN 9 Creatinine 0.66 L Estim Creat Clear Calc 63.88 Est GFR (MDRD) Af Amer 152 Est GFR (MDRD) Non-Af 125 BUN/Creatinine Ratio 13.7 Glucose 131 H Calcium 7.8 L POC Glucose 10/20/18 10/19/18 10/19/18 00:02 16:43 12:11 POC Glucose 121 H 116 H 112 H 10/19/18 06:09 POC Glucose 145 H Clinical Impression(s) from Imaging Studies Chest X-Ray 10/14/18 11:53 IMPRESSION: Increased markings at the left lung base suggestive of atelectasis and/or early infiltrate. Follow-up is recommended. Electronically Signed: Jimmy Galarza, at 12:38 EDT , Service support , Abdomen/Pelvis CT 10/14/18 12:27 IMPRESSION: Small bowel obstruction with the transition point in the distal ileum. Fluid distention of the stomach and the distal esophagus. Patchy alveolar disease in both lower lobes. Radiographic follow-up is recommended. Electronically Signed: Jimmy Galarza, at 15:04 EDT , Service support , Chest CT 10/14/18 12:27 IMPRESSION: Airspace disease in both lower lobes with peribronchial dilatation and the fluid within the bronchial tree in the lower lobes worse on the left lung base. Aspiration should be ruled out. Fluid distention of the esophagus and visualized portion of the stomach. 1.1 cm left adrenal nodule as well as a 5.6 cm x 6.1 cm cyst in the upper pole of the right kidney. CT scan of the abdomen demonstrated small bowel obstruction. Electronically Signed: Jimmy Michell, at 15:11 EDT , Service support , Soft Tissue Neck CT 10/14/18 12:27 IMPRESSION: Fluid distention of the esophagus. Electronically Signed: Jimmy Galarza, at 15:27 EDT , Service support , KUB X-Ray 10/14/18 13:34 IMPRESSION: The tip of the nasogastric tube is coiled in the distal esophagus. Electronically Signed: Jimmy Galarza, at 15:28 EDT , Service support , KUB X-Ray 10/14/18 15:00 IMPRESSION: The tip of the nasogastric tube is coiled in the distal esophagus. Electronically Signed: Jimmy Galarza, at 15:30 EDT , Service support , Chest X-Ray 10/15/18 05:55 IMPRESSION: Bilateral lower lobe infiltrates with marked worsening from recent previous study. Tubes are in adequate position. Electronically Signed: Jamarcus Muñoz MD at 5:05 EDT , Service support , ADDENDUM: 10/15/18 0746 KUB X-Ray 10/15/18 05:55 IMPRESSION: Status post recent surgery, with surgical drain overlying the pelvis. Nasogastric tube is in adequate position. Nonspecific bowel gas pattern. Electronically Signed: Jamarcus Muñoz MD at 4:46 EDT , Service support , Chest X-Ray 10/15/18 06:59 IMPRESSION: New finding of a moderately large right pneumothorax, occupying 25-50% of the right hemithorax. Tubes are in adequate position. Persistent left basilar infiltrate which appears somewhat improved. Pneumoperitoneum, presumably due to recent surgery. Electronically Signed: Jamarcus Muñoz MD at 7:33 EDT , Service support , ADDENDUM: 10/15/18 0802 IMPRESSION: New finding of a moderately large right pneumothorax, occupying 25-50% of the right hemithorax. Tubes are in adequate position. Persistent left basilar infiltrate which appears somewhat improved. Pneumoperitoneum, presumably due to recent surgery. N.B. : The above information has been verbally conveyed by Jamarcus Muñoz MD to RUDI Carranza DO, , on 10/15/2018 07:55:43 (ET). Electronically Signed: Jamarcus Muñoz MD at 7:33 EDT , Service support , Chest X-Ray 10/15/18 08:06 IMPRESSION: Status post placement of a small-caliber right-sided chest tube. Residual small right apical pneumothorax. Electronically Signed: Jimmy Galarza, at 9:17 EDT , Service support , Chest X-Ray 10/16/18 09:40 IMPRESSION: Stable appearance of the small right apical pneumothorax. Increasing infiltrate and/or atelectasis at the right lung base. Electronically Signed: Jimmy Yeeelkin, at 15:36 EDT , Service support , Chest X-Ray 10/16/18 14:08 IMPRESSION: Small residual right apical pneumothorax. The remainder of the examination is unchanged. Electronically Signed: Jimmy Michell, at 15:20 EDT , Service support , Chest X-Ray 10/17/18 08:00 IMPRESSION: There is no evidence of pneumothorax at this time. Electronically Signed: Jimmy Michell, at 12:30 EDT , Service support , Chest X-Ray 10/17/18 14:30 IMPRESSION: Status post removal of the small caliber right chest tube. There is no evidence of pneumothorax. The remainder of the examination is unchanged. Electronically Signed: Jimmy Michell, at 14:44 EDT , Service support , Chest X-Ray 10/19/18 08:59 IMPRESSION: No acute thoracic pathology. Free air beneath the right hemidiaphragm which is consistent with the patient's recent postoperative state. Electronically Signed: Smith Brand, at 10:20 EDT Tel , Service support , Abdomen X-Ray 10/19/18 09:15 IMPRESSION: No bowel obstruction. Surgical clips in the abdominal wall and a small amount of free air which is consistent with the patient's recent postoperative state. Electronically Signed: Smith Brand, at 10:04 EDT Tel , Service support , Medical Necessity - Tobacco Use Smoking Status: Former smoker Tobacco Use: Non-smoker Assessment/Plan All Active Problems Acute tubular necrosis (Acute) Hyperkalemia (Acute) RECOMMENDATIONS: 1. Encourage incentive spirometer use and mobilize patient as tolerated. 2. Continue antibiotics per ID recommendations. 3. Dietary advancement per surgery recommendations. IMPRESSIONS: 1. Septic shock 2/2 intraabdominal and pulmonary infectious processes Resolved. The patient responded clinically to the use of broad-spectrum antimicrobials and vasopressors to maintain hemodynamic stability. The patient has defervesced and is no longer requiring vasopressor support. Broad-spectrum antimicrobials will be continued per the discretion of infectious diseases. 2. Acute hypoxemic respiratory failure/iatrogenic pneumothorax Improved. The patient did demonstrate findings concerning for underlying pneumonia on CT chest. There was also initial concern for potential aspiration event. Although the patient did initially require high amounts of FiO2 and PEEP, his mechanical ventilation requirements quickly de-escalated. He was able to be successfully extubated to nasal cannula supplemental oxygen on the morning of 10/16. He will remain on antimicrobials for underlying pulmonary infectious process. Chest tube was successfully removed on October 17. Encourage incentive spirometer use. Mobilize patient as tolerated. 3. Acute abdomen/small bowel obstruction/appendicial perforation, now POD #6 s/p exploratory laparotomy and ileocecal resection Continue current supportive measures per general surgery recommendations. 4. Advanced age/hyperlipidemia/GERD Complicates care, management, recovery and prognosis. Okay to continue home medications as indicated. Physical therapy to work with the patient. This note was generated with [employer] dictation software. It may contain incorrect words, spelling, and punctuation that were not noted in checking the note before signing. Code Visit Inpatient E&M: 97445 Subs Hosp L2
[2018-10-20 07:05] LABS: Bedside Glucose 119 mg/dL (70-110)
[2018-10-20 07:12] LABS: Absolute Lymphocyte Count 0.67 X10^3/uL (0.83-4.51); Basophil# 0.03 X10^3/uL; Basophil% 0.3 % (0-1); Eosinophil# 0.12 X10^3/uL; Hematocrit 28.2 % (40-54); Hemoglobin 9.4 g/dL (13.0-16.5); Lymphocyte # 0.67 X10^3/ul (4.0); Lymphocyte % 5.8 % (19-41); Mean Corp Hgb Conc 33.3 g/dL (32-36); Mean Corpuscular Hgb 32.3 pg (27.0-32.0); Mean Corpuscular Volume 96.9 fL (80-94); Mean Platelet Vol. 11.4 fl (6.2-12.0); Monocyte% 5.2 % (0-10); NRBC Flagged by Analyzer 0 % (0-5); Neutrophil # 10.02 X10^3/uL (2.7-7.7); Neutrophil % 85.9 % (47-70); Platelet Count 150 K/mm3 (150-450); RBC Distribution Width CV 14.7 % (11.6-14.6); RBC Distribution Width SD 51.5 fl (35.1-43.9); Red Blood Count 2.91 M/mm3 (4.6-6.2); White Blood Count 11.7 K/mm3 (4.4-11.0)
[2018-10-20 07:35] LABS: Anion Gap 4 (5-15); BUN 12 mg/dL (7-18); Calcium,Total 7.7 mg/dL (8.5-10.1); Chloride 106 mmol/L (98-107); Creatinine, Serum 0.66 mg/dL (0.70-1.30); EST Glomerular Filtration Rate 123 mL/min (>60); Est Glom Filt Rate - Afr Amer 149 mL/min (>60); Estimated Creatinine Clearance 63.88 ml/min; Glucose 128 mg/dL (74-106); Potassium 3.5 mmol/L (3.5-5.1); Sodium Level 138 mmol/L (136-145)
--- NOTE | 2018-10-20 07:40 | PN_ITS ---
Patient Problems: Active and Suspected Problems Acute tubular necrosis (Acute) Hyperkalemia (Acute) Subjective: Patient seen his clinical condition continues to improve. Started on clear liquids this a.m. Patient was also noted to have significantly edematous right upper extremity. It was felt patient IV had infiltrated. This was therefore discontinued. An order was given for patient to have a midline for IV access Objective: GENERAL: Cooperative HEENT: Atraumatic normal conjunctiva EYES; prosthetic left eye NECK; supple, normal thyroid, RESPIRATORY: Diminished to auscultation: CARDIOVASCULAR: Regular S1 S2, GI: Nondistended, with positive bowel sounds : No Renal angle tenderness; EXTREMITIES: Edema involving both upper extremities MUSCULOSKELETAL: No Joint swelling NEURO: No lateralizing signs SKIN: No Rash PSYCH; affect is appropriate Vitals/I&O's: Vital Signs Temp Pulse Resp BP Pulse Ox 98.8 F 85 18 120/60 97 10/20/18 02:13 10/20/18 06:47 10/20/18 02:13 10/20/18 02:13 10/20/18 02:13 Oxygen Flow Rate (L/min) 2 Oxygen Delivery Method Nasal Cannula Weight: 75.9 kg Body Mass Index (BMI) 21.9 Intake and Output for Last 24 Hours 10/18/18 10/19/18 10/20/18 23:59 23:59 23:59 Intake Total 3097.3 / 3097.3 2354.4 / 2354.4 755.7 / 755.7 Output Total 3158 / 3158 2950 / 2950 325 / 325 Balance -60.7 / -60.7 -595.6 / -595.6 430.7 / 430.7 Microbiology Past 72 Hours 10/16/18 01:35 Sputum, Induced/Lukens Gram Stain - Final 10/16/18 01:35 Sputum, Induced/Lukens Respiratory Culture - Final Yeast, not Mary Anne albicans 10/15/18 08:00 Urine Catheter - Maguire Urine Culture - Final Culture exhibits no growth. Laboratory Results 10/19/18 08:20: WBC 10.1, RBC 3.30 L, Hgb 10.6 L, Hct 31.6 L, MCV 95.8 H, MCH 32.1 H, MCHC 33.5, RDW Std Deviation 51.8 H, RDW Coeff of Tristian 14.7 H, Plt Count 125 L, MPV 11.7, Immature Gran % (Auto) 2.100 H, Neut % (Auto) 85.9 H, Lymph % (Auto) 6.7 L, [place] % (Auto) 4.2, Eos % (Auto) 0.7, Baso % (Auto) 0.4, Absolute Neuts (auto) 8.7 H, Absolute Lymphs (auto) 0.68 L, Nucleated RBC % 0, Differential Comment SCANNED, Platelet Estimate SLT DEC, Plt Morphology Comment LARGE 10/19/18 08:20: Sodium 141, Potassium 3.8, Chloride 107, Carbon Dioxide 28.0, Anion Gap 6, BUN 9, Creatinine 0.66 L, Estim Creat Clear Calc 63.88, Est GFR (MDRD) Af Amer 152, Est GFR (MDRD) Non-Af 125, BUN/Creatinine Ratio 13.7, Glucose 131 H, Calcium 7.8 L 10/19/18 12:11: POC Glucose 112 H 10/19/18 16:43: POC Glucose 116 H 10/20/18 00:02: POC Glucose 121 H 10/20/18 06:50: WBC 11.7 H, RBC 2.91 L, Hgb 9.4 L, Hct 28.2 L, MCV 96.9 H, MCH 32.3 H, MCHC 33.3, RDW Std Deviation 51.5 H, RDW Coeff of Tristian 14.7 H, Plt Count 150, MPV 11.4, Immature Gran % (Auto) 1.800 H, Neut % (Auto) 85.9 H, Lymph % (Auto) 5.8 L, [place] % (Auto) 5.2, Eos % (Auto) 1.0, Baso % (Auto) 0.3, Absolute Neuts (auto) 10.0 H, Absolute Lymphs (auto) 0.67 L, Nucleated RBC % 0 10/20/18 06:50: Sodium 138, Potassium 3.5, Chloride 106, Carbon Dioxide 28.0, Anion Gap 4 L, BUN 12, Creatinine 0.66 L, Estim Creat Clear Calc 63.88, Est GFR (MDRD) Af Amer 149, Est GFR (MDRD) Non-Af 123, BUN/Creatinine Ratio 18.0, Glucose 128 H, Calcium 7.7 L 10/20/18 06:55: POC Glucose 119 H Current Medications Albuterol Sulfate (Ventolin Aerosols) 2.5 mg INHALATION Q2H PRN PRN PRN Reason: dyspnea, wheezing Dextrose (D50w Syringe) 0 gm IV X1 PRN; Protocol PRN Reason: Hypoglycemia Dorzolamide/Timolol (Cosopt Opth Drops) 1 drop RIGHT EYE BID ANNIE Last Admin: 10/19/18 21:59 Dose: 1 drop Documented by: Fentanyl Citrate (Sublimaze (100mcg Ampule)) 50 mcg IV Q6H PRN PRN Reason: SEVERE PAIN (6-10/10) Last Admin: 10/17/18 00:17 Dose: 50 mcg Documented by: Glucagon () 1 mg IM .X1 PRN PRN Reason: Hypoglycemia Piperacillin Sod/Tazobactam (Sod 3.375 gm/ Sodium Chloride) 50 mls @ 12.5 mls/hr IV Q8 ANNIE Last Admin: 10/20/18 07:21 Dose: Not Given Documented by: Pantoprazole Sodium 40 mg/ (Sodium Chloride) 110 mls @ 330 mls/hr IV Q12 ANNIE Last Admin: 10/19/18 21:59 Dose: 330 mls/hr Documented by: Sodium Chloride () 250 mls @ 15 mls/hr IV .[id number] PRN PRN Reason: SALINE FLUSH Last Admin: 10/18/18 09:40 Dose: 15 mls/hr Documented by: Insulin Human Lispro (Humalog Kwikpen (Bkc)) 0 unit SC Q6 ANNIE; Protocol Last Admin: 10/20/18 07:06 Dose: Not Given Documented by: Latanoprost (Xalatan Opthalmic) 1 drop RIGHT EYE QHS ANNIE Last Admin: 10/19/18 21:59 Dose: 1 drop Documented by: Sodium Chloride () 10 - 40 ml IV UD PRN PRN Reason: SALINE FLUSH Last Admin: 10/19/18 06:01 Dose: 10 ml Documented by: Medical Necessity - Tobacco Use Smoking Status: Former smoker Tobacco Use: Non-smoker Assessment/Plan All Active Problems Acute tubular necrosis (Acute) Hyperkalemia (Acute) Patient is a 78-year-old gentleman who presented with abdominal pain with associated abdominal distention nausea and vomiting. CT of the abdomen obtained in the emergency department demonstrated Small bowel obstruction with the transition point in the distal ileum. Fluid distention of the stomach and the distal esophagus. Patient was admitted to the surgical service and underwent exploratory laparotomy findings included transition due to veg matter, small bowel loops adherent to pelvic abscess - perforated appendicitis with obstruction. Patient had ileocecal resection performed by Dr. Phan on 10/14/2018. 1. Small bowel obstruction: CT of the abdomen obtained in the emergency department demonstrated Small bowel obstruction with the transition point in the distal ileum. Fluid distention of the stomach and the distal esophagus. Patient was admitted to the surgical service and underwent exploratory laparotomy findings included transition due to veg matter, small bowel loops adherent to pelvic abscess - perforated appendicitis with obstruction. Patient had ileocecal resection performed by Dr. Phan on 10/14/2018. ~ 10/18/18: Seen clinical condition continues to improve. Patient still has NG tube in place ~ 10/19/2018. Patient now has return of bowel function with positive bowel sounds and patient passing flatus. An order was given for patient to be started on ice chips NG tube discontinued. ~10/20/2017. Patient started on clear liquid with plans to advance as tolerated. Yet to have a bowel movement but continued to pass gas 2. Acute hypoxic respiratory failure following aspiration pneumonia. Patient was intubated during surgery left on the vent and subsequently transferred to the intensive care unit. Vent management deferred to pulmonary/disability insurance claim examiner patient was weaned off the vent on the morning of 10/16/2018 3. Septic shock secondary to aspiration pneumonia as well as intra-abdominal infection i.e. the pelvic abscess with perforated appendix. Patient is on broad-spectrum antibiotic therapy in addition to fluids, pressors and stress doses of antibiotics patient has been weaned off pressors. WBC count trending down. 4. Acute kidney injury secondary to ATN from hypovolemia as well as septic shock patient to function continues to worsen we will recommend obtaining nephrology consultation if okay with primary service kidney function improving. 10/17/2018: Kidney function back to baseline ALEN resolved 5. Iatrogenic large right sided pneumothorax following insertion of triple- lumen chest tube in place 10/17/2018: Patient is scheduled to undergo PT imaging studies with plans for chest tube removal 10/18/2018 chest tube was removed the day prior repeat x-ray demonstrated reexpanded lungs 6. Acute transaminitis; secondary to shock liver we will continue to monitor LFTs 7. GERD patient is on PPI 8. Anemia secondary to acute blood loss anemia following surgery monitoring H&H with plans to transfuse if patient becomes symptomatic or hemoglobin falls below 7. H&H remains stable 9. DVT prophylaxis; SCDs and renal dose of Lovenox 10. Physical deconditioning requested for PT OT eval and social media intern to assist with discharge planning Code Visit Inpatient E&M: 70319 Subs Hosp L2
--- NOTE | 2018-10-20 08:41 | PN.SURG_ITS ---
Patient Problems: Active and Suspected Problems Acute tubular necrosis (Acute) Hyperkalemia (Acute) Subjective: passing flatus, no BM - Physical Exam General: Alert, Oriented x3, Cooperative Lungs: Rhonchi - bilaterally Cardiovascular: Regular rate, Regular Rhythm Abdomen: Bowel Sounds Present, Soft, Non Tender, - - serous Vital Signs Temp Pulse Resp BP Pulse Ox 97.9 F 83 20 H 110/57 L 94 10/20/18 08:10 10/20/18 08:10 10/20/18 08:10 10/20/18 08:10 10/20/18 08:10 Oxygen Flow Rate (L/min) 2 Oxygen Delivery Method Nasal Cannula Weight: 75.9 kg Body Mass Index (BMI) 21.9 Intake and Output for Last 24 Hours 10/18/18 10/19/18 10/20/18 23:59 23:59 23:59 Intake Total 3097.3 / 3097.3 2354.4 / 2354.4 755.7 / 755.7 Output Total 3158 / 3158 2950 / 2950 325 / 325 Balance -60.7 / -60.7 -595.6 / -595.6 430.7 / 430.7 Microbiology Past 72 Hours 10/16/18 01:35 Gram Stain - Final Sputum, Induced/Lukens Respiratory Culture - Final Yeast, not Mary Anne albicans 10/15/18 08:00 Urine Culture - Final Urine Catheter - Maguire Culture exhibits no growth. Laboratory Tests Past 24 Hrs 10/19/18 10/19/18 10/20/18 08:20 08:20 06:50 WBC 10.1 11.7 H RBC 3.30 L 2.91 L Hgb 10.6 L 9.4 L Hct 31.6 L 28.2 L MCV 95.8 H 96.9 H MCH 32.1 H 32.3 H MCHC 33.5 33.3 RDW Std Deviation 51.8 H 51.5 H RDW Coeff of Tristian 14.7 H 14.7 H Plt Count 125 L 150 MPV 11.7 11.4 Immature Gran % (Auto) 2.100 H 1.800 H Neut % (Auto) 85.9 H 85.9 H Lymph % (Auto) 6.7 L 5.8 L [place] % (Auto) 4.2 5.2 Eos % (Auto) 0.7 1.0 Baso % (Auto) 0.4 0.3 Absolute Neuts (auto) 8.7 H 10.0 H Absolute Lymphs (auto) 0.68 L 0.67 L Nucleated RBC % 0 0 Differential Comment SCANNED Platelet Estimate SLT DEC Plt Morphology Comment LARGE Sodium 141 Potassium 3.8 Chloride 107 Carbon Dioxide 28.0 Anion Gap 6 BUN 9 Creatinine 0.66 L Estim Creat Clear Calc 63.88 Est GFR (MDRD) Af Amer 152 Est GFR (MDRD) Non-Af 125 BUN/Creatinine Ratio 13.7 Glucose 131 H Calcium 7.8 L 10/20/18 06:50 WBC RBC Hgb Hct MCV MCH MCHC RDW Std Deviation RDW Coeff of Tristian Plt Count MPV Immature Gran % (Auto) Neut % (Auto) Lymph % (Auto) [place] % (Auto) Eos % (Auto) Baso % (Auto) Absolute Neuts (auto) Absolute Lymphs (auto) Nucleated RBC % Differential Comment Platelet Estimate Plt Morphology Comment Sodium 138 Potassium 3.5 Chloride 106 Carbon Dioxide 28.0 Anion Gap 4 L BUN 12 Creatinine 0.66 L Estim Creat Clear Calc 63.88 Est GFR (MDRD) Af Amer 149 Est GFR (MDRD) Non-Af 123 BUN/Creatinine Ratio 18.0 Glucose 128 H Calcium 7.7 L POC Glucose 10/20/18 10/20/18 10/19/18 06:55 00:02 16:43 POC Glucose 119 H 121 H 116 H 10/19/18 12:11 POC Glucose 112 H Medical Necessity - Tobacco Use Smoking Status: Former smoker Tobacco Use: Non-smoker Assessment/Plan All Active Problems Acute tubular necrosis (Acute) Hyperkalemia (Acute) complicated perforated appendicitis postoperative day #6 status post ileocecal resection and drainage, aspiration pneumonia, septic shock neurologic-patient is currently being given narcotics for sedation. Currently comfortable. Respiratory-preoperative CT scan demonstrated fluid in the left mainstem and x- ray consistent with aspiration pneumonia. Patient initially required increasing FiO2 up to 100% overnight postoperatively. Currently oxygen saturation improving and FiO2 decreased to 30%. On broad-spectrum antibiotics for presumed aspiration. Right-sided pneumothorax status post attempted central line for right internal jugular line. Pneumocath placed. Postplacement chest x-ray demonstrated good reexpansion of lung. patient extubated yesterday. Now doing quite well on nasal cannula. Pneumocath removed with postprocedure chest x-ray without residual pneumothorax. Encourage incentive spirometry use.chest x-ray today demonstrates no signs of significant infiltrates. Cardiovascular-septic shock, tachycardic, off pressors for POD #2 GI-initial assumption was small bowel obstruction with mid small bowel transition point findings intraoperatively demonstrated jellylike material in the mid small bowel but actual problem was perforated appendicitis with adhesed loops of small bowel in the pelvis. Ileocecal resection performed. Risk for leakage due to need for pressors postoperatively. Anticipated longer postoperative ileus course due to above factors and fact that small bowel material may take longer to pass. Nasogastric tube placed intraoperatively. Nasogastric tube removed. KUB demonstrates no bowel obstructive pattern. patient doing well - We will start clear liquids today Renal-much improved urine output overnight - suspect acute tubular necrosis. BUn and creatinine improved to normal range. We'll continue supportive patient medically. Fluid, electrolytes, nutrition- will start clears. Infectious disease-patient with neglected perforated appendicitis resulting in complex pelvic abscess and significant inflammation requiring a ileocecal resection along with likely aspiration pneumonia. Zosyn given. We'll obtain cultures of patient's spikes fever-elevated white blood cell count Zosyn was given the nurse present. SCDs for VTE prophylaxis, Protonix for stress ulcer prophylaxis Social work for SNF placement for reconditioning likely early this week
[2018-10-20] MEDS: Pantoprazole Sodium 40 MG Tablet PO ×2 (10:57→21:30)
[2018-10-20] MEDS: Dorzolamide HCL/Timolol 10 ml Bottle 1 DRP RIGHT EYE ×2 (10:57→21:31)
[2018-10-20 12:26] LABS: Bedside Glucose 124 mg/dL (70-110)
[2018-10-20] MEDS: 0.9% NaCl Peripheral Flush Adult/Peds IV (13:15)
[2018-10-20 17:06] LABS: Bedside Glucose 114 mg/dL (70-110)
[2018-10-20] MEDS: Latanoprost 0.005% 1 Bottle 1 DRP RIGHT EYE (21:31)
[2018-10-20 23:11] LABS: Bedside Glucose 105 mg/dL (70-110)
[2018-10-21] VITALS (10 sets, daily range): BP systolic 116–136; BP diastolic 53–83; PULSE 82–91; RESP 14–16; TEMP 36.6–37.5; O2SAT 91–96
[2018-10-21] MEDS: 0.9% NaCl Peripheral Flush Adult/Peds IV (04:59)
[2018-10-21 05:10] LABS: Absolute Lymphocyte Count 0.57 X10^3/uL (0.83-4.51); Absolute Neutrophil Count 7.6 X10^3/uL (2.0-7.7); Basophil# 0.01 X10^3/uL; Basophil% 0.1 % (0-1); Eosinophil# 0.12 X10^3/uL; Eosinophils% 1.3 % (0-5); Hematocrit 26.6 % (40-54); Hemoglobin 8.8 g/dL (13.0-16.5); Lymphocyte # 0.57 X10^3/ul (4.0); Lymphocyte % 6.4 % (19-41); Mean Corp Hgb Conc 33.1 g/dL (32-36); Mean Corpuscular Hgb 32.2 pg (27.0-32.0); Mean Corpuscular Volume 97.4 fL (80-94); Mean Platelet Vol. 10.7 fl (6.2-12.0); Monocyte# 0.52 X10^3/uL; Monocyte% 5.8 % (0-10); NRBC Flagged by Analyzer 0 % (0-5); Neutrophil # 7.64 X10^3/uL (2.7-7.7); Neutrophil % 85.2 % (47-70); POSITIVE DIFFERENTIAL YES; Platelet Count 150 K/mm3 (150-450); RBC Distribution Width CV 14.8 % (11.6-14.6); RBC Distribution Width SD 52.4 fl (35.1-43.9); Red Blood Count 2.73 M/mm3 (4.6-6.2)
[2018-10-21 05:54] LABS: Anion Gap 6 (5-15); BUN 16 mg/dL (7-18); BUN/Creat Ratio 24.5 RATIO (10-20); Calcium,Total 7.7 mg/dL (8.5-10.1); Chloride 107 mmol/L (98-107); Creatinine, Serum 0.65 mg/dL (0.70-1.30); EST Glomerular Filtration Rate 126 mL/min (>60); Est Glom Filt Rate - Afr Amer 153 mL/min (>60); Estimated Creatinine Clearance 63.88 ml/min; Glucose 98 mg/dL (74-106); Potassium 3.6 mmol/L (3.5-5.1); Sodium Level 141 mmol/L (136-145)
[2018-10-21] MEDS: 0.9% NaCl IVPB Med Flush (250 mL) 15 ML IV (06:02)
[2018-10-21 06:43] LABS: Differential Indicated SCAN CRITERIA MET
[2018-10-21 06:55] LABS: Bedside Glucose 107 mg/dL (70-110)
[2018-10-21 07:03] LABS: Differential Comment SCANNED
--- NOTE | 2018-10-21 09:15 | PN_ITS ---
Patient Problems: Active and Suspected Problems Acute tubular necrosis (Acute) Hyperkalemia (Acute) Subjective: The patient is a 78-year-old male with a past medical history of GERD, hyperlipidemia, left glass eye, chronic renal failure and unclear ophthalmological disease who presented to the emergency department at [facility] on 10/14/2018 with a one-week history of ongoing excessive hiccups, abdominal pain, abdominal distention, nausea and vomiting. A CT scan of the abdomen obtained in the emergency department demonstrated a small bowel obstruction with the transition point in the distal ileum. He was seen by Dr. Sparks and was taken to surgery on 10/14/2018 for exploratory laparotomy with ileocecal resection. Small bowel loops were adherent to a pelvic abscess secondary to perforated appendicitis with obstruction. Postoperatively he remained on the ventilator due to aspiration with acute respiratory failure, and was transferred to the intensive care unit. The immediate postoperative period was complicated by development of refractory hypotension ( requiring 2 pressors) secondary to septic shock, acute oliguric renal failure on chronic renal failure, and a large R pneumothosraxz necessitating chest tube insertion. Consults were ordered with the hospitalist service, Dr. Leigh, Dr. Vale and Dr. Manrique. He was extubated on 10/06/2018. He was started on clear liquids on 10/20/2017. All events the past 24 hours been He is afebrile. Vital signs are stable. He is 91 to 96% saturated on a 2 L nasal cannula. Fluid balance on 10/20/2018 was +360. Overnight he was -110. Urine output on 10/20/2018 was 625. All lab was personally reviewed. White blood cell count today is normal at 9.0 with persistent left shift. Hemoglobin is 8.8, down from 15.7 at admission. Platelets are stable at 150,000. BMP is unremarkable. Creatinine is 0.65 which is his baseline. Calcium corrected for hypoalbuminemia is within normal limits. He states that he is having flatus. He denies nausea, chest pain, shortness of breath at rest. He has a loose moist cough and is having some difficulty getting secretions up. He is still on a liquid diet. He does tell me he had one bowel movement but cannot recall what it was. He apparently had 2 bowel movements per the nurses mentation, one at noon and 1 at 10 PM last night. 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 Abdomen: Bowel Sounds Present, Soft, Distended - Mildly Extremities: No clubbing, No cyanosis, No Calf Tenderness, Peripheral Pulses Normal, - - His R arm is swollen from the shoulder to the hand.....it is warmer to touch than the Left upper arm. He has a midline on the left. Skin: No rashes Neurological: Cranial nerves II-XII grossly intact, Neuro grossly intact Psych/Mental Status: Normal Affect, Appropriate Vital Signs Temp Pulse Resp BP Pulse Ox 97.9 F 87 14 125/65 H 91 10/21/18 03:50 10/21/18 07:00 10/21/18 03:50 10/21/18 03:50 10/21/18 07:40 Oxygen Flow Rate (L/min) 2 Oxygen Delivery Method Nasal Cannula Weight: 169 lb 5.04 oz Body Mass Index (BMI) 21.9 Intake and Output for Last 24 Hours 10/19/18 10/20/18 10/21/18 23:59 23:59 23:59 Intake Total 2354.4 / 2354.4 994.3 / 994.3 240 / 240 Output Total 2950 / 2950 635 / 985 350 / 350 Balance -595.6 / -595.6 359.3 / 9.3 -110 / -110 Microbiology Past 72 Hours 10/14/18 15:50 Blood Culture - Final Blood Culture (Wb) - Anticubital Left No growth in 5 days. 10/14/18 16:00 Blood Culture - Final Blood Culture (Wb) - Right Hand No growth in 5 days. 10/16/18 01:35 Gram Stain - Final Sputum, Induced/Lukens Respiratory Culture - Final Yeast, not Mary Anne albicans Laboratory Tests Past 24 Hrs 10/21/18 10/21/18 04:55 04:55 WBC 9.0 RBC 2.73 L Hgb 8.8 L Hct 26.6 L MCV 97.4 H MCH 32.2 H MCHC 33.1 RDW Std Deviation 52.4 H RDW Coeff of Tristian 14.8 H Plt Count 150 MPV 10.7 Immature Gran % (Auto) 1.200 H Neut % (Auto) 85.2 H Lymph % (Auto) 6.4 L [place] % (Auto) 5.8 Eos % (Auto) 1.3 Baso % (Auto) 0.1 Absolute Neuts (auto) 7.6 Absolute Lymphs (auto) 0.57 L Nucleated RBC % 0 Differential Comment SCANNED Sodium 141 Potassium 3.6 Chloride 107 Carbon Dioxide 28.0 Anion Gap 6 BUN 16 Creatinine 0.65 L Estim Creat Clear Calc 63.88 Est GFR (MDRD) Af Amer 153 Est GFR (MDRD) Non-Af 126 BUN/Creatinine Ratio 24.5 H Glucose 98 Calcium 7.7 L POC Glucose 10/21/18 10/20/18 10/20/18 06:00 23:02 17:00 POC Glucose 107 105 114 H 10/20/18 12:10 POC Glucose 124 H Medical Necessity - Tobacco Use Smoking Status: Former smoker Tobacco Use: Non-smoker Assessment/Plan All Active Problems Acute tubular necrosis (Acute) Hyperkalemia (Acute) Day #8 Zosyn Postoperative day #7 Impressions 1. Small bowel obstruction: Taken to surgery on 10/14/[address] Sparks laparotomy with ileocecal resection. Small bowel loops were adherent to a pelvic abscess that resulted from perforation of the appendix. * 10/21/2018 he has had 2 bowel movements and remains on clear liquids with plans to advance as tolerated. 2. Acute hypoxic respiratory failure secondary to aspiration pneumonia. * Extubated on 10/16/2018 3. Septic shock secondary to aspiration pneumonia and intra-abdominal/pelvic abscess with perforated appendix. 4. Acute kidney injury on chronic renal failure stage III secondary to ATN from hypovolemia and septic shock -resolved 5. Iatrogenic large right-sided pneumothorax following insertion of triple- lumen catheter * Chest tube discontinued on 10/18/2018 6. Acute transaminitis 7. GERD 8. Acute anemia secondary to acute blood loss following surgery 9. Glucose intolerance with hemoglobin A1c of 6.5, blood sugars are very well controlled....... will continue to monitor until his diet is advanced and if they all remain under 190 we will likely discontinue Accu-Cheks at that time. 10. Glaucoma CBC, CMP, magnesium and phosphorus Continue Zosyn Likely SNF at discharge Ambulatory pulse ox on room air prior to discharge to determine oxygen requirements.
[2018-10-21] MEDS: Pantoprazole Sodium 40 MG Tablet PO ×2 (09:25→20:48)
[2018-10-21] MEDS: Dorzolamide HCL/Timolol 10 ml Bottle 1 DRP RIGHT EYE ×2 (09:25→18:23)
--- NOTE | 2018-10-21 10:24 | VDUE_ITS ---
Reason For Study: RUE swelling Right Proximal Left Proximal Right jugular vein is spontaneous, widely Left subclavian vein is spontaneous, widely patent, phasic, with no intraluminal patent, phasic, with no intraluminal echogenicity noted. echogenicity noted. Right subclavian vein is spontaneous, widely patent, phasic, with no intraluminal echogenicity noted. Right Lower Arm Right radial vein is compressible. Right ulnar vein is compressible. Right Arm Right axillary vein is spontaneous, patent, phasic, competent, compressible and demonstrates augmentation. Right brachial vein is compressible. Right cephalic vein is compressible. Right basilic vein is compressible. Patient Safety Prelim faxed to [facility] and verbally to Jack MILLER. Interpretation Summary Deep veins of the right upper extremity are patent and compressible segmentally. There is no evidence of deep vein thrombosis. The superficial veins of the right upper extremity, the basilic and cephalic veins, are patent and compressible. There is no evidence of right upper extremity superficial thrombophlebitis involving the veins imaged. Ordering Physician: Pretty Elizondo Referring Physician: Colin Castillo Chi Performed By: Mamie Turner, JAD, RVT ?
--- NOTE | 2018-10-21 10:27 | PCM.PN.PUL ---
Patient Problems: Active and Suspected Problems Acute tubular necrosis (Acute) Hyperkalemia (Acute) - Physical Exam General: Alert, Oriented x3, Cooperative, No apparent distress HEENT: - - Left eye resection Oral: Moist Mucosa, No Gingival or Mucosal Lesions/ Ulcerations Neck: Supple, No JVD, No Nodes, Trachea Midline Lungs: No rhonchi, No wheeze, No rales, Diminished Cardiovascular: Regular rate, Regular Rhythm, Normal S1, Normal S2, No murmurs, No rub noted, No Gallop Abdomen: Bowel Sounds Present, Soft, Non Tender, Non-Distended Extremities: No clubbing, No cyanosis, No edema, Capillary Refill Less than 3 Seconds Skin: No rashes, No breakdown Musculoskeletal: No Tenderness to Palpation of Joints or Extremities Lymphatic: No Cervical, Supraclavicular, or Inguinal Adenopathy Neurological: Neuro grossly intact, Motor Exam 5/5 strength throughout Psych/Mental Status: Alert and oriented to time, place, person, mood and affect Vital Signs Temp Pulse Resp BP Pulse Ox 36.9 C 89 14 134/61 H 95 10/21/18 09:20 10/21/18 09:20 10/21/18 09:20 10/21/18 09:20 10/21/18 09:20 Oxygen Flow Rate (L/min) 2 Oxygen Delivery Method Nasal Cannula Weight: 76.8 kg Body Mass Index (BMI) 21.9 Intake and Output for Last 24 Hours 10/19/18 10/20/18 10/21/18 23:59 23:59 23:59 Intake Total 2354.4 / 2354.4 994.3 / 994.3 240 / 240 Output Total 2950 / 2950 635 / 985 350 / 350 Balance -595.6 / -595.6 359.3 / 9.3 -110 / -110 Microbiology Past 72 Hours 10/14/18 15:50 Blood Culture - Final Blood Culture (Wb) - Anticubital Left No growth in 5 days. 10/14/18 16:00 Blood Culture - Final Blood Culture (Wb) - Right Hand No growth in 5 days. 10/16/18 01:35 Gram Stain - Final Sputum, Induced/Lukens Respiratory Culture - Final Yeast, not Mary Anne albicans Laboratory Tests Past 24 Hrs 10/21/18 10/21/18 04:55 04:55 WBC 9.0 RBC 2.73 L Hgb 8.8 L Hct 26.6 L MCV 97.4 H MCH 32.2 H MCHC 33.1 RDW Std Deviation 52.4 H RDW Coeff of Tristian 14.8 H Plt Count 150 MPV 10.7 Immature Gran % (Auto) 1.200 H Neut % (Auto) 85.2 H Lymph % (Auto) 6.4 L [place] % (Auto) 5.8 Eos % (Auto) 1.3 Baso % (Auto) 0.1 Absolute Neuts (auto) 7.6 Absolute Lymphs (auto) 0.57 L Nucleated RBC % 0 Differential Comment SCANNED Sodium 141 Potassium 3.6 Chloride 107 Carbon Dioxide 28.0 Anion Gap 6 BUN 16 Creatinine 0.65 L Estim Creat Clear Calc 63.88 Est GFR (MDRD) Af Amer 153 Est GFR (MDRD) Non-Af 126 BUN/Creatinine Ratio 24.5 H Glucose 98 Calcium 7.7 L POC Glucose 10/21/18 10/20/18 10/20/18 06:00 23:02 17:00 POC Glucose 107 105 114 H 10/20/18 12:10 POC Glucose 124 H Medical Necessity - Tobacco Use Smoking Status: Former smoker Tobacco Use: Non-smoker Assessment/Plan All Active Problems Acute tubular necrosis (Acute) Hyperkalemia (Acute) RECOMMENDATIONS: 1. Encourage incentive spirometer use and mobilize patient as tolerated. 2. Continue antibiotics per ID recommendations. 3. Dietary advancement per surgery recommendations. IMPRESSIONS: 1. Septic shock 2/2 intraabdominal and pulmonary infectious processes Resolved. The patient responded clinically to the use of broad-spectrum antimicrobials and vasopressors to maintain hemodynamic stability. The patient has defervesced and is no longer requiring vasopressor support. Broad-spectrum antimicrobials will be continued per the discretion of infectious diseases. 2. Acute hypoxemic respiratory failure/iatrogenic pneumothorax Improved. The patient did demonstrate findings concerning for underlying pneumonia on CT chest. There was also initial concern for potential aspiration event. Although the patient did initially require high amounts of FiO2 and PEEP, his mechanical ventilation requirements quickly de-escalated. He was able to be successfully extubated to nasal cannula supplemental oxygen on the morning of 10/16. He will remain on antimicrobials for underlying pulmonary infectious process. Chest tube was successfully removed on October 17. Encourage incentive spirometer use. Mobilize patient as tolerated. High clinical suspicion for an element of atelectasis that would be improved through incentive spirometer and out of bed as tolerated. 3. Acute abdomen/small bowel obstruction/appendicial perforation, now POD #7 s/p exploratory laparotomy and ileocecal resection Continue current supportive measures per general surgery recommendations. Patient was attempting breakfast this morning. Patient is reporting flatus, but no reported bowel movements. 4. Advanced age/hyperlipidemia/GERD Complicates care, management, recovery and prognosis. Okay to continue home medications as indicated. Physical therapy to work with the patient. Code Visit Inpatient E&M: 01159 Subs Hosp L2
[2018-10-21 11:51] LABS: Bedside Glucose 89 mg/dL (70-110)
--- NOTE | 2018-10-21 12:05 | CASEMGMT ---
MIREYA called [facility] and asked if they have looked at patient's information. She said she has not yet and will get back with MIREYA. Cris LEO MSW
--- NOTE | 2018-10-21 12:56 | PN.ID_ITS ---
Patient Problems: Active and Suspected Problems Acute tubular necrosis (Acute) Hyperkalemia (Acute) Subjective: Feeling ok, eating regular diet, no fever - Physical Exam General: Alert, Cooperative, No apparent distress Lungs: Clear to auscultation, Normal air movement Cardiovascular: Regular rate, Regular Rhythm Abdomen: Soft, Non Tender, Non-Distended Skin: No rashes Vital Signs Temp Pulse Resp BP Pulse Ox 98.5 F 89 14 134/61 H 95 10/21/18 09:20 10/21/18 09:20 10/21/18 09:20 10/21/18 09:20 10/21/18 09:20 Oxygen Flow Rate (L/min) 2 Oxygen Delivery Method Nasal Cannula Weight: 76.8 kg Body Mass Index (BMI) 21.9 Intake and Output for Last 24 Hours 10/19/18 10/20/18 10/21/18 23:59 23:59 23:59 Intake Total 2354.4 / 2354.4 994.3 / 994.3 440 / 440 Output Total 2950 / 2950 635 / 985 700 / 700 Balance -595.6 / -595.6 359.3 / 9.3 -260 / -260 Microbiology Past 72 Hours 10/14/18 15:50 Blood Culture - Final Blood Culture (Wb) - Anticubital Left No growth in 5 days. 10/14/18 16:00 Blood Culture - Final Blood Culture (Wb) - Right Hand No growth in 5 days. 10/16/18 01:35 Gram Stain - Final Sputum, Induced/Lukens Respiratory Culture - Final Yeast, not Mary Anne albicans Laboratory Tests Past 24 Hrs 10/21/18 10/21/18 04:55 04:55 WBC 9.0 RBC 2.73 L Hgb 8.8 L Hct 26.6 L MCV 97.4 H MCH 32.2 H MCHC 33.1 RDW Std Deviation 52.4 H RDW Coeff of Tristian 14.8 H Plt Count 150 MPV 10.7 Immature Gran % (Auto) 1.200 H Neut % (Auto) 85.2 H Lymph % (Auto) 6.4 L [place] % (Auto) 5.8 Eos % (Auto) 1.3 Baso % (Auto) 0.1 Absolute Neuts (auto) 7.6 Absolute Lymphs (auto) 0.57 L Nucleated RBC % 0 Differential Comment SCANNED Sodium 141 Potassium 3.6 Chloride 107 Carbon Dioxide 28.0 Anion Gap 6 BUN 16 Creatinine 0.65 L Estim Creat Clear Calc 63.88 Est GFR (MDRD) Af Amer 153 Est GFR (MDRD) Non-Af 126 BUN/Creatinine Ratio 24.5 H Glucose 98 Calcium 7.7 L POC Glucose 10/21/18 10/21/18 10/20/18 11:42 06:00 23:02 POC Glucose 89 107 105 10/20/18 17:00 POC Glucose 114 H Medical Necessity - Tobacco Use Smoking Status: Former smoker Tobacco Use: Non-smoker Route of nutrition/ use of supplements: [] Nutritional Intake: [] IV Site: [] Maguire Catheter: [] - Assessment/Plan Antibiotics: [] Assessment/Plan: [] Active and Suspected Problems Acute tubular necrosis (Acute) Hyperkalemia (Acute) septic shock with ruptured appendicitis, now s/p ileocecal resection by 10/14. Off pressors, ALEN improving, off vent. Will stop zosyn today. Wbc normal, no fever. Diet advance. Will follow as needed, please call with any ?s.
--- NOTE | 2018-10-21 13:59 | CASEMGMT ---
Received call from Lisa at [facility]. 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 MIREYA obtained answers to her questions and faxed them to [facility]. Cris ROSA
[2018-10-21] MEDS: Latanoprost 0.005% 1 Bottle 1 DRP RIGHT EYE (18:23)
[2018-10-21 18:46] LABS: Bedside Glucose 133 mg/dL (70-110)
[2018-10-22] VITALS (10 sets, daily range): BP systolic 123–128; BP diastolic 52–65; PULSE 80–103; RESP 16–18; TEMP 36.6–37.4; O2SAT 92–97
[2018-10-22 00:36] LABS: Bedside Glucose 132 mg/dL (70-110)
[2018-10-22 05:36] LABS: Bedside Glucose 113 mg/dL (70-110)
[2018-10-22] MEDS: 0.9% NaCl Peripheral Flush Adult/Peds IV ×5 (05:38→20:04)
--- NOTE | 2018-10-22 06:29 | PN.SURG_ITS ---
Patient Problems: Active and Suspected Problems Acute tubular necrosis (Acute) Hyperkalemia (Acute) Subjective: missed note 10/21 - bowel movement, tolerating clears - Physical Exam General: Alert, Oriented x3 Lungs: Rhonchi Cardiovascular: Regular rate, Regular Rhythm Abdomen: Bowel Sounds Present, Soft, Non Tender Vital Signs Temp Pulse Resp BP Pulse Ox 98.9 F 81 18 123/52 H 96 10/22/18 02:50 10/22/18 03:00 10/22/18 02:50 10/22/18 02:50 10/22/18 02:50 Oxygen Flow Rate (L/min) 2 Oxygen Delivery Method Nasal Cannula Weight: 76.8 kg Body Mass Index (BMI) 21.9 Intake and Output for Last 24 Hours 10/20/18 10/21/18 10/22/18 23:59 23:59 23:59 Intake Total 994.3 / 994.3 817 / 817 150.9 / 150.9 Output Total 635 / 985 1455 / 1455 300 / 300 Balance 359.3 / 9.3 -638 / -638 -149.1 / -149.1 Microbiology Past 72 Hours 10/14/18 15:50 Blood Culture - Final Blood Culture (Wb) - Anticubital Left No growth in 5 days. 10/14/18 16:00 Blood Culture - Final Blood Culture (Wb) - Right Hand No growth in 5 days. Laboratory Tests Past 24 Hrs 10/21/18 10/21/18 04:55 04:55 WBC 9.0 RBC 2.73 L Hgb 8.8 L Hct 26.6 L MCV 97.4 H MCH 32.2 H MCHC 33.1 RDW Std Deviation 52.4 H RDW Coeff of Tristian 14.8 H Plt Count 150 MPV 10.7 Immature Gran % (Auto) 1.200 H Neut % (Auto) 85.2 H Lymph % (Auto) 6.4 L [place] % (Auto) 5.8 Eos % (Auto) 1.3 Baso % (Auto) 0.1 Absolute Neuts (auto) 7.6 Absolute Lymphs (auto) 0.57 L Nucleated RBC % 0 Differential Comment SCANNED Sodium 141 Potassium 3.6 Chloride 107 Carbon Dioxide 28.0 Anion Gap 6 BUN 16 Creatinine 0.65 L Estim Creat Clear Calc 63.88 Est GFR (MDRD) Af Amer 153 Est GFR (MDRD) Non-Af 126 BUN/Creatinine Ratio 24.5 H Glucose 98 Calcium 7.7 L POC Glucose 10/22/18 10/22/18 10/21/18 05:28 00:33 18:19 POC Glucose 113 H 132 H 133 H 10/21/18 10/21/18 11:42 06:00 POC Glucose 89 107 Medical Necessity - Tobacco Use Smoking Status: Former smoker Tobacco Use: Non-smoker Assessment/Plan All Active Problems Acute tubular necrosis (Acute) Hyperkalemia (Acute) complicated perforated appendicitis postoperative day #7 status post ileocecal resection and drainage, aspiration pneumonia, septic shock neurologic-patient is currently being given narcotics for sedation. Currently comfortable. Respiratory-preoperative CT scan demonstrated fluid in the left mainstem and x- ray consistent with aspiration pneumonia. Patient initially required increasing FiO2 up to 100% overnight postoperatively. Currently oxygen saturation improving and FiO2 decreased to 30%. On broad-spectrum antibiotics for presumed aspiration. Right-sided pneumothorax status post attempted central line for right internal jugular line. Pneumocath placed. Postplacement chest x-ray demonstrated good reexpansion of lung. patient extubated yesterday. Now doing quite well on nasal cannula. Pneumocath removed with postprocedure chest x-ray without residual pneumothorax. Encourage incentive spirometry use.chest x-ray today demonstrates no signs of significant infiltrates. Cardiovascular-septic shock, tachycardic, off pressors for POD #2 GI-initial assumption was small bowel obstruction with mid small bowel transition point findings intraoperatively demonstrated jellylike material in the mid small bowel but actual problem was perforated appendicitis with adhesed loops of small bowel in the pelvis. Ileocecal resection performed. Risk for leakage due to need for pressors postoperatively. Anticipated longer postoperative ileus course due to above factors and fact that small bowel material may take longer to pass. Nasogastric tube placed intraoperatively. Nasogastric tube removed. KUB demonstrates no bowel obstructive pattern. patient doing well - We will start clear liquids today Renal-much improved urine output overnight - suspect acute tubular necrosis. BUN and creatinine improved to normal range. We'll continue supportive patient medically. Fluid, electrolytes, nutrition- will start clears. Infectious disease-patient with neglected perforated appendicitis resulting in complex pelvic abscess and significant inflammation requiring a ileocecal resection along with likely aspiration pneumonia. Zosyn given. We'll obtain cultures of patient's spikes fever-elevated white blood cell count Zosyn was given the nurse present. SCDs for VTE prophylaxis, Protonix for stress ulcer prophylaxis Social work for SNF placement for reconditioning likely early this week
--- NOTE | 2018-10-22 06:30 | PN.SURG_ITS ---
Patient Problems: Active and Suspected Problems Acute tubular necrosis (Acute) Hyperkalemia (Acute) Subjective: tolerated regular diet, multiple bowel movements - Physical Exam General: Alert, Oriented x3, Cooperative Lungs: Clear to auscultation, Normal air movement Cardiovascular: Regular rate, No murmurs Abdomen: Bowel Sounds Present, Soft, Non Tender, - - MARSHALL drain removed Vital Signs Temp Pulse Resp BP Pulse Ox 98.9 F 81 18 123/52 H 96 10/22/18 02:50 10/22/18 03:00 10/22/18 02:50 10/22/18 02:50 10/22/18 02:50 Oxygen Flow Rate (L/min) 2 Oxygen Delivery Method Nasal Cannula Weight: 76.8 kg Body Mass Index (BMI) 21.9 Intake and Output for Last 24 Hours 10/20/18 10/21/18 10/22/18 23:59 23:59 23:59 Intake Total 994.3 / 994.3 817 / 817 150.9 / 150.9 Output Total 635 / 985 1455 / 1455 300 / 300 Balance 359.3 / 9.3 -638 / -638 -149.1 / -149.1 Microbiology Past 72 Hours 10/14/18 15:50 Blood Culture - Final Blood Culture (Wb) - Anticubital Left No growth in 5 days. 10/14/18 16:00 Blood Culture - Final Blood Culture (Wb) - Right Hand No growth in 5 days. Laboratory Tests Past 24 Hrs 10/21/18 10/21/18 04:55 04:55 WBC 9.0 RBC 2.73 L Hgb 8.8 L Hct 26.6 L MCV 97.4 H MCH 32.2 H MCHC 33.1 RDW Std Deviation 52.4 H RDW Coeff of Tristian 14.8 H Plt Count 150 MPV 10.7 Immature Gran % (Auto) 1.200 H Neut % (Auto) 85.2 H Lymph % (Auto) 6.4 L [place] % (Auto) 5.8 Eos % (Auto) 1.3 Baso % (Auto) 0.1 Absolute Neuts (auto) 7.6 Absolute Lymphs (auto) 0.57 L Nucleated RBC % 0 Differential Comment SCANNED Sodium 141 Potassium 3.6 Chloride 107 Carbon Dioxide 28.0 Anion Gap 6 BUN 16 Creatinine 0.65 L Estim Creat Clear Calc 63.88 Est GFR (MDRD) Af Amer 153 Est GFR (MDRD) Non-Af 126 BUN/Creatinine Ratio 24.5 H Glucose 98 Calcium 7.7 L POC Glucose 10/22/18 10/22/18 10/21/18 05:28 00:33 18:19 POC Glucose 113 H 132 H 133 H 10/21/18 10/21/18 11:42 06:00 POC Glucose 89 107 Medical Necessity - Tobacco Use Smoking Status: Former smoker Tobacco Use: Non-smoker Assessment/Plan All Active Problems Acute tubular necrosis (Acute) Hyperkalemia (Acute) complicated perforated appendicitis postoperative day #8 status post ileocecal resection and drainage, aspiration pneumonia, septic shock neurologic-patient is currently being given narcotics for sedation. Currently comfortable. Respiratory-preoperative CT scan demonstrated fluid in the left mainstem and x- ray consistent with aspiration pneumonia. Patient initially required increasing FiO2 up to 100% overnight postoperatively. Currently oxygen saturation improving and FiO2 decreased to 30%. On broad-spectrum antibiotics for presumed aspiration. Right-sided pneumothorax status post attempted central line for right internal jugular line. Pneumocath placed. Postplacement chest x-ray demonstrated good reexpansion of lung. patient extubated yesterday. Now doing quite well on nasal cannula. Pneumocath removed with postprocedure chest x-ray without residual pneumothorax. Encourage incentive spirometry use.chest x-ray today demonstrates no signs of significant infiltrates. Cardiovascular-septic shock, tachycardic, off pressors for POD #2 GI-initial assumption was small bowel obstruction with mid small bowel transition point findings intraoperatively demonstrated jellylike material in the mid small bowel but actual problem was perforated appendicitis with adhesed loops of small bowel in the pelvis. Ileocecal resection performed. Risk for leakage due to need for pressors postoperatively. Anticipated longer postoperative ileus course due to above factors and fact that small bowel material may take longer to pass. Nasogastric tube placed intraoperatively. Nasogastric tube removed. KUB demonstrates no bowel obstructive pattern. patient doing well - We will start clear liquids today Renal-much improved urine output overnight - suspect acute tubular necrosis. BUN and creatinine improved to normal range. We'll continue supportive patient medically. Fluid, electrolytes, nutrition- will start clears. Infectious disease-patient with neglected perforated appendicitis resulting in complex pelvic abscess and significant inflammation requiring a ileocecal resection along with likely aspiration pneumonia. Zosyn given. We'll obtain cultures of patient's spikes fever-elevated white blood cell count Zosyn was given the nurse present. SCDs for VTE prophylaxis, Protonix for stress ulcer prophylaxis Social work for SNF placement for reconditioning, possibly today
[2018-10-22 07:31] LABS: Hematocrit 24.4 % (40-54); Hemoglobin 8.3 g/dL (13.0-16.5); Mean Corpuscular Hgb 33.1 pg (27.0-32.0); Mean Corpuscular Volume 97.2 fL (80-94); Mean Platelet Vol. 10.4 fl (6.2-12.0); Platelet Count 180 K/mm3 (150-450); RBC Distribution Width CV 15.2 % (11.6-14.6); RBC Distribution Width SD 53.5 fl (35.1-43.9); Red Blood Count 2.51 M/mm3 (4.6-6.2); White Blood Count 7.7 K/mm3 (4.4-11.0)
[2018-10-22 07:46] LABS: ALB/GLOB Ratio 0.3 RATIO (0.9-2.4); AST(SGOT) 44 U/L (15-37); Alanine Aminotransfer ALT/SGPT 121 U/L (16-61); Albumin, Serum 1.4 g/dL (3.2-5.0); Alkaline Phosphatase 80 U/L (45-117); Anion Gap 4 (5-15); BUN 17 mg/dL (7-18); BUN/Creat Ratio 28.2 RATIO (10-20); Calcium,Total 7.6 mg/dL (8.5-10.1); Chloride 109 mmol/L (98-107); EST Glomerular Filtration Rate 138 mL/min (>60); Est Glom Filt Rate - Afr Amer 167 mL/min (>60); Estimated Creatinine Clearance 63.88 ml/min; Globulin 4.2 g/dL (2.2-4.2); Glucose 123 mg/dL (74-106); Phosphorus 1.9 mg/dL (2.5-4.9); Potassium 3.7 mmol/L (3.5-5.1); Protein, Total 5.6 g/dL (6.4-8.2); Sodium Level 140 mmol/L (136-145)
--- NOTE | 2018-10-22 08:18 | PN_ITS ---
Patient Problems: Active and Suspected Problems Acute tubular necrosis (Acute) Hyperkalemia (Acute) - Physical Exam General: Alert, Oriented x3, Cooperative, No apparent distress, - - Appears stated age HEENT: Atraumatic, Normocephalic, - - No change in eyes Oral: Moist Mucosa, No Gingival or Mucosal Lesions/ Ulcerations Neck: Supple, No JVD, No Nodes, Trachea Midline Lungs: No rhonchi, No wheeze, No rales, Diminished Cardiovascular: Regular rate, Regular Rhythm, Normal S1, Normal S2, No murmurs, No rub noted, No Gallop Abdomen: Bowel Sounds Present, Soft, Non Tender, Non-Distended Extremities: No clubbing, No cyanosis, No edema, Capillary Refill Less than 3 Seconds Skin: No rashes, No breakdown Musculoskeletal: No Tenderness to Palpation of Joints or Extremities Lymphatic: No Cervical, Supraclavicular, or Inguinal Adenopathy Neurological: Neuro grossly intact, Motor Exam 5/5 strength throughout Psych/Mental Status: Alert and oriented to time, place, person, mood and affect Vital Signs Temp Pulse Resp BP Pulse Ox 37.2 C 81 18 123/52 H 96 10/22/18 02:50 10/22/18 06:59 10/22/18 02:50 10/22/18 02:50 10/22/18 02:50 Oxygen Flow Rate (L/min) 2 Oxygen Delivery Method Nasal Cannula Weight: 76.4 kg Body Mass Index (BMI) 21.9 Intake and Output for Last 24 Hours 10/20/18 10/21/18 10/22/18 23:59 23:59 23:59 Intake Total 994.3 / 994.3 817 / 817 150.9 / 150.9 Output Total 635 / 985 1455 / 1455 300 / 300 Balance 359.3 / 9.3 -638 / -638 -149.1 / -149.1 Microbiology Past 72 Hours 10/14/18 15:50 Blood Culture - Final Blood Culture (Wb) - Anticubital Left No growth in 5 days. 10/14/18 16:00 Blood Culture - Final Blood Culture (Wb) - Right Hand No growth in 5 days. Laboratory Tests Past 24 Hrs 10/22/18 10/22/18 07:14 07:14 WBC 7.7 RBC 2.51 L Hgb 8.3 L Hct 24.4 L MCV 97.2 H MCH 33.1 H MCHC 34.0 RDW Std Deviation 53.5 H RDW Coeff of Tristian 15.2 H Plt Count 180 MPV 10.4 Sodium 140 Potassium 3.7 Chloride 109 H Carbon Dioxide 27.0 Anion Gap 4 L BUN 17 Creatinine 0.60 L Estim Creat Clear Calc 63.88 Est GFR (MDRD) Af Amer 167 Est GFR (MDRD) Non-Af 138 BUN/Creatinine Ratio 28.2 H Glucose 123 H Calcium 7.6 L Phosphorus 1.9 L Magnesium 2.0 Total Bilirubin 0.60 AST 44 H ALT 121 H Alkaline Phosphatase 80 Total Protein 5.6 L Albumin 1.4 L Globulin 4.2 Albumin/Globulin Ratio 0.3 L POC Glucose 10/22/18 10/22/18 10/21/18 05:28 00:33 18:19 POC Glucose 113 H 132 H 133 H 10/21/18 11:42 POC Glucose 89 Medical Necessity - Tobacco Use Smoking Status: Former smoker Tobacco Use: Non-smoker Assessment/Plan All Active Problems Acute tubular necrosis (Acute) Hyperkalemia (Acute) RECOMMENDATIONS: 1. Encourage incentive spirometer use and mobilize patient as tolerated. 2. Continue antibiotics per ID recommendations. 3. Dietary advancement per surgery recommendations. 4. May require supplemental oxygen on discharge IMPRESSIONS: 1. Septic shock 2/2 intraabdominal and pulmonary infectious processes Resolved. The patient responded clinically to the use of broad-spectrum antimicrobials and vasopressors to maintain hemodynamic stability. The patient has defervesced and is no longer requiring vasopressor support. Defer antibiotic plan to infectious disease. 2. Acute hypoxemic respiratory failure/iatrogenic pneumothorax Improved. The patient did demonstrate findings concerning for underlying pneumonia on CT chest. There was also initial concern for potential aspiration event. Although the patient did initially require high amounts of FiO2 and PEEP, his mechanical ventilation requirements quickly de-escalated. He was able to be successfully extubated to nasal cannula supplemental oxygen on the morning of 10/16. He will remain on antimicrobials for underlying pulmonary infectious process. Chest tube was successfully removed on October 17. Encourage incentive spirometer use. Mobilize patient as tolerated. High clinical suspicion for an element of atelectasis that would be improved through incentive spirometer and out of bed as tolerated. Patient may require supplemental oxygen for short period of time following discharge. Okay to discharge from pulmonary perspective for rehab as noted in the notes. 3. Acute abdomen/small bowel obstruction/appendicial perforation, now POD #8 s/p exploratory laparotomy and ileocecal resection Continue current supportive measures per general surgery recommendations. Patient was attempting breakfast this morning. Patient is reporting flatus, but no reported bowel movements. 4. Advanced age/hyperlipidemia/GERD Complicates care, management, recovery and prognosis. Okay to continue h ome medications as indicated. Physical therapy to work with the patient. Code Visit Inpatient E&M: 64328 Subs Hosp L2
--- NOTE | 2018-10-22 09:31 | CASEMGMT ---
MIREYA faxed updates labs to [facility]. Cris LEO COIL CLEANER
[2018-10-22] MEDS: Pantoprazole Sodium 40 MG Tablet PO ×2 (09:36→22:34)
[2018-10-22] MEDS: Dorzolamide HCL/Timolol 10 ml Bottle 1 DRP RIGHT EYE ×2 (09:36→20:03)
--- NOTE | 2018-10-22 11:00 | CASEMGMT ---
Received a call from Lisa at [facility]. She had a question about patient's AST result as the fax blurred the number. MIREYA told her it was 44. She said they should be okay to take patient today and to let them know when he is coming. She asked that MIREYA fax surgeon's note from today and any updated PT/OT notes. MIREYA faxed this information. MIREYA received another phone call from Lisa at [facility]. She said they are concerned about patient's hemoglobin as it is trending down. They would like to know the physician's recommendations. After awhile MIREYA let Dr Sparks know patient can go to [facility] today. He came up and completed paperwork and put in the d/c order. MIREYA told him [facility] is concerned about the hemoglobin going down. He said this is normal after the procedure he performed on patient. He is not concerned and is not going to do anything differently. MIREYA called Lisa at [facility] and let her know this information. She said their facility will not accept him today and would like to wait until tomorrow to see his hemoglobin. MIREYA called [facility] patient's second choice and they do not have any beds available. MIREYA notified hospitalist, devulcanizer charger, and patient's RN. MIREYA spoke with patient and let him know above information. He asked that SW notify his . MIREYA attempted to call his , but she was unavailable. MIREYA will continue to try and reach her. Plan: [facility] hopefully tomorrow as long as they agree to accept and if not we may have to look at a 3rd option. Cris LEO PHOTONICS ENGINEER
[2018-10-22 11:51] LABS: Bedside Glucose 142 mg/dL (70-110)
--- NOTE | 2018-10-22 13:21 | TREXTCAR_ITS ---
- Diet 10/21/18 06:34 Diet: Regular Diet Is pt able to select menu?: Yes - Routine Orders/Code Status Routine Lab Work: CBC - on Sunday - Wound(s) abd Wound Type: Surgical Incision Right chest Wound Type: Puncture RLQ Wound Type: Puncture - Therapies Physical Therapy: Eval and Treat Occupational Therapy: Eval and Treat - Problem/Diagnosis (1) Sepsis Status: Acute Current Visit: Yes - Allergies/Procedures Done in Hospital Allergies/Adverse Reactions: Allergies ciprofloxacin [From Cipro] Allergy (Verified 10/14/18 11:53) Hives Procedures: - - ileocecal resection, right chest tube - Type of Care/Length of Stay Estimated LOS: Convalescent Care Less Than 30 days Type of Care Needed: Skilled Rehab Potential: Good Prognosis: Good - Additional Orders/Day of Discharge H&P will serve as current which was dated: 10/14/18 Day of Discharge: 10/22/18 - Dietary and Speech Recommendations Dietitian Recommendations/Changes: Rec diet change to transitional diet as tolerated- consistency per CLIENT EXPERIENCE CONSULTANT. Will order ensure enlive w/ medpass for increased nutrition if consumed. calorie counts - Follow Up Care Primary Care Physician: Colin Castillo Chi, MD [Primary Care Provider] - Please Follow Up With: Jose Sparks MD When: one week
--- NOTE | 2018-10-22 14:51 | CASEMGMT ---
After talking back and forth with [facility]. They expressed concern with patient's hemoglobin dropping. MIREYA spoke with Dr Sparks the surgeon and he said this is normal for patient after the procedure her had done. He has no concerns and is not going to do anything differently for patient. MIREYA called [facility] and spoke with Lisa letting her know this information. She said their facility will not accept him today and would like to wait until tomorrow to see his hemoglobin. MIREYA called [facility] patient's second choice and they do not have any beds available. MIREYA notified hospitalist. Plan: [facility] hopefully tomorrow as long as they agree to accept and if not we may have to look at a 3rd option. Cris LEO PHYSICIAN ANESTHESIOLOGIST
--- NOTE | 2018-10-22 15:42 | CASEMGMT ---
MIREYA called patient's letting her know about [facility] and that plan is for tomorrow hopefully. Plan: [facility] as long as they are fine with his hemoglobin. However, if they are not and there is nothing further we are doing for patient MIREYA will obtain a 3rd choice from patient and his . Cris LEO MSW
[2018-10-22] MEDS: Latanoprost 0.005% 1 Bottle 1 DRP RIGHT EYE (20:02)
--- NOTE | 2018-10-22 20:11 | PCM.PROGNOTE ---
Patient Problems: Active and Suspected Problems Acute tubular necrosis (Acute) Hyperkalemia (Acute) Sepsis (Acute) Subjective: All events of the past 24 hours been reviewed. Discharge orders were placed by Dr. Sparks today however the residential refused to take the patient until the lab was rechecked in the a.m. He had to be straight cathed today for urine retention and had 600 cc output with the straight cath. He later felt the need to void and had 380 cc in his bladder and was able to void 350 cc with a residual of 30 cc. He tells me he has no problem with urinary hesitancy, slow stream or frequency at home. He denies dysuria currently. He tells me his pain is adequately controlled. Hemoglobin today is 8.3, down from 8.8 yesterday. Platelets are within normal limits and the white blood cell count is also normal. BMP is unremarkable and the creatinine is stable at 0.6. Phosphorus was low at 1.9 and supplementation was ordered earlier today. The albumin is down to 1.4. He states his pain is adequately controlled. He denies chest pain, shortness of breath, palpitations, nausea, vomiting. 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 Abdomen: Bowel Sounds Present, Soft, Distended - Mildly Extremities: No clubbing, No cyanosis, No Calf Tenderness, Peripheral Pulses Normal, - - His R arm is swollen from the shoulder to the hand.....it is warmer to touch than the Left upper arm. He has a midline on the left. Right upper extremity ultrasound was negative for DVT yesterday. Skin: No rashes Neurological: Cranial nerves II-XII grossly intact, Neuro grossly intact Psych/Mental Status: Normal Affect, Appropriate - Physical Exam Vital Signs Temp Pulse Resp BP Pulse Ox 99.4 F H 81 18 128/57 H 95 10/22/18 20:00 10/22/18 20:00 10/22/18 20:00 10/22/18 20:00 10/22/18 20:00 Oxygen Flow Rate (L/min) 2 Oxygen Delivery Method Nasal Cannula Weight: 168 lb 6.931 oz Body Mass Index (BMI) 21.9 Intake and Output for Last 24 Hours 10/20/18 10/21/18 10/22/18 23:59 23:59 23:59 Intake Total 994.3 / 994.3 817 / 817 1224.2333 / 1224.2333 Output Total 635 / 985 1455 / 1455 750 / 750 Balance 359.3 / 9.3 -638 / -763 582.2932 / 474.2333 Microbiology Past 72 Hours 10/14/18 15:50 Blood Culture - Final Blood Culture (Wb) - Anticubital Left No growth in 5 days. 10/14/18 16:00 Blood Culture - Final Blood Culture (Wb) - Right Hand No growth in 5 days. Laboratory Tests Past 24 Hrs 10/22/18 10/22/18 07:14 07:14 WBC 7.7 RBC 2.51 L Hgb 8.3 L Hct 24.4 L MCV 97.2 H MCH 33.1 H MCHC 34.0 RDW Std Deviation 53.5 H RDW Coeff of Tristian 15.2 H Plt Count 180 MPV 10.4 Sodium 140 Potassium 3.7 Chloride 109 H Carbon Dioxide 27.0 Anion Gap 4 L BUN 17 Creatinine 0.60 L Estim Creat Clear Calc 63.88 Est GFR (MDRD) Af Amer 167 Est GFR (MDRD) Non-Af 138 BUN/Creatinine Ratio 28.2 H Glucose 123 H Calcium 7.6 L Phosphorus 1.9 L Magnesium 2.0 Total Bilirubin 0.60 AST 44 H ALT 121 H Alkaline Phosphatase 80 Total Protein 5.6 L Albumin 1.4 L Globulin 4.2 Albumin/Globulin Ratio 0.3 L POC Glucose 10/22/18 10/22/18 10/22/18 11:35 05:28 00:33 POC Glucose 142 H 113 H 132 H Medical Necessity - Tobacco Use Smoking Status: Former smoker Tobacco Use: Non-smoker Assessment/Plan All Active Problems Acute tubular necrosis (Acute) Hyperkalemia (Acute) Sepsis (Acute) Day #8 Zosyn Postoperative day #7 Impressions 1. Small bowel obstruction: Taken to surgery on 10/14/[address] Bridger laparotomy with ileocecal resection. Small bowel loops were adherent to a pelvic abscess that resulted from perforation of the appendix. 10/21/2018 he has had 2 bowel movements and remains on clear liquids with plans to advance as tolerated. 2. Acute hypoxic respiratory failure secondary to aspiration pneumonia. Extubated on 10/16/2018 3. Septic shock secondary to aspiration pneumonia and intra-abdominal/pelvic abscess with perforated appendix. 4. Acute kidney injury on chronic renal failure stage III secondary to ATN from hypovolemia and septic shock -resolved 5. Iatrogenic large right-sided pneumothorax following insertion of triple-lumen catheter Chest tube discontinued on 10/18/2018 6. Acute transaminitis 7. GERD 8. Acute anemia secondary to acute blood loss following surgery 9. Glucose intolerance with hemoglobin A1c of 6.5, blood sugars are very well controlled....... will continue to monitor until his diet is advanced and if they all remain under 190 we will likely discontinue Accu-Cheks at that time. 10. Glaucoma Recheck the lab in the AM DC [id number] is not diabetic..... The elevated blood sugars while in the intensive care unit were likely secondary to stress dose steroids and septic shock Add Flomax to the drug regimen Code Visit Inpatient E&M: 59854 Subs Hosp L2
[2018-10-22] MEDS: Tamsulosin HCl 0.4 MG Capsule PO (22:34)
[2018-10-22 23:20] LABS: Bedside Glucose 121 mg/dL (70-110)
[2018-10-23] VITALS (9 sets, daily range): BP systolic 111–128; BP diastolic 49–102; PULSE 86–94; RESP 16–18; TEMP 36.7–37.7; O2SAT 93–96
[2018-10-23] LABS: Bedside Glucose 133 mg/dL (70-110)
[2018-10-23] MEDS: 0.9% NaCl Peripheral Flush Adult/Peds IV ×3 (05:01→05:04)
[2018-10-23 05:39] LABS: Hematocrit 25.4 % (40-54); Hemoglobin 8.2 g/dL (13.0-16.5); Mean Corp Hgb Conc 32.3 g/dL (32-36); Mean Corpuscular Hgb 31.9 pg (27.0-32.0); Mean Corpuscular Volume 98.8 fL (80-94); Mean Platelet Vol. 10.7 fl (6.2-12.0); Platelet Count 189 K/mm3 (150-450); RBC Distribution Width CV 15.1 % (11.6-14.6); RBC Distribution Width SD 54.4 fl (35.1-43.9); Red Blood Count 2.57 M/mm3 (4.6-6.2)
[2018-10-23 05:52] LABS: Anion Gap 6 (5-15); BUN 13 mg/dL (7-18); BUN/Creat Ratio 22.2 RATIO (10-20); Calcium,Total 7.6 mg/dL (8.5-10.1); Chloride 108 mmol/L (98-107); Creatinine, Serum 0.59 mg/dL (0.70-1.30); EST Glomerular Filtration Rate 143 mL/min (>60); Est Glom Filt Rate - Afr Amer 172 mL/min (>60); Estimated Creatinine Clearance 63.88 ml/min; Glucose 148 mg/dL (74-106); Phosphorus 2.4 mg/dL (2.5-4.9); Potassium 3.9 mmol/L (3.5-5.1); Sodium Level 140 mmol/L (136-145)
--- NOTE | 2018-10-23 08:55 | PN_ITS ---
Patient Problems: Active and Suspected Problems Acute tubular necrosis (Acute) Hyperkalemia (Acute) Sepsis (Acute) Subjective: Patient did well overnight. Patient does believe that his activity tolerance is improving. Patient remains on 2 L nasal cannula to maintain appropriate saturations. Temperature was documented a little elevated overnight, but patient denies any subjective symptomatology that is new. - Physical Exam General: Alert, Oriented x3, Cooperative, No apparent distress, Well developed, Well nourished, - - No conversational dyspnea. HEENT: Atraumatic, Normocephalic Oral: Moist Mucosa, No Gingival or Mucosal Lesions/ Ulcerations Neck: Supple, No JVD, No Nodes, Trachea Midline Lungs: No rhonchi, No wheeze, No rales, Diminished Cardiovascular: Regular rate, Regular Rhythm, Normal S1, Normal S2, No murmurs, No rub noted, No Gallop Abdomen: Bowel Sounds Present, Soft, Non Tender, Non-Distended Extremities: No clubbing, No cyanosis, Edema - Trace Skin: - - No significant change compared to previous Musculoskeletal: No Tenderness to Palpation of Joints or Extremities, No Muscle Wasting Lymphatic: No Cervical, Supraclavicular, or Inguinal Adenopathy Neurological: Cranial nerves II-XII grossly intact, Neuro grossly intact, Motor Exam 5/5 strength throughout Psych/Mental Status: Alert and oriented to time, place, person, mood and affect Vital Signs Temp Pulse Resp BP Pulse Ox 36.9 C 88 16 125/51 H 96 10/23/18 08:46 10/23/18 08:46 10/23/18 08:46 10/23/18 08:46 10/23/18 08:46 Oxygen Flow Rate (L/min) 2 Oxygen Delivery Method Nasal Cannula Weight: 72.9 kg Body Mass Index (BMI) 21.9 Intake and Output for Last 24 Hours 10/21/18 10/22/18 10/23/18 23:59 23:59 23:59 Intake Total 817 / 817 1344.2333 / 1344.2333 120 / 120 Output Total 1455 / 1455 1125 / 1125 500 / 500 Balance -638 / -629 852.3526 / 219.2333 -380 / -380 Microbiology Past 72 Hours 10/14/18 15:50 Blood Culture - Final Blood Culture (Wb) - Anticubital Left No growth in 5 days. 10/14/18 16:00 Blood Culture - Final Blood Culture (Wb) - Right Hand No growth in 5 days. Laboratory Tests Past 24 Hrs 10/23/18 10/23/18 05:22 05:22 WBC 8.0 RBC 2.57 L Hgb 8.2 L Hct 25.4 L MCV 98.8 H MCH 31.9 MCHC 32.3 RDW Std Deviation 54.4 H RDW Coeff of Tristian 15.1 H Plt Count 189 MPV 10.7 Sodium 140 Potassium 3.9 Chloride 108 H Carbon Dioxide 26.0 Anion Gap 6 BUN 13 Creatinine 0.59 L Estim Creat Clear Calc 63.88 Est GFR (MDRD) Af Amer 172 Est GFR (MDRD) Non-Af 143 BUN/Creatinine Ratio 22.2 H Glucose 148 H Calcium 7.6 L Phosphorus 2.4 L POC Glucose 10/22/18 10/22/18 10/22/18 23:57 19:56 11:35 POC Glucose 133 H 121 H 142 H Medical Necessity - Tobacco Use Smoking Status: Former smoker Tobacco Use: Non-smoker Assessment/Plan All Active Problems Acute tubular necrosis (Acute) Hyperkalemia (Acute) Sepsis (Acute) RECOMMENDATIONS: 1. Encourage incentive spirometer use and mobilize patient as tolerated. 2. Continue antibiotics per ID recommendations. 3. Dietary advancement per surgery recommendations. 4. May require supplemental oxygen on discharge 5. Patient can follow-up 2 weeks after discharge from rehab for evaluation of lung function and oxygenation status IMPRESSIONS: 1. Septic shock 2/2 intraabdominal and pulmonary infectious processes Resolved. The patient responded clinically to the use of broad-spectrum antimicrobials and vasopressors to maintain hemodynamic stability. The patient has defervesced and is no longer requiring vasopressor support. Defer antibio tic plan to infectious disease. 2. Acute hypoxemic respiratory failure/iatrogenic pneumothorax Improved. The patient did demonstrate findings concerning for underlying pneumonia on CT chest. There was also initial concern for potential aspiration event. Although the patient did initially require high amounts of FiO2 and PEEP, his mechanical ventilation requirements quickly de-escalated. He was able to be successfully extubated to nasal cannula supplemental oxygen on the morning of 10/16. He will remain on antimicrobials for underlying pulmonary infectious process. Chest tube was successfully removed on October 17. Encourage incentive spirometer use. Mobilize patient as tolerated. High clinical suspicion for an element of atelectasis that would be improved through incentive spirometer and out of bed as tolerated. Patient may require supplemental oxygen for short period of time following discharge. Okay to discharge from pulmonary perspective for rehab as noted in the notes. Patient can follow-up 2 weeks after discharge in our office with nurse practitioner. Complete PFT and formal walking oximetry can be completed at that time. 3. Acute abdomen/small bowel obstruction/appendicial perforation, now POD #9 s/p exploratory laparotomy and ileocecal resection Continue current supportive measures per general surgery recommendations. Patient tolerating p.o. diet. 4. Advanced age/hyperlipidemia/GERD Complicates care, management, recovery and prognosis. Okay to continue home medications as indicated. Physical therapy to work with the patient. Code Visit Inpatient E&M: 45724 Subs Hosp L2
[2018-10-23] MEDS: Pantoprazole Sodium 40 MG Tablet PO (09:07)
[2018-10-23] MEDS: Dorzolamide HCL/Timolol 10 ml Bottle 1 DRP RIGHT EYE (09:07)
--- NOTE | 2018-10-23 11:33 | PN.SURG_ITS ---
Patient Problems: Active and Suspected Problems Acute tubular necrosis (Acute) Hyperkalemia (Acute) Sepsis (Acute) Subjective: no complaints. drank 2 cans of ensure, appetite good eating marginally - Physical Exam General: Alert, Oriented x3, Cooperative Lungs: Clear to auscultation, Normal air movement Cardiovascular: Regular rate, Regular Rhythm Abdomen: Bowel Sounds Present, Soft, Non Tender Vital Signs Temp Pulse Resp BP Pulse Ox 98.4 F 88 16 125/51 H 96 10/23/18 08:46 10/23/18 08:46 10/23/18 08:55 10/23/18 08:46 10/23/18 08:46 Oxygen Flow Rate (L/min) 1 Oxygen Delivery Method Nasal Cannula Weight: 72.9 kg Body Mass Index (BMI) 21.9 Intake and Output for Last 24 Hours 10/21/18 10/22/18 10/23/18 23:59 23:59 23:59 Intake Total 817 / 817 1344.2333 / 1344.2333 120 / 120 Output Total 1455 / 1455 1125 / 1125 500 / 500 Balance -638 / -828 730.2660 / 219.2333 -380 / -380 Microbiology Past 72 Hours 10/14/18 15:50 Blood Culture - Final Blood Culture (Wb) - Anticubital Left No growth in 5 days. 10/14/18 16:00 Blood Culture - Final Blood Culture (Wb) - Right Hand No growth in 5 days. Laboratory Tests Past 24 Hrs 10/23/18 10/23/18 05:22 05:22 WBC 8.0 RBC 2.57 L Hgb 8.2 L Hct 25.4 L MCV 98.8 H MCH 31.9 MCHC 32.3 RDW Std Deviation 54.4 H RDW Coeff of Tristian 15.1 H Plt Count 189 MPV 10.7 Sodium 140 Potassium 3.9 Chloride 108 H Carbon Dioxide 26.0 Anion Gap 6 BUN 13 Creatinine 0.59 L Estim Creat Clear Calc 63.88 Est GFR (MDRD) Af Amer 172 Est GFR (MDRD) Non-Af 143 BUN/Creatinine Ratio 22.2 H Glucose 148 H Calcium 7.6 L Phosphorus 2.4 L POC Glucose 10/22/18 10/22/18 10/22/18 23:57 19:56 11:35 POC Glucose 133 H 121 H 142 H Medical Necessity - Tobacco Use Smoking Status: Former smoker Tobacco Use: Non-smoker Assessment/Plan All Active Problems Acute tubular necrosis (Acute) Hyperkalemia (Acute) Sepsis (Acute) complicated perforated appendicitis postoperative day #9 status post ileocecal resection and drainage, aspiration pneumonia, septic shock neurologic-patient is currently being given narcotics for sedation. Currently comfortable. Respiratory-preoperative CT scan demonstrated fluid in the left mainstem and x- ray consistent with aspiration pneumonia. Patient initially required increasing FiO2 up to 100% overnight postoperatively. Currently oxygen saturation improving and FiO2 decreased to 30%. On broad-spectrum antibiotics for presumed aspiration. Right-sided pneumothorax status post attempted central line for right internal jugular line. Pneumocath placed. Postplacement chest x-ray demonstrated good reexpansion of lung. patient extubated yesterday. Now doing quite well on nasal cannula. Pneumocath removed with postprocedure chest x-ray without residual pneumothorax. Encourage incentive spirometry use.chest x-ray today demonstrates no signs of significant infiltrates. Cardiovascular-septic shock, tachycardic, off pressors for POD #2 GI-initial assumption was small bowel obstruction with mid small bowel transition point findings intraoperatively demonstrated jellylike material in the mid small bowel but actual problem was perforated appendicitis with adhesed loops of small bowel in the pelvis. Ileocecal resection performed. Risk for leakage due to need for pressors postoperatively. Anticipated longer postoperative ileus course due to above factors and fact that small bowel material may take longer to pass. Nasogastric tube placed intraoperatively. Nasogastric tube removed. KUB demonstrates no bowel obstructive pattern. patient doing well - We will start clear liquids today Renal-much improved urine output overnight - suspect acute tubular necrosis. BUN and creatinine improved to normal range. We'll continue supportive patient medically. Fluid, electrolytes, nutrition- will start clears.anticipated decreased hemoglobin is likely dilutional. Patient asymptomatic would not recommend transfusion at this time. Infectious disease-patient with neglected perforated appendicitis resulting in complex pelvic abscess and significant inflammation requiring a ileocecal resection along with likely aspiration pneumonia. Zosyn given. We'll obtain cultures of patient's spikes fever-elevated white blood cell count Zosyn was given the nurse present. SCDs for VTE prophylaxis, Protonix for stress ulcer prophylaxis Social work for SNF placement for reconditioning, possibly today
--- NOTE | 2018-10-23 12:53 | CASEMGMT ---
Pt is ready for discharge today, and the [facility] transitional unit can take pt. SW spoke w/pt, let him know he was accepted and can to to [facility] today. SW inquired if his may be able to take him over, he is not certain as he is on oxygen at present--and he is not normally on oxygen. SW spoke w/RN, he tested pt, he does not need O2. SW spoke w/pt again, explained will speak w/ since he does not need oxygen, to see if she can transport him. SW called Libby Odom. SW let her know that pt can go to the [facility] transitional unit today. SW explained he is off oxygen, asked if she can transport him. SW reviewed PT notes w/. She does feel she can transport him, SW let her know that after 2pm would work. SW also explained that we can help him into the car here, and [facility] can help him out over there. states understanding . She may come up to the room or just call from downstairs to have us bring him down. SW also gave the number to the [facility] transitional unit to call when she gets there, so they can come help him out of the car. SW let pt know called , she will be here about 2pm or so. SW asked if he wants to get dressed before going. He does not have any clothing here, but decided it would just be easier to go over in a hospital gown. SW explained we can help him into the car here, and they can help him out over at [facility]. Pt states understanding. SW faxed discharge instructions to [facility] transitional unit. SW called and let them know pt will be leaving after 2pm. SW also let them know pt will need help out of the care, they confirmed are able to assist. SW let RN here know pt will be leaving after 2pm and will be picking pt up, she may come up to the room or call from the front of the building to have pt brought down. No further needs, pt to [facility] transitional unit today. LATANYA Paul
--- NOTE | 2018-10-24 08:38 | DS.PCM_ITS ---
Discharge Date and Diagnosis Date of Admission: 10/14/18 Date of Discharge: 10/23/18 - Secondary Discharge Diagnosis Chronic Problems sepsis, Aspiration pneumonia Advanced missed appendicitis Sirs Acute kidney injury superimposed on chronic kidney disease (Chronic) Hospital Course and Treatment Operations: colectomy Summary of Care Provided: The patient is a 78 year old M who presented with a picture of mid small bowel obstruction without previous abdominal surgery,sepsis, septic shock, and aspiration pneumonia. He was emergently brought to the operating suite and underwent exploratory laparotomy with findings that turned out to be advanced perforated appendicitis with diffuse purulent peritonitis. After releasing the adhesive small bowel in the pelvis the patient was noted to have a large abscess cavity and significant inflammation with a palpable inflamed mass concerning for advanced phlegmon versus cecal mass. An ileal cecal resection was performed. The patient required intubation and high-dose pressors with 100% FiO2 and high airway pressures postoperative day 1-2. The patient steadily clinically improved with the following body system notations: complicated perforated appendicitis postoperative day #9 status post ileocecal resection and drainage, aspiration pneumonia, septic shock neurologic-patient is currently being given narcotics for sedation. Currently comfortable. Respiratory-preoperative CT scan demonstrated fluid in the left mainstem and x- ray consistent with aspiration pneumonia. Patient initially required increasing FiO2 up to 100% overnight postoperatively. Currently oxygen saturation improving and FiO2 decreased to 30%. On broad-spectrum antibiotics for presumed aspiration. Right-sided pneumothorax status post attempted central line for right internal jugular line. Pneumocath placed. Postplacement chest x-ray demonstrated good reexpansion of lung. patient extubated yesterday. Now doing quite well on nasal cannula. Pneumocath removed with postprocedure chest x-ray without residual pneumothorax. Encourage incentive spirometry use.chest x-ray today demonstrates no signs of significant infiltrates. Cardiovascular-septic shock, tachycardic, off pressors for POD #2 GI-initial assumption was small bowel obstruction with mid small bowel transition point findings intraoperatively demonstrated jellylike material in the mid small bowel but actual problem was perforated appendicitis with adhesed loops of small bowel in the pelvis. Ileocecal resection performed. Risk for leakage due to need for pressors postoperatively. Anticipated longer postoperative ileus course due to above factors and fact that small bowel material may take longer to pass. Nasogastric tube placed intraoperatively. Nasogastric tube removed. KUB demonstrates no bowel obstructive pattern. patient doing well - We will start clear liquids today Renal-much improved urine output overnight - suspect acute tubular necrosis. BUN and creatinine improved to normal range. We'll continue supportive patient medically. Fluid, electrolytes, nutrition- will start clears.anticipated decreased hemoglobin is likely dilutional. Patient asymptomatic would not recommend transfusion at this time. Infectious disease-patient with neglected perforated appendicitis resulting in complex pelvic abscess and significant inflammation requiring a ileocecal resection along with likely aspiration pneumonia. Zosyn given. We'll obtain cultures of patient's spikes fever-elevated white blood cell count Zosyn was given the nurse present. SCDs for VTE prophylaxis, Protonix for stress ulcer prophylaxis Social work for SNF placement for reconditioning, - Physical Exam General: Alert, Oriented x3, Cooperative Lungs: Clear to auscultation, Normal air movement Cardiovascular: Regular rate, No murmurs Abdomen: Bowel Sounds Present, Soft, Non Tender Vital Signs Temp Pulse Resp BP Pulse Ox 98.0 F 91 16 111/49 L 93 10/23/18 13:57 10/23/18 13:57 10/23/18 13:57 10/23/18 13:57 10/23/18 13:57 Oxygen Flow Rate (L/min) 1 Oxygen Delivery Method Room Air Weight: 72.9 kg Body Mass Index (BMI) 21.9 Intake and Output for Last 24 Hours 10/22/18 10/23/18 10/24/18 23:59 23:59 23:59 Intake Total 1344.2333 / 1344.2333 120 / 120 Output Total 1125 / 1125 500 / 500 Balance 219.2333 / 219.2333 -380 / -380 Home Medications: Medications to take at Discharge Dorzolamide HCL/Timolol [Cosopt Opth Drops] 1 drp RIGHT EYE BID 10/14/18 Pantoprazole Sodium [Protonix] 40 mg PO BID 10/14/18 Travoprost [Travatan Z] 1 drp RIGHT EYE QHS 10/14/18 Ensure Enlive 120 ml PO 4X/DAY liquid 10/22/18 Primary Care Physician: Colin Castillo Chi, MD [Primary Care Provider] - Please Follow Up With: Jose Sparks MD When: one week Medical Necessity - Tobacco Use Smoking Status: Former smoker Tobacco Use: Non-smoker Meaningful Use Info Meaningful Use Diagnoses (Choose all that apply): None applicable
== END 2018-10-23 14:30 | disposition skilled nursing facility (03) | DRG 853 ==
LOC: ED 15:26 → SDC 16:00 → AC 16:01 → SDC 16:34 → ICU 10-15 07:09 → PCU 10-17 17:35
PROVIDERS: Family Medicine; Internal Medicine; Internal Medicine Critical Care Medicine; Internal Medicine Nephrology; Admitting Provider Surgery; Emergency Provider Emergency Medicine; Family Provider Family Medicine Geriatric Medicine; PCP Family Medicine Geriatric Medicine; Visit Provider Surgery
PROC: 0DTH0ZZ Resection of Cecum, Open Approach (ICD-10-PCS; CPT 49000; principal; 2018-10-14 17:00)
DX: A41.9 Sepsis, unspecified organism (principal); J69.0 Pneumonitis due to inhalation of food and vomit; J95.811 Postprocedural pneumothorax; R65.21 Severe sepsis with septic shock; N17.0 Acute kidney failure with tubular necrosis; K35.33 Acute appendicitis with perforation, localized peritonitis, and gangrene, with abscess; J96.01 Acute respiratory failure with hypoxia; K72.00 Acute and subacute hepatic failure without coma; E87.1 Hypo-osmolality and hyponatremia; E87.0 Hyperosmolality and hypernatremia; D62 Acute posthemorrhagic anemia; E86.0 Dehydration; K66.0 Peritoneal adhesions (postprocedural) (postinfection); Y84.8 Other medical procedures as the cause of abnormal reaction of the patient, or of later complication, without mention of misadventure at the time of the procedure; Z87.442 Personal history of urinary calculi; E87.5 Hyperkalemia; K21.9 Gastro-esophageal reflux disease without esophagitis; H40.9 Unspecified glaucoma; Z87.891 Personal history of nicotine dependence; R06.6 Hiccough
CPT/HCPCS: 31720; 36415; 36600; 36620; 70491; 71045; 71046; 71260; 74018; 74019; 74177; 80048; 80053; 80076; 82248; 82550; 82803; 82962; 83036; 83605; 83690; 83735; 83880; 84100; 84478; 84484; 85025; 85027; 85610; 85730; 87040; 87070; 87086; 87205; 87449; 87641; 88307; 93005; 93306; 93971; 94002; 94003; 94640; 94660; 95831; 97110; 97162; 97166; 97530; 99283; 99285; J7030; J7040; J7050; J7120; Q9957; Q9967; A4216; C1751; C8929; J2405; J3490; J7799

== ENCOUNTER → 2023-01-08 | Outpatient (CLI) | payer MEDICARE, OTHER, SELFPAY ==
[2023-01-08 14:58] LABS: PSA,Total - Annual Screen 1.01 ng/mL (0.00-4.00)
== END | disposition home or self-care (01) ==
LOC: LAB 14:02
PROVIDERS: PCP Family Medicine; Referring Provider Urology; Visit Provider Urology
DX: Z12.5 Encounter for screening for malignant neoplasm of prostate (principal)
CPT/HCPCS: 36415; 84153; G0103